=== PATIENT | male | born 1955 | race Caucasian/White ===

== ENCOUNTER 2018-02-11 07:44 | Inpatient (IN) | payer BC ==
[2018-02-11 08:28] LABS: Anisocytosis Slight; Basophils % (A) 1 %; Eosinophils # (A) 0.1 k/uL (0-0.7); Eosinophils % (A) 1 %; HCT 43.9 % (39.0-53.0); HGB 14.6 gm/dL (13.0-17.5); Lymphocytes # (A) 1.1 k/uL (1.0-4.8); Lymphocytes % (A) 21 %; MCH 31.5 pg (25.0-35.0); MCHC 33.3 g/dL (31.0-37.0); MCV 94.7 fL (80.0-100.0); Mean Platelet Volume 7.6; Monocytes # (A) 0.2 k/uL (0-1.0); Monocytes % (A) 3 %; Neutrophils # (A) 3.8 k/uL (1.3-7.7); Neutrophils % (A) 72 %; Platelet Count 143 k/uL (150-450); RBC 4.64 m/uL (4.30-5.90); RDW 16.8 % (11.5-15.5); WBC 5.4 k/uL (3.8-10.6)
[2018-02-11 08:39] LABS: Partial Thromboplastin Time 24.1 sec (22.0-30.0)
[2018-02-11] MEDS ORDERED: SODIUM CHLORIDE 0.9% 1,000 ML IV ONE ×2 (08:46→09:12)
--- NOTE | 2018-02-11 08:48 | XR ---
EXAMINATION: XR chest 2V DATE AND TIME: 02/11/2018 8:35 AM ORDERING PROVIDER: Last Lopez MD CLINICAL INDICATION: Weakness, dizziness. TECHNIQUE: PA and lateral COMPARISON: 12/23/2015 DESCRIPTION: The lungs are clear. The pleural spaces are negative. The cardiomediastinal silhouette is not enlarged on the PA view. There is, however, prominence of the soft tissues in the retrosternal space, corresponding to the anterior mediastinum. Making visualizat ion difficult is the overlap of the upper extremities over the anterior chest on this radiograph. The re are no prior CTs for comparison; the anterior mediastinal finding can be best characterized with c ontrast CT if clinically indicated in this acute setting. Otherwise, the finding can be further judith cterized by contrast CT nonurgently. Bones and soft tissues are negative for acute findings. IMPRESSION: 1. NO ACUTE PULMONARY OR PLEURAL PROCESS. 2. LATERAL RADIOGRAPH ANTERIOR MEDIASTINAL FINDING.
--- NOTE | 2018-02-11 09:18 | ED ---
General Adult HPI - General Chief complaint: Weakness Stated complaint: Weakness Time Seen by Provider: 02/11/18 07:57 Source: patient, RN notes reviewed, old records reviewed Mode of arrival: ambulatory Limitations: no limitations - History of Present Illness Initial comments: 62-year-old male presenting for evaluation of lightheadedness. Patient states he felt unsteady, felt like he may pass out. No chest pain or palpitations. No fever or chills. No abdominal pain or nausea vomiting. No diarrhea. Patient does have remote history of EtOH abuse and gastrointestinal hemorrhage. He denies any rectal bleeding or melena at this time. He states he did drink half a pint of liquor yesterday. He states he woke up felt somewhat dehydrated. He also has history of diabetes but has not been taking his medication as prescribed. - Related Data Home Medications Medication Instructions Recorded Confirmed Ezetimibe/Simvastatin [Vytorin 1 tab PO DAILY 12/20/15 09/23/17 10-40 mg Tablet] Pioglitazone HCl/Metformin HCl 1 tab PO DAILY 12/20/15 09/23/17 [Pioglitazone-Metformin 15-850] Dapagliflozin/Metformin HCl 1 tab PO DAILY 09/23/17 09/23/17 [Xigduo Xr 10 mg-1,000 mg Tab] glipiZIDE XL [Glucotrol XL] 5 mg PO DAILY 09/23/17 09/23/17 Previous Rx's Medication Instructions Recorded Albuterol Inhaler [Ventolin Hfa 1 - 2 puff INHALATION Q6HR PRN #1 09/24/17 Inhaler] inhaler Ipratropium [place] [Atrovent Hfa] 2 puff INHALATION QID #1 inhaler 09/24/17 Nicotine 21Mg/24Hr Patch [Habitrol] 1 each TRANSDERM DAILY #28 patch 09/24/17 Pantoprazole Sodium [Protonix] 40 mg PO DAILY #30 tablet. 09/24/17 Allergies Allergy/AdvReac Type Severity Reaction Status Date / Time No Known Allergies Allergy Verified 02/11/18 07:52 Review of Systems ROS Statement: Those systems with pertinent positive or pertinent negative responses have been documented in the HPI. ROS Other: All systems not noted in ROS Statement are negative. Past Medical History Past Medical History: Diabetes Mellitus, GI Bleed, Hypertension History of Any Multi-Drug Resistant Organisms: None Reported Past Surgical History: Hernia Repair, Orthopedic Surgery Past Anesthesia/Blood Transfusion Reactions: No Reported Reaction Past Psychological History: No Psychological Hx Reported Smoking Status: Current every day smoker Past Alcohol Use History: Rare Past Drug Use History: Marijuana - Past Family History Father Family Medical History: Diabetes Mellitus, Hyperlipidemia, Hypertension, Vascular Disorder General Exam Limitations: no limitations General appearance: alert, in no apparent distress Head exam: Present: atraumatic, normocephalic Eye exam: Present: normal appearance, PERRL, EOMI ENT exam: Present: mucous membranes dry Neck exam: Present: normal inspection. Absent: tenderness, meningismus Respiratory exam: Present: normal lung sounds bilaterally. Absent: respiratory distress, wheezes Cardiovascular Exam: Present: regular rate, normal rhythm Extremities exam: Present: normal inspection, full ROM. Absent: normal capillary refill, pedal edema Neurological exam: Present: alert, oriented X3, CN II-XII intact. Absent: motor sensory deficit Psychiatric exam: Present: normal affect, normal mood Skin exam: Present: warm, dry, intact. Absent: cyanosis, diaphoretic Course Vital Signs 02/11/18 02/11/18 02/11/18 07:49 08:52 09:56 Temperature 97.6 F Pulse Rate 88 91 88 Respiratory 18 18 18 Rate Blood Pressure 137/74 124/64 126/66 O2 Sat by Pulse 100 98 98 Oximetry EKG Findings - EKG Comments: EKG Findings:: EKG: Normal sinus rhythm, ventricular rate of 87, MN interval 158 , QRS duration 82, QTC 464 no signs of acute ischemia Medical Decision Making - Medical Decision Making 62-year-old male presenting with lightheadedness. Initially patient does appear quite dehydrated and admits to drinking alcohol yesterday evening. IV is established, he is given IV hydration laboratory studies are obtained. Laboratory studies are significant for white blood cell count 5.4, hemoglobin is stable at 14.6. Glucose is low 59, patient has been intermittently taking his oral hypoglycemics which includes metformin, he states he takes medication yesterday. He did not over take this medication. Urinalysis shows 4+ glucose and 1+ ketone. Patient does have an associated anion gap metabolic acidosis at 22 with a CO2 of 12 secondary to his lactic acidosis. He has a creatinine of 1.5. He received 2 L of IV hydration and his BNP and lactic are repeated. Lactic is up trending to 6.3 which does not fit with dehydration. His vitals do not promote concern for sepsis. They're stable. Patient has no abdominal pain to suggest ischemic bowel, distal pulses are intact. There is concern that this lactic acid may be secondary to dehydration versus type the lactic acidosis. As patient is on metformin and does have history of alcohol abuse. Given the not clearing of his lactic, he will be admitted for continued IV hydration and reevaluation. Case discussed with Dr. Adam who will accept admission - Lab Data Result diagrams: 02/11/18 08:17 02/11/18 11:20 Lab Results 02/11/18 02/11/18 02/11/18 Range/Units 08:17 08:17 08:17 WBC 5.4 (3.8-10.6) k/uL RBC 4.64 (4.30-5.90) m/uL Hgb 14.6 (13.0-17.5) gm/dL Hct 43.9 (39.0-53.0) % MCV 94.7 (80.0-100.0) fL MCH 31.5 (25.0-35.0) pg MCHC 33.3 (31.0-37.0) g/dL RDW 16.8 H (11.5-15.5) % Plt Count 143 L (150-450) k/uL Neutrophils % 72 % Lymphocytes % 21 % Monocytes % 3 % Eosinophils % 1 % Basophils % 1 % Neutrophils # 3.8 (1.3-7.7) k/uL Lymphocytes # 1.1 (1.0-4.8) k/uL Monocytes # 0.2 (0-1.0) k/uL Eosinophils # 0.1 (0-0.7) k/uL Basophils # 0.0 (0-0.2) k/uL Anisocytosis Slight PT (9.0-12.0) sec INR (<1.2) APTT (22.0-30.0) sec Sodium 142 (137-145) mmol/L Potassium 4.2 (3.5-5.1) mmol/L Chloride 107 (98-107) mmol/L Carbon Dioxide 14 L (22-30) mmol/L Anion Gap 21 mmol/L BUN 26 H (9-20) mg/dL Creatinine 1.50 H (0.66-1.25) mg/dL Est GFR (CKD-EPI)AfAm 57 (>60 ml/min/1.73 sqM) Est GFR (CKD-EPI)NonAf 49 (>60 ml/min/1.73 sqM) Glucose 59 L (74-99) mg/dL POC Glucose (mg/dL) (75-99) mg/dL POC Glu Sugar Trucker ID Lactic Ac Sepsis Rflx Plasma Lactic Acid Romaine (0.7-2.0) mmol/L Calcium 9.3 (8.4-10.2) mg/dL Total Bilirubin 0.7 (0.2-1.3) mg/dL AST 171 H (17-59) U/L ALT 133 H (21-72) U/L Alkaline Phosphatase 119 (38-126) U/L Total Creatine Kinase 138 (55-170) U/L CK-MB (CK-2) 1.6 (0.0-2.4) ng/mL CK-MB (CK-2) Rel Index 1.2 Troponin I <0.012 (0.000-0.034) ng/mL Total Protein 7.4 (6.3-8.2) g/dL Albumin 4.8 (3.5-5.0) g/dL Urine Color Urine Appearance (Clear) Urine pH (5.0-8.0) Ur Specific [place]cox (1.001-1.035) Urine Protein (Negative) Urine Glucose (UA) (Negative) Urine Ketones (Negative) Urine Blood (Negative) Urine Nitrite (Negative) Urine Bilirubin (Negative) Urine Urobilinogen (<2.0) mg/dL Ur Leukocyte Esterase (Negative) Blood Type Blood Type Recheck Antibody Screen Spec Expiration Date 02/11/18 02/11/18 02/11/18 Range/Units 08:17 08:17 08:17 WBC (3.8-10.6) k/uL RBC (4.30-5.90) m/uL Hgb (13.0-17.5) gm/dL Hct (39.0-53.0) % MCV (80.0-100.0) fL MCH (25.0-35.0) pg MCHC (31.0-37.0) g/dL RDW (11.5-15.5) % Plt Count (150-450) k/uL Neutrophils % % Lymphocytes % % Monocytes % % Eosinophils % % Basophils % % Neutrophils # (1.3-7.7) k/uL Lymphocytes # (1.0-4.8) k/uL Monocytes # (0-1.0) k/uL Eosinophils # (0-0.7) k/uL Basophils # (0-0.2) k/uL Anisocytosis PT 10.0 (9.0-12.0) sec INR 1.0 (<1.2) APTT 24.1 (22.0-30.0) sec Sodium (137-145) mmol/L Potassium (3.5-5.1) mmol/L Chloride (98-107) mmol/L Carbon Dioxide (22-30) mmol/L Anion Gap mmol/L BUN (9-20) mg/dL Creatinine (0.66-1.25) mg/dL Est GFR (CKD-EPI)AfAm (>60 ml/min/1.73 sqM) Est GFR (CKD-EPI)NonAf (>60 ml/min/1.73 sqM) Glucose (74-99) mg/dL POC Glucose (mg/dL) (75-99) mg/dL POC Glu Sugar Trucker ID Lactic Ac Sepsis Rflx Plasma Lactic Acid Romaine 5.5 H* (0.7-2.0) mmol/L Calcium (8.4-10.2) mg/dL Total Bilirubin (0.2-1.3) mg/dL AST (17-59) U/L ALT (21-72) U/L Alkaline Phosphatase (38-126) U/L Total Creatine Kinase (55-170) U/L CK-MB (CK-2) (0.0-2.4) ng/mL CK-MB (CK-2) Rel Index Troponin I (0.000-0.034) ng/mL Total Protein (6.3-8.2) g/dL Albumin (3.5-5.0) g/dL Urine Color Urine Appearance (Clear) Urine pH (5.0-8.0) Ur Specific [place] (1.001-1.035) Urine Protein (Negative) Urine Glucose (UA) (Negative) Urine Ketones (Negative) Urine Blood (Negative) Urine Nitrite (Negative) Urine Bilirubin (Negative) Urine Urobilinogen (<2.0) mg/dL Ur Leukocyte Esterase (Negative) Blood Type A Positive Blood Type Recheck No Antibody Screen NEGATIVE Spec Expiration Date 02/14/2018 - 231602/11/18 02/11/18 02/11/18 Range/Units 08:17 09:11 09:54 WBC (3.8-10.6) k/uL RBC (4.30-5.90) m/uL Hgb (13.0-17.5) gm/dL Hct (39.0-53.0) % MCV (80.0-100.0) fL MCH (25.0-35.0) pg MCHC (31.0-37.0) g/dL RDW (11.5-15.5) % Plt Count (150-450) k/uL Neutrophils % % Lymphocytes % % Monocytes % % Eosinophils % % Basophils % % Neutrophils # (1.3-7.7) k/uL Lymphocytes # (1.0-4.8) k/uL Monocytes # (0-1.0) k/uL Eosinophils # (0-0.7) k/uL Basophils # (0-0.2) k/uL Anisocytosis PT (9.0-12.0) sec INR (<1.2) APTT (22.0-30.0) sec Sodium (137-145) mmol/L Potassium (3.5-5.1) mmol/L Chloride (98-107) mmol/L Carbon Dioxide (22-30) mmol/L Anion Gap mmol/L BUN (9-20) mg/dL Creatinine (0.66-1.25) mg/dL Est GFR (CKD-EPI)AfAm (>60 ml/min/1.73 sqM) Est GFR (CKD-EPI)NonAf (>60 ml/min/1.73 sqM) Glucose (74-99) mg/dL POC Glucose (mg/dL) 66 L (75-99) mg/dL POC Glu Sugar Trucker ID Mariel Youssef Lactic Ac Sepsis Rflx Y Plasma Lactic Acid Romaine (0.7-2.0) mmol/L Calcium (8.4-10.2) mg/dL Total Bilirubin (0.2-1.3) mg/dL AST (17-59) U/L ALT (21-72) U/L Alkaline Phosphatase (38-126) U/L Total Creatine Kinase (55-170) U/L CK-MB (CK-2) (0.0-2.4) ng/mL CK-MB (CK-2) Rel Index Troponin I (0.000-0.034) ng/mL Total Protein (6.3-8.2) g/dL Albumin (3.5-5.0) g/dL Urine Color Yellow Urine Appearance Clear (Clear) Urine pH 5.0 (5.0-8.0) Ur Specific [place] 1.018 (1.001-1.035) Urine Protein Trace H (Negative) Urine Glucose (UA) 4+ H (Negative) Urine Ketones 1+ H (Negative) Urine Blood Negative (Negative) Urine Nitrite Negative (Negative) Urine Bilirubin Negative (Negative) Urine Urobilinogen <2.0 (<2.0) mg/dL Ur Leukocyte Esterase Negative (Negative) Blood Type Blood Type Recheck Antibody Screen Spec Expiration Date 02/11/18 02/11/18 Range/Units 11:20 11:20 WBC (3.8-10.6) k/uL RBC (4.30-5.90) m/uL Hgb (13.0-17.5) gm/dL Hct (39.0-53.0) % MCV (80.0-100.0) fL MCH (25.0-35.0) pg MCHC (31.0-37.0) g/dL RDW (11.5-15.5) % Plt Count (150-450) k/uL Neutrophils % % Lymphocytes % % Monocytes % % Eosinophils % % Basophils % % Neutrophils # (1.3-7.7) k/uL Lymphocytes # (1.0-4.8) k/uL Monocytes # (0-1.0) k/uL Eosinophils # (0-0.7) k/uL Basophils # (0-0.2) k/uL Anisocytosis PT (9.0-12.0) sec INR (<1.2) APTT (22.0-30.0) sec Sodium 141 (137-145) mmol/L Potassium 5.0 (3.5-5.1) mmol/L Chloride 107 (98-107) mmol/L Carbon Dioxide 12 L (22-30) mmol/L Anion Gap 22 mmol/L BUN 26 H (9-20) mg/dL Creatinine 1.38 H (0.66-1.25) mg/dL Est GFR (CKD-EPI)AfAm 63 (>60 ml/min/1.73 sqM) Est GFR (CKD-EPI)NonAf 54 (>60 ml/min/1.73 sqM) Glucose 110 H (74-99) mg/dL POC Glucose (mg/dL) (75-99) mg/dL POC Glu Sugar Trucker ID Lactic Ac Sepsis Rflx Plasma Lactic Acid Romaine 6.3 H* (0.7-2.0) mmol/L Calcium 8.5 (8.4-10.2) mg/dL Total Bilirubin (0.2-1.3) mg/dL AST (17-59) U/L ALT (21-72) U/L Alkaline Phosphatase (38-126) U/L Total Creatine Kinase (55-170) U/L CK-MB (CK-2) (0.0-2.4) ng/mL CK-MB (CK-2) Rel Index Troponin I (0.000-0.034) ng/mL Total Protein (6.3-8.2) g/dL Albumin (3.5-5.0) g/dL Urine Color Urine Appearance (Clear) Urine pH (5.0-8.0) Ur Specific [place] (1.001-1.035) Urine Protein (Negative) Urine Glucose (UA) (Negative) Urine Ketones (Negative) Urine Blood (Negative) Urine Nitrite (Negative) Urine Bilirubin (Negative) Urine Urobilinogen (<2.0) mg/dL Ur Leukocyte Esterase (Negative) Blood Type Blood Type Recheck Antibody Screen Spec Expiration Date Disposition Clinical Impression: Dehydration, Lactic acid acidosis Disposition: ADMITTED IP TO THIS HOSP Condition: Stable Is patient prescribed a controlled substance at d/c from ED?: No Referrals: John Vaughn MD [Primary Care Provider] - 1-2 days Decision to Admit Reason: Admit from EC Decision Date: 02/11/18 Decision Time: 12:18
[2018-02-11 09:22] LABS: Albumin 4.8 g/dL (3.5-5.0); Calcium 9.3 mg/dL (8.4-10.2); Potassium 4.2 mmol/L (3.5-5.1); Total Bilirubin 0.7 mg/dL (0.2-1.3); Total Protein 7.4 g/dL (6.3-8.2)
[2018-02-11 09:29] LABS: Creatine Kinase 138 U/L (55-170)
[2018-02-11 09:43] LABS: Creatine Kinase MB 1.6 ng/mL (0.0-2.4); Troponin I <0.012 ng/mL (0.000-0.034)
[2018-02-11 09:55] LABS: Glucose,Whole Blood 66 mg/dL (75-99)
[2018-02-11 10:50] LABS: Appearance,Urine Clear (Clear); Bilirubin,Urine Negative (Negative); Blood,Urine Negative (Negative); Color,Urine Yellow; Glucose,Urine (UA) 4+ (Negative); Ketones,Urine 1+ (Negative); Leukocyte Esterase,Urine Negative (Negative); Nitrite,Urine Negative (Negative); Protein,Urine Trace (Negative); Specific Gravity,Urine 1.018 (1.001-1.035); Urobilinogen,Urine <2.0 mg/dL (<2.0)
[2018-02-11 11:53] LABS: Calcium 8.5 mg/dL (8.4-10.2)
[2018-02-11] MEDS ORDERED: NALOXONE 0.4 MG/ML 1 ML VIAL IV PRN (12:10)
[2018-02-11] MEDS ORDERED: SODIUM CHLORIDE 0.9% 500 ML IV ONE (12:10)
[2018-02-11] MEDS: SODIUM CHLORIDE 0.9% 1,000 ML IV SCH ×2 (12:37→23:12)
[2018-02-11] MEDS: NICOTINE 21MG/24HR PATCH TRANSDERM SCH (14:13)
[2018-02-11 15:25] VITALS: RESP 18
[2018-02-11] MEDS ORDERED: guaiFENesin 600 MG TABLET.ER PO ONE (16:00)
[2018-02-11] MEDS: EZETIMIBE 10 MG TAB PO SCH (16:20)
[2018-02-11] MEDS: PANTOPRAZOLE 40 MG TABLET PO SCH (16:20)
[2018-02-11] MEDS: ATORVASTATIN 20 MG TAB PO SCH (16:20)
[2018-02-11 16:31] LABS: Glucose,Whole Blood 73 mg/dL (75-99)
[2018-02-11] MEDS: INSULIN ASPART 100 UNIT/ML 1 ML 10 ML VIAL SQ SCH (16:37)
--- NOTE | 2018-02-11 20:11 | HP ---
HISTORY AND PHYSICAL DATE OF ADMISSION: 02/11/2018. DATE OF SERVICE: 02/11/2018 PRESENTING COMPLAINT: Dizzy, lightheaded. HISTORY OF PRESENTING COMPLAINT: This is a 62-year-old patient of Dr. Vaughn whose chronic stable medical conditions include diabetes, hypertension, smoking cigarettes. The patient was here in August of this year with severe anemia and required 4 units of blood, also was found to be pancytopenic, also has Bravo's esophagus, sigmoid diverticulosis and COPD. The patient got up this morning, felt extremely dizzy and lightheaded, disoriented, having trouble walking. There is no change in speech. No headache. No double vision. No focal weakness. The patient felt his heart racing and palpitations and slight nausea, decided to come in. The patient is still smoking a few cigars a day and drinking alcohol on and off. REVIEW OF SYSTEMS: CONSTITUTIONAL: Tired. HEENT: None. RESPIRATORY: None. CARDIOVASCULAR: As above. GASTROINTESTINAL: Some heartburn. GENITOURINARY: None. MUSCULOSKELETAL: None. DERMATOLOGIC: None. HEMATOLOGIC: None. LYMPHATIC: None. PSYCHIATRY: None. NEUROLOGICAL: None. PAST HISTORY: COPD, gastric polyps, sigmoid diverticulosis, Bravo esophagus, hypertension, diabetes type 2, pancytopenia. PAST SURGICAL HISTORY: Hernia repair, orthopedic surgery. SOCIAL HISTORY: Smoking a few cigars a day. Smoked for a long time. Alcohol on and off. Occasional marijuana use. FAMILY HISTORY: Diabetes, hyperlipidemia, hypertension, vascular disorder. HOME MEDICATIONS: 1. Glucotrol XL 5 mg a day. 2. Actos. 3. Metformin 15/850 one tablet daily. 4. Prilosec 20 mg a day. 5. Vytorin 10/40 one tablet p.o. daily. 6. Xigduo 05/1000 1 tablet p.o. daily. ALLERGIES: None. EXAMINATION: VITAL SIGNS: On presentation, temperature 97.6, pulse 88, respirations 18, blood pressure 137/74, pulse ox 100% on room air. GENERAL APPEARANCE: Average built, sitting up, awake. EYES: Pupils equal. Conjunctivae normal. HEENT: External appearance of nose and ears normal. Oral cavity normal. NECK: JVD not raised. Mass not palpable. RESPIRATORY: Effort normal. LUNGS: Slightly decreased breath sounds. CARDIOVASCULAR: First and second heart sounds normal. No edema. ABDOMEN: Soft, nontender. Liver and spleen not palpable. LYMPHATIC: No lymph node palpable in neck or axillae. PSYCHIATRY: Alert and oriented x3. Mood and affect normal. NEUROLOGICAL: Pupils equal. Cranial nerves grossly intact. Power and sensation grossly intact. INVESTIGATIONS: White count 5.4, hemoglobin 14.6, platelets 143. BUN 26, creatinine 1.50. AST 131, ALT 133. BUN 26, creatinine 1.38. Patient's blood glucose was 66 and 73. ASSESSMENT: 1. This patient presented with episode of dizziness, lightheaded and disoriented. It may be noted that sugar is running on the lower side. At the same time, patient is having severe palpitation that well may be underlying arrhythmia. We need to follow Accu-Cheks rather closely. 2. Diabetes mellitus type 2, uncontrolled with hypoglycemia. 3. Essential hypertension. 4. Bravo esophagus. 5. Sigmoid diverticulosis. 6. Chronic obstructive pulmonary disease in a current smoker. 7. Chronic nicotine dependence. Patient is a cigarette smoker. PLAN: Accu-Cheks will be followed closely. Will discontinue patient's Glucotrol XL. Will get opinion from Cardiology. Patient will be kept on telemetry. Encourage him to ambulate. MMODL / IJN: [id number] /
[2018-02-11] MEDS: guaiFENesin 600 MG TABLET.ER PO SCH (20:26)
[2018-02-11 21:03] LABS: Glucose,Whole Blood 79 mg/dL (75-99)
[2018-02-12 02:10] LABS: Glucose,Whole Blood 94 mg/dL (75-99)
[2018-02-12] MEDS: INSULIN ASPART 100 UNIT/ML 1 ML 10 ML VIAL SQ SCH ×2 (06:18→12:27)
[2018-02-12 06:19] LABS: Basophils % (A) 0 %; Eosinophils # (A) 0.1 k/uL (0-0.7); Eosinophils % (A) 3 %; HCT 34.8 % (39.0-53.0); HGB 11.7 gm/dL (13.0-17.5); Lymphocytes # (A) 0.7 k/uL (1.0-4.8); Lymphocytes % (A) 21 %; MCH 30.6 pg (25.0-35.0); MCHC 33.5 g/dL (31.0-37.0); MCV 91.2 fL (80.0-100.0); Mean Platelet Volume 7.2; Monocytes # (A) 0.3 k/uL (0-1.0); Monocytes % (A) 8 %; Neutrophils % (A) 63 %; RBC 3.82 m/uL (4.30-5.90); WBC 3.2 k/uL (3.8-10.6)
[2018-02-12 06:27] LABS: Glucose,Whole Blood 117 mg/dL (75-99)
[2018-02-12 06:31] LABS: Albumin 3.3 g/dL (3.5-5.0); Calcium 8.6 mg/dL (8.4-10.2); Potassium 4.7 mmol/L (3.5-5.1); Total Protein 5.5 g/dL (6.3-8.2)
[2018-02-12] MEDS: PANTOPRAZOLE 40 MG TABLET PO SCH (06:33)
[2018-02-12 07:10] LABS: Platelet Count 77 k/uL (150-450)
[2018-02-12] MEDS: SODIUM CHLORIDE 0.9% 1,000 ML IV SCH (07:57)
[2018-02-12] MEDS: EZETIMIBE 10 MG TAB PO SCH (07:58)
[2018-02-12] MEDS: guaiFENesin 600 MG TABLET.ER PO SCH (07:58)
[2018-02-12] MEDS: ATORVASTATIN 20 MG TAB PO SCH (07:58)
[2018-02-12] MEDS: NICOTINE 21MG/24HR PATCH TRANSDERM SCH (08:00)
[2018-02-12 08:45] VITALS: PULSE 67
[2018-02-12] MEDS ORDERED: METFORMIN HCL PO SCH (09:00)
[2018-02-12] MEDS ORDERED: metFORMIN 850 MG TAB PO SCH (09:00)
[2018-02-12] MEDS ORDERED: DAPAGLIFLOZIN PO SCH (09:00)
[2018-02-12] MEDS ORDERED: PIOGLITAZONE 15 MG TAB PO SCH (09:00)
[2018-02-12 11:43] LABS: Glucose,Whole Blood 158 mg/dL (75-99)
[2018-02-12 12:41] VITALS: BP 132/72; TEMP 97
--- NOTE | 2018-02-13 13:52 | DS ---
DISCHARGE SUMMARY DATE OF ADMISSION: February 11, 2018. DATE OF DISCHARGE: February 12, 2018. FINAL DIAGNOSES: 1. Acute renal failure from decreased oral intake and patient working out in the yard. 2. Hypoglycemia, symptomatic. 3. Diabetes mellitus type 2, uncontrolled with hypoglycemia. 4. Essential hypertension. 5. Bravo's esophagus. 6. Sigmoid diverticulosis. 7. Chronic obstructive pulmonary disease in a current smoker. 8. Chronic nicotine dependence in a patient who is a cigarette smoker. HOSPITAL COURSE: This patient presented dizzy, lightheaded. Initially was thought this could be arrhythmia, but actually the patient was found to be in acute renal failure. The patient was hydrated and patient's symptoms all resolved. The patient also was hypoglycemic. The patient's glyburide was discontinued. The patient is educated about the same and also the patient's timing of two combination and diabetic pills changed to be taken 1 in the morning, 1 in the night and both of them had metformin in there. The patient educated about the same. Feeling much better. PHYSICAL EXAMINATION: On exam, lungs decreased breath sounds. Cardiovascular: 1st and 2nd sounds normal. The patient's creatinine did drop from 1.5 to 1.1 by the time of discharge. It was felt no further need for any cardiac workup. Telemetry remained unremarkable. DISCHARGE MEDICATIONS: 1. Vytorin 10/40 one tablet p.o. daily. 2. Pioglitazone/metformin 15/850 1 tab p.o. daily. 3. Prilosec 20 mg with breakfast. 4. Zinc 2-0 05/1000 1 tablet p.o. before supper. 5. Nicotine 21 mg patch. 6. Glucotrol XL was discontinued. The patient to check his Accu-Cheks in the morning. Follow up with Dr. John Vaughn in [address] Vaughn. MMSWETHAL / IJN: [id number] /
== END 2018-02-12 14:51 | disposition home or self-care (01) | DRG 683 ==
LOC: EC 07:44 → 6SEL 12:10
PROVIDERS: ADMIT Hospitalist; ATTEND Hospitalist
DX: N17.9 Acute kidney failure, unspecified (principal); E87.2 Acidosis; E11.649 Type 2 diabetes mellitus with hypoglycemia without coma; F17.210 Nicotine dependence, cigarettes, uncomplicated; I10 Essential (primary) hypertension; J44.9 Chronic obstructive pulmonary disease, unspecified; K22.70 Barrett's esophagus without dysplasia; K57.30 Diverticulosis of large intestine without perforation or abscess without bleeding; E86.0 Dehydration; Z79.84 Long term (current) use of oral hypoglycemic drugs; Z79.899 Other long term (current) drug therapy; Z86.010 Personal history of colon polyps; Z82.49 Family history of ischemic heart disease and other diseases of the circulatory system; Z83.3 Family history of diabetes mellitus; Z84.89 Family history of other specified conditions
CPT/HCPCS: 36415; 71046; 80048; 80053; 81003; 82550; 82553; 83605; 83735; 84484; 85025; 85610; 85730; 86850; 86900; 86901; 93005; 96360; 96361; 99285

== ENCOUNTER 2019-03-04 07:00 | Inpatient (IN) | payer BC, OTHER ==
[2019-03-04] MEDS ORDERED: ONDANSETRON 4 MG/2 ML VIAL IVP STA (07:09)
[2019-03-04] MEDS ORDERED: PANTOPRAZOLE 40 MG/10 ML VIAL IVP STA (07:09)
[2019-03-04] MEDS ORDERED: SODIUM CHLORIDE 0.9% 500 ML 500 ML IV STA (07:09)
[2019-03-04] MEDS ORDERED: SODIUM CHLORIDE 0.9% 1,000 ML IV STA (07:09)
--- NOTE | 2019-03-04 07:34 | ED ---
General Adult HPI - General Chief complaint: Fall Stated complaint: Fall,coughing up blood Time Seen by Provider: 03/04/19 07:00 Source: patient, EMS, RN notes reviewed Mode of arrival: EMS - History of Present Illness Initial comments: This is a 63-year-old male who presents to the emergency department with past medical history significant for diabetes and alcoholism. Patient states he drinks at least a pint today. Patient states he woke up this morning felt weak on his feet fell slowly to the ground to his knees first and then laid down. Patient states he then got up and set a chair and vomited up quite a bit of blood. Patient denies cough patient denies difficulty breathing shortness of breath patient denies any chest pain. Patient denies any black or bloody sto ols. Patient denies abdominal pain. Patient denies any recent fever or chills. Patient denies any headache patient denies numbness weakness. Patient states he does feel lightheaded however. - Related Data Home Medications Medication Instructions Recorded Confirmed Ezetimibe/Simvastatin [Vytorin 1 tab PO DAILY 12/20/15 02/11/18 10-40 mg Tablet] Pioglitazone HCl/Metformin HCl 1 tab PO DAILY 12/20/15 02/11/18 [Pioglitazone-Metformin 15-850] Omeprazole [PriLOSEC] 20 mg PO AC-BRKFST 02/11/18 02/11/18 Previous Rx's Medication Instructions Recorded Dapagliflozin/Metformin HCl 1 tab PO PC-SUPPER #0 02/12/18 [Xigduo Xr 10 mg-1,000 mg Tab] Nicotine 21Mg/24Hr Patch [Habitrol] 1 patch TRANSDERM DAILY #30 patch 02/12/18 Allergies Allergy/AdvReac Type Severity Reaction Status Date / Time No Known Allergies Allergy Verified 02/11/18 12:40 Review of Systems ROS Statement: Those systems with pertinent positive or pertinent negative responses have been documented in the HPI. ROS Other: All systems not noted in ROS Statement are negative. Past Medical History Past Medical History: Diabetes Mellitus, GI Bleed, Hypertension History of Any Multi-Drug Resistant Organisms: None Reported Past Surgical History: Hernia Repair, Orthopedic Surgery Past Anesthesia/Blood Transfusion Reactions: No Reported Reaction Past Psychological History: No Psychological Hx Reported Smoking Status: Current every day smoker Past Alcohol Use History: Rare Past Drug Use History: Marijuana Additional Drug Use History / Comment(s): PT SMOKES 2 CIGARS A DAY AND OCCASIONALLY SMOKES MARIJUANA. - Past Family History Father Family Medical History: Diabetes Mellitus, Hyperlipidemia, Hypertension, Vascular Disorder General Exam - General Exam Comments Initial Comments: GENERAL: Patient is well-developed and well-nourished. Patient is nontoxic and well-hydrated and is in mild distress. ENT: Neck is soft and supple. No significant lymphadenopathy is noted. Oropharynx is clear. Moist mucous membranes. Neck has full range of motion without eliciting any pain. EYES: The sclera were anicteric and conjunctiva were pink and moist. Extraocular movements were intact and pupils were equal round and reactive to light. Eyelids were unremarkable. PULMONARY: Unlabored respirations. Good breath sounds bilaterally. No audible rales rhonchi or wheezing was noted. CARDIOVASCULAR: There is a regular rate and rhythm without any murmurs gallops or rubs. ABDOMEN: Soft and nontender with normal bowel sounds. SKIN: Patient's skin is pale NEUROLOGIC: Patient is alert and oriented x3. Cranial nerves II through XII are grossly intact. Motor and sensory are also intact. Normal speech, volume and content. Symmetrical smile. MUSCULOSKELETAL: Normal extremities with adequate strength and full range of motion. LYMPHATICS: No significant lymphadenopathy is noted PSYCHIATRIC: Normal psychiatric evaluation. Course Vital Signs 03/04/19 03/04/19 03/04/19 07:01 07:48 08:10 Temperature 99 F Pulse Rate 128 H 126 H 129 H Respiratory 16 18 18 Rate Blood Pressure 97/57 87/58 104/63 O2 Sat by Pulse 99 100 Oximetry 03/04/19 08:41 Temperature Pulse Rate 124 H Respiratory 18 Rate Blood Pressure 101/65 O2 Sat by Pulse 99 Oximetry Medical Decision Making - Medical Decision Making EKG shows sinus tachycardia at 126 bpm WV interval 140 QRS is 60 QT interval 312 QTC is 451. Patient's EKG shows no ST segment elevation or depression. Patient's lactic acid was elevated I believe is from dehydration and alcoholic ketoacidosis and possibly the fact that the patient takes metformin. Patient received 1.5 L of fluid in the emergency department. I spoke with Dr. Vee she agreed to admit the patient admitted the patient to the ICU I wrote Ativan withdrawal protocol. I also continued fluid and repeated CBCs. I consulted Samuel and spoke with him and he agreed with the admission and I also consult the GI - Lab Data Result diagrams: 03/04/19 07:10 03/04/19 07:10 Lab Results 03/04/19 03/04/19 03/04/19 Range/Units 07:10 07:10 07:10 WBC 4.2 (3.8-10.6) k/uL RBC 2.67 L (4.30-5.90) m/uL Hgb 9.4 L (13.0-17.5) gm/dL Hct 28.0 L (39.0-53.0) % MCV 105.0 H (80.0-100.0) fL MCH 35.3 H (25.0-35.0) pg MCHC 33.6 (31.0-37.0) g/dL RDW 15.2 (11.5-15.5) % Plt Count 99 L (150-450) k/uL Neutrophils % (Manual) 71 % Lymphocytes % (Manual) 21 % Monocytes % (Manual) 8 % Neutrophils # (Manual) 2.98 (1.3-7.7) k/uL Lymphocytes # (Manual) 0.88 L (1.0-4.8) k/uL Monocytes # (Manual) 0.34 (0-1.0) k/uL Nucleated RBCs 0 (0-0) /100 WBC Manual Slide Review Performed Macrocytosis Moderate PT (9.0-12.0) sec INR (<1.2) APTT (22.0-30.0) sec Sodium 136 L (137-145) mmol/L Potassium 5.2 H (3.5-5.1) mmol/L Chloride 99 (98-107) mmol/L Carbon Dioxide 18 L (22-30) mmol/L Anion Gap 19 mmol/L BUN 23 H (9-20) mg/dL Creatinine 1.28 H (0.66-1.25) mg/dL Est GFR (CKD-EPI)AfAm 68 (>60 ml/min/1.73 sqM) Est GFR (CKD-EPI)NonAf 59 (>60 ml/min/1.73 sqM) Glucose 258 H (74-99) mg/dL Plasma Lactic Acid Romaine (0.7-2.0) mmol/L Calcium 8.6 (8.4-10.2) mg/dL Total Bilirubin 2.3 H (0.2-1.3) mg/dL AST 443 H (17-59) U/L ALT 108 H (21-72) U/L Alkaline Phosphatase 202 H (38-126) U/L Total Protein 5.8 L (6.3-8.2) g/dL Albumin 3.4 L (3.5-5.0) g/dL Amylase 40 (30-110) U/L Lipase 152 (23-300) U/L Serum Alcohol 52 mg/dL Blood Type A Positive Blood Type Recheck No Antibody Screen NEGATIVE Spec Expiration Date 03/07/2019230903/04/19 03/04/19 Range/Units 07:10 07:10 WBC (3.8-10.6) k/uL RBC (4.30-5.90) m/uL Hgb (13.0-17.5) gm/dL Hct (39.0-53.0) % MCV (80.0-100.0) fL MCH (25.0-35.0) pg MCHC (31.0-37.0) g/dL RDW (11.5-15.5) % Plt Count (150-450) k/uL Neutrophils % (Manual) % Lymphocytes % (Manual) % Monocytes % (Manual) % Neutrophils # (Manual) (1.3-7.7) k/uL Lymphocytes # (Manual) (1.0-4.8) k/uL Monocytes # (Manual) (0-1.0) k/uL Nucleated RBCs (0-0) /100 WBC Manual Slide Review Macrocytosis PT 12.6 H (9.0-12.0) sec INR 1.2 H (<1.2) APTT 19.7 L (22.0-30.0) sec Sodium (137-145) mmol/L Potassium (3.5-5.1) mmol/L Chloride (98-107) mmol/L Carbon Dioxide (22-30) mmol/L Anion Gap mmol/L BUN (9-20) mg/dL Creatinine (0.66-1.25) mg/dL Est GFR (CKD-EPI)AfAm (>60 ml/min/1.73 sqM) Est GFR (CKD-EPI)NonAf (>60 ml/min/1.73 sqM) Glucose (74-99) mg/dL Plasma Lactic Acid Romaine 10.4 H* (0.7-2.0) mmol/L Calcium (8.4-10.2) mg/dL Total Bilirubin (0.2-1.3) mg/dL AST (17-59) U/L ALT (21-72) U/L Alkaline Phosphatase (38-126) U/L Total Protein (6.3-8.2) g/dL Albumin (3.5-5.0) g/dL Amylase (30-110) U/L Lipase (23-300) U/L Serum Alcohol mg/dL Blood Type Blood Type Recheck Antibody Screen Spec Expiration Date Critical Care Time Critical Care Time: Yes Total Critical Care Time: 35 Disposition Clinical Impression: Gastrointestinal hemorrhage, Anemia, Lactic acid acidosis, Hepatitis, alcoholic Disposition: ADMITTED IP TO THIS HOSP Referrals: John Vaughn MD [Primary Care Provider] - 1-2 days Time of Disposition: 09:07
[2019-03-04 07:39] LABS: Albumin 3.4 g/dL (3.5-5.0); Calcium 8.6 mg/dL (8.4-10.2); Potassium 5.2 mmol/L (3.5-5.1); Total Bilirubin 2.3 mg/dL (0.2-1.3); Total Protein 5.8 g/dL (6.3-8.2)
[2019-03-04 07:48] LABS: INR 1.2 (<1.2); Prothrombin Time 12.6 sec (9.0-12.0)
[2019-03-04 07:51] LABS: HGB 9.4 gm/dL (13.0-17.5); MCH 35.3 pg (25.0-35.0); MCHC 33.6 g/dL (31.0-37.0); Macrocytosis Moderate; Mean Platelet Volume 9.2; RBC 2.67 m/uL (4.30-5.90); RDW 15.2 % (11.5-15.5); WBC 4.2 k/uL (3.8-10.6)
[2019-03-04 07:53] LABS: Partial Thromboplastin Time 19.7 sec (22.0-30.0)
--- NOTE | 2019-03-04 07:56 | XR ---
EXAMINATION TYPE: XR chest 2V DATE OF EXAM: 03/04/2019 COMPARISON: 02/02/2016 TECHNIQUE: PA and lateral views submitted. HISTORY: Chest. Pain FINDINGS: The lungs are clear and there is no pneumothorax, pleural effusion, or focal pneumonia. Hypertrophi c and degenerative change spine. IMPRESSION: 1. No acute process.
[2019-03-04 08:04] LABS: Platelet Count 99 k/uL (150-450)
[2019-03-04 08:35] LABS: Lymphocytes # (M) 0.88 k/uL (1.0-4.8); Monocytes # (M) 0.34 k/uL (0-1.0); Neutrophils # (M) 2.98 k/uL (1.3-7.7); Neutrophils % (M) 71 %; Nucleated Red Blood Cells 0 /100 WBC (0-0); Total Cells Counted 100
[2019-03-04] MEDS ORDERED: NALOXONE 0.4 MG/ML 1 ML VIAL IV PRN (09:11)
[2019-03-04] MEDS ORDERED: THIAMINE 100 MG/ML 2 ML VIAL IM STA (09:13)
[2019-03-04] MEDS ORDERED: LORazepam 2 MG/ML INJ IV PRN ×2 (09:13)
[2019-03-04 10:16] LABS: Glucose,Whole Blood 248 mg/dL (75-99)
[2019-03-04] MEDS ORDERED: SODIUM CHLORIDE 0.9% 2,000 ML IV ONE (10:22)
[2019-03-04] MEDS ORDERED: OCTREOTIDE 100 MCG/ML INJ IVP ONE (11:00)
[2019-03-04 11:10] LABS: Glucose,Whole Blood 247 mg/dL (75-99)
[2019-03-04] MEDS: INSULIN ASPART (NovoLOG) 100 UNIT/ML VIAL SQ SCH ×5 (11:15→23:26)
[2019-03-04] MEDS ORDERED: MELATONIN 3 MG TABLET PO PRN (11:33)
[2019-03-04] MEDS ORDERED: MORPHINE SULFATE 4 MG/ML SYRINGE IV PRN (11:33)
[2019-03-04] MEDS ORDERED: ONDANSETRON 4 MG/2 ML VIAL IVP PRN (11:33)
[2019-03-04] MEDS ORDERED: ACETAMINOPHEN TAB 325 MG TAB PO PRN (11:33)
[2019-03-04 11:39] LABS: HCT 25.3 % (39.0-53.0); HGB 8.4 gm/dL (13.0-17.5); MCH 35.1 pg (25.0-35.0); MCHC 33.3 g/dL (31.0-37.0); MCV 105.6 fL (80.0-100.0); Macrocytosis Moderate; Mean Platelet Volume 8.7; Platelet Count 102 k/uL (150-450); RDW 14.9 % (11.5-15.5); WBC 5.5 k/uL (3.8-10.6)
--- NOTE | 2019-03-04 11:40 | P.HPIM ---
History of Present Illness H&P Date: 03/04/19 Chief Complaint: vomiting up blood Patient is a 63-year-old male with a past medical history of esophageal varices diagnosed on EGD August 2017, alcohol abuse, hypertension, diabetes mellitus type 2 well controlled on oral medications, prior GI bleed, and history of diverticulitis who presented to the ER with complaints of vomiting up blood. On arrival his found to be tachycardic with a pulse of 128 slightly hypotensive with a blood pressure of 97/57.Initial laboratory analysis showed hemoglobin of 9.4 down from his prior of 11, thrombocytopenia with platelets of 99, hyperkalemia with potassium of 5.2, carbon dioxide 18, anion gap 19, lactic acid 10.4, BUN 23, creatinine 1.28, glucose 258, AST 444, ALT 108, and a serum alcohol level of 52. Chest x-ray in the ER which showed no acute process. EKG showed sinus tachycardia. He was started on IV fluids and given a dose of IV PPI. He was admitted to the ICU for further monitoring. Patient seen and examined at bedside in the ICU. He states that this morning he tried to get up around 5 AM. He walked his kitchen and felt very weak dropped to his knees, fell, and hit his head. He initially was unable to stand but eventually brought himself to standing. He sat on the couch about 20 minutes and felt better. He then tried to ambulate again and felt lightheaded and dizzy after about 3 steps. This again resolved with sitting. He then had an episode of vomiting up bright red blood. He has felt short of breath the last 2 days and it has been gradually getting worse. For the last 3 weeks he's had abdominal pain that is epigastric in nature. It gets better with taking Pepto- Bismol. He does not notice any worsening with eating. He also reports that he has had a poor appetite and has lost 15-20 pounds over the last year. He consumes approximately 1. of alcohol daily. He is doing this for the last year and he has been drinking 40-50 years in total. He reports that he has also been struggling with ALLERGIES recently and has had a runny nose, stuffy nose, sore throat, and postnasal drip. He denies any chest pain or palpitations. He did report that he felt presyncopal today but denies any syncope. He denies any history of liver disease however he follows with Dr. Guillen on a re gular basis and follow her last approximately 3 months ago. He also sees Dr. Kruse. He states his blood sugars have been running about 140. He denies any recent changes in medications. Review of Systems Pertinent positives and negatives as discussed in HPI, a complete review of systems was performed and all other systems are negative. Past Medical History Past Medical History: Diabetes Mellitus, GI Bleed, Hypertension Additional Past Medical History / Comment(s): probable COPD, anemia, Bravo's esophagus, sigmoid diverticulitis, dyslipidemia History of Any Multi-Drug Resistant Organisms: None Reported Past Surgical History: Hernia Repair, Orthopedic Surgery Additional Past Surgical History / Comment(s): bilateral carpal tunnel repair, left inguinal hernia repair Past Anesthesia/Blood Transfusion Reactions: No Reported Reaction Past Psychological History: No Psychological Hx Reported Smoking Status: Former smoker Past Alcohol Use History: Abuse Past Drug Use History: Marijuana Additional Drug Use History / Comment(s): PT SMOKES 2 CIGARS A DAY AND OCCASIONALLY SMOKES MARIJUANA. Additional History: patient was alone, does not use any assistive devices, drinks approximately 1 pint of alcohol daily, history of tobacco abuse but quit approximately one year ago - Past Family History Father Family Medical History: Diabetes Mellitus, Hyperlipidemia, Hypertension, V ascular Disorder Medications and Allergies Home Medications Medication Instructions Recorded Confirmed Type RX: Ezetimibe/Simvastatin [Vytorin 1 tab PO DAILY 12/20/15 03/04/19 History 10-40 mg Tablet] RX: Omeprazole [PriLOSEC] 20 mg PO AC-BRKFST 02/11/18 03/04/19 History RX: Dapagliflozin/Metformin HCl 1 tab PO PC-SUPPER #0 02/12/18 03/04/19 Rx [Xigduo Xr 10 mg-1,000 mg Tab] Pioglitazone HCl/Metformin HCl 1 tab PO DAILY 03/04/19 03/04/19 History [Actoplus Met Xr 30-1,000 mg Tb] Allergies Allergy/AdvReac Type Severity Reaction Status Date / Time No Known Allergies Allergy Verified 03/04/19 09:57 Physical Exam Osteopathic Statement: *. No significant issues noted on an osteopathic structural exam other than those noted in the History and Physical/Consult. Vitals: Vital Signs Temp Pulse Resp BP Pulse Ox 03/04/19 09:43 124 H 18 97/59 100 03/04/19 08:41 124 H 18 101/65 99 03/04/19 08:10 129 H 18 104/63 100 03/04/19 07:48 126 H 18 87/58 99 03/04/19 07:01 99 F 128 H 16 97/57 Intake and Output 03/03/19 03/04/19 03/04/19 22:59 06:59 14:59 Other: Weight 72.575 kg General: non toxic, mild distress, appears at stated age, normal weight Derm: no unusual rashes/lesions no unusual ecchymoses, warm, dry Head: atraumatic, normocephalic, symmetric Eyes: EOMI, no lid lag, anicteric sclera, pupils equal round reactive to light ENT: Nose and ears atraumatic, no thrush, + pharyngeal erythema Neck: No thyromegaly, no cervical lymphadenopathy, trachea midline, supple Mouth: no lip lesion, mucus membranes dry Cardiovascular: Slow and S2 tachycardic, no murmur, positive posterior tibial pulse bilateral, no edema, capillary refill less than 2 seconds Lungs: Decreased breath sounds bilateral, no rhonchi, no rales , no accessory muscle use Abdominal: soft, nontender to palpation, no guarding, no appreciable organomegaly, normal bowel sounds Ext: no gross muscle atrophy, muscle strength 5 out of 5 in all 4 extremities grossly, no contractures, Neuro: CN II-XI grossly intact, light touch intact all 4 extremities, finger to nose within normal limits, Psych: Alert, oriented, appropriate affect Results CBC & Chem 7: 03/04/19 07:10 03/04/19 07:10 Labs: Abnormal Lab Results - Last 24 Hours (Table) 03/04/19 03/04/19 03/04/19 Range/Units 07:10 07:10 07:10 RBC 2.67 L (4.30-5.90) m/uL Hgb 9.4 L (13.0-17.5) gm/dL Hct 28.0 L (39.0-53.0) % MCV 105.0 H (80.0-100.0) fL MCH 35.3 H (25.0-35.0) pg Plt Count 99 L (150-450) k/uL Lymphocytes # (Manual) 0.88 L (1.0-4.8) k/uL PT (9.0-12.0) sec INR (<1.2) APTT (22.0-30.0) sec Sodium 136 L (137-145) mmol/L Potassium 5.2 H (3.5-5.1) mmol/L Carbon Dioxide 18 L (22-30) mmol/L BUN 23 H (9-20) mg/dL Creatinine 1.28 H (0.66-1.25) mg/dL Glucose 258 H (74-99) mg/dL POC Glucose (mg/dL) (75-99) mg/dL Plasma Lactic Acid Romaine 10.4 H* (0.7-2.0) mmol/L Total Bilirubin 2.3 H (0.2-1.3) mg/dL AST 443 H (17-59) U/L ALT 108 H (21-72) U/L Alkaline Phosphatase 202 H (38-126) U/L Total Protein 5.8 L (6.3-8.2) g/dL Albumin 3.4 L (3.5-5.0) g/dL 03/04/19 03/04/19 03/04/19 Range/Units 07:10 09:56 11:08 RBC (4.30-5.90) m/uL Hgb (13.0-17.5) gm/dL Hct (39.0-53.0) % MCV (80.0-100.0) fL MCH (25.0-35.0) pg Plt Count (150-450) k/uL Lymphocytes # (Manual) (1.0-4.8) k/uL PT 12.6 H (9.0-12.0) sec INR 1.2 H (<1.2) APTT 19.7 L (22.0-30.0) sec Sodium (137-145) mmol/L Potassium (3.5-5.1) mmol/L Carbon Dioxide (22-30) mmol/L BUN (9-20) mg/dL Creatinine (0.66-1.25) mg/dL Glucose (74-99) mg/dL POC Glucose (mg/dL) 248 H 247 H (75-99) mg/dL Plasma Lactic Acid Romaine (0.7-2.0) mmol/L Total Bilirubin (0.2-1.3) mg/dL AST (17-59) U/L ALT (21-72) U/L Alkaline Phosphatase (38-126) U/L Total Protein (6.3-8.2) g/dL Albumin (3.5-5.0) g/dL Comments: EKG is reviewed by myself reveals sinus tachycardia rate 126, left axis deviation, no significant ST-T wave changes, and normal intervals. Chest x-ray: report reviewed Thrombosis Risk Factor Assmnt - DVT/VTE Prophylaxis DVT/VTE Prophylaxis: Mechanical Prophylaxis ordered Assessment and Plan Assessment: upper GI bleed, likely secondary to esophageal varices -Ice chips and meds -IV PPI twice a day, octreotide, Rocephin 1 g daily -GI recommendations appreciated and case discussed with Dr. Bailey -Serial CBCs -Transfuse if hemoglobin less than 7 acute blood loss anemia, secondary to above, Associated with thrombocytopenia - Follow CBC -Patient is okay with blood transfusion as needed -Check iron studies, B12, and folic acid -possibly secondary to alcohol abuse Transaminitis -Suspect alcoholic hepatitis -GI recommendations -Liver ultrasound if has not been done in the outpatient clinic Alcohol abuse with impending DTs -[facility] protocol -Thiamine and folic acid supplementation -Seizure precautions Lactic acidosis -Likely secondary to GI bleed in conjunction with chronic liver disease -IV fluids -Repeat lactic acid Diabetes mellitus type 2 with hyperglycemia -Hold oral medications -Sliding-scale insulin -Check hemoglobin A1c Anion gap metabolic acidosis secondary to lactic acid -Treatment as listed above Hypertension by history -Not chronically on the antihypertensive medications -Follow blood pressures as they are low normal Dyslipidemia -Hold statin medications at this point in time, plan on resuming on discharge History of Bravo's esophagus -IV PPI -Plan on resuming omeprazole on discharge The patient is admitted with an anticipated greater than 2 midnight stay for evaluation of [GI bleed]. Surrogate decision-maker: BrotherReid Liu CODE STATUS:No CPR, okay with elective intubation and IV vasopresors DVT prophylaxis: SCDS Discussed with: Patient, nursing, Dr. Bailey Anticipated discharge date: 3-[address]: home A total of 65 minutes was spent on the care of this complex patient more than 50% of the time was spent in counseling and care coordination.
[2019-03-04] MEDS: OCTREOTIDE 500 MCG in SODIUM CHLORIDE 0.9% 250 ML IV SCH (11:41)
[2019-03-04] MEDS ORDERED: ATROPINE SULFATE 0.1 MG/ML 10ML SYRINGE ONE (11:45)
[2019-03-04 12:25] LABS: Band Neutrophils % 1 %; Lymphocytes # (M) 0.55 k/uL (1.0-4.8); Monocytes # (M) 0.55 k/uL (0-1.0); Neutrophils % (M) 79 %; Nucleated Red Blood Cells 0 /100 WBC (0-0); Total Cells Counted 100
[2019-03-04 12:27] LABS: Stomatocytes Present
--- NOTE | 2019-03-04 12:46 | P.CNPUL ---
History of Present Illness Consult date: 03/04/19 History of present illness: 63-year-old male patient, alcoholic drinks a pint of liquor on a daily basis whereas undergone previous EGD approximately 2 years ago and the patient will was found to have a component of mild esophageal varices, and Bravo's esophagus. The patient is also known to have hypertension and diabetes mellitus. He is also known to have diverticulosis. He came into the hospital because of hematemesis. He was throwing up blood and the amount is estimated to be around 300 mL. He is on-call level was elevated at 52. He was consuming alcohol in excess. He was slightly tachycardic and his heart rate was in the 120 to 1:30 range and was sinus. Blood pressure was slightly lower. He was given IV fluids a total of 2 L in the emergency department and he was started on IV proton pump inhibitors and the patient was admitted to the hospital. He is feeling weak. He has no chest pain. No aspiration. He has a chronic congested cough as the patient has COPD and the patient has quit smoking approximately year ago. He is a bit shaky yet these alert and awake in no agitation and there is no mental status change. He is on the CIWA protocol for now. LFTs are abnormal related to chronic alcohol consumption. Abdomen is nondistended this point in time. Chest x-ray is not showing any acute abnormalities. Review of Systems Constitutional: Reports fatigue, Reports weakness Eyes: denies as per HPI, denies blurred vision, denies bulging eye, denies decreased vision, denies diplopia, denies discharge, denies dry eye, denies irritation, denies itching, denies pain, denies photophobia, denies loss of peripheral vision, denies loss of vision, denies tunnel vision/blind spots Ears: deny: decreased hearing, ear discharge, earache, tinnitus Ears, nose, mouth and throat: Denies headache, Denies sore throat Cardiovascular: Reports as per HPI Respiratory: Reports as per HPI Gastrointestinal: Reports hematemesis, Reports nausea Genitourinary: Reports as per HPI Musculoskeletal: Reports as per HPI Musculoskeletal: absent: ankle pain, ankle stiffness, ankle swelling Integumentary: Reports as per HPI Neurological: Reports as per HPI Psychiatric: Reports as per HPI Endocrine: Reports as per HPI Hematologic/Lymphatic: Reports as per HPI Allergic/Immunologic: Reports as per HPI Past Medical History Past Medical History: Diabetes Mellitus, GI Bleed, Hypertension Additional Past Medical History / Comment(s): COPD, anemia, Bravo's esophagus, sigmoid diverticulitis/diverticulosis, dyslipidemia, Bravo's esophagus, portal hypertension 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 - Past Family History Father Family Medical History: Diabetes Mellitus, Hyperlipidemia, Hypertension, Vascular Disorder Medications and Allergies Home Medications Medication Instructions Recorded Confirmed Type Ezetimibe/Simvastatin [Vytorin 1 tab PO DAILY 12/20/15 03/04/19 History 10-40 mg Tablet] Omeprazole [PriLOSEC] 20 mg PO AC-BRKFST 02/11/18 03/04/19 History Dapagliflozin/Metformin HCl 1 tab PO PC-SUPPER #0 02/12/18 03/04/19 Rx [Xigduo Xr 10 mg-1,000 mg Tab] Pioglitazone HCl/Metformin HCl 1 tab PO DAILY 03/04/19 03/04/19 History [Actoplus Met Xr 30-1,000 mg Tb] Allergies Allergy/AdvReac Type Severity Reaction Status Date / Time No Known Allergies Allergy Verified 03/04/19 09:57 Physical Exam Vitals: Vital Signs Temp Pulse Resp BP Pulse Ox 03/04/19 12:00 99.2 F 111 H 13 104/67 97 03/04/19 11:30 117 H 25 H 104/67 97 03/04/19 11:00 126 H 16 93/63 100 03/04/19 10:00 98.9 F 120 H 15 102/68 99 03/04/19 09:43 124 H 18 97/59 100 03/04/19 08:41 124 H 18 101/65 99 03/04/19 08:10 129 H 18 104/63 100 03/04/19 07:48 126 H 18 87/58 99 03/04/19 07:01 99 F 128 H 16 97/57 Intake and Output 03/03/19 03/04/19 03/04/19 22:59 06:59 14:59 Intake Total 2074 Balance 2074 Intake: IV 2074 Sodium Chloride 0.9% 1, 75 000 ml @ 75 mls/hr IV . [id number] [facility] Rx#:[id number] Sodium Chloride 0.9% 2, 2000 000 ml @ 999 mls/hr IV . Q2H1M [facility] Rx#:[id number] Other: # Voids 1 # Bowel Movements 1 Weight 72.575 kg The patient appeared well nourished and normally developed. Vital signs as documented. Head exam is unremarkable. No scleral icterus or corneal arcus noted. Neck is without jugular venous distension, thyromegaly, or carotid bruits. Carotid upstrokes are brisk bilaterally. Lungs are clear to auscultation and percussion. Cardiac exam reveals the PMI to be normally sized and situated. Rhythm is regular. First and second heart sounds normal. No murmurs, rubs or gallops. Abdominal exam reveals normal bowel sounds, no masses, no organomegaly and no aortic enlargement. Extremities are nonedematous and both femoral and pedal pulses are normal.Examination of the skin revealed no evidence of significant rashes, suspicious appearing nevi or other concerning lesions. Neurologically is awake and alert and there is no focal neurological deficit. Results - Laboratory Findings CBC and BMP: 03/04/19 11:05 03/04/19 07:10 PT/INR, D-dimer PT 12.6 sec (9.0-12.0) H 03/04/19 07:10 INR 1.2 (<1.2) H 03/04/19 07:10 Abnormal lab findings: Abnormal Labs 03/04/19 03/04/19 03/04/19 07:10 07:10 07:10 RBC 2.67 L Hgb 9.4 L Hct 28.0 L MCV 105.0 H MCH 35.3 H Plt Count 99 L Lymphocytes # (Manual) 0.88 L PT INR APTT Sodium 136 L Potassium 5.2 H Carbon Dioxide 18 L BUN 23 H Creatinine 1.28 H Glucose 258 H POC Glucose (mg/dL) Plasma Lactic Acid Romaine 10.4 H* Total Bilirubin 2.3 H AST 443 H ALT 108 H Alkaline Phosphatase 202 H Total Protein 5.8 L Albumin 3.4 L 03/04/19 03/04/19 03/04/19 07:10 09:56 11:05 RBC Hgb Hct MCV MCH Plt Count Lymphocytes # (Manual) PT 12.6 H INR 1.2 H APTT 19.7 L Sodium Potassium Carbon Dioxide BUN Creatinine Glucose POC Glucose (mg/dL) 248 H Plasma Lactic Acid Romaine 6.4 H* Total Bilirubin AST ALT Alkaline Phosphatase Total Protein Albumin 03/04/19 03/04/19 11:05 11:08 RBC 2.40 L Hgb 8.4 L Hct 25.3 L MCV 105.6 H MCH 35.1 H Plt Count 102 L Lymphocytes # (Manual) 0.55 L PT INR APTT Sodium Potassium Carbon Dioxide BUN Creatinine Glucose POC Glucose (mg/dL) 247 H Plasma Lactic Acid Romaine Total Bilirubin AST ALT Alkaline Phosphatase Total Protein Albumin - Diagnostic Findings Chest x-ray: image reviewed Assessment and Plan Plan: Assessment 1 upper GI bleeding in a patient known to alcoholism and alcoholic liver disease/cirrhosis. EGD from 2 years ago at shown evidence of Bravo's esophagus/gastric polyp and addition to small distal esophageal varices. Based on all this, it's likely that this is an alcohol related GI bleed. Could be gastritis. Could be esophagitis. Could be related to portal hypertension and esophageal variceal bleeding. EGD will be needed 2 liver cirrhosis 3 alcoholism 4 acute alcohol intoxication with an alcohol level of 52 5 history of diverticulosis and previous history of sigmoid polyp that has been resected 6 abnormal LFTs related to alcoholic hepatitis 7 chronic anemia and thrombocytopenia related to alcoholism 8 acute kidney injury secondary to above 9 lactic acidosis secondary to above 10 sinus tachycardia secondary to intravascular volume depletion secondary to above Plan Continue fluid resuscitation. The patient will be given 2 L bolus immediately and the patient will be given IV fluids along with thiamine and folate. IV Protonix. Monitor hemoglobin. GI is on the case. Addition of octreotide is reasonable. We'll follow. We'll watch for any signs of delirium tremens.
[2019-03-04] MEDS: 1: MVI, ADULT NO.4 WITH VIT K 10 ML, THIAMINE 100 MG, FOLIC ACID 1 MG in SODIUM CHLORIDE IV SCH ×8 (13:28→20:13)
[2019-03-04] MEDS: SODIUM CHLORIDE 0.9% 1,000 ML IV SCH (17:23)
[2019-03-04 17:28] LABS: Glucose,Whole Blood 162 mg/dL (75-99)
[2019-03-04] MEDS: THIAMINE 100 MG TAB PO SCH ×2 (18:09→18:25)
[2019-03-04 18:10] LABS: HCT 22.7 % (39.0-53.0); HGB 7.6 gm/dL (13.0-17.5); MCH 34.7 pg (25.0-35.0); MCHC 33.5 g/dL (31.0-37.0); MCV 103.6 fL (80.0-100.0); Macrocytosis Slight; Mean Platelet Volume 8.1; RBC 2.19 m/uL (4.30-5.90); RDW 14.6 % (11.5-15.5); WBC 2.2 k/uL (3.8-10.6)
[2019-03-04 18:12] LABS: Platelet Count 61 k/uL (150-450)
[2019-03-04 19:09] LABS: Lymphocytes # (M) 0.35 k/uL (1.0-4.8); Monocytes # (M) 0.13 k/uL (0-1.0); Neutrophils # (M) 1.72 k/uL (1.3-7.7); Neutrophils % (M) 78 %; Nucleated Red Blood Cells 0 /100 WBC (0-0); Total Cells Counted 100
[2019-03-04] MEDS: PANTOPRAZOLE 40 MG/10 ML VIAL IV SCH (20:12)
--- NOTE | 2019-03-04 22:28 | P.CONS ---
History of Present Illness - Reason for Consult Consult date: 03/04/19 GI bleed Requesting physician: Marylou Vee - Chief Complaint Vomiting blood - History of Present Illness 63-year-old male with a medical history significant for esophageal varices diagnosed on EGD in 08/2017, alcohol abuse, hypertension, diabetes mellitus type 2, previous GI bleed and diverticulitis who presented with complaints of vomiting blood. The patient reports a near syncopal episode with associated dizziness and lightheadedness prior to presentation. Subsequent to this the patient reports an episode of vomiting bright red blood. The patient subsequently presented to the emergency department for further evaluation. He reports epigastric abdominal pain over the past few weeks which is improved with Pepto-Bismol and worsened with eating. He also reports noticing dark bowel movements recently. He has a 40-50 year history of alcohol abuse currently drinking approximately 1 pint of alcohol daily. He denies any episodes of confusion or history of encephalopathy. He denies any history of ascites or upper requiring a paracentesis. He does follow-up in the gastroenterology clinic with Dr. Guillen. On presentation to the hospital he was found to be tachycardiac and hypotensive and taken to the ICU for further care. Hemoglobin on presentation was 9.4 down from 11 on his previous admission with platelet count 99,000, creatinine 1.28, AST 444, ALT 108, and serum alcohol level 52. Review of Systems REVIEW OF SYSTEMS: CONSTITUTIONAL: Denies any fevers, chills, but he does report weight loss and fatigue. CARDIOVASCULAR: Denies any chest pain, palpitations high or low blood pressures RESPIRATORY: Denies any hemoptysis or cough, but does report shortness of breath. GENITOURINARY: No dysuria or hematuria. MUSCULOSKELETAL: No weakness reported. SKIN: Denies any new rashes or lesions, jaundice or pallor. PSYCHIATRIC: Denies any depression or anxiety. NEUROLOGY: Denies headache, denies any new focal deficits. EARS/NOSE/THROAT: No recent hearing change, but has had congestion and nasal discharge due to ALLERGIES.. EYES: No pain in eyes, discharge or change in vision. GASTROINTESTINAL: As per HPI. Past Medical History Past Medical History: Diabetes Mellitus, GI Bleed, Hypertension Additional Past Medical History / Comment(s): COPD, anemia, Colon's esophagus, sigmoid diverticulitis/diverticulosis, dyslipidemia, Colon's esophagus, portal hypertension 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 - Past Family History Father Family Medical History: Diabetes Mellitus, Hyperlipidemia, Hypertension, Vascular Disorder Medications and Allergies Home Medications Medication Instructions Recorded Confirmed Type Ezetimibe/Simvastatin [Vytorin 1 tab PO DAILY 12/20/15 03/04/19 History 10-40 mg Tablet] Omeprazole [PriLOSEC] 20 mg PO AC-BRKFST 02/11/18 03/04/19 History Dapagliflozin/Metformin HCl 1 tab PO PC-SUPPER #0 02/12/18 03/04/19 Rx [Xigduo Xr 10 mg-1,000 mg Tab] Pioglitazone HCl/Metformin HCl 1 tab PO DAILY 03/04/19 03/04/19 History [Actoplus Met Xr 30-1,000 mg Tb] Allergies Allergy/AdvReac Type Severity Reaction Status Date / Time No Known Allergies Allergy Verified 03/04/19 09:57 Physical Exam Vitals: Vital Signs Temp Pulse Resp BP Pulse Ox 03/04/19 19:00 113 H 14 115/75 98 03/04/19 18:30 112 H 27 H 101/68 100 03/04/19 18:00 107 H 10 L 108/73 99 03/04/19 17:30 117 H 14 90/69 100 03/04/19 17:00 114 H 17 99/68 96 03/04/19 16:00 98.8 F 104 H 14 98/64 100 03/04/19 15:00 125 H 13 87/59 98 03/04/19 14:00 110 H 14 92/60 96 03/04/19 13:00 115 H 11 L 99/64 94 L 03/04/19 12:00 99.2 F 111 H 13 104/67 97 03/04/19 11:30 117 H 25 H 104/67 97 03/04/19 11:00 126 H 16 93/63 100 03/04/19 10:00 98.9 F 120 H 15 102/68 99 03/04/19 09:43 124 H 18 97/59 100 03/04/19 08:41 124 H 18 101/65 99 03/04/19 08:10 129 H 18 104/63 100 03/04/19 07:48 126 H 18 87/58 99 03/04/19 07:01 99 F 128 H 16 97/57 Intake and Output 03/04/19 03/04/19 03/04/19 06:59 14:59 22:59 Intake Total 2425 500 Balance 2425 500 Intake: IV 2425 500 Mvi, Adult No.4 with Vit 300 500 K 10 ml Thiamine 100 mg Folic Acid 1 mg In Sodium Chloride 0.9% 1,000 ml @ 100 mls/hr IV .BY DURATION [facility] Rx#: [id number] Sodium Chloride 0.9% 1, 75 000 ml @ 75 mls/hr IV . [id number] [facility] Rx#:[id number] Sodium Chloride 0.9% 2, 2000 000 ml @ 999 mls/hr IV . Q2H1M [facility] Rx#:[id number] cefTRIAXone 1 gm In 50 Sodium Chloride 0.9% 50 ml @ 100 mls/hr IVPB Q24HR [facility] Rx#:[id number] Other: Voiding Method Bedside Commode Bedside Commode # Voids 1 1 # Bowel Movements 1 1 Weight 72.575 kg On physical examination, patient appears comfortable in no apparent distress. HEAD: Normocephalic, atraumatic. EYES: No scleral icterus. No conjunctival injection. MOUTH: No lesions, tongue midline. NECK: Trachea midline, no gross abnormalities. CHEST: decreased air entry bilaterally. HEART: S1-S2 appreciated, no murmurs, tachycardic. ABDOMEN: Soft, obese. Bowel sounds are positive. No organomegaly. No guarding or rigidity. EXTREMITIES: No pedal edema. SKIN: No rashes, no jaundice. NEUROLOGIC: Alert and oriented x3. No focal deficits. Results CBC & Chem 7: 03/04/19 17:54 03/04/19 07:10 Labs: Abnormal Lab Results - Last 24 Hours (Table) 03/04/19 03/04/19 03/04/19 Range/Units 07:10 07:10 07:10 WBC (3.8-10.6) k/uL RBC 2.67 L (4.30-5.90) m/uL Hgb 9.4 L (13.0-17.5) gm/dL Hct 28.0 L (39.0-53.0) % MCV 105.0 H (80.0-100.0) fL MCH 35.3 H (25.0-35.0) pg Plt Count 99 L (150-450) k/uL Lymphocytes # (Manual) 0.88 L (1.0-4.8) k/uL PT (9.0-12.0) sec INR (<1.2) APTT (22.0-30.0) sec Sodium 136 L (137-145) mmol/L Potassium 5.2 H (3.5-5.1) mmol/L Carbon Dioxide 18 L (22-30) mmol/L BUN 23 H (9-20) mg/dL Creatinine 1.28 H (0.66-1.25) mg/dL Glucose 258 H (74-99) mg/dL POC Glucose (mg/dL) (75-99) mg/dL Plasma Lactic Acid Romaine 10.4 H* (0.7-2.0) mmol/L Total Bilirubin 2.3 H (0.2-1.3) mg/dL AST 443 H (17-59) U/L ALT 108 H (21-72) U/L Alkaline Phosphatase 202 H (38-126) U/L Total Protein 5.8 L (6.3-8.2) g/dL Albumin 3.4 L (3.5-5.0) g/dL 03/04/19 03/04/19 03/04/19 Range/Units 07:10 09:56 11:05 WBC (3.8-10.6) k/uL RBC (4.30-5.90) m/uL Hgb (13.0-17.5) gm/dL Hct (39.0-53.0) % MCV (80.0-100.0) fL MCH (25.0-35.0) pg Plt Count (150-450) k/uL Lymphocytes # (Manual) (1.0-4.8) k/uL PT 12.6 H (9.0-12.0) sec INR 1.2 H (<1.2) APTT 19.7 L (22.0-30.0) sec Sodium (137-145) mmol/L Potassium (3.5-5.1) mmol/L Carbon Dioxide (22-30) mmol/L BUN (9-20) mg/dL Creatinine (0.66-1.25) mg/dL Glucose (74-99) mg/dL POC Glucose (mg/dL) 248 H (75-99) mg/dL Plasma Lactic Acid Romaine 6.4 H* (0.7-2.0) mmol/L Total Bilirubin (0.2-1.3) mg/dL AST (17-59) U/L ALT (21-72) U/L Alkaline Phosphatase (38-126) U/L Total Protein (6.3-8.2) g/dL Albumin (3.5-5.0) g/dL 03/04/19 03/04/19 03/04/19 Range/Units 11:05 11:08 17:26 WBC (3.8-10.6) k/uL RBC 2.40 L (4.30-5.90) m/uL Hgb 8.4 L (13.0-17.5) gm/dL Hct 25.3 L (39.0-53.0) % MCV 105.6 H (80.0-100.0) fL MCH 35.1 H (25.0-35.0) pg Plt Count 102 L (150-450) k/uL Lymphocytes # (Manual) 0.55 L (1.0-4.8) k/uL PT (9.0-12.0) sec INR (<1.2) APTT (22.0-30.0) sec Sodium (137-145) mmol/L Potassium (3.5-5.1) mmol/L Carbon Dioxide (22-30) mmol/L BUN (9-20) mg/dL Creatinine (0.66-1.25) mg/dL Glucose (74-99) mg/dL POC Glucose (mg/dL) 247 H 162 H (75-99) mg/dL Plasma Lactic Acid Romaine (0.7-2.0) mmol/L Total Bilirubin (0.2-1.3) mg/dL AST (17-59) U/L ALT (21-72) U/L Alkaline Phosphatase (38-126) U/L Total Protein (6.3-8.2) g/dL Albumin (3.5-5.0) g/dL 03/04/19 Range/Units 17:54 WBC 2.2 L (3.8-10.6) k/uL RBC 2.19 L (4.30-5.90) m/uL Hgb 7.6 L (13.0-17.5) gm/dL Hct 22.7 L (39.0-53.0) % MCV 103.6 H (80.0-100.0) fL MCH (25.0-35.0) pg Plt Count 61 L (150-450) k/uL Lymphocytes # (Manual) 0.35 L (1.0-4.8) k/uL PT (9.0-12.0) sec INR (<1.2) APTT (22.0-30.0) sec Sodium (137-145) mmol/L Potassium (3.5-5.1) mmol/L Carbon Dioxide (22-30) mmol/L BUN (9-20) mg/dL Creatinine (0.66-1.25) mg/dL Glucose (74-99) mg/dL POC Glucose (mg/dL) (75-99) mg/dL Plasma Lactic Acid Romaine (0.7-2.0) mmol/L Total Bilirubin (0.2-1.3) mg/dL AST (17-59) U/L ALT (21-72) U/L Alkaline Phosphatase (38-126) U/L Total Protein (6.3-8.2) g/dL Albumin (3.5-5.0) g/dL Chest x-ray: report reviewed (chest x-ray on admission negative for any acute process) Assessment and Plan (1) Gastrointestinal hemorrhage Narrative/Plan: 63-year-old male with multiple medical comorbidities including Colon's esophagus, small esophageal varices, alcohol abuse, alcoholic liver disease and pancytopenia who presents to the hospital with complaints of hematemesis. Patient reports vomiting blood with associated dizziness, weakness and near syncopal episode. Differential includes peptic ulcer disease, Kell-Viera tear, variceal bleed, or other etiology. Current Visit: Yes Status: Acute Code(s): K92.2 - GASTROINTESTINAL HEMORRHAGE, UNSPECIFIED SNOMED Code(s): 86730953 (2) Anemia associated with acute blood loss Current Visit: Yes Status: Acute Code(s): D62 - ACUTE POSTHEMORRHAGIC ANEMIA SNOMED Code(s): 722468331 (3) Hepatitis, alcoholic Current Visit: Yes Status: Acute Code(s): K70.10 - ALCOHOLIC HEPATITIS WITHOUT ASCITES SNOMED Code(s): 642566068 (4) Barretts esophagus Current Visit: No Status: Acute Code(s): K22.70 - COLON'S ESOPHAGUS WITHOUT DYSPLASIA SNOMED Code(s): 480247918 Plan: Supportive care Nothing by mouth Continue Protonix IV 40 mg twice a day Continue Sandostatin Continue to monitor hemoglobin and hematocrit and transfuse as needed Continue to monitor for further signs or symptoms of GI bleeding Plan for EGD in the morning for further evaluation Alcohol abstinence Continue to monitor CMP, liver enzymes and INR Ceftriaxone for SBP prophylaxis Thank you for allowing us to participate in the care of the patient we will continue to follow
[2019-03-04 23:21] LABS: Glucose,Whole Blood 158 mg/dL (75-99)
[2019-03-04 23:42] LABS: Appearance,Urine Clear (Clear); Bilirubin,Urine 1+ (Negative); Blood,Urine Negative (Negative); Color,Urine Orange; Glucose,Urine (UA) Negative (Negative); Ketones,Urine 1+ (Negative); Leukocyte Esterase,Urine Negative (Negative); Nitrite,Urine Negative (Negative); PH, Urine 5.5 (5.0-8.0); Protein,Urine Trace (Negative); Specific Gravity,Urine 1.023 (1.001-1.035)
[2019-03-05] MEDS: LORazepam 2 MG/ML INJ IV PRN ×2 (00:24→11:01)
[2019-03-05 00:38] LABS: Basophils % (A) 0 %; Eosinophils # (A) 0.1 k/uL (0-0.7); Eosinophils % (A) 2 %; HCT 21.8 % (39.0-53.0); Lymphocytes # (A) 0.3 k/uL (1.0-4.8); Lymphocytes % (A) 12 %; MCH 33.8 pg (25.0-35.0); MCHC 31.6 g/dL (31.0-37.0); Macrocytosis Moderate; Mean Platelet Volume 8.7; Monocytes # (A) 0.1 k/uL (0-1.0); Monocytes % (A) 5 %; Neutrophils # (A) 1.9 k/uL (1.3-7.7); Neutrophils % (A) 77 %; RBC 2.04 m/uL (4.30-5.90); RDW 14.6 % (11.5-15.5); WBC 2.4 k/uL (3.8-10.6)
[2019-03-05 00:44] LABS: HGB 6.9 gm/dL (13.0-17.5); Platelet Count 57 k/uL (150-450)
[2019-03-05] MEDS: 1: MVI, ADULT NO.4 WITH VIT K 10 ML, THIAMINE 100 MG, FOLIC ACID 1 MG in SODIUM CHLORIDE IV SCH ×12 (00:45→20:43)
[2019-03-05] MEDS: SODIUM CHLORIDE 0.9% 1,000 ML IV SCH ×2 (01:53→19:51)
[2019-03-05] MEDS: INSULIN ASPART (NovoLOG) 100 UNIT/ML VIAL SQ SCH ×4 (05:02→22:07)
[2019-03-05 05:03] LABS: Glucose,Whole Blood 142 mg/dL (75-99)
[2019-03-05 06:13] LABS: INR 1.3 (<1.2); Prothrombin Time 13.1 sec (9.0-12.0)
[2019-03-05 06:15] LABS: Albumin 2.8 g/dL (3.5-5.0); Calcium 7.3 mg/dL (8.4-10.2); Magnesium 1.5 mg/dL (1.6-2.3); Potassium 3.8 mmol/L (3.5-5.1); Total Bilirubin 1.9 mg/dL (0.2-1.3)
[2019-03-05 06:19] LABS: Basophils % (A) 1 %; Eosinophils # (A) 0.1 k/uL (0-0.7); Eosinophils % (A) 4 %; HCT 21.6 % (39.0-53.0); Lymphocytes # (A) 0.3 k/uL (1.0-4.8); Lymphocytes % (A) 15 %; MCH 34.2 pg (25.0-35.0); MCHC 31.3 g/dL (31.0-37.0); MCV 109.4 fL (80.0-100.0); Macrocytosis Marked; Mean Platelet Volume 8.5; Monocytes # (A) 0.1 k/uL (0-1.0); Monocytes % (A) 6 %; Neutrophils # (A) 1.3 k/uL (1.3-7.7); Neutrophils % (A) 70 %; RBC 1.97 m/uL (4.30-5.90); RDW 14.4 % (11.5-15.5); WBC 1.8 k/uL (3.8-10.6)
[2019-03-05 06:20] LABS: HGB 6.7 gm/dL (13.0-17.5); Platelet Count 54 k/uL (150-450)
[2019-03-05] MEDS: OCTREOTIDE 500 MCG in SODIUM CHLORIDE 0.9% 250 ML IV SCH ×2 (06:33→23:56)
[2019-03-05] MEDS: MAGNESIUM SULFATE-D5W PMX 1 GM in DEXTROSE/WATER 1 100ML.BAG IVPB SCH ×4 (06:33→23:54)
[2019-03-05] MEDS: THIAMINE 100 MG TAB PO SCH ×2 (07:23→19:15)
[2019-03-05] MEDS ORDERED: PROPOFOL 10 MG/ML 20 ML VIAL IV ONE (07:53)
[2019-03-05] MEDS ORDERED: IV FLUID CONTINUATION 1,000 ML IV ONE (07:56)
[2019-03-05] MEDS ORDERED: SODIUM CHLORIDE 0.9% 500 ML 500 ML IV ONE (08:22)
--- NOTE | 2019-03-05 08:34 | P.PCN ---
Date of Procedure: 03/05/19 Description of Procedure: BRIEF HISTORY: 63-year-old male with a medical history significant for esophageal varices diagnosed on EGD in 08/2017, alcohol abuse, hypertension, diabetes mellitus type 2, previous GI bleed and diverticulitis who presented with complaints of vomiti ng blood. The patient reports a near syncopal episode with associated dizziness and lightheadedness prior to presentation. Subsequent to this the patient reports an episode of vomiting bright red blood. The patient subsequently presented to the emergency department for further evaluation. He reports epigastric abdominal pain over the past few weeks which is improved with Pepto- Bismol and worsened with eating. He also reports noticing dark bowel movements recently. He has a 40-50 year history of alcohol abuse currently drinking approximately 1 pint of alcohol daily. He denies any episodes of confusion or history of encephalopathy. He denies any history of ascites or upper requiring a paracentesis. He does follow-up in the gastroenterology clinic with Dr. Guillen. On presentation to the hospital he was found to be tachycardiac and hypotensive and taken to the ICU for further care. Hemoglobin on presentation was 9.4 down from 11 on his previous admission with platelet count 99,000, creatinine 1.28, AST 444, ALT 108, and serum alcohol level 52. PROCEDURE PERFORMED: Esophagogastroduodenoscopy with biopsy and esophageal variceal banding. PREOPERATIVE DIAGNOSIS: Anemia of acute blood loss, hematemesis. ESTIMATED BLOOD LOSS: Minimal. IV sedation per anesthesia. PROCEDURE: After informed consent was obtained, the patient was brought into the endoscopy unit. IV sedation was administered by Anesthesia under continuous monitoring. Initially the Olympus GIF-190 video endoscope was inserted into the mouth. Esophagus intubated without any difficulty. It was gradually advanced into the stomach and duodenum and carefully examined. The bulb and the second part of the duodenum appeared normal, with biopsies taken. The scope at this time was withdrawn to the stomach, adequately insufflated with air, and upon careful examination, mucosa of the antrum, body, cardia and the fundus were significant for evidence of erythema in the cardia fundus and body suggestive of portal hypertensive gastropathy. Some thickened folds with 2 superficial ulcerations in the antrum were noted without any active bleeding or high risk stigmata for bleeding, biopsied. The scope was then withdrawn into the esophagus. Hiatal hernia was noted. The GE junction was located at 37 cm from the incisors. A moderate sized distal esophageal varices were noted with endoscopic variceal banding performed in a spiral fashion from the distal esophagus approximately with 6 bands placed. IMPRESSION: 1. Superficial antral ulcerations on thickened folds, biopsied. 2. Esophageal varices banding, 6 bands placed. 3. Portal hypertensive gastropathy. 4. Duodenal biopsies. 5. Hiatal hernia. RECOMMENDATIONS: The findings of this examination were discussed with the patient. Okay for clear liquid diet. Continue to monitor hemoglobin and hematocrit and transfuse as needed. Continue Protonix 40 mg IV twice a day. Continue Sandostatin for 72 hours. Continue ceftriaxone daily for SBP prophylaxis. Patient will need follow-up in the gastroenterology clinic after discharge. Plan on repeat EGD in 2-4 weeks to assess varices with possible banding.
[2019-03-05] MEDS: PANTOPRAZOLE 40 MG/10 ML VIAL IV SCH ×2 (08:47→20:23)
[2019-03-05] MEDS: FOLIC ACID 1 MG TAB PO SCH (08:47)
[2019-03-05] MEDS ORDERED: PANTOPRAZOLE 40 MG/10 ML VIAL IV SCH (09:00)
[2019-03-05 10:59] VITALS: BMI 24.7
--- NOTE | 2019-03-05 11:39 | P.PN ---
Subjective Progress Note Date: 03/05/19 Principal diagnosis: Acute upper GI bleeding 63-year-old male patient, alcoholic drinks a pint of liquor on a daily basis whereas undergone previous EGD approximately 2 years ago and the patient will was found to have a component of mild esophageal varices, and Bravo's esophag us. The patient is also known to have hypertension and diabetes mellitus. He is also known to have diverticulosis. He came into the hospital because of hematemesis. He was throwing up blood and the amount is estimated to be around 300 mL. He is on-call level was elevated at 52. He was consuming alcohol in excess. He was slightly tachycardic and his heart rate was in the 120 to 1:30 range and was sinus. Blood pressure was slightly lower. He was given IV fluids a total of 2 L in the emergency department and he was started on IV proton pump inhibitors and the patient was admitted to the hospital. He is feeling weak. He has no chest pain. No aspiration. He has a chronic congested cough as the patient has COPD and the patient has quit smoking approximately year ago. He is a bit shaky yet these alert and awake in no agitation and there is no mental status change. He is on the CIWA protocol for now. LFTs are abnormal related to chronic alcohol consumption. Abdomen is nondistended this point in time. Chest x-ray is not showing any acute abnormalities. Patient was reevaluated today on 03/05/2019, patient underwent EGD today, and he was found to have superficial antral ulcerations esophageal varices requiring banding 6, and he was also found to have portal hypertensive gastropathy and hiatal hernia. No active bleeding was noted during his EGD, patient is presently back in the ICU, complaining of some abdominal bloating, denies any nausea vomiting, and no further evidence of active GI bleeding. Hemoglobin this morning is 6.7, WBC count is 1.8 INR is 1.3 left lites are normal renal profile is normal. Remains on the ciwa protocol for now. Objective - Vital Signs Vital signs: Vital Signs Temp 98.6 F 03/05/19 09:50 Pulse 99 03/05/19 11:00 Resp 17 03/05/19 11:00 BP 129/89 03/05/19 11:00 Pulse Ox 99 03/05/19 11:00 Intake & Output 0703/05/19 03/05/19 18:59 06:59 18:59 Intake Total 2825 2962.033 1010 Output Total 125 Balance 2825 2837.033 1010 Weight 72.575 kg 78.2 kg 78.2 kg Intake: IV 2825 600 550 Mvi, Adult No.4 with Vit 700 600 200 K 10 ml Thiamine 100 mg Folic Acid 1 mg In Sodium Chloride 0.9% 1,000 ml @ 100 mls/hr IV .BY DURATION [facility] Rx#: [id number] Sodium Chloride 0.9% 1, 75 000 ml @ 75 mls/hr IV . [id number] [facility] Rx#:[id number] Sodium Chloride 0.9% 2, 2000 000 ml @ 999 mls/hr IV . Q2H1M [facility] Rx#:[id number] cefTRIAXone 1 gm In 50 50 Sodium Chloride 0.9% 50 ml @ 100 mls/hr IVPB Q24HR [facility] Rx#:[id number] Intake, IV Titration 2362.033 100 Amount Magnesium Sulfate-D5w Pmx 100 1 gm In Dextrose/Water 1 100ml.bag @ 100 mls/hr IVPB Q1H [facility] Rx#: [id number] Mvi, Adult No.4 with Vit 1011.2 K 10 ml Thiamine 100 mg Folic Acid 1 mg In Sodium Chloride 0.9% 1,000 ml @ 100 mls/hr IV .BY DURATION [facility] Rx#: [id number] Octreotide 500 mcg In 510.833 Sodium Chloride 0.9% 250 ml @ 25 MCG/HR 12.5 mls/ hr IV .Q20H [facility] Rx#: [id number] Sodium Chloride 0.9% 1, 700 100 000 ml @ 100 mls/hr IV . BY DURATION [facility] Rx#: [id number] Sodium Chloride 0.9% 1, 40 000 ml @ 75 mls/hr IV . [id number] [facility] Rx#:[id number] Oral 50 Blood Product 310 Rc As-1 Unit 310 [id number] Output: Urine 125 Other: Voiding Method Bedside Commode Bedside Commode # Voids 1 # Bowel Movements 1 1 1 - Exam On physical examination, patient appears comfortable in no apparent distress. HEAD: Normocephalic, atraumatic. EYES: No scleral icterus. No conjunctival injection. MOUTH: No lesions, tongue midline. NECK: Trachea midline, no gross abnormalities. CHEST: Clear bilaterally no crackles or rhonchi or wheezes.. HEART: Regular rate and rhythm, normal S1 and S2, no S3 gallop, no murmur. ABDOMEN: Soft, obese. Bowel sounds are positive. No organomegaly. No guarding or rigidity. EXTREMITIES: No pedal edema. SKIN: No rashes, no jaundice. NEUROLOGIC: No gross focal neurologic deficit, alert oriented 3. Psychiatric: Normal mood, affect, normal mental status examination, however according to the nurse patient expressed some suicidal thoughts, and psychiatry consultation is pending. - Labs CBC & Chem 7: 03/05/19 05:26 03/05/19 05:26 Labs: Abnormal Lab Results - Last 24 Hours (Table) 03/04/19 03/04/19 03/04/19 Range/Units 07:10 11:05 17:26 WBC (3.8-10.6) k/uL RBC 2.40 L (4.30-5.90) m/uL Hgb 8.4 L (13.0-17.5) gm/dL Hct 25.3 L (39.0-53.0) % MCV 105.6 H (80.0-100.0) fL MCH 35.1 H (25.0-35.0) pg Plt Count 102 L (150-450) k/uL Lymphocytes # (1.0-4.8) k/uL Lymphocytes # (Manual) 0.55 L (1.0-4.8) k/uL Macrocytosis PT (9.0-12.0) sec INR (<1.2) Chloride (98-107) mmol/L Carbon Dioxide (22-30) mmol/L BUN (9-20) mg/dL Glucose (74-99) mg/dL POC Glucose (mg/dL) 162 H (75-99) mg/dL Calcium (8.4-10.2) mg/dL Phosphorus (2.5-4.5) mg/dL Magnesium (1.6-2.3) mg/dL Total Bilirubin (0.2-1.3) mg/dL AST (17-59) U/L ALT (21-72) U/L Alkaline Phosphatase (38-126) U/L Total Protein (6.3-8.2) g/dL Albumin (3.5-5.0) g/dL Urine Protein (Negative) Urine Ketones (Negative) Urine Bilirubin (Negative) Crossmatch See Detail 03/04/19 03/04/19 03/04/19 Range/Units 17:54 23:19 23:35 WBC 2.2 L (3.8-10.6) k/uL RBC 2.19 L (4.30-5.90) m/uL Hgb 7.6 L (13.0-17.5) gm/dL Hct 22.7 L (39.0-53.0) % MCV 103.6 H (80.0-100.0) fL MCH (25.0-35.0) pg Plt Count 61 L (150-450) k/uL Lymphocytes # (1.0-4.8) k/uL Lymphocytes # (Manual) 0.35 L (1.0-4.8) k/uL Macrocytosis PT (9.0-12.0) sec INR (<1.2) Chloride (98-107) mmol/L Carbon Dioxide (22-30) mmol/L BUN (9-20) mg/dL Glucose (74-99) mg/dL POC Glucose (mg/dL) 158 H (75-99) mg/dL Calcium (8.4-10.2) mg/dL Phosphorus (2.5-4.5) mg/dL Magnesium (1.6-2.3) mg/dL Total Bilirubin (0.2-1.3) mg/dL AST (17-59) U/L ALT (21-72) U/L Alkaline Phosphatase (38-126) U/L Total Protein (6.3-8.2) g/dL Albumin (3.5-5.0) g/dL Urine Protein Trace H (Negative) Urine Ketones 1+ H (Negative) Urine Bilirubin 1+ H (Negative) Crossmatch 03/05/19 03/05/19 03/05/19 Range/Units 00:13 05:02 05:26 WBC 2.4 L 1.8 L (3.8-10.6) k/uL RBC 2.04 L 1.97 L (4.30-5.90) m/uL Hgb 6.9 L* 6.7 L* (13.0-17.5) gm/dL Hct 21.8 L 21.6 L (39.0-53.0) % MCV 107.0 H 109.4 H (80.0-100.0) fL MCH (25.0-35.0) pg Plt Count 57 L 54 L (150-450) k/uL Lymphocytes # 0.3 L 0.3 L (1.0-4.8) k/uL Lymphocytes # (Manual) (1.0-4.8) k/uL Macrocytosis Marked A PT (9.0-12.0) sec INR (<1.2) Chloride (98-107) mmol/L Carbon Dioxide (22-30) mmol/L BUN (9-20) mg/dL Glucose (74-99) mg/dL POC Glucose (mg/dL) 142 H (75-99) mg/dL Calcium (8.4-10.2) mg/dL Phosphorus (2.5-4.5) mg/dL Magnesium (1.6-2.3) mg/dL Total Bilirubin (0.2-1.3) mg/dL AST (17-59) U/L ALT (21-72) U/L Alkaline Phosphatase (38-126) U/L Total Protein (6.3-8.2) g/dL Albumin (3.5-5.0) g/dL Urine Protein (Negative) Urine Ketones (Negative) Urine Bilirubin (Negative) Crossmatch 03/05/19 03/05/19 Range/Units 05:26 05:26 WBC (3.8-10.6) k/uL RBC (4.30-5.90) m/uL Hgb (13.0-17.5) gm/dL Hct (39.0-53.0) % MCV (80.0-100.0) fL MCH (25.0-35.0) pg Plt Count (150-450) k/uL Lymphocytes # (1.0-4.8) k/uL Lymphocytes # (Manual) (1.0-4.8) k/uL Macrocytosis PT 13.1 H (9.0-12.0) sec INR 1.3 H (<1.2) Chloride 109 H (98-107) mmol/L Carbon Dioxide 19 L (22-30) mmol/L BUN 26 H (9-20) mg/dL Glucose 128 H (74-99) mg/dL POC Glucose (mg/dL) (75-99) mg/dL Calcium 7.3 L (8.4-10.2) mg/dL Phosphorus 2.0 L (2.5-4.5) mg/dL Magnesium 1.5 L (1.6-2.3) mg/dL Total Bilirubin 1.9 H (0.2-1.3) mg/dL AST 256 H (17-59) U/L ALT 106 H (21-72) U/L Alkaline Phosphatase 161 H (38-126) U/L Total Protein 5.0 L (6.3-8.2) g/dL Albumin 2.8 L (3.5-5.0) g/dL Urine Protein (Negative) Urine Ketones (Negative) Urine Bilirubin (Negative) Crossmatch Assessment and Plan Assessment: Impression: 1 acute upper GI bleeding most likely secondary to esophageal varices in a patient with known history of alcohol liver disease, liver cirrhosis, and portal hypertension. 2 history of alcoholism 3 liver cirrhosis secondary to alcohol liver disease 4 acute alcohol intoxication on presentation 5 chronic anemia and thrombocytopenia secondary to alcohol use. 6 status post EGD and banding of esophageal varices. 6. Recommendation: Continue present supportive care measures, continue Protonix, patient is status post EGD and banding of esophageal varices 6. Patient could be transferred out of the ICU today, continue to monitor serial CBC every 6 hours, transfuse accordingly for hemoglobin below 7. Continue Protonix. And will follow closely. Time with Patient: Less than 30
[2019-03-05 12:15] LABS: Folate, Serum 20.7 ng/mL; Iron Saturation 66.25 (15.00-50.00)
[2019-03-05 12:29] LABS: Anisocytosis Slight; HCT 26.4 % (39.0-53.0); MCH 32.4 pg (25.0-35.0); MCHC 31.6 g/dL (31.0-37.0); MCV 102.5 fL (80.0-100.0); Macrocytosis Moderate; RBC 2.57 m/uL (4.30-5.90); RDW 19.1 % (11.5-15.5); WBC 2.1 k/uL (3.8-10.6)
[2019-03-05 12:30] LABS: Glucose,Whole Blood 183 mg/dL (75-99)
[2019-03-05 12:30] LABS: HGB 8.3 gm/dL (13.0-17.5); Platelet Count 56 k/uL (150-450)
[2019-03-05 12:55] LABS: Hemoglobin A1C 5.5 % (4.0-6.0)
[2019-03-05 13:08] LABS: Band Neutrophils % 2 %; Basophils # (M) 0.02 k/uL (0-0.2); Eosinophils # (M) 0.06 k/uL (0-0.7); Lymphocytes # (M) 0.38 k/uL (1.0-4.8); Monocytes # (M) 0.11 k/uL (0-1.0); Neutrophils % (M) 71 %; Nucleated Red Blood Cells 0 /100 WBC (0-0); Total Cells Counted 100
[2019-03-05 13:10] LABS: Poikilocytosis (M) Present
[2019-03-05 17:19] LABS: Glucose,Whole Blood 198 mg/dL (75-99)
--- NOTE | 2019-03-05 17:27 | P.CN ---
Psychiatric Consult - . Consult date: 03/05/19 Consult:: 03/05/19 17:18 Identification: Patient states he was at home and wasn't feeling well week his legs gave out he fell hitting his head, called for EMS while waiting for them to come states that he vomited up right red blood. Reason for Consult: Suicidal ideation History of Present Illness: Patient's chart was reviewed the patient was seen and interviewed in his room no family members were present. Patient states that he was at home and wasn't feeling well, he describes feeling weak stating that his legs were giving out any fell and hit his head. He states that he went and lay down for a while thought he was doing better got up and still felt weak so he called for EMS and then thought he had to cough up sputum and ended up throwing up bright red blood. Patient states that he drinks a pint a day and has for at least the last 15-20 years. He states that he is never had an episode of GI bleeding before. Patient states that he lives alone. Patient denies any prior psychiatric history, denies any symptoms of depression, evelyn, anxiety, psychosis in the past or currently. Patient has no history of suicidal ideation in the past or suicide attempts area Patient has never received any psychiatric treatment. Patient has also never received any alcohol rehab treatment. Patient states that his drinking has not changed over the last 15-20 years and has been relatively consistent. Patient states he is quite frightened by what occurred and is interested in stopping his use of alcohol at this time. Past Psychiatric History: Patient has no prior history of inpatient or outpatient psychiatric treatment, has never been placed on psychotropic medication and has never received any alcohol or drug treatment Past Medical/Surgical History: Patient has a history of diabetes, hyperlipidemia, is status post hernia repair and status post carpal tunnel surgery. Family History: Patient states that on his maternal and paternal side alcohol use disorder occurs there is no history of psychiatric disorders in the family and no completed suicides Social History: Patient was born and raised here in [place], his mother a year and a half ago, father quite a number of years ago. Patient has a twin sister and brother who are both alive. 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 He's been 3 times and . He has 2 children. He currently is living alone in his own home. He denies any abuse history. Substance Use History: Patient states he's been using a pint a day of alcohol for the last 15-20 years. He states that he has used marijuana infrequently in the past and no other drug use history currently or in the past. Legal History: Patient has no legal history Mental status: Appearance/Attitude: Patient is lying in a hospital bed in no acute distress, makes good eye contact and was cooperative. Behavior: Patient does not exhibit any psychomotor agitation or retardation. Speech/Language: Patient's speech is spontaneous of normal volume and rhythm and he is coherent Thought Process: Patient is goal-directed there is no evidence of loose association or flight of ideas Thought Content: Patient denies any auditory or visual hallucinations and no delusions or paranoid ideation or elicited. Patient states he's been feeling depressed, anxious and states that he was in his usual state of health until the day of admission when he woke up in his legs felt weak and he fell and his head. Patient states he rested for a while that his legs are still weak he called for EMS. After that the patient vomited up bright red blood. Patient states he's been eating and sleeping at home. Suicidal/Homicidal Ideation: Patient denies any current suicidal or homicidal ideation Sensorium/Cognition: Patient is alert and oriented to person, place, and time and his recent and remote memory are grossly intact Mood/Affect: Patient's mood is pleasant and his affect is appropriate to his mood Insight/Judgment: Patient's insight and judgment are fair Assessment: Patient has no prior psychiatric history of depression, evelyn, psychosis or anxiety and has no history of suicide attempts or suicidal ideation in the past. Patient denies any current suicidal ideation and is not endorsing any symptoms currently of depression, evelyn, psychosis or anxiety. Patient has a 15-20 year history of using a pint a day of alcohol, he reports an infrequent use of marijuana. Patient states that the recent episode of bright red bleeding has frightened him and he is interested in alcohol rehab programs. Patient lives alone and states that he's been doing well has no financial concerns and no other stresses. Patient has never been treated for any psychiatric disorders and is never been on any psychotropic medication. Patient is also never received any alcohol rehab. Diagnosis: Alcohol use disorder, moderate severity Plan: Patient is not endorsing any suicidal ideation at this time and denies that he is ever felt suicidal and is currently not suicidal or homicidal. I will discontinue the one-to-one sitter patient does not need inpatient psychiatric treatment. Patient and I discussed his alcohol use and the need for him to stop using alcohol and he was interested in outpatient alcohol rehab programs to stop using alcohol as he states that he is up for GI bleed has frightened him. I will put in an order for social work to refer the patient for outpatient alcohol rehab programs after he is discharged from the hospital. I will sign off the case if there are any further questions or concerns please and hesitate to contact
[2019-03-05 19:03] LABS: Anisocytosis Slight; HCT 25.6 % (39.0-53.0); HGB 8.7 gm/dL (13.0-17.5); MCHC 33.8 g/dL (31.0-37.0); MCV 97.6 fL (80.0-100.0); Macrocytosis Slight; Mean Platelet Volume 8.9; Platelet Count 44 k/uL (150-450); RBC 2.63 m/uL (4.30-5.90); RDW 19.5 % (11.5-15.5); WBC 2.4 k/uL (3.8-10.6)
[2019-03-05 19:29] LABS: Magnesium 1.8 mg/dL (1.6-2.3); Potassium 3.8 mmol/L (3.5-5.1)
[2019-03-05 20:44] LABS: Glucose,Whole Blood 217 mg/dL (75-99)
[2019-03-05] MEDS ORDERED: Magnesium Replacement Protocol 1 EACH MISC MISCELLANE PRN (20:59)
[2019-03-05] MEDS ORDERED: INSULIN DETEMIR (LEVEMIR) 100 UNIT/ML SYR SQ SCH (21:00)
[2019-03-05 22:05] LABS: Glucose,Whole Blood 207 mg/dL (75-99)
--- NOTE | 2019-03-05 22:45 | P.PN ---
Progress Note - Text Progress Note Date: 03/05/19 Presenting complaint: Vomiting blood Interval history: This patient long-standing history of alcohol intake presented with hematemesis. Patient was tachycardic. Patient stopped smoking a year ago. Today-in the ICU. On IV Sandostatin. Telemetry shows sinus rhythm. Had EGD today. We recent banding was carried out. Also found her antral ulcers. Patient is set up at the bedside commode Review of systems: Was done for constitutional, cardiovascular, GI, pulmonary. r elevant finding as above Current medications are reviewed that include: IV ceftriaxone, Ativan protocol, IV Sandostatin, IV thiamine On examination: VITAL SIGNS: 98.4, 104, 25, 133/85, 97% room air GENERAL APPEARANCE: . Lying in bed, tired appearing HEENT: Normal external appearance of nose and ear. Oral cavity normal EYES: Pupils equal. Conjunctiva pale NECK: JVD not raised. Mass not palpable. RESPIRATORY: Respiratory effort increased, lungs-decreased breath sounds some wheezing. CARDIOVASCULAR: First and second sounds normal. No edema. ABDOMEN: Soft. Liver and spleen not palpable. No tenderness. No mass palpable. PSYCHIATRY: Alert and oriented x3. Mood and affect anxious Investigations reviewed in the clinical context: , White count 2.4, hemoglobin 8.7, platelets 44 EGD-superficial antral ulcerations, esophageal varices requiring banding, portal hypertensive gastropathy, hiatal hernia Assessment: -Acute upper GI bleed from esophageal varices -Alcoholic cirrhosis causing Secondary portal hypertension with portal hypertensive gastropathy -Hiatal hernia -Superficial gastric antral ulcerations -COPD in an ex-smoker -Chronic thrombocytopenia from alcoholic liver disease -Acute blood loss anemia requiring blood transfusion -Diabetes mellitus type 2 -Essential hypertension -Sigmoid diverticulosis -Chronic alcoholism Plan: Patient remains in the ICU. Keep a close and hemoglobin. Patient remains on IV Sandostatin. Follow Accu-Cheks closely. Also on IV PPI. Care was discussed with the patient. Watch for alcohol withdrawal.
[2019-03-06] MEDS: SODIUM CHLORIDE 0.9% 1,000 ML IV SCH ×2 (02:13→17:40)
[2019-03-06] MEDS: 1: MVI, ADULT NO.4 WITH VIT K 10 ML, THIAMINE 100 MG, FOLIC ACID 1 MG in SODIUM CHLORIDE IV SCH ×8 (04:26→17:32)
[2019-03-06 05:38] LABS: Anisocytosis Slight; HGB 8.1 gm/dL (13.0-17.5); MCH 33.4 pg (25.0-35.0); MCV 98.4 fL (80.0-100.0); Macrocytosis Slight; Mean Platelet Volume 8.6; RBC 2.44 m/uL (4.30-5.90); RDW 19.5 % (11.5-15.5); WBC 1.9 k/uL (3.8-10.6)
[2019-03-06 05:50] LABS: African American GFR (CKD) >90 (>60 ml/min/1.73 sqM); Anion Gap 6 mmol/L; Blood Urea Nitrogen 14 mg/dL (9-20); Calcium 7.2 mg/dL (8.4-10.2); Carbon Dioxide 24 mmol/L (22-30); Chloride 107 mmol/L (98-107); Glucose 73 mg/dL (74-99); Sodium 137 mmol/L (137-145)
[2019-03-06 05:53] LABS: Platelet Count 54 k/uL (150-450)
[2019-03-06] MEDS ORDERED: Potassium Replacement Protocol 1 EACH MISC MISCELLANE PRN (06:10)
[2019-03-06 06:33] LABS: Glucose,Whole Blood 69 mg/dL (75-99)
[2019-03-06] MEDS: THIAMINE 100 MG TAB PO SCH ×2 (06:40→17:39)
[2019-03-06] MEDS: POTASSIUM CHLORIDE ER 20 MEQ TAB.ER PO SCH ×4 (06:40→15:54)
[2019-03-06] MEDS: INSULIN ASPART (NovoLOG) 100 UNIT/ML VIAL SQ SCH ×4 (06:45→21:49)
[2019-03-06 06:59] LABS: Glucose,Whole Blood 82 mg/dL (75-99)
[2019-03-06] MEDS: PANTOPRAZOLE 40 MG/10 ML VIAL IV SCH ×2 (09:16→21:49)
[2019-03-06] MEDS: FOLIC ACID 1 MG TAB PO SCH (09:16)
[2019-03-06 09:40] LABS: Glucose,Whole Blood 101 mg/dL (75-99)
[2019-03-06 11:30] LABS: Glucose,Whole Blood 93 mg/dL (75-99)
--- NOTE | 2019-03-06 11:50 | P.PN ---
Subjective Progress Note Date: 03/06/19 Principal diagnosis: Acute upper GI bleeding 63-year-old male patient, alcoholic drinks a pint of liquor on a daily basis whereas undergone previous EGD approximately 2 years ago and the patient will was found to have a component of mild esophageal varices, and Bravo's esophag us. The patient is also known to have hypertension and diabetes mellitus. He is also known to have diverticulosis. He came into the hospital because of hematemesis. He was throwing up blood and the amount is estimated to be around 300 mL. He is on-call level was elevated at 52. He was consuming alcohol in excess. He was slightly tachycardic and his heart rate was in the 120 to 1:30 range and was sinus. Blood pressure was slightly lower. He was given IV fluids a total of 2 L in the emergency department and he was started on IV proton pump inhibitors and the patient was admitted to the hospital. He is feeling weak. He has no chest pain. No aspiration. He has a chronic congested cough as the patient has COPD and the patient has quit smoking approximately year ago. He is a bit shaky yet these alert and awake in no agitation and there is no mental status change. He is on the CIWA protocol for now. LFTs are abnormal related to chronic alcohol consumption. Abdomen is nondistended this point in time. Chest x-ray is not showing any acute abnormalities. Patient was reevaluated today on 03/05/2019, patient underwent EGD today, and he was found to have superficial antral ulcerations esophageal varices requiring banding 6, and he was also found to have portal hypertensive gastropathy and hiatal hernia. No active bleeding was noted during his EGD, patient is presently back in the ICU, complaining of some abdominal bloating, denies any nausea vomiting, and no further evidence of active GI bleeding. Hemoglobin this morning is 6.7, WBC count is 1.8 INR is 1.3 left lites are normal renal profile is normal. Remains on the ciwa protocol for now. Reevaluated today on 03/06/2019, patient is doing fairly well, asymptomatic, no active bleeding, hemodynamically stable, seen by psychiatry and felt strongly that the patient was not suicidal. Hemoglobin today is 8.1, rest of the labs were all reviewed and basically unremarkable. WBC count is 1.9. Basic metabolic profile is normal, renal profile is normal. Patient again is sitting at a bedside chair, and has no specific complaints. Objective - Vital Signs Vital signs: Vital Signs Temp 98.1 F 03/06/19 09:00 Pulse 97 03/06/19 10:00 Resp 23 03/06/19 11:00 BP 100/66 03/06/19 11:00 Pulse Ox 97 03/06/19 09:00 Intake & Output 03/05/19 03/06/19 03/06/19 18:59 06:59 18:59 Intake Total 2910 3568.492 573.958 Output Total 1400 1000 Balance 1510 2568.492 573.958 Weight 78.2 kg 80 kg Intake: IV 1250 1500 450 Magnesium Sulfate-D5w Pmx 200 1 gm In Dextrose/Water 1 100ml.bag @ 100 mls/hr IVPB Q1H [facility] Rx#: [id number] Mvi, Adult No.4 with Vit 900 1300 400 K 10 ml Thiamine 100 mg Folic Acid 1 mg In Sodium Chloride 0.9% 1,000 ml @ 100 mls/hr IV .BY DURATION MARIELA Rx#: [id number] Octreotide 500 mcg In 0 Sodium Chloride 0.9% 250 ml @ 25 MCG/HR 12.5 mls/ hr IV .Q20H [facility] Rx#: [id number] cefTRIAXone 1 gm In 50 50 Sodium Chloride 0.9% 50 ml @ 100 mls/hr IVPB Q24HR [facility] Rx#:[id number] Intake, IV Titration 1100 1228.492 123.958 Amount Mvi, Adult No.4 with Vit 1011.2 K 10 ml Thiamine 100 mg Folic Acid 1 mg In Sodium Chloride 0.9% 1,000 ml @ 100 mls/hr IV .BY DURATION [facility]IELA Rx#: [id number] Octreotide 500 mcg In 217.292 123.958 Sodium Chloride 0.9% 250 ml @ 25 MCG/HR 12.5 mls/ hr IV .Q20H [facility] Rx#: [id number] Sodium Chloride 0.9% 1, 1100 000 ml @ 100 mls/hr IV . BY DURATION [facility]ELA Rx#: [id number] Oral 250 840 Blood Product 310 Rc As-1 Unit 310 [id number] Output: Urine 1400 1000 Other: Voiding Method Bedside Commode Bedside Commode # Voids 1 1 # Bowel Movements 1 - Exam On physical examination, patient appears comfortable in no apparent distress. On room air. HEAD: Normocephalic, atraumatic. EYES: No scleral icterus. No conjunctival injection. MOUTH: No lesions, tongue midline. NECK: Trachea midline, no gross abnormalities. CHEST: Clear bilaterally no crackles or rhonchi or wheezes.. HEART: Regular rate and rhythm, normal S1 and S2, no S3 gallop, no murmur. ABDOMEN: Soft, obese. Bowel sounds are positive. No organomegaly. No guarding or rigidity. EXTREMITIES: No pedal edema. SKIN: No rashes, no jaundice. NEUROLOGIC: No gross focal neurologic deficit, alert oriented 3. Psychiatric: Normal mood, affect, normal mental status examination, however according to the nurse patient expressed some suicidal thoughts, and psychiatry consultation is pending. - Labs CBC & Chem 7: 03/06/19 05:07 03/06/19 11:05 Labs: Abnormal Lab Results - Last 24 Hours (Table) 03/05/19 03/05/19 03/05/19 Range/Units 05:26 11:32 12:29 WBC 2.1 L (3.8-10.6) k/uL RBC 2.57 L (4.30-5.90) m/uL Hgb 8.3 L D (13.0-17.5) gm/dL Hct 26.4 L (39.0-53.0) % MCV 102.5 H D (80.0-100.0) fL RDW 19.1 H (11.5-15.5) % Plt Count 56 L (150-450) k/uL Lymphocytes # (Manual) 0.38 L (1.0-4.8) k/uL Potassium (3.5-5.1) mmol/L Glucose (74-99) mg/dL POC Glucose (mg/dL) 183 H (75-99) mg/dL Calcium (8.4-10.2) mg/dL TIBC 160 L (228-460) ug/dL Iron Saturation 66.25 H (15.00-50.00) Ferritin 3248.4 H (22.0-322.0) ng/mL 03/05/19 03/05/19 03/05/19 Range/Units 17:17 18:43 20:42 WBC 2.4 L (3.8-10.6) k/uL RBC 2.63 L (4.30-5.90) m/uL Hgb 8.7 L (13.0-17.5) gm/dL Hct 25.6 L (39.0-53.0) % MCV (80.0-100.0) fL RDW 19.5 H (11.5-15.5) % Plt Count 44 L (150-450) k/uL Lymphocytes # (Manual) (1.0-4.8) k/uL Potassium (3.5-5.1) mmol/L Glucose (74-99) mg/dL POC Glucose (mg/dL) 198 H 217 H (75-99) mg/dL Calcium (8.4-10.2) mg/dL TIBC (228-460) ug/dL Iron Saturation (15.00-50.00) Ferritin (22.0-322.0) ng/mL 03/05/19 03/06/19 03/06/19 Range/Units 22:04 05:07 05:07 WBC 1.9 L (3.8-10.6) k/uL RBC 2.44 L (4.30-5.90) m/uL Hgb 8.1 L (13.0-17.5) gm/dL Hct 24.0 L (39.0-53.0) % MCV (80.0-100.0) fL RDW 19.5 H (11.5-15.5) % Plt Count 54 L (150-450) k/uL Lymphocytes # (Manual) (1.0-4.8) k/uL Potassium 3.0 L (3.5-5.1) mmol/L Glucose 73 L (74-99) mg/dL POC Glucose (mg/dL) 207 H (75-99) mg/dL Calcium 7.2 L (8.4-10.2) mg/dL TIBC (228-460) ug/dL Iron Saturation (15.00-50.00) Ferritin (22.0-322.0) ng/mL 03/06/19 03/06/19 Range/Units 06:32 09:39 WBC (3.8-10.6) k/uL RBC (4.30-5.90) m/uL Hgb (13.0-17.5) gm/dL Hct (39.0-53.0) % MCV (80.0-100.0) fL RDW (11.5-15.5) % Plt Count (150-450) k/uL Lymphocytes # (Manual) (1.0-4.8) k/uL Potassium (3.5-5.1) mmol/L Glucose (74-99) mg/dL POC Glucose (mg/dL) 69 L 101 H (75-99) mg/dL Calcium (8.4-10.2) mg/dL TIBC (228-460) ug/dL Iron Saturation (15.00-50.00) Ferritin (22.0-322.0) ng/mL Assessment and Plan Assessment: Impression: 1 acute upper GI bleeding most likely secondary to esophageal varices in a patient with known history of alcohol liver disease, liver cirrhosis, and portal hypertension. 2 history of alcoholism 3 liver cirrhosis secondary to alcohol liver disease 4 acute alcohol intoxication on presentation 5 chronic anemia and thrombocytopenia secondary to alcohol use. 6 status post EGD and banding of esophageal varices. 6. Recommendation: Continue present supportive care measures, continue Protonix, patient is status post EGD and banding of esophageal varices 6. We will arrange for the patient to be transferred out of the ICU to a regular medical floor, and possibly discharge planning in the next 24-48 hours. Again he was seen by psychiatry, and he was not felt to be suicidal. Time with Patient: Less than 30
--- NOTE | 2019-03-06 13:52 | P.PN ---
Subjective Progress Note Date: 03/06/19 Principal diagnosis: GI bleed anemia hematemesis Status post EGD with variceal banding 6 yesterday. No active bleeding. Feels well. Tolerating clears. Hemoglobin 8.1. Platelets 54,000. Objective - Vital Signs Vital signs: Vital Signs Temp 98.2 F 03/06/19 12:00 Pulse 87 03/06/19 12:00 Resp 21 03/06/19 12:00 BP 103/76 03/06/19 12:00 Pulse Ox 99 03/06/19 12:00 Intake & Output 03/05/19 03/06/19 03/06/19 18:59 06:59 18:59 Intake Total 2910 3568.492 673.958 Output Total 1400 1000 Balance 1510 2568.492 673.958 Weight 78.2 kg 80 kg Intake: IV 1250 1500 550 Magnesium Sulfate-D5w Pmx 200 1 gm In Dextrose/Water 1 100ml.bag @ 100 mls/hr IVPB Q1H [facility] Rx#: [id number] Mvi, Adult No.4 with Vit 900 1300 500 K 10 ml Thiamine 100 mg Folic Acid 1 mg In Sodium Chloride 0.9% 1,000 ml @ 100 mls/hr IV .BY DURATION [facility] Rx#: [id number] Octreotide 500 mcg In 0 Sodium Chloride 0.9% 250 ml @ 25 MCG/HR 12.5 mls/ hr IV .Q20H [facility] Rx#: [id number] cefTRIAXone 1 gm In 50 50 Sodium Chloride 0.9% 50 ml @ 100 mls/hr IVPB Q24HR [facility] Rx#:[id number] Intake, IV Titration 1100 1228.492 123.958 Amount Mvi, Adult No.4 with Vit 1011.2 K 10 ml Thiamine 100 mg Folic Acid 1 mg In Sodium Chloride 0.9% 1,000 ml @ 100 mls/hr IV .BY DURATION [facility] Rx#: [id number] Octreotide 500 mcg In 217.292 123.958 Sodium Chloride 0.9% 250 ml @ 25 MCG/HR 12.5 mls/ hr IV .Q20H [facility] Rx#: [id number] Sodium Chloride 0.9% 1, 1100 000 ml @ 100 mls/hr IV . BY DURATION [facility] Rx#: [id number] Oral 250 840 Blood Product 310 Rc As-1 Unit 310 [id number] Output: Urine 1400 1000 Other: Voiding Method Bedside Commode Bedside Commode Bedside Commode Urinal # Voids 1 1 # Bowel Movements 1 - Exam General appearance: The patient is alert, oriented, in no acute distress. HET: Head is normocephalic and atraumatic. Pupils are equal and reactive. Oropharynx is clear without lesions. Neck: Supple without lymphadenopathy. Trachea midline. Heart: S1 S2. Regular rate and rhythm. Lungs: No crackles or wheezes are heard. Abdomen: Soft, nontender, nondistended with bowel sounds. No peritoneal signs. No palpable organomegaly or masses. Extremities: Normal skin color and turgor. No cyanosis, rash, ulceration, club jeffy, or edema. Radial and pedal pulses are 2/4 bilaterally. Neurological: No focal deficits. Strength and sensation are grossly intact. - Labs CBC & Chem 7: 03/06/19 05:07 03/06/19 11:05 Labs: Abnormal Lab Results - Last 24 Hours (Table) 03/05/19 03/05/19 03/05/19 Range/Units 17:17 18:43 20:42 WBC 2.4 L (3.8-10.6) k/uL RBC 2.63 L (4.30-5.90) m/uL Hgb 8.7 L (13.0-17.5) gm/dL Hct 25.6 L (39.0-53.0) % RDW 19.5 H (11.5-15.5) % Plt Count 44 L (150-450) k/uL Potassium (3.5-5.1) mmol/L Glucose (74-99) mg/dL POC Glucose (mg/dL) 198 H 217 H (75-99) mg/dL Calcium (8.4-10.2) mg/dL 03/05/19 03/06/19 03/06/19 Range/Units 22:04 05:07 05:07 WBC 1.9 L (3.8-10.6) k/uL RBC 2.44 L (4.30-5.90) m/uL Hgb 8.1 L (13.0-17.5) gm/dL Hct 24.0 L (39.0-53.0) % RDW 19.5 H (11.5-15.5) % Plt Count 54 L (150-450) k/uL Potassium 3.0 L (3.5-5.1) mmol/L Glucose 73 L (74-99) mg/dL POC Glucose (mg/dL) 207 H (75-99) mg/dL Calcium 7.2 L (8.4-10.2) mg/dL 03/06/19 03/06/19 Range/Units 06:32 09:39 WBC (3.8-10.6) k/uL RBC (4.30-5.90) m/uL Hgb (13.0-17.5) gm/dL Hct (39.0-53.0) % RDW (11.5-15.5) % Plt Count (150-450) k/uL Potassium (3.5-5.1) mmol/L Glucose (74-99) mg/dL POC Glucose (mg/dL) 69 L 101 H (75-99) mg/dL Calcium (8.4-10.2) mg/dL Assessment and Plan (1) Gastrointestinal hemorrhage Current Visit: Yes Status: Acute Code(s): K92.2 - GASTROINTESTINAL HEMORRHAGE, UNSPECIFIED SNOMED Code(s): 69476728 (2) Esophageal varices Current Visit: Yes Status: Acute Code(s): I85.00 - ESOPHAGEAL VARICES WITHOUT BLEEDING SNOMED Code(s): 17908521 (3) Portal hypertensive gastropathy Current Visit: Yes Status: Acute Code(s): K76.6 - PORTAL HYPERTENSION; K31.8 9 - OTHER DISEASES OF STOMACH AND DUODENUM SNOMED Code(s): 856244290 (4) Alcoholic hepatitis Current Visit: Yes Status: Acute Code(s): K70.10 - ALCOHOLIC HEPATITIS WITHOUT ASCITES SNOMED Code(s): 216656243 (5) Anemia associated with acute blood loss Current Visit: Yes Status: Acute Code(s): D62 - ACUTE POSTHEMORRHAGIC ANEMIA SNOMED Code(s): 037312741 (6) Barretts esophagus Current Visit: No Status: Acute Code(s): K22.70 - COLON'S ESOPHAGUS WITHOUT DYSPLASIA SNOMED Code(s): 921525748 Plan: 1. Sandostatin discontinued. Will advance to low residue diet. Protonix 40 mg twice daily. Continue with Rocephin. CBC monitoring. Assessment and plan a care discussed with Dr. Guillen
[2019-03-06 16:44] LABS: Glucose,Whole Blood 145 mg/dL (75-99)
[2019-03-06 20:32] LABS: Glucose,Whole Blood 144 mg/dL (75-99)
--- NOTE | 2019-03-06 23:51 | P.PN ---
Progress Note - Text Progress Note Date: 03/06/19 Presenting complaint: Vomiting blood Interval history: This patient long-standing history of alcohol intake presented with hematemesis. Patient was tachycardic. Patient stopped smoking a year ago. Today-patient was moved out of the ICU. Sandostatin drip was taken off. Diet was advanced. In fact had a regular diet this evening. Had a bowel movement. Up in the hallway. No abdominal pain. Had a brown stool. Review of systems: Was done for constitutional, cardiovascular, GI, pulmonary. relevant finding as above Current medications are reviewed that include: IV ceftriaxone, IV fluids On examination: VITAL SIGNS: 97.7, 118, 20, 99 this 67, 99% room air GENERAL APPEARANCE: . Lying in bed, tired appearing HEENT: Normal external appearance of nose and ear. Oral cavity normal EYES: Pupils equal. Conjunctiva pale NECK: JVD not raised. Mass not palpable. RESPIRATORY: Respiratory effort increased, lungs-decreased breath sounds some wheezing. CARDIOVASCULAR: First and second sounds normal. No edema. ABDOMEN: Soft. Liver and spleen not palpable. No tenderness. No mass palpable. PSYCHIATRY: Alert and oriented x3. Mood and affect anxious Investigations reviewed in the clinical context: White count 1.9, hemoglobin 8.1 platelets 54 potassium 3 glucose 73 EGD-superficial antral ulcerations, esophageal varices requiring banding, portal hypertensive gastropathy, hiatal hernia Assessment: -Acute upper GI bleed from esophageal varices, now stopped -Alcoholic cirrhosis causing Secondary portal hypertension with portal hypertensive gastropathy -Hiatal hernia -Superficial gastric antral ulcerations -COPD in an ex-smoker -Chronic thrombocytopenia from alcoholic liver disease -Acute blood loss anemia requiring blood transfusion -Diabetes mellitus type 2, uncontrolled with hypoglycemia from decreased oral intake -Essential hypertension -Sigmoid diverticulosis -Chronic alcoholism Plan: Patient overall doing better. No further clinical evidence of bleeding. Hemoglobin is stable. Expect sugars to come up as oral intake is improved. We'll DC the antibiotic. If hemoglobin remains stable possible discharge tomorrow.
[2019-03-07 00:33] VITALS: RESP 18
[2019-03-07] MEDS: 1: MVI, ADULT NO.4 WITH VIT K 10 ML, THIAMINE 100 MG, FOLIC ACID 1 MG in SODIUM CHLORIDE IV SCH ×8 (04:42→10:01)
[2019-03-07 06:29] VITALS: BP 109/72; PULSE 90; TEMP 99.5
[2019-03-07] MEDS: FOLIC ACID 1 MG TAB PO SCH (07:08)
[2019-03-07] MEDS: PANTOPRAZOLE 40 MG/10 ML VIAL IV SCH (07:08)
[2019-03-07] MEDS: THIAMINE 100 MG TAB PO SCH (07:08)
[2019-03-07] MEDS: INSULIN ASPART (NovoLOG) 100 UNIT/ML VIAL SQ SCH ×2 (07:09→12:32)
[2019-03-07 07:12] LABS: Glucose,Whole Blood 122 mg/dL (75-99)
[2019-03-07 10:22] LABS: African American GFR (CKD) >90 (>60 ml/min/1.73 sqM); Anion Gap 11 mmol/L; Blood Urea Nitrogen 10 mg/dL (9-20); Calcium 7.7 mg/dL (8.4-10.2); Carbon Dioxide 19 mmol/L (22-30); Chloride 107 mmol/L (98-107); Glucose 191 mg/dL (74-99); Potassium 4.3 mmol/L (3.5-5.1); Sodium 137 mmol/L (137-145)
[2019-03-07 10:27] LABS: Anisocytosis Moderate; HCT 28.1 % (39.0-53.0); HGB 9.4 gm/dL (13.0-17.5); Hypochromasia Slight; MCH 34.1 pg (25.0-35.0); MCHC 33.4 g/dL (31.0-37.0); Macrocytosis Moderate; Mean Platelet Volume 8.5; RBC 2.75 m/uL (4.30-5.90); RDW 20.2 % (11.5-15.5); WBC 3.2 k/uL (3.8-10.6)
[2019-03-07 10:31] LABS: Platelet Count 101 k/uL (150-450)
[2019-03-07 10:56] LABS: Eosinophils # (M) 0.22 k/uL (0-0.7); Lymphocytes # (M) 0.58 k/uL (1.0-4.8); Monocytes # (M) 0.29 k/uL (0-1.0); Neutrophils # (M) 2.11 k/uL (1.3-7.7); Neutrophils % (M) 66 %; Nucleated Red Blood Cells 0 /100 WBC (0-0); Total Cells Counted 100
[2019-03-07 10:59] LABS: Poikilocytosis (M) Present
[2019-03-07 11:58] LABS: Glucose,Whole Blood 179 mg/dL (75-99)
--- NOTE | 2019-03-07 23:41 | P.DS ---
Providers Date of admission: 03/04/19 09:11 Expected date of discharge: 03/07/19 Attending physician: Maikol Adam Consults: 03/04/19 09:11 Consult Physician Urgent Consulting Provider: Amado Baker Consult Reason/Comments: Critical care management Do you want consulting provider notified?: Yes 03/05/19 07:07 Consult Physician Routine Consulting Provider: France Lea Consult Reason/Comments: suicidal ideation Do you want consulting provider notified?: Yes Primary care physician: John A [facility] Hospital Course: Hospital course: This patient long-standing history of alcohol intake presented with hematemesis. Patient was tachycardic. Patient stopped smoking a year ago. . EGD- esophageal variceal banding. No further episodes. Hemoglobin stable. Up and about. Keen to go home t. Consultations: Dr. Campbell from pulmonary Dr. Lea from psychiatry Dr. Tonia Guillen/Dr. Nuno from GI On examination: VITAL SIGNS: 97.7, 118, 20, 99 this 67, 99% room air GENERAL APPEARANCE: . Lying in bed, tired appearing HEENT: Normal external appearance of nose and ear. Oral cavity normal EYES: Pupils equal. Conjunctiva pale NECK: JVD not raised. Mass not palpable. RESPIRATORY: Respiratory effort increased, lungs-decreased breath sounds some wheezing. CARDIOVASCULAR: First and second sounds normal. No edema. ABDOMEN: Soft. Liver and spleen not palpable. No tenderness. No mass palpable. PSYCHIATRY: Alert and oriented x3. Mood and affect anxious Investigations reviewed in the clinical context: White count 3.2 hemoglobin 9.4 platelets 101 potassium 4.3 EGD-superficial antral ulcerations, esophageal varices requiring banding, portal hypertensive gastropathy, hiatal hernia Assessment: -Acute upper GI bleed from esophageal varices, now stopped -Alcoholic cirrhosis causing Secondary portal hypertension with portal hypertensive gastropathy -Hiatal hernia -Superficial gastric antral ulcerations -COPD in an ex-smoker -Chronic thrombocytopenia from alcoholic liver disease -Acute blood loss anemia requiring blood transfusion -Diabetes mellitus type 2, uncontrolled with hypoglycemia from decreased oral intake -Essential hypertension -Sigmoid diverticulosis -Chronic alcoholism Disposition: Home Patient Condition at Discharge: Stable Plan - Discharge Summary Discharge Rx Participant: Yes New Discharge Prescriptions: New Pantoprazole [Protonix] 40 mg PO DAILY #30 tablet. Metoprolol Tartrate [Lopressor] 12.5 mg PO BID #60 dose Melatonin 3 mg PO HS PRN tablet PRN Reason: Insomnia Thiamine [Vitamin B-1] 100 mg PO BID-W/MEALS #60 tab Ipratropium [place] [Atrovent Hfa] 2 puff INHALATION QID #1 inhaler Albuterol Inhaler [Ventolin Hfa Inhaler] 1 - 2 puff INHALATION Q6HR PRN #1 inhaler PRN Reason: Wheezing Continue Ezetimibe/Simvastatin [Vytorin 10-40 mg Tablet] 1 tab PO DAILY Dapagliflozin/Metformin HCl [Xigduo Xr 10 mg-1,000 mg Tab] 1 tab PO PC-SUPPER #0 Pioglitazone HCl/Metformin HCl [Actoplus Met Xr 30-1,000 mg Tb] 1 tab PO DAILY Discontinued Omeprazole [PriLOSEC] 20 mg PO -KT Discharge Medication List Ezetimibe/Simvastatin [Vytorin 10-40 mg Tablet] 1 tab PO DAILY 12/20/15 [History] Dapagliflozin/Metformin HCl [Xigduo Xr 10 mg-1,000 mg Tab] 1 tab PO PC-SUPPER #0 02/12/18 [Rx] Pioglitazone HCl/Metformin HCl [Actoplus Met Xr 30-1,000 mg Tb] 1 tab PO DAILY 03/04/19 [History] Albuterol Inhaler [Ventolin Hfa Inhaler] 1 - 2 puff INHALATION Q6HR PRN #1 inhaler 03/07/19 [Rx] Ipratropium [place] [Atrovent Hfa] 2 puff INHALATION QID #1 inhaler 03/07/19 [Rx] Melatonin 3 mg PO HS PRN tablet 03/07/19 [Rx] Metoprolol Tartrate [Lopressor] 12.5 mg PO BID #60 dose 03/07/19 [Rx] Pantoprazole [Protonix] 40 mg PO DAILY #30 tablet. 03/07/19 [Rx] Thiamine [Vitamin B-1] 100 mg PO BID-W/MEALS #60 tab 03/07/19 [Rx] Follow up Appointment(s)/Referral(s): [facility], [NON-STAFF] - 1-2 Days John Vaughn MD [Primary Care Provider] - 03/08/19 11:00 am Ramy Bailey MD [STAFF PHYSICIAN] - 04/23/19 3:00 pm Patient Instructions/Handouts: Gastrointestinal Bleeding (DC), Anemia (DC) Discharge Disposition: HOME WITH HOME HEALTH SERVICES
== END 2019-03-07 14:27 | disposition home or self-care (01) | DRG 432 ==
LOC: EC 07:00 → 2SICU 09:11 → 4MS4W 03-06 18:00
PROVIDERS: ADMIT Internal Medicine; ATTEND Hospitalist
PROC: 06L38CZ Occlusion of Esophageal Vein with Extraluminal Device, Via Natural or Artificial Opening Endoscopic (ICD-10-PCS; principal; 2019-03-05 09:15)
PROC: 0DB78ZX Excision of Stomach, Pylorus, Via Natural or Artificial Opening Endoscopic, Diagnostic (ICD-10-PCS; principal; 2019-03-05 09:15)
PROC: 0DB98ZX Excision of Duodenum, Via Natural or Artificial Opening Endoscopic, Diagnostic (ICD-10-PCS; principal; 2019-03-05 09:15)
PROC: 30233N1 Transfusion of Nonautologous Red Blood Cells into Peripheral Vein, Percutaneous Approach (ICD-10-PCS; 2019-03-05 09:15)
DX: K70.30 Alcoholic cirrhosis of liver without ascites (principal); I85.11 Secondary esophageal varices with bleeding; K76.6 Portal hypertension; E87.2 Acidosis; D62 Acute posthemorrhagic anemia; N17.9 Acute kidney failure, unspecified; I10 Essential (primary) hypertension; J44.9 Chronic obstructive pulmonary disease, unspecified; F17.200 Nicotine dependence, unspecified, uncomplicated; D69.59 Other secondary thrombocytopenia; E78.5 Hyperlipidemia, unspecified; E86.0 Dehydration; R00.0 Tachycardia, unspecified; E11.65 Type 2 diabetes mellitus with hyperglycemia; K22.70 Barrett's esophagus without dysplasia; F10.229 Alcohol dependence with intoxication, unspecified; K25.9 Gastric ulcer, unspecified as acute or chronic, without hemorrhage or perforation; K44.9 Diaphragmatic hernia without obstruction or gangrene; K70.10 Alcoholic hepatitis without ascites; Y90.2 Blood alcohol level of 40-59 mg/100 ml; E11.649 Type 2 diabetes mellitus with hypoglycemia without coma; K57.30 Diverticulosis of large intestine without perforation or abscess without bleeding; Z82.49 Family history of ischemic heart disease and other diseases of the circulatory system; Z83.3 Family history of diabetes mellitus; Z83.49 Family history of other endocrine, nutritional and metabolic diseases; Z98.890 Other specified postprocedural states
CPT/HCPCS: 36415; 43239; 43244; 71046; 80048; 80053; 80320; 81003; 82150; 82607; 82728; 82746; 83036; 83540; 83550; 83605; 83690; 83735; 84100; 84132; 85025; 85027; 85610; 85730; 86850; 86900; 86901; 86920; 88305; 93005; 96361; 96374; 96375; 99291

== ENCOUNTER 2019-03-18 16:07 | Inpatient (IN) | payer OTHER ==
[2019-03-18 18:26] LABS: Anisocytosis Slight; Basophils % (A) 1 %; Eosinophils # (A) 0.1 k/uL (0-0.7); Eosinophils % (A) 1 %; HCT 34.7 % (39.0-53.0); HGB 10.7 gm/dL (13.0-17.5); Lymphocytes # (A) 0.7 k/uL (1.0-4.8); Lymphocytes % (A) 12 %; MCH 32.7 pg (25.0-35.0); MCHC 30.9 g/dL (31.0-37.0); MCV 105.8 fL (80.0-100.0); Macrocytosis Marked; Mean Platelet Volume 8.4; Monocytes # (A) 0.3 k/uL (0-1.0); Monocytes % (A) 5 %; Neutrophils # (A) 4.9 k/uL (1.3-7.7); Neutrophils % (A) 79 %; Platelet Count 202 k/uL (150-450); RBC 3.28 m/uL (4.30-5.90); RDW 17.2 % (11.5-15.5); WBC 6.2 k/uL (3.8-10.6)
[2019-03-18 18:42] LABS: INR 1.3 (<1.2); Partial Thromboplastin Time 23.5 sec (22.0-30.0); Prothrombin Time 13.1 sec (9.0-12.0)
[2019-03-18 18:44] LABS: Albumin 3.3 g/dL (3.5-5.0); Calcium 8.5 mg/dL (8.4-10.2); Potassium 4.1 mmol/L (3.5-5.1); Total Bilirubin 7.8 mg/dL (0.2-1.3); Total Protein 6.3 g/dL (6.3-8.2)
[2019-03-18] MEDS ORDERED: fentaNYL (PF) 50 MCG/ML 2 ML AMP IVP STA (19:19)
[2019-03-18 19:29] LABS: Bilirubin, Conjugated 2.4 mg/dL (0.0-0.3); Bilirubin,Unconjugated 2.4 mg/dL (0.0-1.1)
--- NOTE | 2019-03-18 19:33 | CT ---
EXAMINATION TYPE: CT abdomen pelvis wo con DATE OF EXAM: 03/18/2019 COMPARISON: None HISTORY: Abdominal distention. CT DLP: 723.8 mGycm Automated exposure control for dose reduction was used. TECHNIQUE: Helical acquisition of images was performed from the lung bases through the pelvis. FINDINGS: There is some infiltrate and atelectasis at the right posterior lung base. There is no pericardial ef fusion. There is moderate abdominal ascites. Liver shows no focal defect. There is no evidence of a splenic m ass. There is no pancreatic mass. Gallbladder shows a small calcified gallstone. Bile ducts are not d ilated. There is small hiatal hernia. There is no adrenal mass. Kidneys show normal size and contour. There is no hydronephrosis. There is no retroperitoneal adenopathy. Ureters are not dilated. Abdominal aorta has normal size. The bladder distends smoothly. There is no sign of a pelvic mass. There is no inguinal hernia. There is no evidence of free air. There is no evidence of a bowel obstruction. There is 1 cm anterior subluxation of L4 in relation L5. There is no spondylolysis. There is no lumba r compression fracture. Bony pelvis is intact. IMPRESSION: MASSIVE ASCITES. MILD INFILTRATE AND ATELECTASIS RIGHT LUNG BASE. Degenerative first-degree L4-5 spondylolisthesis.
--- NOTE | 2019-03-18 19:50 | ED ---
SOB HPI - General Chief Complaint: Shortness of Breath Stated Complaint: SOB, Abd Swelling Time Seen by Provider: 03/18/19 17:24 Source: patient Mode of arrival: ambulatory Limitations: no limitations - History of Present Illness Initial Comments: The patient is a 63-year-old male with past medical history of alcoholic cirrhosis who presents to the emergency room with complaint of abdominal swelling. The patient was recently admitted to the hospital for hematemesis. States that since he has been discharged she has developed progressive swelling in his abdomen. No history of similar in the past. He denies a history of ascites. He admits to shortness of breath secondary to his abdominal distention. He is also had exertional shortness of breath and decreased stamina. He admits to mild abdominal discomfort. He denies any further hematemesis. No report of any tea colored urine or galindo stools. He denies any chest pain. No history of paracenteses in the past. He does admit to bilateral lower extremity swelling. He is not on any diuretics. Patient does have notable scleral icterus and jaundice. He denies ripping or tearing sensation to his back. He denies any nausea or vomiting. No diarrhea, constipation, melanotic stools or hematochezia. He denies any changes in his urination to include dysuria, hematuria difficulty breathing. There are no alleviating, precipitating or modifying factors - Related Data Home Medications Medication Instructions Recorded Confirmed Ezetimibe/Simvastatin [Vytorin 1 tab PO DAILY 12/20/15 03/18/19 10-40 mg Tablet] Pioglitazone HCl/Metformin HCl 1 tab PO DAILY 03/04/19 03/18/19 [Actoplus Met Xr 30-1,000 mg Tb] Acetaminophen Tab [Tylenol] 325 mg PO DAILY PRN 03/18/19 03/18/19 Albuterol Inhaler [Ventolin Hfa 1 - 2 puff INHALATION RT-Q6H PRN 03/18/19 03/18/19 Inhaler] Cyanocobalamin (Vitamin B-12) 1,000 mcg PO DAILY 03/18/19 03/18/19 [Vitamin B-12] Ipratropium [place] [Atrovent Hfa] 2 puff INHALATION RT-QID 03/18/19 03/18/19 Magnesium Gluconate [Magonate] 500 mg PO DAILY 03/18/19 03/18/19 Omeprazole 20 mg PO DAILY 03/18/19 03/18/19 Previous Rx's Medication Instructions Recorded Metoprolol Tartrate [Lopressor] 12.5 mg PO BID #60 dose 03/07/19 Pantoprazole [Protonix] 40 mg PO DAILY #30 tablet. 03/07/19 Thiamine [Vitamin B-1] 100 mg PO BID-W/MEALS #60 tab 03/07/19 Allergies Allergy/AdvReac Type Severity Reaction Status Date / Time No Known Allergies Allergy Verified 03/18/19 17:18 Review of Systems ROS Statement: Those systems with pertinent positive or pertinent negative responses have been documented in the HPI. ROS Other: All systems not noted in ROS Statement are negative. Past Medical History Past Medical History: Diabetes Mellitus, GI Bleed, Hypertension Additional Past Medical History / Comment(s): COPD, anemia, Bravo's esophagus, sigmoid diverticulitis/diverticulosis, dyslipidemia, Bravo's esophagus, portal hypertension related to liver cirrhosis History of Any Multi-Drug Resistant Organisms: None Reported Past Surgical History: Hernia Repair, Orthopedic Surgery Additional Past Surgical History / Comment(s): bilateral carpal tunnel repair, left inguinal hernia repair Past Anesthesia/Blood Transfusion Reactions: No Reported Reaction Past Psychological History: No Psychological Hx Reported Smoking Status: Former smoker Past Alcohol Use History: Abuse Past Drug Use History: Marijuana - Past Family History Father Family Medical History: Diabetes Mellitus, Hyperlipidemia, Hypertension, Vascular Disorder General Exam Limitations: no limitations General appearance: alert, in no apparent distress Head exam: Present: atraumatic, normocephalic, normal inspection Eye exam: Present: normal appearance, PERRL, EOMI. Absent: scleral icterus, conjunctival injection, periorbital swelling ENT exam: Present: normal exam, mucous membranes moist Neck exam: Present: normal inspection. Absent: tenderness, meningismus, lymphadenopathy Respiratory exam: Present: normal lung sounds bilaterally. Absent: respiratory distress, wheezes, rales, rhonchi, stridor Cardiovascular Exam: Present: regular rate, normal rhythm, normal heart sounds. Absent: systolic murmur, diastolic murmur, rubs, gallop, clicks GI/Abdominal exam: Present: soft, normal bowel sounds. Absent: distended, tenderness, guarding, rebound, rigid Extremities exam: Present: normal inspection, full ROM, normal capillary refill. Absent: tenderness, pedal edema, joint swelling, calf tenderness Back exam: Present: normal inspection Neurological exam: Present: alert, oriented X3, CN II-XII intact Psychiatric exam: Present: normal affect, normal mood Skin exam: Present: warm, dry, intact, normal color. Absent: rash Course Vital Signs 03/18/19 03/18/19 03/18/19 16:26 17:56 18:47 Temperature 98 F Pulse Rate 90 91 93 Respiratory 16 18 18 Rate Blood Pressure 95/63 98/75 100/70 O2 Sat by Pulse 99 98 98 Oximetry 03/18/19 03/18/19 03/18/19 19:30 21:00 23:53 Temperature Pulse Rate 93 96 96 Respiratory 18 18 18 Rate Blood Pressure 106/70 108/74 109/72 O2 Sat by Pulse 100 99 100 Oximetry 03/19/19 00:31 Temperature Pulse Rate 95 Respiratory 18 Rate Blood Pressure 117/73 O2 Sat by Pulse 97 Oximetry Medical Decision Making - Medical Decision Making Upon arrival the patient is placed in room 9. He is hooked up to continuous pulse ox and cardiac monitoring. A 12-lead EKG is performed which demonstrates no acute signs of ischemia. The patient's vitals obtained and he is hemodynamically stable. I did recommend laboratory studies. The patient has not had a CT of his abdomen performed and therefore I ordered 1. The results return and is not the patient has a component of acute kidney injury at this time. Because of this I did perform a noncontrasted CT of his abdomen. CT does demonstrate a massive amount ascites. Patient also has an elevated bilirubin. I did discuss results with the patient. I recommended hospital admission for evaluation by interventional radiology for possible paracentesis. The patient did agree to this. I did call discuss case with Dr. Robbins. He did accept admission of the patient. I did place GI and interventional radiology consult. Admit the patient nothing by mouth at midnight. He did remain in stable condition and is awaiting transport to the floor - Lab Data Result diagrams: 03/18/19 16:56 03/18/19 16:56 Lab Results 03/18/19 03/18/19 03/18/19 Range/Units 16:56 16:56 16:56 WBC 6.2 (3.8-10.6) k/uL RBC 3.28 L (4.30-5.90) m/uL Hgb 10.7 L (13.0-17.5) gm/dL Hct 34.7 L (39.0-53.0) % MCV 105.8 H (80.0-100.0) fL MCH 32.7 (25.0-35.0) pg MCHC 30.9 L (31.0-37.0) g/dL RDW 17.2 H (11.5-15.5) % Plt Count 202 (150-450) k/uL Neutrophils % 79 % Lymphocytes % 12 % Monocytes % 5 % Eosinophils % 1 % Basophils % 1 % Neutrophils # 4.9 (1.3-7.7) k/uL Lymphocytes # 0.7 L (1.0-4.8) k/uL Monocytes # 0.3 (0-1.0) k/uL Eosinophils # 0.1 (0-0.7) k/uL Basophils # 0.0 (0-0.2) k/uL Anisocytosis Slight Macrocytosis Marked A PT (9.0-12.0) sec INR (<1.2) APTT (22.0-30.0) sec Sodium 135 L (137-145) mmol/L Potassium 4.1 (3.5-5.1) mmol/L Chloride 101 (98-107) mmol/L Carbon Dioxide 23 (22-30) mmol/L Anion Gap 11 mmol/L BUN 17 (9-20) mg/dL Creatinine 1.58 H (0.66-1.25) mg/dL Est GFR (CKD-EPI)AfAm 53 (>60 ml/min/1.73 sqM) Est GFR (CKD-EPI)NonAf 46 (>60 ml/min/1.73 sqM) Glucose 190 H (74-99) mg/dL Plasma Lactic Acid [place] 2.0 (0.7-2.0) mmol/L Calcium 8.5 (8.4-10.2) mg/dL Total Bilirubin 7.8 H (0.2-1.3) mg/dL Conjugated Bilirubin 2.4 H (0.0-0.3) mg/dL Unconjugated Bilirubin 2.4 H (0.0-1.1) mg/dL Delta Bilirubin 3.0 H (0.0-0.2) mg/dL AST 135 H (17-59) U/L ALT 74 H (21-72) U/L Alkaline Phosphatase 211 H (38-126) U/L Total Protein 6.3 (6.3-8.2) g/dL Albumin 3.3 L (3.5-5.0) g/dL Lipase 50 (23-300) U/L Blood Type Blood Type Recheck Antibody Screen Spec Expiration Date 03/18/19 03/18/19 Range/Units 16:56 19:29 WBC (3.8-10.6) k/uL RBC (4.30-5.90) m/uL Hgb (13.0-17.5) gm/dL Hct (39.0-53.0) % MCV (80.0-100.0) fL MCH (25.0-35.0) pg MCHC (31.0-37.0) g/dL RDW (11.5-15.5) % Plt Count (150-450) k/uL Neutrophils % % Lymphocytes % % Monocytes % % Eosinophils % % Basophils % % Neutrophils # (1.3-7.7) k/uL Lymphocytes # (1.0-4.8) k/uL Monocytes # (0-1.0) k/uL Eosinophils # (0-0.7) k/uL Basophils # (0-0.2) k/uL Anisocytosis Macrocytosis PT 13.1 H (9.0-12.0) sec INR 1.3 H (<1.2) APTT 23.5 (22.0-30.0) sec Sodium (137-145) mmol/L Potassium (3.5-5.1) mmol/L Chloride (98-107) mmol/L Carbon Dioxide (22-30) mmol/L Anion Gap mmol/L BUN (9-20) mg/dL Creatinine (0.66-1.25) mg/dL Est GFR (CKD-EPI)AfAm (>60 ml/min/1.73 sqM) Est GFR (CKD-EPI)NonAf (>60 ml/min/1.73 sqM) Glucose (74-99) mg/dL Plasma Lactic Acid [place] (0.7-2.0) mmol/L Calcium (8.4-10.2) mg/dL Total Bilirubin (0.2-1.3) mg/dL Conjugated Bilirubin (0.0-0.3) mg/dL Unconjugated Bilirubin (0.0-1.1) mg/dL Delta Bilirubin (0.0-0.2) mg/dL AST (17-59) U/L ALT (21-72) U/L Alkaline Phosphatase (38-126) U/L Total Protein (6.3-8.2) g/dL Albumin (3.5-5.0) g/dL Lipase (23-300) U/L Blood Type A Positive Blood Type Recheck No Antibody Screen NEGATIVE Spec Expiration Date 03/21/2019 - 0299 - EKG Data EKG Comments: EKG demonstrates a normal sinus rhythm with a ventricular rate of 87. WI interval 144. QRS V2. QTC of 459. There is overall low voltage. There are no acute ST segment patient depressions concerning for ischemic changes Disposition Clinical Impression: Hepatitis, alcoholic, Acute kidney injury, Ascites due to alcoholic cirrhosis, Hyperbilirubinemia, Acute respiratory insufficiency Disposition: ADMITTED IP TO THIS [facility] Condition: Serious Is patient prescribed a controlled substance at d/c from ED?: No Decision to Admit Reason: Admit from EC Decision Date: 03/18/19 Decision Time: 19:53
[2019-03-18] MEDS ORDERED: NALOXONE 0.4 MG/ML 1 ML VIAL IV PRN (19:54)
[2019-03-18] MEDS: METOPROLOL TARTRATE 12.5 MG TAB PO SCH (21:54)
[2019-03-18] MEDS ORDERED: ALBUTEROL NEBULIZED 2.5 MG/3 ML INHALATION PRN (23:36)
--- NOTE | 2019-03-18 23:36 | P.HPIM ---
History of Present Illness H&P Date: 03/18/19 Chief Complaint: Abdominal distention and difficulty breathing 63-year-old male with advanced liver cirrhosis secondary to alcohol abuse Patient was recently discharged from the hospital 2 weeks ago after having an episode of GI bleeding this was his second episode first episode was one year ago. GI bleeding is secondary to esophageal varices This time patient presented with difficulty breathing and progressively worsening distention of the abdomen. Reports that since his last discharge she noticed over the past few days that his abdomen is getting bigger and bigger and started to interfere with his breathing and activity he feels that it's getting heavier and more distended however denies any fevers or chills eyes any nausea vomiting or constipation denies any GI bleeding melena or fresh per rectum he only reports blood upon heavy straining which she thinks related to his hemorrhoids. He denies any hematemesis or coffee-ground vomiting denies any nausea or vomiting denies any chest pain denies any fevers or chills. Patient denies any history of ascites in the past. Patient reports quitting alcohol about 3 weeks ago, he is currently reporting that he is feeling progressively weak and tired denies any abdominal pain again but reports some stretching and distention in his belly that's bothering him and affecting his breathing Review of Systems Pertinent positives as noted in HPI. All other systems were reviewed and are negative Past Medical History Past Medical History: Diabetes Mellitus, GI Bleed, Hypertension Additional Past Medical History / Comment(s): COPD, anemia, Bravo's esophagus, sigmoid diverticulitis/diverticulosis, dyslipidemia, Bravo's esophagus, portal hypertension related to liver cirrhosis History of Any Multi-Drug Resistant Organisms: None Reported Past Surgical History: Hernia Repair, Orthopedic Surgery Additional Past Surgical History / Comment(s): bilateral carpal tunnel repair, left inguinal hernia repair Past Anesthesia/Blood Transfusion Reactions: No Reported Reaction Past Psychological History: No Psychological Hx Reported Smoking Status: Former smoker Past Alcohol Use History: Abuse Past Drug Use History: Marijuana - Past Family History Father Family Medical History: Diabetes Mellitus, Hyperlipidemia, Hypertension, Vascular Disorder Medications and Allergies Home Medications Medication Instructions Recorded Confirmed Type Ezetimibe/Simvastatin [Vytorin 1 tab PO DAILY 12/20/15 03/18/19 History 10-40 mg Tablet] Pioglitazone HCl/Metformin HCl 1 tab PO DAILY 03/04/19 03/18/19 History [Actoplus Met Xr 30-1,000 mg Tb] Metoprolol Tartrate [Lopressor] 12.5 mg PO BID #60 dose 03/07/19 03/18/19 Rx Pantoprazole [Protonix] 40 mg PO DAILY #30 tablet.dr 03/07/19 03/18/19 Rx Thiamine [Vitamin B-1] 100 mg PO BID-W/MEALS #60 tab 03/07/19 03/18/19 Rx Acetaminophen Tab [Tylenol] 325 mg PO DAILY PRN 03/18/19 03/18/19 History Albuterol Inhaler [Ventolin Hfa 1 - 2 puff INHALATION RT-Q6H PRN 03/18/19 03/18/19 History Inhaler] Cyanocobalamin (Vitamin B-12) 1,000 mcg PO DAILY 03/18/19 03/18/19 History [Vitamin B-12] Ipratropium [place] [Atrovent Hfa] 2 puff INHALATION RT-QID 03/18/19 03/18/19 History Magnesium Gluconate [Magonate] 500 mg PO DAILY 03/18/19 03/18/19 History Omeprazole 20 mg PO DAILY 03/18/19 03/18/19 History Allergies Allergy/AdvReac Type Severity Reaction Status Date / Time No Known Allergies Allergy Verified 03/18/19 17:18 Physical Exam Vitals: Vital Signs Temp Pulse Resp BP Pulse Ox 03/18/19 21:00 96 18 108/74 99 03/18/19 19:30 93 18 106/70 100 03/18/19 18:47 93 18 100/70 98 03/18/19 17:56 91 18 98/75 98 03/18/19 16:26 98 F 90 16 95/63 99 Intake and Output 03/18/19 03/18/19 03/18/19 06:59 14:59 22:59 Other: Weight 72.575 kg Constitutional: No acute distress, conversant, pleasant, no asterixis Eyes: No scleral jaundice, moist conjunctiva, no lid-lag Pupils equal round reactive to light ENMT: NC/AT Oropharynx clear, no erythema, or exudates Neck: Supple, FROM, no masses, or JVD No carotid bruits No thyromegaly Lungs: Clear to auscultation Clear to percussion Normal respiratory effort, no accessory muscle use Cardiovascular: Heart regular in rate and rhythm, No murmurs, gallops, or rubs +2 bilateral peripheral edema Abdominal: Moderately to severe distention hard to touch at the flanks, transmitted controlled positive shifting dullness positive no tenderness to palpation, flat umbilicus Nontender, no guarding, rebound or rigidity Abdomen moving with respiration Normoactive bowel sounds No palpable mass No abdominal wall hernia noted Skin: Normal temperature, tone, texture, turgor No induration No subcutaneous nodules No rash, lesions No ulcers Extremities: No digital cyanosis No clubbing Pedal pulses intact and symmetrical Radial pulses intact and symmetrical No calf tenderness Psychiatric: Alert and oriented to person, place and time Appropriate affect fair judgment Neuro Muscles Strength 4/5 in all 4 extremities Sensation to light touch grossly present throughout Cranial nerves II-XII grossly intact No focal sensory deficits Lymphatics: no palpable cervical or supraclavicular , or inguinal lymph nodes Results CBC & Chem 7: 03/18/19 16:56 03/18/19 16:56 Labs: Abnormal Lab Results - Last 24 Hours (Table) 03/18/19 03/18/19 03/18/19 Range/Units 16:56 16:56 16:56 RBC 3.28 L (4.30-5.90) m/uL Hgb 10.7 L (13.0-17.5) gm/dL Hct 34.7 L (39.0-53.0) % MCV 105.8 H (80.0-100.0) fL MCHC 30.9 L (31.0-37.0) g/dL RDW 17.2 H (11.5-15.5) % Lymphocytes # 0.7 L (1.0-4.8) k/uL Macrocytosis Marked A PT 13.1 H (9.0-12.0) sec INR 1.3 H (<1.2) Sodium 135 L (137-145) mmol/L Creatinine 1.58 H (0.66-1.25) mg/dL Glucose 190 H (74-99) mg/dL Total Bilirubin 7.8 H (0.2-1.3) mg/dL Conjugated Bilirubin 2.4 H (0.0-0.3) mg/dL Unconjugated Bilirubin 2.4 H (0.0-1.1) mg/dL Delta Bilirubin 3.0 H (0.0-0.2) mg/dL AST 135 H (17-59) U/L ALT 74 H (21-72) U/L Alkaline Phosphatase 211 H (38-126) U/L Albumin 3.3 L (3.5-5.0) g/dL Assessment and Plan Assessment: 62-year-old male with history of liver cirrhosis secondary to alcohol abuse. Admitted as an inpatient with anticipated length of stay more than 48 hours due to symptomatic severe ascites with difficulty breathing patient recently admitted to the hospital for variceal esophageal bleeding. Plan: Symptomatic severe ascites with difficulty breathing moderate alcoholic hepatitis Advanced liver cirrhosis secondary to alcohol abuse Recent history of GI bleeding secondary to esophageal varices Portal hypertension COPD not on home oxygen Diabetes mellitus Hypertension Anemia with recent GI bleeding, currently stable denies any evidence of active bleeding Symptomatic control Supplemental oxygen as needed keep oxygen sats above 92% Interventional radiology for paracentesis Continue home meds Consider referral for [facility] of graduate studies Patient been sober for over 3 weeks now Insulin sliding scale Avoid hepatotoxic meds DF score less than 32 DVT prophylaxis heparin subcu 3 times a day Check alpha-fetoprotein Follow-up morning labs Preformed a thorough record review from recent hospitalization for GI bleeding secondary to esophageal variceal bleeding status post EGD Surrogate decision-maker: Brother CODE STATUS: Full code Discussed with: Patient, ER, RN Anticipated discharge: 48-[address]: Home A total of 60 minutes was spent on the care of this complex patient more than 50% of the time was spent in counseling and care coordination.
[2019-03-18] MEDS: HEPARIN SODIUM,PORCINE 5,000 UNIT/ML 1 ML VIAL SQ SCH (23:51)
[2019-03-19] MEDS: fentaNYL (PF) 50 MCG/ML 2 ML AMP IVP PRN ×2 (00:28→06:13)
[2019-03-19] MEDS: IPRATROPIUM 0.5 MG/2.5 ML NEBU INHALATION SCH ×4 (07:52→18:49)
--- NOTE | 2019-03-19 08:29 | P.CONS ---
History of Present Illness - Reason for Consult Consult date: 03/19/19 Ascites hyperbilirubinemia Requesting physician: Elizabeth Hunt - Chief Complaint Hyperbilirubinemia ascites - History of Present Illness 63-year-old male history of alcohol liver cirrhosis recently hospitalized earlier this month with acute hematemesis and underwent EGD 03/05/2019 with findings superficial antral ulcerations, esophageal varicesx 6 bands with underlying portal hypertensive gastropathy and hiatal hernia. Discharge hemoglobin 9.4. LFTs total bilirubin 1.9. AST 256. ALT 106. AP 161. Last alcohol drink 2 weeks ago. No history of paracentesis. Denies fever chills hematemesis hematochezia melena. Admitted with abdominal distention discomfort over the last few weeks as well as evidence of worsening elevated liver enzymes on admission. Denies epigastric pain. No changes in the color of his bowel movements however urine appears to be more dark in color. CT reported massive ascites. Gallbladder small calcified gallstone without biliary ductal dilatation. Hemoglobin 10.7. White count 6.2. Platelet 202. INR 1.3. Sodium 135. Potassium 4.1. BUN 17. Creatinine 1.5. Total bilirubin 7.8. AST 135. ALT 74. AP 211. Lipase 50. Albumin 3.3. Conjugated bilirubin 2.4. Unconjugated bilirubin 2.4. Review of Systems Constitutional: Denies fever, chills, sweats, weight gain, or loss. HEENT: Negative for migraines, blurred vision or loss, earaches, drainage, tinnitus, oral mucosal lesions, dysphagia, or odynophagia. Cardiac: Negative for chest pain, arrhythmias, or palpitation. Respiratory: Negative for shortness of breath, hemoptysis, cough, or sputum production. Gastrointestinal: See HPI for pertinent findings. Genitourinary: Negative for hematuria, urgency, frequency, polyuria, dysuria, or penile discharge. Musculoskeletal: Negative for muscle aches, swelling, arthritis, and arthralgi as. Neurologic: Negative for stroke or TIA. Endocrine: Negative for thyroid problems. Skin: Negative for rash or itching. Psychiatric: Negative history for depression and anxiety Past Medical History Past Medical History: Diabetes Mellitus, GI Bleed, Hypertension Additional Past Medical History / Comment(s): COPD, anemia, Bravo's esophagus, sigmoid diverticulitis/diverticulosis, dyslipidemia, Bravo's esophagus, portal hypertension related to liver cirrhosis History of Any Multi-Drug Resistant Organisms: None Reported Past Surgical History: Hernia Repair, Orthopedic Surgery Additional Past Surgical History / Comment(s): bilateral carpal tunnel repair, left inguinal hernia repair Past Anesthesia/Blood Transfusion Reactions: No Reported Reaction Past Psychological History: No Psychological Hx Reported Smoking Status: Former smoker Past Alcohol Use History: Abuse Past Drug Use History: Marijuana - Past Family History Father Family Medical History: Diabetes Mellitus, Hyperlipidemia, Hypertension, Vascular Disorder Medications and Allergies Home Medications Medication Instructions Recorded Confirmed Type Ezetimibe/Simvastatin [Vytorin 1 tab PO DAILY 12/20/15 03/18/19 History 10-40 mg Tablet] Pioglitazone HCl/Metformin HCl 1 tab PO DAILY 03/04/19 03/18/19 History [Actoplus Met Xr 30-1,000 mg Tb] Metoprolol Tartrate [Lopressor] 12.5 mg PO BID #60 dose 03/07/19 03/18/19 Rx Pantoprazole [Protonix] 40 mg PO DAILY #30 tablet. 03/07/19 03/18/19 Rx Thiamine [Vitamin B-1] 100 mg PO BID-W/MEALS #60 tab 03/07/19 03/18/19 Rx Acetaminophen Tab [Tylenol] 325 mg PO DAILY PRN 03/18/19 03/18/19 History Albuterol Inhaler [Ventolin Hfa 1 - 2 puff INHALATION RT-Q6H PRN 03/18/1902/27 History Inhaler] Cyanocobalamin (Vitamin B-12) 1,000 mcg PO DAILY 03/18/19 03/18/19 History [Vitamin B-12] Ipratropium [place] [Atrovent Hfa] 2 puff INHALATION RT-QID 03/18/19 03/18/19 History Magnesium Gluconate [Magonate] 500 mg PO DAILY 03/18/19 03/18/19 History Omeprazole 20 mg PO DAILY 03/18/19 03/18/19 History Allergies Allergy/AdvReac Type Severity Reaction Status Date / Time No Known Allergies Allergy Verified 03/18/19 17:18 Physical Exam Vitals: Vital Signs Temp Pulse Resp BP Pulse Ox 03/19/19 06:14 90 16 110/67 98 03/19/19 00:31 95 18 117/73 97 03/18/19 23:53 96 18 109/72 100 03/18/19 21:00 96 18 108/74 99 03/18/19 19:30 93 18 106/70 100 03/18/19 18:47 93 18 100/70 98 03/18/19 17:56 91 18 98/75 98 03/18/19 16:26 98 F 90 16 95/63 99 Intake and Output 03/18/19 03/19/19 03/19/19 22:59 06:59 14:59 Other: Weight 72.575 kg General appearance: The patient is alert, oriented, in no acute distress. Jaundice. HET: Head is normocephalic and atraumatic. Pupils are equal and reactive. Oropharynx is clear without lesions. Sclerae icterus. Neck: Supple without lymphadenopathy. Trachea midline. Heart: S1 S2. Regular rate and rhythm. Lungs: No crackles or wheezes are heard. Abdomen: Soft, distended with massive ascites with bowel sounds. No peritoneal signs. No palpable organomegaly or masses. Extremities: Normal skin color and turgor. No cyanosis, rash, ulceration, clubbing, or edema. Radial and pedal pulses are 2/4 bilaterally. Neurological: No focal deficits. Strength and sensation are grossly intact. Results CBC & Chem 7: 03/18/19 16:56 03/18/19 16:56 Labs: Abnormal Lab Results - Last 24 Hours (Table) 03/18/19 03/18/19 03/18/19 Range/Units 16:56 16:56 16:56 RBC 3.28 L (4.30-5.90) m/uL Hgb 10.7 L (13.0-17.5) gm/dL Hct 34.7 L (39.0-53.0) % MCV 105.8 H (80.0-100.0) fL MCHC 30.9 L (31.0-37.0) g/dL RDW 17.2 H (11.5-15.5) % Lymphocytes # 0.7 L (1.0-4.8) k/uL Macrocytosis Marked A PT 13.1 H (9.0-12.0) sec INR 1.3 H (<1.2) Sodium 135 L (137-145) mmol/L Creatinine 1.58 H (0.66-1.25) mg/dL Glucose 190 H (74-99) mg/dL Total Bilirubin 7.8 H (0.2-1.3) mg/dL Conjugated Bilirubin 2.4 H (0.0-0.3) mg/dL Unconjugated Bilirubin 2.4 H (0.0-1.1) mg/dL Delta Bilirubin 3.0 H (0.0-0.2) mg/dL AST 135 H (17-59) U/L ALT 74 H (21-72) U/L Alkaline Phosphatase 211 H (38-126) U/L Albumin 3.3 L (3.5-5.0) g/dL CT scan - abdomen: report reviewed (Dr. Bailey) Assessment and Plan (1) Decompensated hepatic cirrhosis Current Visit: Yes Status: Acute Code(s): K72.90 - HEPATIC FAILURE, UNSPECIFIED WITHOUT COMA SNOMED Code(s): 096789928 (2) Portal hypertension Current Visit: Yes Status: Acute Code(s): K76.6 - PORTAL HYPERTENSION SNOMED Code(s): 23874997 (3) Ascites due to alcoholic cirrhosis Current Visit: Yes Status: Acute Code(s): K70.31 - ALCOHOLIC CIRRHOSIS OF LIVER WITH ASCITES SNOMED Code(s): 3586502051376742 (4) Elevated liver enzymes Current Visit: Yes Status: Acute Code(s): R74.8 - ABNORMAL LEVELS OF OTHER SERUM ENZYMES SNOMED Code(s): 253376651 (5) Elevated serum creatinine Current Visit: Yes Status: Acute Code(s): R79.89 - OTHER SPECIFIED ABNORMAL FINDINGS OF BLOOD CHEMISTRY SNOMED Code(s): 382727046 (6) Cholelithiasis Current Visit: Yes Status: Acute Code(s): K80.20 - CALCULUS OF GALLBLADDER W/O CHOLECYSTITIS W/O OBSTRUCTION SNOMED Code(s): 428496967 Plan: 1. Paracentesis with cytology. Will give albumin 25 g prior to procedure secondary to elevated creatinine. 2. Protonix 40 mg daily. Low-salt cardiac diet. 3. Daily CBC CMP PT/INR. Diuretic therapy per electrolyte BUN/creatinine monitoring. We'll reassess after paracentesis. 4. AFP/hepatitis screen. Thank you for this kind referral and the opportunity to participate in the care of your patient. This consultation was discussed with Dr. Bailey. The impression and plan of care have been directed as dictated.
[2019-03-19 08:49] LABS: Albumin 2.9 g/dL (3.5-5.0); Calcium 8.3 mg/dL (8.4-10.2); Potassium 4.2 mmol/L (3.5-5.1); Total Protein 5.8 g/dL (6.3-8.2)
[2019-03-19] MEDS ORDERED: NON-FORMULARY DRUG (Omeprazole [Omeprazole] 20 MG) PO SCH (09:00)
[2019-03-19] MEDS: INSULIN ASPART (NovoLOG) 100 UNIT/ML VIAL SQ SCH ×4 (09:02→20:48)
[2019-03-19] MEDS: HEPARIN SODIUM,PORCINE 5,000 UNIT/ML 1 ML VIAL SQ SCH ×2 (09:02→16:29)
[2019-03-19 09:03] LABS: Glucose,Whole Blood 103 mg/dL (75-99)
[2019-03-19] MEDS: MORPHINE SULFATE 2 MG/ML SYRINGE IVP PRN ×4 (09:03→22:04)
[2019-03-19] MEDS: METOPROLOL TARTRATE 12.5 MG TAB PO SCH ×2 (09:03→20:48)
[2019-03-19] MEDS: PANTOPRAZOLE 40 MG TABLET PO SCH (09:04)
[2019-03-19] MEDS: THIAMINE 100 MG TAB PO SCH ×2 (09:04→16:34)
[2019-03-19 09:34] LABS: Anisocytosis Slight; Basophils % (A) 1 %; Eosinophils # (A) 0.1 k/uL (0-0.7); Eosinophils % (A) 3 %; HCT 30.7 % (39.0-53.0); HGB 9.5 gm/dL (13.0-17.5); Hypochromasia Moderate; Lymphocytes # (A) 0.7 k/uL (1.0-4.8); Lymphocytes % (A) 17 %; MCH 33.5 pg (25.0-35.0); MCV 107.9 fL (80.0-100.0); Macrocytosis Marked; Monocytes # (A) 0.2 k/uL (0-1.0); Monocytes % (A) 5 %; Neutrophils # (A) 2.7 k/uL (1.3-7.7); Neutrophils % (A) 71 %; Platelet Count 128 k/uL (150-450); RBC 2.84 m/uL (4.30-5.90); RDW 17.1 % (11.5-15.5); WBC 3.8 k/uL (3.8-10.6)
[2019-03-19 11:47] LABS: Glucose,Whole Blood 103 mg/dL (75-99)
[2019-03-19] MEDS: FUROSEMIDE 10 MG/ML 4 ML VIAL IV SCH (16:34)
[2019-03-19 17:00] LABS: Glucose,Whole Blood 94 mg/dL (75-99)
[2019-03-19 19:42] LABS: Hepatitis A Antibody IgM Non-Reactive (Non-Reactive); Hepatitis B Core IgM Non-Reactive (Non-Reactive)
[2019-03-19 20:33] LABS: Glucose,Whole Blood 148 mg/dL (75-99)
--- NOTE | 2019-03-19 22:25 | P.PN ---
Subjective Progress Note Date: 03/19/19 (delayed charting) Principal diagnosis: Patient is a 63-year-old male with a history of advanced liver cirrhosis secondary to alcohol abuse, recent GI bleed secondary to esophageal varices (this is approximately 2 weeks ago), hypertension, and diabetes mellitus who presented to the emergency department with complaints of abdominal pain and swelling. The ER he underwent an extensive evaluation. He was slightly hypotensive on arrival with a blood pressure 95/63. Initial laboratory analysis showed a hemoglobin of above baseline at 10.7. Liver enzymes were slightly elevated, but downtrending from hospitalization earlier this month. Creatinine was slightly elevated at 1.58. CT of the abdomen and pelvis demonstrated massive ascites with a mild infiltrate and atelectasis right lung base. Initially diuresis was not started secondary to elevated creatinine. He was admitted for further management. GI was consulted who recommended paracentesis. Patient reports no history of any paracentesis in the past. He was on diuretic therapy. Patient seen and examined at bedside. He denies any chest pain, having slight abdominal pain, mild shortness of breath, no chest pain. He is very concerned about being discharged tomorrow as he has a for his cousin on Tuesday. Patient sugars that he will follow-up with his PCP Dr. Kruse as well as GI on discharge for results of paracentesis. I discussed with patient if he tolerates paracentesis while he could likely be discharged tomorrow with follow-up on fluid results. We also discussed with her that he will need to be started on Lasix and Aldactone and these medications will need to be titrated and have close laboratory monitoring. Objective - Vital Signs Vital signs: Vital Signs Temp 98.7 F 03/19/19 19:10 Pulse 102 H 03/19/19 19:10 Resp 18 03/19/19 19:10 BP 100/67 03/19/19 19:10 Pulse Ox 96 03/19/19 19:10 Intake & Output 03/19/19 03/19/19 03/20/19 06:59 18:59 06:59 Intake Total 296 Balance 296 Intake: Oral 296 Other: # Voids 1 - Exam General: non toxic, no distress, appears at stated age Derm: warm, dry Head: atraumatic, normocephalic, symmetric Eyes: EOMI, no lid lag, anicteric sclera Mouth: no lip lesion, mucus membranes moist Cardiovascular: S1S2 reg, no murmur, positive posterior tibial pulse bilateral, Lungs: Rhonchi left base, no accessory muscle use Abdominal: soft, nontender to palpation, no guarding, no appreciable organomegaly, nondistended Ext: no gross muscle atrophy, 2+ edema, no contractures Neuro: CN II-XI grossly intact, no focal neuro deficits Psych: Alert, oriented, appropriate affect - Labs CBC & Chem 7: 03/19/19 08:04 03/19/19 08:04 Labs: Abnormal Lab Results - Last 24 Hours (Table) 03/19/19 03/19/19 03/19/19 Range/Units 08:04 08:04 09:02 RBC 2.84 L (4.30-5.90) m/uL Hgb 9.5 L (13.0-17.5) gm/dL Hct 30.7 L (39.0-53.0) % MCV 107.9 H (80.0-100.0) fL RDW 17.1 H (11.5-15.5) % Plt Count 128 L (150-450) k/uL Lymphocytes # 0.7 L (1.0-4.8) k/uL Macrocytosis Marked A Glucose 104 H (74-99) mg/dL POC Glucose (mg/dL) 103 H (75-99) mg/dL Calcium 8.3 L (8.4-10.2) mg/dL Total Bilirubin 8.0 H (0.2-1.3) mg/dL AST 123 H (17-59) U/L Alkaline Phosphatase 199 H (38-126) U/L Total Protein 5.8 L (6.3-8.2) g/dL Albumin 2.9 L (3.5-5.0) g/dL 03/19/19 03/19/19 Range/Units 11:46 20:32 RBC (4.30-5.90) m/uL Hgb (13.0-17.5) gm/dL Hct (39.0-53.0) % MCV (80.0-100.0) fL RDW (11.5-15.5) % Plt Count (150-450) k/uL Lymphocytes # (1.0-4.8) k/uL Macrocytosis Glucose (74-99) mg/dL POC Glucose (mg/dL) 103 H 148 H (75-99) mg/dL Calcium (8.4-10.2) mg/dL Total Bilirubin (0.2-1.3) mg/dL AST (17-59) U/L Alkaline Phosphatase (38-126) U/L Total Protein (6.3-8.2) g/dL Albumin (3.5-5.0) g/dL Assessment and Plan Assessment: Decompensated cirrhosis secondary to alcohol liver disease, Portal hypertension, -Plan is for paracentesis -GI recommendations appreciated -Patient had improvement in his renal function -Add IV Lasix as well as Aldactone -Frequent outpatient follow-up with GI -Likely home tomorrow after paracentesis Transaminitis, downtrending -Likely elevated secondary to esophageal varices and acute blood loss last hospital stay -Outpatient follow-up to ensure these resolved to normal Normocytic anemia, secondary to acute blood loss from recent GI bleed secondary to varices -Continue with PPI -Again encouraged alcohol cessation -Follow CBC Diabetes mellitus type 2 -Hold Actos and metformin, ideally off these medications at discharge with hepatic impriament an -Sliding-scale insulin -Hemoglobin A1c 5.5 last admission Hypertension with borderline hypotension-currently controlled -Continue with Lopressor Chronic: COPD, dyslipidemia DVT prophylaxis: SCDs Discussed with: Patient, nursing Anticipated discharge: in AM Anticipated discharge place: home A total of 35 minutes was spent on the care of this complex patient more than 50% of the time was spent in counseling and care coordination.
[2019-03-20] MEDS: HEPARIN SODIUM,PORCINE 5,000 UNIT/ML 1 ML VIAL SQ SCH ×2 (04:16→08:00)
[2019-03-20] MEDS: MORPHINE SULFATE 2 MG/ML SYRINGE IVP PRN (04:46)
[2019-03-20 06:46] LABS: Glucose,Whole Blood 129 mg/dL (75-99)
[2019-03-20] MEDS: INSULIN ASPART (NovoLOG) 100 UNIT/ML VIAL SQ SCH (07:30)
[2019-03-20] MEDS: ALBUMIN HUMAN 25% 50 ML in EMPTY BAG 1 BAG IVPB SCH ×2 (08:24→08:55)
[2019-03-20] MEDS: METOPROLOL TARTRATE 12.5 MG TAB PO SCH (08:24)
[2019-03-20 08:30] LABS: Albumin 2.6 g/dL (3.5-5.0); Calcium 8.1 mg/dL (8.4-10.2); Total Bilirubin 6.5 mg/dL (0.2-1.3); Total Protein 5.3 g/dL (6.3-8.2)
[2019-03-20 08:31] LABS: INR 1.3 (<1.2); Prothrombin Time 12.9 sec (9.0-12.0)
[2019-03-20] MEDS: IPRATROPIUM 0.5 MG/2.5 ML NEBU INHALATION SCH ×3 (09:03→15:59)
[2019-03-20] MEDS: FUROSEMIDE 10 MG/ML 4 ML VIAL IV SCH (10:50)
[2019-03-20] MEDS: THIAMINE 100 MG TAB PO SCH (10:50)
[2019-03-20] MEDS: PANTOPRAZOLE 40 MG TABLET PO SCH (10:50)
--- NOTE | 2019-03-20 11:25 | P.DS ---
Providers Date of admission: 03/18/19 19:54 Expected date of discharge: 03/20/19 Attending physician: Elizabeth Hunt MD Consults: 03/18/19 19:55 Consult Physician Urgent Consulting Provider: Justyn Christina Consult Reason/Comments: abdominal ascites Do you want consulting provider notified?: Yes 03/18/19 20:00 Consult Physician Urgent Consulting Provider: Ramy Bailey Consult Reason/Comments: abdominal ascites, hyperbilirubinemia, alcoholic cirrhosis Do you want consulting provider notified?: Yes Primary care physician: John Vaughn Hospital Course: Discharge Diagnosis: Decompensated cirrhosis secondary to alcoholic liver disease with portal hypertension Transaminitis likely secondary to alcoholic hepatitis, and downtrending from last admission Normocytic Anemia due to blood loss from recent esophageal varicocele bleed diabetes mellitus type 2 Hypertension Hospital Course: Patient is a 63-year-old male with a history of advanced liver cirrhosis secondary to alcohol abuse, recent GI bleed secondary to esophageal varices (this is approximately 2 weeks ago), hypertension, and diabetes mellitus who presented to the emergency department with complaints of abdominal pain and swelling. The ER he underwent an extensive evaluation. He was slightly hypotensive on arrival with a blood pressure 95/63. Initial laboratory analysis showed a hemoglobin of above baseline at 10.7. Liver enzymes were slightly elevated, but downtrending from hospitalization earlier this month. Creatinine was slightly elevated at 1.58. CT of the abdomen and pelvis demonstrated massive ascites with a mild infiltrate and atelectasis right lung base. Initially diuresis was not started secondary to elevated creatinine. He was admitted for further management. GI was consulted who recommended paracentesis. Patient reports no history of any paracentesis in the past. Given one dose of IV lasix. He underwent Paracentesis on 03/10. He tolerate the procedure well and was determined stable for discharge home. He will start on lasix and aldactone with repeat CBC and CMP in 5 days. Paracen tesis fluid pending at time of discharge, discussed with GI. Stop metform and actos with significant hepatic dysfunction and A1C 5.5. Patient seen and examined at bedside. Felling much beter after paracentesis, SOB improving, belly pain improving, having slight bloating Vital signs reviewed and stable. General: non toxic, no distress, appears at stated age Derm: warm, dry Head: atraumatic, normocephalic, symmetric Eyes: EOMI, no lid lag, anicteric sclera Mouth: no lip lesion, mucus membranes moist Cardiovascular: S1S2 reg, no murmur, positive posterior tibial pulse bilateral, Lungs: CTA bilateral, no rhonchi, no rales , no accessory muscle use Abdominal: soft, +tender to palpation over area of drainage cath, no guarding, no appreciable organomegaly Ext: no gross muscle atrophy, no edema, no contractures Neuro: CN II-XI grossly intact, no focal neuro deficits Psych: Alert, oriented, appropriate affect A total of 35 minutes of time were spent preparing this complex discharge summary . Pertinent Studies: CT abdomen and pelvis- Massive ascities aelectasis right lung base Patient Condition at Discharge: Stable Plan - Discharge Summary New Discharge Prescriptions: New Spironolactone [Aldactone] 12.5 mg PO DAILY #30 tablet Furosemide [Lasix] 40 mg PO DAILY #30 tablet Continue Ezetimibe/Simvastatin [Vytorin 10-40 mg Tablet] 1 tab PO DAILY Pantoprazole [Protonix] 40 mg PO DAILY #30 tablet. Metoprolol Tartrate [Lopressor] 12.5 mg PO BID #60 dose Thiamine [Vitamin B-1] 100 mg PO BID-W/MEALS #60 tab Acetaminophen Tab [Tylenol] 325 mg PO DAILY PRN PRN Reason: Pain Magnesium Gluconate [Magonate] 500 mg PO DAILY Cyanocobalamin (Vitamin B-12) [Vitamin B-12] 1,000 mcg PO DAILY Ipratropium [place] [Atrovent Hfa] 2 puff INHALATION RT-QID Albuterol Inhaler [Ventolin Hfa Inhaler] 1 - 2 puff INHALATION RT-Q6H PRN PRN Reason: Wheezing Discontinued Pioglitazone HCl/Metformin HCl [Actoplus Met Xr 30-1,000 mg Tb] 1 tab PO DAILY Omeprazole 20 mg PO DAILY Discharge Medication List Ezetimibe/Simvastatin [Vytorin 10-40 mg Tablet] 1 tab PO DAILY 12/20/15 [History] Metoprolol Tartrate [Lopressor] 12.5 mg PO BID #60 dose 03/07/19 [Rx] Pantoprazole [Protonix] 40 mg PO DAILY #30 tablet. 03/07/19 [Rx] Thiamine [Vitamin B-1] 100 mg PO BID-W/MEALS #60 tab 03/07/19 [Rx] Acetaminophen Tab [Tylenol] 325 mg PO DAILY PRN 03/18/19 [History] Albuterol Inhaler [Ventolin Hfa Inhaler] 1 - 2 puff INHALATION RT-Q6H PRN 03/18/19 [History] Cyanocobalamin (Vitamin B-12) [Vitamin B-12] 1,000 mcg PO DAILY 03/18/19 [History] Ipratropium [place] [Atrovent Hfa] 2 puff INHALATION RT-QID 03/18/19 [History] Magnesium Gluconate [Magonate] 500 mg PO DAILY 03/18/19 [History] Furosemide [Lasix] 40 mg PO DAILY #30 tablet 03/20/19 [Rx] Spironolactone [Aldactone] 12.5 mg PO DAILY #30 tablet 03/20/19 [Rx] Follow up Appointment(s)/Referral(s): John Vaughn MD [Primary Care Provider] - 1-2 days Ramy Bailey MD [STAFF PHYSICIAN] - 1 Week Ambulatory/Diagnostic Orders: Complete Blood Count w/diff [LAB.AMB] Time Frame: 5 Days, Location: None Selected Comprehensive Metabolic Panel [LAB.AMB] Time Frame: 5 Days, Location: None Selected Patient Instructions/Handouts: Cirrhosis (GEN), Ascites (GEN) Activity/Diet/Wound Care/Special Instructions: pt has home meds in inpatient pharmacy Diet: Low sodium, 2L fluid restriction Activity: as tolerated Pending Studies Pending Results: peritoneal fluid results
[2019-03-20 11:49] LABS: Glucose,Whole Blood 124 mg/dL (75-99)
--- NOTE | 2019-03-20 12:50 | US ---
EXAMINATION TYPE: US paracentesis abd w/image DATE OF EXAM: 03/20/2019 COMPARISON: NONE HISTORY: Ascites. PROCEDURE: Maximal barrier technique was utilized. The skin overlying a suitable pocket of fluid was localized with ultrasound and the overlying skin was prepped and draped. Ultrasound was utilized with sterile technique. Lidocaine was used for local anesthesia and a skin tri made with a scalpel. Catheter was advanced under direct ultrasound guidance into a suitable pocket of fluid and approximately 3.9 liter s of serous fluid were removed. Catheter was withdrawn and hemostasis achieved. There is no immedia te complication; the patient is discharged in stable condition. IMPRESSION: STATUS POST ULTRASOUND GUIDED PARACENTESIS FOR PALLIATION OF ASCITES. THIS PROCEDURE WA S PERFORMED BY THE UNDERSIGNED. Specimen is obtained for laboratory analysis.
[2019-03-20 15:53] VITALS: BP 95/58; PULSE 78; RESP 16; TEMP 98.3
[2019-03-20 16:19] LABS: Appearance,BF Hazy; Color,BF Yellow
[2019-03-20 17:11] LABS: RBC, Body Fluid 212 /uL
[2019-03-20 17:12] LABS: Nucleated Cells, Body Fluid 8 /uL
[2019-03-21 00:36] LABS: Total Protein, Body Fluid 930 mg/dL
[2019-03-21 08:04] LABS: Albumin, Fluid Source Ascites
== END 2019-03-20 16:05 | disposition home or self-care (01) | DRG 433 ==
LOC: EC 16:07 → 4SSUR 19:54
PROVIDERS: ADMIT Internal Medicine; ATTEND Internal Medicine
PROC: 0W9G3ZX Drainage of Peritoneal Cavity, Percutaneous Approach, Diagnostic (ICD-10-PCS; principal; 2019-03-20)
DX: K70.11 Alcoholic hepatitis with ascites (principal); K76.6 Portal hypertension; D50.0 Iron deficiency anemia secondary to blood loss (chronic); E78.5 Hyperlipidemia, unspecified; E11.9 Type 2 diabetes mellitus without complications; I10 Essential (primary) hypertension; I95.9 Hypotension, unspecified; J44.9 Chronic obstructive pulmonary disease, unspecified; K70.31 Alcoholic cirrhosis of liver with ascites; Z79.899 Other long term (current) drug therapy; Z82.49 Family history of ischemic heart disease and other diseases of the circulatory system; Z83.3 Family history of diabetes mellitus; Z87.11 Personal history of peptic ulcer disease; Z87.891 Personal history of nicotine dependence; Z86.19 Personal history of other infectious and parasitic diseases; Z98.890 Other specified postprocedural states
CPT/HCPCS: 36415; 49083; 74176; 80053; 80074; 82042; 82105; 82248; 82945; 83605; 83615; 83690; 84157; 85025; 85610; 85730; 86850; 86900; 86901; 87070; 87075; 87205; 88108; 88305; 89050; 93005; 94640; 96372; 96374; 96376; 99285

== ENCOUNTER 2019-03-29 15:40 | Observation (INO) | payer OTHER ==
[2019-03-29 13:34] LABS: Platelet Count 227 k/uL (150-450)
[2019-03-29 13:41] LABS: INR 1.3 (<1.2); Prothrombin Time 13.2 sec (9.0-12.0)
[2019-03-29] MEDS: ALBUMIN HUMAN 25% 50 ML in EMPTY BAG 1 BAG IVPB SCH ×2 (14:23→14:53)
--- NOTE | 2019-03-29 16:22 | US ---
EXAMINATION TYPE: US paracentesis abd w/image DATE OF EXAM: 03/29/2019 COMPARISON: NONE HISTORY: Ascites. PROCEDURE: Maximal barrier technique was utilized. The skin overlying a suitable pocket of fluid was localized with ultrasound and the overlying skin was prepped and draped. Ultrasound was utilized with sterile technique. Lidocaine was used for local anesthesia and a skin tri made with a scalpel. Catheter was advanced under direct ultrasound guidance into a suitable pocket of fluid and approximately 5.4 liter s of serous fluid were removed. Catheter was withdrawn and hemostasis achieved. There is no immedia te complication; the patient is discharged in stable condition. IMPRESSION: STATUS POST ULTRASOUND GUIDED PARACENTESIS FOR PALLIATION OF ASCITES. THIS PROCEDURE WA S PERFORMED BY THE UNDERSIGNED.
[2019-03-29] MEDS ORDERED: SODIUM CHLORIDE 0.9% 1,000 ML IV STA ×2 (16:47)
[2019-03-29] MEDS ORDERED: SODIUM CHLORIDE 0.9% 500 ML 500 ML IV STA (16:47)
[2019-03-29 17:18] LABS: Anisocytosis Slight; Basophils % (A) 1 %; Eosinophils # (A) 0.2 k/uL (0-0.7); Eosinophils % (A) 3 %; HCT 28.1 % (39.0-53.0); HGB 9.3 gm/dL (13.0-17.5); Lymphocytes # (A) 0.6 k/uL (1.0-4.8); Lymphocytes % (A) 11 %; MCH 34.5 pg (25.0-35.0); MCHC 32.9 g/dL (31.0-37.0); MCV 104.8 fL (80.0-100.0); Macrocytosis Moderate; Mean Platelet Volume 8.5; Monocytes # (A) 0.2 k/uL (0-1.0); Monocytes % (A) 4 %; Neutrophils # (A) 4.1 k/uL (1.3-7.7); Neutrophils % (A) 78 %; Platelet Count 168 k/uL (150-450); RBC 2.68 m/uL (4.30-5.90); RDW 16.2 % (11.5-15.5); WBC 5.3 k/uL (3.8-10.6)
[2019-03-29 17:31] LABS: Albumin 3.2 g/dL (3.5-5.0); Calcium 8.4 mg/dL (8.4-10.2); Magnesium 1.8 mg/dL (1.6-2.3); Phosphorus 3.5 mg/dL (2.5-4.5); Potassium 3.9 mmol/L (3.5-5.1); Total Bilirubin 8.7 mg/dL (0.2-1.3); Total Protein 6.2 g/dL (6.3-8.2)
--- NOTE | 2019-03-29 17:44 | ED ---
Recheck HPI - General Chief Complaint: Recheck/Abnormal Lab/Rx Stated Complaint: abnormal labs Time Seen by Provider: 03/29/19 16:40 Source: patient, RN notes reviewed, old records reviewed Mode of arrival: ambulatory Limitations: no limitations - History of Present Illness Initial Comments: This is a 63-year-old male the ER for evaluation. Patient resents today for evaluation regarding evaluation of abnormal outpatient lab test. Patient had a paracentesis today, therapeutic paracentesis known history of alcoholic cirrhosis and was found of acute renal failure. Patient states he does feel little bit weak but denies any altered mental status or any other complaints. No significant abdominal pain currently no recent nausea vomiting or diarrhea no recent change in medications. Patient states he is on a lot of Medications now MD Complaint: abnormal lab (Elevated renal function) -: unknown Returns Today for: Called Because of Abnormal Lab/Test Symptoms Since Prior Visit: no new symptoms Context: called for abnormal lab result Associated Symptoms: none - Related Data Home Medications Medication Instructions Recorded Confirmed Ezetimibe/Simvastatin [Vytorin 1 tab PO DAILY 12/20/15 03/29/19 10-40 mg Tablet] Acetaminophen Tab [Tylenol] 325 mg PO DAILY PRN 03/18/19 03/29/19 Albuterol Inhaler [Ventolin Hfa 1 - 2 puff INHALATION RT-Q6H PRN 03/18/19 03/29/19 Inhaler] Cyanocobalamin (Vitamin B-12) 1,000 mcg PO DAILY 03/18/19 03/29/19 [Vitamin B-12] Ipratropium [place] [Atrovent Hfa] 2 puff INHALATION RT-QID 03/18/19 03/29/19 Magnesium Gluconate [Magonate] 500 mg PO DAILY 03/18/19 03/29/19 Omeprazole 20 mg PO DAILY 03/26/19 03/29/19 Pioglitazone HCl/Metformin HCl 1 tab PO DAILY 03/26/19 03/29/19 [Actoplus Met Xr 30-1,000 mg Tb] Thiamine [Vitamin B-1] 100 mg PO DAILY 03/26/19 03/29/19 Buprenorphine [Butrans 20 MCG/HOUR] 1 patch TRANSDERM Q7D 03/29/19 03/29/19 Metoprolol Tartrate [Lopressor] 12.5 mg PO BID 03/29/19 03/29/19 metFORMIN HCL [metFORMIN HCL ER 1,000 mg PO DAILY 03/29/19 03/29/19 Osmotic] Previous Rx's Medication Instructions Recorded Pantoprazole [Protonix] 40 mg PO DAILY #30 tablet. 03/07/19 Allergies Allergy/AdvReac Type Severity Reaction Status Date / Time No Known Allergies Allergy Verified 03/29/19 16:08 Review of Systems ROS Statement: Those systems with pertinent positive or pertinent negative responses have been documented in the HPI. ROS Other: All systems not noted in ROS Statement are negative. Past Medical History Past Medical History: Diabetes Mellitus, GI Bleed, Hypertension Additional Past Medical History / Comment(s): COPD, anemia, Bravo's esophagus, sigmoid diverticulitis/diverticulosis, dyslipidemia, Bravo's esophagus, portal hypertension related to liver cirrhosis History of Any Multi-Drug Resistant Organisms: None Reported Past Surgical History: Hernia Repair, Orthopedic Surgery Additional Past Surgical History / Comment(s): bilateral carpal tunnel repair, left inguinal hernia repair, parecentesis Past Anesthesia/Blood Transfusion Reactions: No Reported Reaction Past Psychological History: No Psychological Hx Reported Smoking Status: Former smoker Past Alcohol Use History: Abuse Past Drug Use History: Marijuana - Past Family History Father Family Medical History: Diabetes Mellitus, Hyperlipidemia, Hypertension, Vascular Disorder General Exam Limitations: no limitations General appearance: alert, in no apparent distress Head exam: Present: atraumatic, normocephalic, normal inspection Eye exam: Present: normal appearance, PERRL, EOMI. Absent: scleral icterus, conjunctival injection, periorbital swelling ENT exam: Present: normal exam, mucous membranes moist Neck exam: Present: normal inspection. Absent: tenderness, meningismus, lymphadenopathy Respiratory exam: Present: normal lung sounds bilaterally. Absent: respiratory distress, wheezes, rales, rhonchi, stridor Cardiovascular Exam: Present: regular rate, normal rhythm, normal heart sounds. Absent: systolic murmur, diastolic murmur, rubs, gallop, clicks GI/Abdominal exam: Present: soft, normal bowel sounds. Absent: distended, tenderness, guarding, rebound, rigid Extremities exam: Present: normal inspection, full ROM, normal capillary refill. Absent: tenderness, pedal edema, joint swelling, calf tenderness Back exam: Present: normal inspection Neurological exam: Present: alert, oriented X3, CN II-XII intact Psychiatric exam: Present: normal affect, normal mood Skin exam: Present: warm, dry, intact, normal color. Absent: rash Course Vital Signs 03/29/19 03/29/19 03/29/19 13:30 14:12 14:26 Temperature 97.8 F Pulse Rate Pulse Rate [ 78 72 75 Pulse Oximetery ] Respiratory 18 18 18 Rate Blood Pressure Blood Pressure 96/64 91/55 98/69 [Right Arm] O2 Sat by Pulse 100 100 100 Oximetry 03/29/19 03/29/19 03/29/19 14:45 15:11 15:44 Temperature 97.9 F Pulse Rate 75 Pulse Rate [ 72 74 Pulse Oximetery ] Respiratory 16 16 16 Rate Blood Pressure 100/63 Blood Pressure 101/68 112/72 [Right Arm] O2 Sat by Pulse 100 100 100 Oximetry 03/29/19 03/29/19 16:45 17:08 Temperature Pulse Rate 72 Pulse Rate [ Pulse Oximetery ] Respiratory 18 18 Rate Blood Pressure 109/74 Blood Pressure [Right Arm] O2 Sat by Pulse 100 Oximetry - Reevaluation(s) Reevaluation #1: 03/29/19 18:31 Medical record and outpatient lab values are reviewed Procedures - [place] Protocol (Time Out) Procedure Performed:: paracentesis Nurse: Hina Perez Patient Identification (2 identifiers required): Chart, Verbal, Arm Band, Name Patient/Legal Chancery Clerk has Confirmed: Site, Procedure, Consent Site: right abdomen Final Confirmation: Procedure, Site, Laterality, Patient Position, Radiographs Medical Decision Making - Medical Decision Making 63 male the ER for evaluation of abnormal lab tests after outpatient paracentesis. Patient will be admitted for renal failure male, nephrology and continued GI evaluation - Lab Data Result diagrams: 03/29/19 17:03 03/29/19 17:03 Lab Results 03/29/19 03/29/19 03/29/19 Range/Units 13:10 13:20 13:20 WBC (3.8-10.6) k/uL RBC (4.30-5.90) m/uL Hgb (13.0-17.5) gm/dL Hct (39.0-53.0) % MCV (80.0-100.0) fL MCH (25.0-35.0) pg MCHC (31.0-37.0) g/dL RDW (11.5-15.5) % Plt Count 227 (150-450) k/uL Neutrophils % % Lymphocytes % % Monocytes % % Eosinophils % % Basophils % % Neutrophils # (1.3-7.7) k/uL Lymphocytes # (1.0-4.8) k/uL Monocytes # (0-1.0) k/uL Eosinophils # (0-0.7) k/uL Basophils # (0-0.2) k/uL Anisocytosis Macrocytosis PT 13.2 H (9.0-12.0) sec INR 1.3 H (<1.2) Sodium (137-145) mmol/L Potassium (3.5-5.1) mmol/L Chloride (98-107) mmol/L Carbon Dioxide (22-30) mmol/L Anion Gap mmol/L BUN (9-20) mg/dL Creatinine 2.81 H (0.66-1.25) mg/dL Est GFR (CKD-EPI)AfAm 26 (>60 ml/min/1.73 sqM) Est GFR (CKD-EPI)NonAf 23 (>60 ml/min/1.73 sqM) Glucose (74-99) mg/dL Calcium (8.4-10.2) mg/dL Phosphorus (2.5-4.5) mg/dL Magnesium (1.6-2.3) mg/dL Total Bilirubin (0.2-1.3) mg/dL AST (17-59) U/L ALT (21-72) U/L Alkaline Phosphatase (38-126) U/L Creatine Kinase (55-170) U/L Total Protein (6.3-8.2) g/dL Albumin (3.5-5.0) g/dL 03/29/19 03/29/19 Range/Units 17:03 17:03 WBC 5.3 (3.8-10.6) k/uL RBC 2.68 L (4.30-5.90) m/uL Hgb 9.3 L (13.0-17.5) gm/dL Hct 28.1 L (39.0-53.0) % MCV 104.8 H (80.0-100.0) fL MCH 34.5 (25.0-35.0) pg MCHC 32.9 (31.0-37.0) g/dL RDW 16.2 H (11.5-15.5) % Plt Count 168 (150-450) k/uL Neutrophils % 78 % Lymphocytes % 11 % Monocytes % 4 % Eosinophils % 3 % Basophils % 1 % Neutrophils # 4.1 (1.3-7.7) k/uL Lymphocytes # 0.6 L (1.0-4.8) k/uL Monocytes # 0.2 (0-1.0) k/uL Eosinophils # 0.2 (0-0.7) k/uL Basophils # 0.0 (0-0.2) k/uL Anisocytosis Slight Macrocytosis Moderate PT (9.0-12.0) sec INR (<1.2) Sodium 138 (137-145) mmol/L Potassium 3.9 (3.5-5.1) mmol/L Chloride 103 (98-107) mmol/L Carbon Dioxide 23 (22-30) mmol/L Anion Gap 12 mmol/L BUN 41 H (9-20) mg/dL Creatinine 2.37 H (0.66-1.25) mg/dL Est GFR (CKD-EPI)AfAm 32 (>60 ml/min/1.73 sqM) Est GFR (CKD-EPI)NonAf 28 (>60 ml/min/1.73 sqM) Glucose 147 H (74-99) mg/dL Calcium 8.4 (8.4-10.2) mg/dL Phosphorus 3.5 (2.5-4.5) mg/dL Magnesium 1.8 (1.6-2.3) mg/dL Total Bilirubin 8.7 H (0.2-1.3) mg/dL AST 129 H (17-59) U/L ALT 39 (21-72) U/L Alkaline Phosphatase 182 H (38-126) U/L Creatine Kinase 43 L (55-170) U/L Total Protein 6.2 L (6.3-8.2) g/dL Albumin 3.2 L (3.5-5.0) g/dL - EKG Data -: EKG Interpreted by Me (EKG shows sinus rhythm rate of 69, [place] 138, QRS 80, QTC 452) Disposition Clinical Impression: Dehydration, Ascites due to alcoholic cirrhosis, ARF (acute renal failure) Disposition: ADMITTED IP TO THIS [facility] Condition: Good Is patient prescribed a controlled substance at d/c from ED?: No Referrals: John Vaughn MD [Primary Care Provider] - 1-2 days
[2019-03-29] MEDS ORDERED: ACETAMINOPHEN TAB 325 MG TAB PO PRN (21:48)
[2019-03-29] MEDS: METOPROLOL TARTRATE 25 MG TAB PO SCH (22:13)
[2019-03-30 07:23] LABS: Glucose,Whole Blood 139 mg/dL (75-99)
[2019-03-30] MEDS: METOPROLOL TARTRATE 25 MG TAB PO SCH (07:30)
[2019-03-30] MEDS: INSULIN ASPART (NovoLOG) 100 UNIT/ML VIAL SQ SCH ×2 (07:31→11:51)
[2019-03-30] MEDS: IPRATROPIUM 0.5 MG/2.5 ML NEBU INHALATION SCH ×2 (07:42→11:52)
[2019-03-30] MEDS ORDERED: SODIUM CHLORIDE 0.9% 1,000 ML IV SCH (07:45)
--- NOTE | 2019-03-30 08:48 | US ---
EXAMINATION TYPE: US kidneys/renal and bladder DATE OF EXAM: 03/30/2019 COMPARISON: NONE CLINICAL HISTORY: elevated bun and creat. Elevated labs. EXAM MEASUREMENTS: Right Kidney: 9.6 x 3.9 x 4.6 cm Left Kidney: 9.5 x 4.9 x 4.1 cm Right Kidney: No hydronephrosis or masses seen Left Kidney: No hydronephrosis or masses seen Bladder: Anechoic Bilateral Jets seen: No There is no evidence for hydronephrosis at this point in time. No nephrolithiasis is seen. No vincent s are identified. The urinary bladder is anechoic. IMPRESSION: No acute process
[2019-03-30 08:52] LABS: Calcium 8.3 mg/dL (8.4-10.2); Potassium 4.2 mmol/L (3.5-5.1)
[2019-03-30] MEDS ORDERED: MAGNESIUM OXIDE 400 MG TAB PO SCH (09:00)
[2019-03-30] MEDS ORDERED: EZETIMIBE 10 MG TAB PO SCH (09:00)
[2019-03-30] MEDS ORDERED: NON FORMULARY DRUG (Omeprazole [Omeprazole] 20 MG) PO SCH (09:00)
[2019-03-30] MEDS ORDERED: CYANOCOBALAMIN 500 MCG TAB PO SCH (09:00)
[2019-03-30] MEDS ORDERED: THIAMINE 100 MG TAB PO SCH (09:00)
[2019-03-30] MEDS ORDERED: ATORVASTATIN 20 MG TAB PO SCH (09:00)
[2019-03-30] MEDS ORDERED: PANTOPRAZOLE 40 MG TABLET PO SCH (09:00)
[2019-03-30 11:49] LABS: Glucose,Whole Blood 159 mg/dL (75-99)
--- NOTE | 2019-03-30 12:01 | P.CONS ---
History of Present Illness - Reason for Consult Consult date: 03/30/19 Cirrhosis Requesting physician: Maikol Adam - Chief Complaint Elevated creatinine - History of Present Illness 63-year-old gentleman with a history of alcohol liver cirrhosis recently hospitalized for acute hematemesis and underwent EGD in 2018 with findings of superficial antral ulcerations esophageal varices 6 bands placed with underlying portal hypertensive gastropathy and hiatal hernia. He presented to the hospital yesterday for outpatient paracentesis and underwent 5.4 L removed. Pre- paracentesis creatinine 2.8 increased over the last week from 1.3. He received 25 g of albumin prior to paracentesis yesterday. Previous paracentesis on 03/20/2019 3.9 L removed cytology negative. Presently his creatinine is improving 1.8. Liver function tests yesterday total bilirubin 8.7. AST 129. ALT 39. AP 182. INR 1.3. Hepatitis screen nonreactive. Denies abdominal pain. Afebrile. Hemoglobin 9.3. Platelet 168. White count 5.3. Previous LFTs a week ago total bilirubin 6.5-8.0. AST 110-135. ALT 62-74. AP 183-211. Review of Systems Constitutional: Denies fever, chills, sweats, weight gain, or loss. HEENT: Negative for migraines, blurred vision or loss, earaches, drainage, tinnitus, oral mucosal lesions, dysphagia, or odynophagia. Cardiac: Negative for chest pain, arrhythmias, or palpitation. Respiratory: Negative for shortness of breath, hemoptysis, cough, or sputum production. Gastrointestinal: See HPI for pertinent findings. Genitourinary: Negative for hematuria, urgency, frequency, polyuria, dysuria, or penile discharge. Musculoskeletal: Negative for muscle aches, swelling, arthritis, and arthr algias. Neurologic: Negative for stroke or TIA. Endocrine: Negative for thyroid problems. Skin: Negative for rash or itching. Psychiatric: Negative history for depression and anxietye Past Medical History Past Medical History: Diabetes Mellitus, GI Bleed, Hypertension Additional Past Medical History / Comment(s): COPD, anemia, Bravo's esophagus, sigmoid diverticulitis/diverticulosis, dyslipidemia, Bravo's esophagus, portal hypertension related to liver cirrhosis History of Any Multi-Drug Resistant Organisms: None Reported Past Surgical History: Hernia Repair, Orthopedic Surgery Additional Past Surgical History / Comment(s): bilateral carpal tunnel repair, left inguinal hernia repair, parecentesis Past Anesthesia/Blood Transfusion Reactions: No Reported Reaction Past Psychological History: No Psychological Hx Reported Smoking Status: Former smoker Past Alcohol Use History: Abuse Additional Past Alcohol Use History / Comment(s): Patient states he drinks 1 pint a day, states he quit drinking 1 month ago (January 2019) Past Drug Use History: Marijuana Additional Drug Use History / Comment(s): PT SMOKES 2 CIGARS A DAY AND OCCASIONALLY SMOKES MARIJUANA. - Past Family History Father Family Medical History: Diabetes Mellitus, Hyperlipidemia, Hypertension, Vascular Disorder Medications and Allergies Home Medications Medication Instructions Recorded Confirmed Type Ezetimibe/Simvastatin [Vytorin 1 tab PO DAILY 12/20/15 03/29/19 History 10-40 mg Tablet] Pantoprazole [Protonix] 40 mg PO DAILY #30 tablet. 03/07/19 03/29/19 Rx Acetaminophen Tab [Tylenol] 325 mg PO DAILY PRN 03/18/19 03/29/19 History Albuterol Inhaler [Ventolin Hfa 1 - 2 puff INHALATION RT-Q6H PRN 03/18/19 03/29/19 History Inhaler] Cyanocobalamin (Vitamin B-12) 1,000 mcg PO DAILY 03/18/19 03/29/19 History [Vitamin B-12] Ipratropium [place] [Atrovent Hfa] 2 puff INHALATION RT-QID 03/18/19 03/29/19 History Magnesium Gluconate [Magonate] 500 mg PO DAILY 03/18/19 03/29/19 History Omeprazole 20 mg PO DAILY 03/26/19 03/29/19 History Pioglitazone HCl/Metformin HCl 1 tab PO DAILY 03/26/19 03/29/19 History [Actoplus Met Xr 30-1,000 mg Tb] Thiamine [Vitamin B-1] 100 mg PO DAILY 03/26/19 03/29/19 History Buprenorphine [Butrans 20 MCG/HOUR] 1 patch TRANSDERM Q7D 03/29/19 03/29/19 History Metoprolol Tartrate [Lopressor] 12.5 mg PO BID 03/29/19 03/29/19 History metFORMIN HCL [metFORMIN HCL ER 1,000 mg PO DAILY 08/01/19 08/01/19 History Osmotic] Furosemide [Lasix] 20 mg PO DAILY #30 tab 03/30/19 Rx Allergies Allergy/AdvReac Type Severity Reaction Status Date / Time No Known Allergies Allergy Verified 03/29/19 16:08 Physical Exam Vitals: Vital Signs Temp Pulse Pulse Resp BP BP Pulse Ox 03/30/19 07:55 80 03/30/19 07:43 80 03/30/19 04:40 98.2 F 82 18 96/59 100 03/29/19 20:45 98.0 F 96 18 118/75 100 03/29/19 19:59 99.1 F 87 18 108/76 99 03/29/19 18:31 70 16 111/64 03/29/19 17:08 72 18 109/74 100 03/29/19 16:45 18 03/29/19 15:44 97.9 F 75 16 100/63 100 03/29/19 15:11 74 16 112/72 100 03/29/19 14:45 72 16 101/68 100 03/29/19 14:26 75 18 98/69 100 03/29/19 14:12 72 18 91/55 100 03/29/19 13:30 97.8 F 78 18 96/64 100 Intake and Output 03/29/19 03/30/19 03/30/19 22:59 06:59 14:59 Other: Voiding Method Toilet # Voids 2 1 Weight 74.843 kg General appearance: The patient is alert, oriented, in no acute distress. Jaundice. HET: Head is normocephalic and atraumatic. Pupils are equal and reactive. Oropharynx is clear without lesions. Sclerae icterus. Neck: Supple without lymphadenopathy. Trachea midline. Heart: S1 S2. Regular rate and rhythm. Lungs: No crackles or wheezes are heard. Abdomen: Soft, nontender, nondistended with bowel sounds. No peritoneal signs. No palpable organomegaly or masses. Extremities: Normal skin color and turgor. No cyanosis, rash, ulceration, clubbing, or edema. Radial and pedal pulses are 2/4 bilaterally. Neurological: No focal deficits. Strength and sensation are grossly intact. Results CBC & Chem 7: 03/29/19 17:03 03/30/19 08:19 Labs: Abnormal Lab Results - Last 24 Hours (Table) 03/29/19 03/29/19 03/29/19 Range/Units 13:10 13:20 17:03 RBC 2.68 L (4.30-5.90) m/uL Hgb 9.3 L (13.0-17.5) gm/dL Hct 28.1 L (39.0-53.0) % MCV 104.8 H (80.0-100.0) fL RDW 16.2 H (11.5-15.5) % Lymphocytes # 0.6 L (1.0-4.8) k/uL PT 13.2 H (9.0-12.0) sec INR 1.3 H (<1.2) BUN (9-20) mg/dL Creatinine 2.81 H (0.66-1.25) mg/dL Glucose (74-99) mg/dL POC Glucose (mg/dL) (75-99) mg/dL Calcium (8.4-10.2) mg/dL Total Bilirubin (0.2-1.3) mg/dL AST (17-59) U/L Alkaline Phosphatase (38-126) U/L Creatine Kinase (55-170) U/L Total Protein (6.3-8.2) g/dL Albumin (3.5-5.0) g/dL 03/29/19 03/30/19 03/30/19 Range/Units 17:03 07:20 08:19 RBC (4.30-5.90) m/uL Hgb (13.0-17.5) gm/dL Hct (39.0-53.0) % MCV (80.0-100.0) fL RDW (11.5-15.5) % Lymphocytes # (1.0-4.8) k/uL PT (9.0-12.0) sec INR (<1.2) BUN 41 H 33 H (9-20) mg/dL Creatinine 2.37 H 1.84 H (0.66-1.25) mg/dL Glucose 147 H 138 H (74-99) mg/dL POC Glucose (mg/dL) 139 H (75-99) mg/dL Calcium 8.3 L (8.4-10.2) mg/dL Total Bilirubin 8.7 H (0.2-1.3) mg/dL AST 129 H (17-59) U/L Alkaline Phosphatase 182 H (38-126) U/L Creatine Kinase 43 L (55-170) U/L Total Protein 6.2 L (6.3-8.2) g/dL Albumin 3.2 L (3.5-5.0) g/dL 03/30/19 Range/Units 11:46 RBC (4.30-5.90) m/uL Hgb (13.0-17.5) gm/dL Hct (39.0-53.0) % MCV (80.0-100.0) fL RDW (11.5-15.5) % Lymphocytes # (1.0-4.8) k/uL PT (9.0-12.0) sec INR (<1.2) BUN (9-20) mg/dL Creatinine (0.66-1.25) mg/dL Glucose (74-99) mg/dL POC Glucose (mg/dL) 159 H (75-99) mg/dL Calcium (8.4-10.2) mg/dL Total Bilirubin (0.2-1.3) mg/dL AST (17-59) U/L Alkaline Phosphatase (38-126) U/L Creatine Kinase (55-170) U/L Total Protein (6.3-8.2) g/dL Albumin (3.5-5.0) g/dL US - abdomen: report reviewed (Dr. Guillen) Assessment and Plan (1) Acute kidney injury Current Visit: No Status: Acute Code(s): N17.9 - ACUTE KIDNEY FAILURE, UNSPECIFIED SNOMED Code(s): 22766977 (2) Ascites due to alcoholic cirrhosis Current Visit: No Status: Acute Code(s): K70.31 - ALCOHOLIC CIRRHOSIS OF LIVER WITH ASCITES SNOMED Code(s): 1582215143031996 (3) Decompensated hepatic cirrhosis Current Visit: No Status: Acute Code(s): K72.90 - HEPATIC FAILURE, UNSPECIFIED WITHOUT COMA SNOMED Code(s): 243678109 (4) Esophageal varices Current Visit: Yes Status: Acute Code(s): I85.00 - ESOPHAGEAL VARICES WITHOUT BLEEDING SNOMED Code(s): 61863108 (5) Anemia Current Visit: No Status: Chronic Code(s): D64.9 - ANEMIA, UNSPECIFIED SNOMED Code(s): 440359989 Plan: 1. Continue Protonix 40 mg daily. Low-salt diet. Repeat CMP/PT/INR 1 week. Nephrology consulted outpatient diuretics were discussed Dr. Garcia recommends Lasix 20 mg daily prescription was provided. Return to nephrology office in 1 week and GI office on 04/12/2019. Outpatient paracentesis was scheduled for April 11. Thank you for this kind referral and the opportunity to participate in the care of your patient. This consultation was discussed with Dr. Guillen. The impression and plan of care have been directed as dictated.
[2019-03-30 12:37] VITALS: BP 94/57; PULSE 91; RESP 16; TEMP 97.6
--- NOTE | 2019-03-30 17:43 | CONS ---
CONSULTATION REASON FOR CONSULT: Renal failure. HISTORY OF PRESENT ILLNESS: Patient is a 63-year-old male who has a history of chronic liver disease, portal hypertension and recurrent paracentesis. Etiology of liver disease is alcoholic liver disease. He was admitted to the hospital with elevated creatinine after paracentesis. Currently patient is maintained on IV fluids. His renal function is improving. He has had good urine output. Patient denies use of any nonsteroidal anti-inflammatory agents prior to admission. Blood pressure has been on the lower side. PAST MEDICAL HISTORY: 1. Type 2 diabetes. 2. GI bleed. 3. Hypertension. 4. COPD. 5. Bravo's esophagus. 6. Anemia. 7. Sigmoid diverticulitis. 8. Dyslipidemia. 9. Portal hypertension. 10.Alcoholic liver disease. PAST SURGICAL HISTORY: 1. Hernia repair. 2. Bilateral carpal tunnel repair. 3. Multiple paracenteses. 4. Orthopedic surgery. SOCIAL HISTORY: Patient is a former smoker. No history of drug abuse. He does have a history of ETOH abuse. He does give a history of smoking marijuana. MEDICATIONS: Medications prior to admission included: 1. Vytorin. 2. Protonix. 3. Tylenol. 4. Vitamin B12. 5. Actoplus Met. 6. Lopressor. 7. Lasix. 8. Metformin. ALLERGIES: NONE. PHYSICAL EXAMINATION: Patient is comfortable, awake, alert, oriented x3, not in any acute distress. Blood pressure is 94/57, heart rate 76 per minute. Patient is afebrile. EXAMINATION OF THE HEART: S1 and S2. EXAMINATION OF LUNGS: Bilateral breath sounds are heard. ABDOMEN: Soft, non-tender. Examination of lower extremities shows no significant edema. SPOOL CLEANER exam is grossly intact. LABS: Sodium 140, potassium 4.2, BUN 33, serum creatinine 1.84. ASSESSMENT: 1. Acute kidney injury secondary to hypotension and recent fluid shift, currently improved. Patient is advised to maintain oral hydration. He is also advised to avoid nephrotoxic agents, including nonsteroidal anti-inflammatory agents. Continue with IV fluids. 2. Chronic liver disease with portal hypertension and recurrent ascites. 3. Chronic kidney disease. Previous creatinine about 1.3 mg/dL. UA earlier part of February showed trace protein. This may need to be repeated again as outpatient. PLAN: Continue IV fluids. Okay to discharge patient if renal function continues to improve. Follow up as outpatient in about one week's time. MMODL / IJN: [id number] /
--- NOTE | 2019-03-31 16:40 | P.HPIM ---
History of Present Illness H&P Date: 03/29/19 Chief Complaint: Abnormal renal function History of presenting complaint: This is a 63-year-old patient who has a history of alcohol-related multiple disorders. Including upper GI bleed with esophageal varices, alcoholic cirrhosis causing secondary portal hypertension and portal hypertensive gastropathy, hiatal hernia, gastric antral ulcerations, thrombocytopenia, diabetes mellitus type 2, hypertension, sigmoid diverticulosis, thrombocytopenia from liver disease. Patient had come to the outpatient setting to get a large- volume paracentesis done. Subsequent to that had had labs done. Was found to have acute renal failure with a bundle 40 minute creatinine of 2.37. Oral week ago patient's labs were bun of 15 and creatinine of 1.17. Patient admitted for the same. Nephrology was consulted. Patient does feel a bit weak and tired. Not much edema. Appetite is okay. Review of systems: GEN.: Tired EYES: None HEENT: None NECK: None RESPIRATORY: Some shortness of breath CARDIOVASCULAR: None GASTROINTESTINAL: Down distention GENITOURINARY: None MUSCULOSKELETAL: None LYMPHATICS: None HEMATOLOGICAL: None PSYCHIATRY: [Some anxiety NEUROLOGICAL: None Past medical history: To include Esophageal varices, alcoholic cirrhosis, secondary portal hypertension, portal hypertensive gastropathy, hiatal hernia, gastric antral ulcerations, COPD, thrombocytopenia from alcoholic liver disease, blood loss anemia, diabetes mellitus type 2, hypertension, sigmoid diverticulosis. Social history: Patient was drinking at least a pint day up until January 2019. Marijuana o ccasionally. 2 cigars a day. Family history: Diabetes mellitus, hyperlipidemia, hypertension Physical examination: VITAL SIGNS: 97.8, 78, 18, 96 x 64 GENERAL: BMI 23.7, laying in bed a bit tired. EYES: Pupils equal. Conjunctiva palel. HEENT: External appearance of nose and ears normal, oral cavity grossly normal. NECK: JVD not raised; masses not palpable. HEART: First and second heart sounds are normal; no edema. LUNGS: Respiratory rate normal; decreased breath sounds. ABDOMEN: Soft, nontender, mildly dilated, liver spleen not palpable, no masses palpable. PSYCH: Alert and oriented x3; mood and affect normal. NEUROLOGICAL: Cranial nerves grossly intact; no facial asymmetry, power and sensation grossly intact. LYMPHATICS: No lymph nodes palpable in the axilla and neck INVESTIGATIONS, reviewed in the clinical context: White count 5.3 hemoglobin 9.3 pro time 13.2 potassium 3.9 bun 41 creatinine 2.37 patient's labs on March 19 showed bun of 15 creatinine 1.17 Total bilirubin 8.7 AST 129 albumin 3.2 Assessment: -Acute renal failure from hepatorenal syndrome, likely prerenal -Esophageal varices -Alcoholic cirrhosis -Secondary portal hypertension with portal hypertensive gastropathy -Hiatal hernia -Gastric antral ulcerations -COPD in a smoker -Thrombocytopenia from alcoholic liver disease -Diabetes mellitus type 2 -Essential hypertension -Sigmoid diverticulosis -Ascites status post large volume paracentesis as an outpatient earlier Plan: Home medications resumed. She was started on gentle hydration. Nephrology and GI was consulted. Care was discussed with the patient. Questions were answered. Past Medical History Past Medical History: Diabetes Mellitus, GI Bleed, Hypertension Additional Past Medical History / Comment(s): COPD, anemia, Bravo's esophagus, sigmoid diverticulitis/diverticulosis, dyslipidemia, Bravo's esophagus, portal hypertension related to liver cirrhosis History of Any Multi-Drug Resistant Organisms: None Reported Past Surgical History: Hernia Repair, Orthopedic Surgery Additional Past Surgical History / Comment(s): bilateral carpal tunnel repair, left inguinal hernia repair, parecentesis Past Anesthesia/Blood Transfusion Reactions: No Reported Reaction Past Psychological History: No Psychological Hx Reported Smoking Status: Former smoker Past Alcohol Use History: Abuse Additional Past Alcohol Use History / Comment(s): Patient states he drinks 1 pint a day, states he quit drinking 1 month ago (January 2019) Past Drug Use History: Marijuana Additional Drug Use History / Comment(s): PT SMOKES 2 CIGARS A DAY AND OCCASIONALLY SMOKES MARIJUANA. - Past Family History Father Family Medical History: Diabetes Mellitus, Hyperlipidemia, Hypertension, Vascul ar Disorder Medications and Allergies Home Medications Medication Instructions Recorded Confirmed Type Ezetimibe/Simvastatin [Vytorin 1 tab PO DAILY 12/20/15 03/29/19 History 10-40 mg Tablet] Pantoprazole [Protonix] 40 mg PO DAILY #30 tablet. 03/07/19 03/29/19 Rx Acetaminophen Tab [Tylenol] 325 mg PO DAILY PRN 03/18/19 03/29/19 History Albuterol Inhaler [Ventolin Hfa 1 - 2 puff INHALATION RT-Q6H PRN 03/18/19 03/29/19 History Inhaler] Cyanocobalamin (Vitamin B-12) 1,000 mcg PO DAILY 03/18/19 03/29/19 History [Vitamin B-12] Ipratropium [place] [Atrovent Hfa] 2 puff INHALATION RT-QID 03/18/19 03/29/19 History Magnesium Gluconate [Magonate] 500 mg PO DAILY 03/18/19 03/29/19 History Omeprazole 20 mg PO DAILY 03/26/19 03/29/19 History Pioglitazone HCl/Metformin HCl 1 tab PO DAILY 03/26/19 03/29/19 History [Actoplus Met Xr 30-1,000 mg Tb] Thiamine [Vitamin B-1] 100 mg PO DAILY 03/26/19 03/29/19 History Buprenorphine [Butrans 20 MCG/HOUR] 1 patch TRANSDERM Q7D 03/29/19 03/29/19 History Metoprolol Tartrate [Lopressor] 12.5 mg PO BID 03/29/19 03/29/19 History metFORMIN HCL [metFORMIN HCL ER 1,000 mg PO DAILY 03/29/19 03/29/19 History Osmotic] Furosemide [Lasix] 20 mg PO DAILY #30 tab 03/30/19 Rx Allergies Allergy/AdvReac Type Severity Reaction Status Date / Time No Known Allergies Allergy Verified 03/29/19 16:08 Physical Exam Vitals: Vital Signs Temp Pulse Pulse Resp BP BP Pulse Ox 03/30/19 07:55 80 03/30/19 07:43 80 03/30/19 04:40 98.2 F 82 18 96/59 100 03/29/19 20:45 98.0 F 96 18 118/75 100 03/29/19 19:59 99.1 F 87 18 108/76 99 03/29/19 18:31 70 16 111/64 03/29/19 17:08 72 18 109/74 100 03/29/19 16:45 18 03/29/19 15:44 97.9 F 75 16 100/63 100 03/29/19 15:11 74 16 112/72 100 03/29/19 14:45 72 16 101/68 100 03/29/19 14:26 75 18 98/69 100 03/29/19 14:12 72 18 91/55 100 03/29/19 13:30 97.8 F 78 18 96/64 100 Intake and Output 03/29/19 03/30/19 03/30/19 22:59 06:59 14:59 Other: Voiding Method Toilet # Voids 2 Weight 74.843 kg Results CBC & Chem 7: 03/29/19 17:03 03/30/19 08: Labs: Abnormal Lab Results - Last 24 Hours (Table) 03/29/19 03/29/19 03/29/19 Range/Units 13:10 13:20 17:03 RBC 2.68 L (4.30-5.90) m/uL Hgb 9.3 L (13.0-17.5) gm/dL Hct 28.1 L (39.0-53.0) % MCV 104.8 H (80.0-100.0) fL RDW 16.2 H (11.5-15.5) % Lymphocytes # 0.6 L (1.0-4.8) k/uL PT 13.2 H (9.0-12.0) sec INR 1.3 H (<1.2) BUN (9-20) mg/dL Creatinine 2.81 H (0.66-1.25) mg/dL Glucose (74-99) mg/dL POC Glucose (mg/dL) (75-99) mg/dL Calcium (8.4-10.2) mg/dL Total Bilirubin (0.2-1.3) mg/dL AST (17-59) U/L Alkaline Phosphatase (38-126) U/L Creatine Kinase (55-170) U/L Total Protein (6.3-8.2) g/dL Albumin (3.5-5.0) g/dL 03/29/19 03/30/19 03/30/19 Range/Units 17:03 07:20 08: RBC (4.30-5.90) m/uL Hgb (13.0-17.5) gm/dL Hct (39.0-53.0) % MCV (80.0-100.0) fL RDW (11.5-15.5) % Lymphocytes # (1.0-4.8) k/uL PT (9.0-12.0) sec INR (<1.2) BUN 41 H 33 H (9-20) mg/dL Creatinine 2.37 H 1.84 H (0.66-1.25) mg/dL Glucose 147 H 138 H (74-99) mg/dL POC Glucose (mg/dL) 139 H (75-99) mg/dL Calcium 8.3 L (8.4-10.2) mg/dL Total Bilirubin 8.7 H (0.2-1.3) mg/dL AST 129 H (17-59) U/L Alkaline Phosphatase 182 H (38-126) U/L Creatine Kinase 43 L (55-170) U/L Total Protein 6.2 L (6.3-8.2) g/dL Albumin 3.2 L (3.5-5.0) g/dL Thrombosis Risk Factor Assmnt - Choose All That Apply Any of the Below Risk Factors Present?: Yes Each Factor Represents 1 point: Abnormal pulmonary function (COPD), Swollen legs (current) Other Risk Factors: No Other congenital or acquired thrombophilia - If yes, enter type in comment: No Thrombosis Risk Factor Assessment Total Risk Factor Score: 2 Thrombosis Risk Factor Assessment Level: Low Risk
--- NOTE | 2019-03-31 16:46 | P.DS ---
Providers Date of admission: 03/29/19 18:29 Expected date of discharge: 03/31/19 Attending physician: Maikol Adam Consults: 03/29/19 18:29 Consult Physician Routine Consulting Provider: Natanael Rojas Consult Reason/Comments: arf Do you want consulting provider notified?: Yes [facility]: Hospital course: This is a 63-year-old patient who has a history of alcohol-related multiple disorders. Including upper GI bleed with esophageal varices, alcoholic cirrhosis causing secondary portal hypertension and portal hypertensive ga stropathy, hiatal hernia, gastric antral ulcerations, thrombocytopenia, diabetes mellitus type 2, hypertension, sigmoid diverticulosis, thrombocytopenia from liver disease. Patient had come to the outpatient setting to get a large-volume paracentesis done. Subsequent to that had had labs done. Was found to have acute renal failure with a bundle 40 minute creatinine of 2.37. 1 week ago patient's labs were bun of 15 and creatinine of 1.17. Patient admitted for the same. Nephrology was consulted. Patient does feel a bit weak and tired. Not much edema. Appetite is okay. patient is given IV fluids. Creatinine did come down to 1.84. feeling much better. Patient's okayed by nephrology and GI to be discharged. Discussed with Madina from GI. Also earlier discussed with the patient detail. Discussion and discharge planning more than 35 minutes Physical examination: VITAL SIGNS: 97.6, 91, 16, 94 x 57, 96% room air GENERAL: Laying in bed, more comfortable. EYES: Pupils equal. Conjunctiva palel. HEENT: External appearance of nose and ears normal, oral cavity grossly normal. NECK: JVD not raised; masses not palpable. HEART: First and second heart sounds are normal; no edema. LUNGS: Respiratory rate normal; decreased breath sounds. ABDOMEN: Soft, nontender, mildly dilated, liver spleen not palpable, no masses palpable. PSYCH: Alert and oriented x3; mood and affect normal. NEUROLOGICAL: Cranial nerves grossly intact; no facial asymmetry, power and sensation grossly intact. INVESTIGATIONS, reviewed in the clinical context: White count 5.3 hemoglobin 9.3 pro time 13.2 potassium 3.9 bun 41 creatinine 2.37 patient's labs on March 19 showed bun of 15 creatinine 1.17 Total bilirubin 8.7 AST 129 albumin 3.2 Discharge diagnosis: -Acute renal failure from hepatorenal syndrome, likely prerenal -Esophageal varices -Alcoholic cirrhosis -Secondary portal hypertension with portal hypertensive gastropathy -Hiatal hernia -Gastric antral ulcerations -COPD in a smoker -Thrombocytopenia from alcoholic liver disease -Diabetes mellitus type 2 -Essential hypertension -Sigmoid diverticulosis -Ascites status post large volume paracentesis as an outpatient earlier Disposition: Home Patient Condition at Discharge: Stable Plan - Discharge Summary Discharge Rx Participant: Yes New Discharge Prescriptions: New Furosemide [Lasix] 20 mg PO DAILY #30 tab Continue Ezetimibe/Simvastatin [Vytorin 10-40 mg Tablet] 1 tab PO DAILY Pantoprazole [Protonix] 40 mg PO DAILY #30 tablet. Acetaminophen Tab [Tylenol] 325 mg PO DAILY PRN PRN Reason: Pain Magnesium Gluconate [Magonate] 500 mg PO DAILY Cyanocobalamin (Vitamin B-12) [Vitamin B-12] 1,000 mcg PO DAILY Ipratropium [place] [Atrovent Hfa] 2 puff INHALATION RT-QID Albuterol Inhaler [Ventolin Hfa Inhaler] 1 - 2 puff INHALATION RT-Q6H PRN PRN Reason: Wheezing Thiamine [Vitamin B-1] 100 mg PO DAILY Pioglitazone HCl/Metformin HCl [Actoplus Met Xr 30-1,000 mg Tb] 1 tab PO DAILY Omeprazole 20 mg PO DAILY Buprenorphine [Butrans 20 MCG/HOUR] 1 patch TRANSDERM Q7D metFORMIN HCL [metFORMIN HCL ER Osmotic] 1,000 mg PO DAILY Metoprolol Tartrate [Lopressor] 12.5 mg PO BID Discharge Medication List Ezetimibe/Simvastatin [Vytorin 10-40 mg Tablet] 1 tab PO DAILY 12/20/15 [History] Pantoprazole [Protonix] 40 mg PO DAILY #30 tablet. 03/07/19 [Rx] Acetaminophen Tab [Tylenol] 325 mg PO DAILY PRN 03/18/19 [History] Albuterol Inhaler [Ventolin Hfa Inhaler] 1 - 2 puff INHALATION RT-Q6H PRN 03/18/19 [History] Cyanocobalamin (Vitamin B-12) [Vitamin B-12] 1,000 mcg PO DAILY 03/18/19 [History] Ipratropium [place] [Atrovent Hfa] 2 puff INHALATION RT-QID 03/18/19 [History] Magnesium Gluconate [Magonate] 500 mg PO DAILY 03/18/19 [History] Omeprazole 20 mg PO DAILY 03/26/19 [History] Pioglitazone HCl/Metformin HCl [Actoplus Met Xr 30-1,000 mg Tb] 1 tab PO DAILY 03/26/19 [History] Thiamine [Vitamin B-1] 100 mg PO DAILY 03/26/19 [History] Buprenorphine [Butrans 20 MCG/HOUR] 1 patch TRANSDERM Q7D 03/29/19 [History] Metoprolol Tartrate [Lopressor] 12.5 mg PO BID 03/29/19 [History] metFORMIN HCL [metFORMIN HCL ER Osmotic] 1,000 mg PO DAILY 03/29/19 [History] Furosemide [Lasix] 20 mg PO DAILY #30 tab 03/30/19 [Rx] Follow up Appointment(s)/Referral(s): Kinga Garcia MD [STAFF PHYSICIAN] - 04/26/19 10:20 am John Vaughn MD [Primary Care Provider] - 04/03/19 1:15 pm Megha Clark PAC [REFERRING] - 04/12/19 9:00 am Ambulatory/Diagnostic Orders: Complete Blood Count w/diff [LAB.AMB] Time Frame: 1 Week, Location: None Selected Comprehensive Metabolic Panel [LAB.AMB] Time Frame: 1 Week, Location: None Selected Prothrombin Time INR [LAB.AMB] Time Frame: 1 Week, Location: None Selected Patient Instructions/Handouts: Furosemide (By mouth), Dehydration (DC), Acute Kidney Injury (DC), Ascites (DC) Activity/Diet/Wound Care/Special Instructions: Outpatient paracentesis April 11 arrive at 1230. Discharge Disposition: HOME SELF-CARE
[2019-04-05] MEDS ORDERED: BUPRENORPHINE TRANSDERM SCH (09:00)
== END 2019-03-30 13:57 | disposition home or self-care (01) ==
LOC: EC 15:40 → INTOOBSV 18:29 → UNDOADMIN 18:29 → 3NMEDONC 18:29 → UNDODISIN 03-30 13:57
PROVIDERS: ADMIT Hospitalist; ATTEND Hospitalist
PROC: 0W9G3ZZ Drainage of Peritoneal Cavity, Percutaneous Approach (ICD-10-PCS; principal; 2019-03-29)
DX: N17.9 Acute kidney failure, unspecified (principal); K76.7 Hepatorenal syndrome; E86.0 Dehydration; I85.11 Secondary esophageal varices with bleeding; K76.6 Portal hypertension; K70.31 Alcoholic cirrhosis of liver with ascites; D69.59 Other secondary thrombocytopenia; E11.22 Type 2 diabetes mellitus with diabetic chronic kidney disease; E78.5 Hyperlipidemia, unspecified; I12.9 Hypertensive chronic kidney disease with stage 1 through stage 4 chronic kidney disease, or unspecified chronic kidney disease; N18.9 Chronic kidney disease, unspecified; J44.9 Chronic obstructive pulmonary disease, unspecified; K22.70 Barrett's esophagus without dysplasia; K25.9 Gastric ulcer, unspecified as acute or chronic, without hemorrhage or perforation; K31.89 Other diseases of stomach and duodenum; K44.9 Diaphragmatic hernia without obstruction or gangrene; F17.290 Nicotine dependence, other tobacco product, uncomplicated; K57.30 Diverticulosis of large intestine without perforation or abscess without bleeding; K72.90 Hepatic failure, unspecified without coma; D50.0 Iron deficiency anemia secondary to blood loss (chronic); Z79.84 Long term (current) use of oral hypoglycemic drugs; Z79.899 Other long term (current) drug therapy; Z87.11 Personal history of peptic ulcer disease; Z82.49 Family history of ischemic heart disease and other diseases of the circulatory system; Z83.3 Family history of diabetes mellitus; Z83.49 Family history of other endocrine, nutritional and metabolic diseases
CPT/HCPCS: 96361 ×3; 96360; 99285; 36415; 94640 ×2; 93005; 80053; 80048; 82565; 82550; 83735; 84100; 85025; 85049; 85610; 76770; 49083; G0378 ×2; P9047; 96365; 96366

== ENCOUNTER 2019-04-11 12:02 | Day surgery (SDC) | payer OTHER ==
[2019-04-11 12:49] VITALS: RESP 16; TEMP 98.6
[2019-04-11 13:03] LABS: INR 1.3 (<1.2); Prothrombin Time 13.6 sec (9.0-12.0)
[2019-04-11 13:05] LABS: Mean Platelet Volume 8.4; Platelet Count 295 k/uL (150-450)
[2019-04-11] MEDS: ALBUMIN HUMAN 25% 50 ML in EMPTY BAG 1 BAG IVPB SCH ×3 (14:02→14:28)
[2019-04-11 14:30] VITALS: PULSE 61
--- NOTE | 2019-04-11 14:47 | US ---
Therapeutic paracentesis. DATE OF EXAM: 04/11/2019 CLINICAL HISTORY: Ascites The procedure was discussed with the patient. The risks, complications, benefits, and alternatives we re discussed and any questions were answered. Informed consent was obtained. The patient was placed s upine on the ultrasound table and prepped and draped in the usual sterile fashion. All elements of maximal barrier technique were utilized. Under ultrasound guidance, access into the right lower quadrant was obtained, via the paracentesis catheter system and direct ultrasound guidanc e. Approximately 6.75 liters of straw-colored fluid was removed. The patient was stable throughout the p rocedure and remained stable upon discharge from Department of Radiology. IMPRESSION: Successful therapeutic paracentesis under ultrasound guidance.
[2019-04-11 15:08] VITALS: BP 93/59
== END 2019-04-11 15:10 | disposition home or self-care (01) ==
LOC: RADPROMAIN 12:02
PROVIDERS: ATTEND Internal Medicine
DX: K70.31 Alcoholic cirrhosis of liver with ascites (principal)
CPT/HCPCS: 82565; 85049; 85610; 49083; P9047

== ENCOUNTER 2019-04-27 12:59 | Day surgery (SDC) | payer OTHER ==
[2019-04-27 13:26] VITALS: TEMP 97.5
[2019-04-27 13:28] LABS: Mean Platelet Volume 7.7; Platelet Count 243 k/uL (150-450)
[2019-04-27 13:33] LABS: INR 1.2 (<1.2); Prothrombin Time 12.8 sec (9.0-12.0)
[2019-04-27 13:39] LABS: Glucose,Whole Blood 141 mg/dL (75-99)
[2019-04-27] MEDS: ALBUMIN HUMAN 25% 50 ML in EMPTY BAG 1 BAG IVPB SCH ×4 (13:59→15:59)
[2019-04-27 15:25] VITALS: RESP 18
[2019-04-27 15:31] VITALS: BP 95/64; PULSE 90
--- NOTE | 2019-05-01 09:16 | US ---
Therapeutic paracentesis. DATE OF EXAM: 04/27/2019 CLINICAL HISTORY: Ascites The procedure was discussed with the patient. The risks, complications, benefits, and alternatives we re discussed and any questions were answered. Informed consent was obtained. The patient was placed s upine on the ultrasound table and prepped and draped in the usual sterile fashion. All elements of maximal barrier technique were utilized. Under ultrasound guidance, access into the right lower quadrant was obtained, via the paracentesis catheter system and direct ultrasound guidanc e. Approximately 7.55 liters of straw-colored fluid was removed. The patient was stable throughout the p rocedure and remained stable upon discharge from Department of Radiology. IMPRESSION: Successful therapeutic paracentesis under ultrasound guidance.
== END 2019-04-27 15:45 | disposition home or self-care (01) ==
LOC: RADPROMAIN 12:59
PROVIDERS: ATTEND Internal Medicine
DX: R18.8 Other ascites (principal)
CPT/HCPCS: 82565; 85049; 85610; 49083; P9047

== ENCOUNTER 2019-04-27 15:46 | Observation (INO) | payer OTHER ==
[2019-04-27] MEDS ORDERED: SODIUM CHLORIDE 0.9% 1,000 ML IV STA ×2 (16:03→17:11)
--- NOTE | 2019-04-27 16:20 | ED ---
Recheck HPI - General Chief Complaint: Recheck/Abnormal Lab/Rx Stated Complaint: Abn Lab Time Seen by Provider: 04/27/19 16:03 Source: patient, RN/MD, RN notes reviewed, old records reviewed Mode of arrival: wheelchair Limitations: no limitations - History of Present Illness Initial Comments: This is a 63-year-old male the ER for evaluation presented for evaluation of abnormal outpatient lab test. Patient recently has paracentesis secondary to alcohol-induced cirrhosis. Patient's found to have increasing renal failure, paracentesis was earlier today, that ER for evaluation regarding increasing kidney function. Patient does not have significant complaint he feels mildly weak. Does not appear altered. No recent change in medications. Denies current alcohol abuse MD Complaint: abnormal lab -: days(s) Returns Today for: Called Because of Abnormal Lab/Test Symptoms Since Prior Visit: no new symptoms Context: called for abnormal lab result Associated Symptoms: none - Related Data Home Medications Medication Instructions Recorded Confirmed Ezetimibe/Simvastatin [Vytorin 1 tab PO DAILY 12/20/15 04/27/19 10-40 mg Tablet] Albuterol Inhaler [Ventolin Hfa 1 - 2 puff INHALATION RT-Q6H PRN 03/18/19 04/27/19 Inhaler] Cyanocobalamin (Vitamin B-12) 1,000 mcg PO DAILY 03/18/19 04/27/19 [Vitamin B-12] Ipratropium [place] [Atrovent Hfa] 2 puff INHALATION RT-QID 03/18/19 04/27/19 Magnesium Gluconate [Magonate] 500 mg PO DAILY 03/18/19 04/27/19 Omeprazole 20 mg PO DAILY 03/26/19 04/27/19 Thiamine [Vitamin B-1] 100 mg PO DAILY 03/26/19 04/27/19 Buprenorphine [Butrans 20 MCG/HOUR] 1 patch TRANSDERM WE 03/29/19 04/27/19 Metoprolol Tartrate [Lopressor] 12.5 mg PO BID 03/29/19 04/27/19 Midodrine HCl [ProAmatine] 10 mg PO TID 04/27/19 04/27/19 Spironolactone [Aldactone] 12.5 mg PO DAILY 04/27/19 04/27/19 Previous Rx's Medication Instructions Recorded Pantoprazole [Protonix] 40 mg PO DAILY #30 tablet. 03/07/19 Furosemide [Lasix] 20 mg PO DAILY #30 tab 03/30/19 Allergies Allergy/AdvReac Type Severity Reaction Status Date / Time No Known Allergies Allergy Verified 04/27/19 16:21 Review of Systems ROS Statement: Those systems with pertinent positive or pertinent negative responses have been documented in the HPI. ROS Other: All systems not noted in ROS Statement are negative. Past Medical History Past Medical History: Diabetes Mellitus, GI Bleed, Hypertension Additional Past Medical History / Comment(s): COPD, anemia, Bravo's esophagus, sigmoid diverticulitis/diverticulosis, dyslipidemia, Bravo's esophagus, portal hypertension related to liver cirrhosis History of Any Multi-Drug Resistant Organisms: None Reported Past Surgical History: Hernia Repair, Orthopedic Surgery Additional Past Surgical History / Comment(s): bilateral carpal tunnel repair, left inguinal hernia repair, parecentesis Past Anesthesia/Blood Transfusion Reactions: No Reported Reaction Past Psychological History: No Psychological Hx Reported Smoking Status: Former smoker Past Alcohol Use History: Abuse Past Drug Use History: Marijuana - Past Family History Father Family Medical History: Diabetes Mellitus, Hyperlipidemia, Hypertension, Vascular Disorder General Exam Limitations: no limitations General appearance: alert, in no apparent distress Head exam: Present: atraumatic, normocephalic, normal inspection Eye exam: Present: normal appearance, PERRL, EOMI. Absent: scleral icterus, conjunctival injection, periorbital swelling ENT exam: Present: normal exam, mucous membranes moist Neck exam: Present: normal inspection. Absent: tenderness, meningismus, lymphadenopathy Respiratory exam: Present: normal lung sounds bilaterally. Absent: respiratory distress, wheezes, rales, rhonchi, stridor Cardiovascular Exam: Present: regular rate, normal rhythm, normal heart sounds. Absent: systolic murmur, diastolic murmur, rubs, gallop, clicks GI/Abdominal exam: Present: soft, normal bowel sounds. Absent: distended, tenderness, guarding, rebound, rigid Extremities exam: Present: normal inspection, full ROM, normal capillary refill. Absent: tenderness, pedal edema, joint swelling, calf tenderness Back exam: Present: normal inspection Neurological exam: Present: alert, oriented X3, CN II-XII intact Psychiatric exam: Present: normal affect, normal mood Skin exam: Present: warm, dry, intact, normal color. Absent: rash Course Vital Signs 04/27/19 04/27/19 15:47 17:15 Temperature 98.3 F Pulse Rate 98 90 Respiratory 18 16 Rate Blood Pressure 101/66 106/62 O2 Sat by Pulse 100 99 Oximetry - Reevaluation(s) Reevaluation #1: 04/27/19 16:19 Medical records reviewed 04/27/19 16:19 Prior lab values are reviewed, increasing renal failure Medical Decision Making - Medical Decision Making 63 male the ER for evaluation. Patient presents today for evaluation of abnormal lab values, worsening kidney function. Patient is had increasing creatinine and outpatient basis, will admit for nephrology evaluation - Lab Data Result diagrams: 04/27/19 16:17 04/27/19 16:17 Lab Results 04/27/19 04/27/19 04/27/19 Range/Units 16:17 16:17 16:17 WBC 6.6 (3.8-10.6) k/uL RBC 3.30 L (4.30-5.90) m/uL Hgb 10.8 L (13.0-17.5) gm/dL Hct 33.0 L (39.0-53.0) % MCV 100.2 H (80.0-100.0) fL MCH 32.6 (25.0-35.0) pg MCHC 32.6 (31.0-37.0) g/dL RDW 13.8 (11.5-15.5) % Plt Count 131 L (150-450) k/uL Neutrophils % 76 % Lymphocytes % 15 % Monocytes % 6 % Eosinophils % 1 % Basophils % 0 % Neutrophils # 5.0 (1.3-7.7) k/uL Lymphocytes # 1.0 (1.0-4.8) k/uL Monocytes # 0.4 (0-1.0) k/uL Eosinophils # 0.1 (0-0.7) k/uL Basophils # 0.0 (0-0.2) k/uL PT (9.0-12.0) sec INR (<1.2) APTT (22.0-30.0) sec Sodium 131 L (137-145) mmol/L Potassium 5.1 (3.5-5.1) mmol/L Chloride 95 L (98-107) mmol/L Carbon Dioxide 25 (22-30) mmol/L Anion Gap 11 mmol/L BUN 52 H (9-20) mg/dL Creatinine 3.81 H (0.66-1.25) mg/dL Est GFR (CKD-EPI)AfAm 18 (>60 ml/min/1.73 sqM) Est GFR (CKD-EPI)NonAf 16 (>60 ml/min/1.73 sqM) Glucose 141 H (74-99) mg/dL Plasma Lactic Acid Romaine 2.0 (0.7-2.0) mmol/L Calcium 8.5 (8.4-10.2) mg/dL Phosphorus 3.6 (2.5-4.5) mg/dL Magnesium 2.8 H (1.6-2.3) mg/dL Total Bilirubin 3.3 H (0.2-1.3) mg/dL AST 61 H (17-59) U/L ALT 22 (21-72) U/L Alkaline Phosphatase 139 H (38-126) U/L Ammonia <9 (<30) umol/L Creatine Kinase 78 (55-170) U/L Troponin I (0.000-0.034) ng/mL NT-Pro-B Natriuret Pep pg/mL Total Protein 6.5 (6.3-8.2) g/dL Albumin 3.5 (3.5-5.0) g/dL Urine Color Urine Appearance (Clear) Urine pH (5.0-8.0) Ur Specific [place] (1.001-1.035) Urine Protein (Negative) Urine Glucose (UA) (Negative) Urine Ketones (Negative) Urine Blood (Negative) Urine Nitrite (Negative) Urine Bilirubin (Negative) Urine Urobilinogen (<2.0) mg/dL Ur Leukocyte Esterase (Negative) 04/27/19 04/27/19 04/27/19 Range/Units 16:17 16:17 16:17 WBC (3.8-10.6) k/uL RBC (4.30-5.90) m/uL Hgb (13.0-17.5) gm/dL Hct (39.0-53.0) % MCV (80.0-100.0) fL MCH (25.0-35.0) pg MCHC (31.0-37.0) g/dL RDW (11.5-15.5) % Plt Count (150-450) k/uL Neutrophils % % Lymphocytes % % Monocytes % % Eosinophils % % Basophils % % Neutrophils # (1.3-7.7) k/uL Lymphocytes # (1.0-4.8) k/uL Monocytes # (0-1.0) k/uL Eosinophils # (0-0.7) k/uL Basophils # (0-0.2) k/uL PT 14.0 H (9.0-12.0) sec INR 1.4 H (<1.2) APTT 27.0 (22.0-30.0) sec Sodium (137-145) mmol/L Potassium (3.5-5.1) mmol/L Chloride (98-107) mmol/L Carbon Dioxide (22-30) mmol/L Anion Gap mmol/L BUN (9-20) mg/dL Creatinine (0.66-1.25) mg/dL Est GFR (CKD-EPI)AfAm (>60 ml/min/1.73 sqM) Est GFR (CKD-EPI)NonAf (>60 ml/min/1.73 sqM) Glucose (74-99) mg/dL Plasma Lactic Acid Romaine (0.7-2.0) mmol/L Calcium (8.4-10.2) mg/dL Phosphorus (2.5-4.5) mg/dL Magnesium (1.6-2.3) mg/dL Total Bilirubin (0.2-1.3) mg/dL AST (17-59) U/L ALT (21-72) U/L Alkaline Phosphatase (38-126) U/L Ammonia (<30) umol/L Creatine Kinase (55-170) U/L Troponin I <0.012 (0.000-0.034) ng/mL NT-Pro-B Natriuret Pep 905 pg/mL Total Protein (6.3-8.2) g/dL Albumin (3.5-5.0) g/dL Urine Color Urine Appearance (Clear) Urine pH (5.0-8.0) Ur Specific [place] (1.001-1.035) Urine Protein (Negative) Urine Glucose (UA) (Negative) Urine Ketones (Negative) Urine Blood (Negative) Urine Nitrite (Negative) Urine Bilirubin (Negative) Urine Urobilinogen (<2.0) mg/dL Ur Leukocyte Esterase (Negative) 04/27/19 Range/Units 17:10 WBC (3.8-10.6) k/uL RBC (4.30-5.90) m/uL Hgb (13.0-17.5) gm/dL Hct (39.0-53.0) % MCV (80.0-100.0) fL MCH (25.0-35.0) pg MCHC (31.0-37.0) g/dL RDW (11.5-15.5) % Plt Count (150-450) k/uL Neutrophils % % Lymphocytes % % Monocytes % % Eosinophils % % Basophils % % Neutrophils # (1.3-7.7) k/uL Lymphocytes # (1.0-4.8) k/uL Monocytes # (0-1.0) k/uL Eosinophils # (0-0.7) k/uL Basophils # (0-0.2) k/uL PT (9.0-12.0) sec INR (<1.2) APTT (22.0-30.0) sec Sodium (137-145) mmol/L Potassium (3.5-5.1) mmol/L Chloride (98-107) mmol/L Carbon Dioxide (22-30) mmol/L Anion Gap mmol/L BUN (9-20) mg/dL Creatinine (0.66-1.25) mg/dL Est GFR (CKD-EPI)AfAm (>60 ml/min/1.73 sqM) Est GFR (CKD-EPI)NonAf (>60 ml/min/1.73 sqM) Glucose (74-99) mg/dL Plasma Lactic Acid [place] (0.7-2.0) mmol/L Calcium (8.4-10.2) mg/dL Phosphorus (2.5-4.5) mg/dL Magnesium (1.6-2.3) mg/dL Total Bilirubin (0.2-1.3) mg/dL AST (17-59) U/L ALT (21-72) U/L Alkaline Phosphatase (38-126) U/L Ammonia (<30) umol/L Creatine Kinase (55-170) U/L Troponin I (0.000-0.034) ng/mL NT-Pro-B Natriuret Pep pg/mL Total Protein (6.3-8.2) g/dL Albumin (3.5-5.0) g/dL Urine Color Yellow Urine Appearance Clear (Clear) Urine pH 5.5 (5.0-8.0) Ur Specific [place] 1.015 (1.001-1.035) Urine Protein Negative (Negative) Urine Glucose (UA) Negative (Negative) Urine Ketones Negative (Negative) Urine Blood Negative (Negative) Urine Nitrite Negative (Negative) Urine Bilirubin Negative (Negative) Urine Urobilinogen <2.0 (<2.0) mg/dL Ur Leukocyte Esterase Negative (Negative) - EKG Data -: EKG Interpreted by Me (EKG shows sinus rhythm rate of 86, SC 140, QRS 72, QTc 435) Disposition Clinical Impression: Dehydration, History of ETOH abuse, Acute renal failure Disposition: ADMITTED IP TO THIS HOSP Condition: Good Is patient prescribed a controlled substance at d/c from ED?: No Referrals: oJhn Vaughn MD [Primary Care Provider] - 1-2 days
[2019-04-27 16:29] LABS: Basophils % (A) 0 %; Eosinophils # (A) 0.1 k/uL (0-0.7); Eosinophils % (A) 1 %; HGB 10.8 gm/dL (13.0-17.5); Lymphocytes % (A) 15 %; MCH 32.6 pg (25.0-35.0); MCHC 32.6 g/dL (31.0-37.0); MCV 100.2 fL (80.0-100.0); Mean Platelet Volume 7.8; Monocytes # (A) 0.4 k/uL (0-1.0); Monocytes % (A) 6 %; Neutrophils % (A) 76 %; Platelet Count 131 k/uL (150-450); RDW 13.8 % (11.5-15.5); WBC 6.6 k/uL (3.8-10.6)
[2019-04-27 16:38] LABS: Albumin 3.5 g/dL (3.5-5.0); Calcium 8.5 mg/dL (8.4-10.2); Phosphorus 3.6 mg/dL (2.5-4.5); Total Bilirubin 3.3 mg/dL (0.2-1.3); Total Protein 6.5 g/dL (6.3-8.2)
[2019-04-27 16:39] LABS: INR 1.4 (<1.2)
[2019-04-27 16:57] LABS: Ammonia <9 umol/L (<30); Potassium 5.1 mmol/L (3.5-5.1)
[2019-04-27 16:58] LABS: Magnesium 2.8 mg/dL (1.6-2.3)
[2019-04-27] MEDS ORDERED: SODIUM CHLORIDE 0.9% 500 ML 500 ML IV STA (17:11)
[2019-04-27 17:22] LABS: Appearance,Urine Clear (Clear); Bilirubin,Urine Negative (Negative); Blood,Urine Negative (Negative); Color,Urine Yellow; Glucose,Urine (UA) Negative (Negative); Ketones,Urine Negative (Negative); Leukocyte Esterase,Urine Negative (Negative); Nitrite,Urine Negative (Negative); PH, Urine 5.5 (5.0-8.0); Protein,Urine Negative (Negative); Specific Gravity,Urine 1.015 (1.001-1.035); Urobilinogen,Urine <2.0 mg/dL (<2.0)
[2019-04-27] MEDS ORDERED: SODIUM CHLORIDE 0.9% 1,000 ML IV ONE (17:37)
[2019-04-27] MEDS ORDERED: IPRATROPIUM-ALBUTEROL 3 ML NEB INHALATION PRN (20:51)
[2019-04-27] MEDS: CALCIUM CARBONATE 500 MG CHEWABLE PO PRN (21:06)
[2019-04-27] MEDS: METOPROLOL TARTRATE 12.5 MG TAB PO SCH (21:09)
[2019-04-28 04:25] VITALS: BMI 23.6
[2019-04-28] MEDS: MIDODRINE 5 MG TAB PO SCH ×3 (07:48→20:14)
[2019-04-28] MEDS: ATORVASTATIN 20 MG TAB PO SCH (07:49)
[2019-04-28] MEDS: THIAMINE 100 MG TAB PO SCH (07:49)
[2019-04-28] MEDS: PANTOPRAZOLE 40 MG TABLET PO SCH (07:49)
[2019-04-28] MEDS: CALCIUM CARBONATE 500 MG CHEWABLE PO PRN ×2 (07:49→13:51)
[2019-04-28] MEDS: EZETIMIBE 10 MG TAB PO SCH (07:49)
[2019-04-28] MEDS: METOPROLOL TARTRATE 12.5 MG TAB PO SCH ×2 (07:50→20:14)
[2019-04-28] MEDS: MAGNESIUM OXIDE 400 MG TAB PO SCH (07:50)
[2019-04-28] MEDS: CYANOCOBALAMIN 500 MCG TAB PO SCH (07:50)
[2019-04-28] MEDS: IPRATROPIUM 0.5 MG/2.5 ML NEBU INHALATION SCH ×4 (08:27→20:00)
[2019-04-28] MEDS ORDERED: SPIRONOLACTONE 25 MG TAB PO SCH (09:00)
[2019-04-28] MEDS ORDERED: PANTOPRAZOLE 40 MG TABLET PO SCH (09:00)
[2019-04-28] MEDS ORDERED: FUROSEMIDE 20 MG TAB PO SCH (09:00)
[2019-04-28 12:01] LABS: Calcium 7.8 mg/dL (8.4-10.2); Potassium 4.7 mmol/L (3.5-5.1)
[2019-04-28] MEDS: SODIUM CHLORIDE 0.9% 1,000 ML IV SCH ×3 (13:51→20:15)
--- NOTE | 2019-04-28 14:03 | CONS ---
CONSULTATION DATE OF DICTATION: 04/28/2019 REASON FOR CONSULTATION: Cirrhosis/ascitics. HISTORY OF PRESENT ILLNESS: The patient is a 63-year-old pleasant white male with history of alcoholic cirrhosis of the liver with portal hypertension, prior history of esophageal variceal bleeding, refractory ascites requiring paracentesis once every 2 weeks, was admitted to the hospital because of worsening kidney functions. The patient underwent large volume paracentesis 2 days ago and because of worsening BUN and creatinine, he was advised to go to the emergency room and subsequently admitted to the hospital for further evaluation. His BUN was 55 and creatinine was 3.8. Patient complains of some weakness. He denies any abdominal pain. No nausea, vomiting. No rectal bleeding or melena. He has been maintained on Lasix 20 mg daily and spironolactone 12.5 mg daily on an outpatient basis. 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 This morning he denies any new complaints. PAST MEDICAL HISTORY: Alcoholic cirrhosis of the liver with portal hypertension, history of esophageal variceal bleeding, gastroesophageal reflux disease and liver cirrhosis, history of diabetes mellitus and hypertension. PAST SURGICAL HISTORY: Bilateral carpal tunnel repair, left inguinal hernia repair, paracentesis. MEDICATIONS AT HOME INCLUDE: Vytorin, albuterol, vitamin B12, Atrovent, magnesium gluconate, omeprazole, metoprolol, Midodrine, spironolactone. ALLERGIES: None. SOCIAL HISTORY: History of alcohol use in the past. Quit drinking a few months ago. FAMILY HISTORY: Father has had diabetes mellitus, hypertension, hyperlipidemia. REVIEW OF SYSTEMS: CARDIOPULMONARY: He denies any chest pain or shortness of breath and no dysuria or hematuria. MUSCULOSKELETAL: Unremarkable. SKIN: Unremarkable. ENDOCRINE: Unremarkable. PSYCHIATRIC: Unremarkable. NEUROLOGY: Unremarkable. ENT/VISION: Unremarkable. CONSTITUTIONAL: No recent weight loss. No fever, chills. PHYSICAL EXAMINATION: Appears comfortable, in no apparent distress. Vital signs are stable, blood pressure 88/56, pulse rate 94, temperature 98.2. HEENT: Examination unremarkable, conjunctivae are pink, sclerae nonicteric, oral cavity no lesions. NECK: No JVD or lymph node enlargement. CHEST: Clear to auscultation. HEART: Regular rate and rhythm. ABDOMEN: Soft, it was distended. There was some amount of free fluid noted. EXTREMITIES: No pedal edema. SKIN: No rashes. NEUROLOGIC: Alert and oriented x3. No focal deficits. LABS: From yesterday WBC 6.6, hemoglobin 10.8, platelets 131, INR is 1.4. BUN is 52, creatinine 3.81. is 3.3, AST is 61, ALT is 22, alkaline phosphatase is 139. Urinalysis is negative. IMPRESSION: 1. Alcoholic cirrhosis of the liver with portal hypertension and recurrent ascites. 2. History of esophageal variceal bleeding in the past. Last EGD with esophageal variceal ligation was in February of this year. 3. Refractory ascites, status post paracentesis every 2 weeks. Last one was done 2 days ago. 4. Acute kidney injury with worsening BUN and creatinine. Nephrology has been consulted and diuretics have been on hold. RECOMMENDATIONS: 1. Continue to hold the diuretics. 2. Gentle hydration. 3. Await. recommendations from Nephrology. 4. Continue with large volume paracentesis every 2 weeks as needed with IV albumin infusions. 5. Low-salt diet and will follow the patient closely during his hospital stay. Thank you for this consultation. MMODL / IJN: [id number] /
--- NOTE | 2019-04-28 16:47 | P.HPIM ---
History of Present Illness H&P Date: 04/28/19 Chief Complaint: Abnormal renal function History of presenting complaint: This is a 63-year-old patient who has a history of alcohol-related multiple disorders. Including upper GI bleed with esophageal varices, alcoholic cirrhosis causing secondary portal hypertension and portal hypertensive gastropathy, hiatal hernia, gastric antral ulcerations, thrombocytopenia, diabetes mellitus type 2, hypertension, sigmoid diverticulosis, thrombocytopenia from liver disease. outpatient setting to get a large-volume paracentesis done. About 7 L were removed. Patient is found to have abnormal renal function. Bun and creatinine was 52/3.81. Back in March 30 8 was 33/1.84. P atient admitted for the same. Early this morning diuretics were held. Nephrology was consulted. Breathing is stable. Abdomen was distended. Bit less than before. Review of systems: GEN.: Tired EYES: None HEENT: None NECK: None RESPIRATORY: Minimal shortness of breath CARDIOVASCULAR: None GASTROINTESTINAL: Less distention after paracentesis GENITOURINARY: None MUSCULOSKELETAL: None LYMPHATICS: None HEMATOLOGICAL: None PSYCHIATRY: Some anxiety NEUROLOGICAL: None Past medical history: To include Esophageal varices, alcoholic cirrhosis, secondary portal hypertension, portal hypertensive gastropathy, hiatal hernia, gastric antral ulcerations, COPD, thrombocytopenia from alcoholic liver disease, blood loss anemia, diabetes mellitus type 2, hypertension, sigmoid diverticulosis. Ascites with recurrent paracentesis Social history: Patient was drinking at least a pint day up until January 2019. Marijuana occasionally. 2 cigars a day. Family history: Diabetes mellitus, hyperlipidemia, hypertension Physical examination: VITAL SIGNS: 97.9, 79, 16, 8441, 96% room air GENERAL: BMI 23.7, propped up in bed, awake EYES: Pupils equal. Conjunctiva pale. HEENT: External appearance of nose and ears normal, oral cavity grossly normal. NECK: JVD not raised; masses not palpable. HEART: First and second heart sounds are normal; no edema. LUNGS: Respiratory rate normal; decreased breath sounds. ABDOMEN: Soft, nontender, distended, liver spleen not palpable, no masses palpable. PSYCH: Alert and oriented x3; mood and affect normal. NEUROLOGICAL: Cranial nerves grossly intact; no facial asymmetry, power and sensation grossly intact. LYMPHATICS: No lymph nodes palpable in the axilla and neck INVESTIGATIONS, reviewed in the clinical context: White count 6.6 hemoglobin 10.8 platelets 131 pro time 14 potassium 5.1 BUN 52 creatinine 3.81 Assessment: -Acute renal failure from hepatorenal syndrome, and patient being on diuretics, could be ATN -Esophageal varices -Alcoholic cirrhosis -Secondary portal hypertension with portal hypertensive gastropathy -Hiatal hernia -Gastric antral ulcers -COPD in a smoker -Thrombocytopenia from alcoholic liver disease -Diabetes mellitus type 2 -Essential hypertension -Sigmoid diverticulosis -Ascites status post large volume paracentesis of about 7 L as an outpatient before patient admitted Plan: Diuretics have been held for now. Gentle hydration will be done. Nephrology was consulted. Care was discussed with the patient. Questions were answered. Saline ordered at 75 mL's an hour. Prognosis guarded. Discussed with the екатерина zimmer. Past Medical History Past Medical History: Diabetes Mellitus, GI Bleed, Hypertension Additional Past Medical History / Comment(s): COPD, anemia, Bravo's esophagus, sigmoid diverticulitis/diverticulosis, dyslipidemia, Bravo's esophagus, portal hypertension related to liver cirrhosis History of Any Multi-Drug Resistant Organisms: None Reported Past Surgical History: Hernia Repair, Orthopedic Surgery Additional Past Surgical History / Comment(s): bilateral carpal tunnel repair, left inguinal hernia repair, parecentesis Past Anesthesia/Blood Transfusion Reactions: No Reported Reaction Past Psychological History: No Psychological Hx Reported Smoking Status: Former smoker Past Alcohol Use History: Abuse Additional Past Alcohol Use History / Comment(s): Patient states he drinks 1 pint a day, states he quit drinking January 2019 Past Drug Use History: Marijuana Additional Drug Use History / Comment(s): PT SMOKES 2 CIGARS A DAY AND OCCASIONALLY SMOKES MARIJUANA. - Past Family History Father Family Medical History: Diabetes Mellitus, Hyperlipidemia, Hypertension, Vascular Disorder Medications and Allergies Home Medications Medication Instructions Recorded Confirmed Type Ezetimibe/Simvastatin [Vytorin 1 tab PO DAILY 12/20/15 04/27/19 History 10-40 mg Tablet] Pantoprazole [Protonix] 40 mg PO DAILY #30 tablet. 03/07/19 04/27/19 Rx Albuterol Inhaler [Ventolin Hfa 1 - 2 puff INHALATION RT-Q6H PRN 03/18/19 04/27/19 History Inhaler] Cyanocobalamin (Vitamin B-12) 1,000 mcg PO DAILY 03/18/19 04/27/19 History [Vitamin B-12] Ipratropium [place] [Atrovent Hfa] 2 puff INHALATION RT-QID 03/18/19 04/27/19 History Magnesium Gluconate [Magonate] 500 mg PO DAILY 03/18/19 04/27/19 History Omeprazole 20 mg PO DAILY 03/26/19 04/27/19 History Thiamine [Vitamin B-1] 100 mg PO DAILY 03/26/19 04/27/19 History Buprenorphine [Butrans 20 MCG/HOUR] 1 patch TRANSDERM WE 03/29/19 04/27/19 History Metoprolol Tartrate [Lopressor] 12.5 mg PO BID 03/29/19 04/27/19 History Furosemide [Lasix] 20 mg PO DAILY #30 tab 03/30/19 04/27/19 Rx Midodrine HCl [ProAmatine] 10 mg PO TID 04/27/19 04/27/19 History Spironolactone [Aldactone] 12.5 mg PO DAILY 04/27/19 04/27/19 History Allergies Allergy/AdvReac Type Severity Reaction Status Date / Time No Known Allergies Allergy Verified 04/27/19 16:21 Physical Exam Vitals: Vital Signs Temp Pulse Pulse Resp BP BP Pulse Ox 04/28/19 16:31 86 97 04/28/19 14:15 97.9 F 79 16 84/41 96 04/28/19 12:12 93 04/28/19 12:04 91 04/28/19 12:01 98 F 77 15 81/52 97 04/28/19 10:18 83/53 04/28/19 08:41 92 04/28/19 08:27 97 04/28/19 08:15 77 15 04/28/19 04:44 98.2 F 94 18 88/56 97 04/28/19 00:00 18 04/27/19 20:20 98.1 F 95 18 83/53 96 04/27/19 17:15 90 16 106/62 99 Intake and Output 04/28/19 04/28/19 04/28/19 06:59 14:59 22:59 Intake Total 920 1650 Balance 920 1650 Intake: Intake, IV Titration 800 800 Amount Sodium Chloride 0.9% 1, 800 000 ml @ 100 mls/hr IV . Q10H ONE Rx#:[id number] Sodium Chloride 0.9% 1, 800 000 ml @ 100 mls/hr IV . Q10H MARIELA Rx#:[id number] Oral 120 850 Other: # Voids 2 1 Results CBC & Chem 7: 04/27/19 16:17 04/28/19 11:30 Labs: Abnormal Lab Results - Last 24 Hours (Table) 04/27/19 04/28/19 Range/Units 16:17 11:30 Sodium 131 L 134 L (137-145) mmol/L Chloride 95 L (98-107) mmol/L BUN 52 H 42 H (9-20) mg/dL Creatinine 3.81 H 2.88 H (0.66-1.25) mg/dL Glucose 141 H 174 H (74-99) mg/dL Calcium 7.8 L (8.4-10.2) mg/dL Magnesium 2.8 H (1.6-2.3) mg/dL Total Bilirubin 3.3 H (0.2-1.3) mg/dL AST 61 H (17-59) U/L Alkaline Phosphatase 139 H (38-126) U/L Microbiology - Last 24 Hours (Table) 04/27/19 17:10 Urine Culture - Preliminary Urine,Voided Thrombosis Risk Factor Assmnt - Choose All That Apply Any of the Below Risk Factors Present?: Yes Each Factor Represents 1 point: Swollen legs (current) Other Risk Factors: Yes Each Risk Factor Represents 2 Points: Age 61-74 years Thrombosis Risk Factor Assessment Total Risk Factor Score: 3 Thrombosis Risk Factor Assessment Level: Moderate Risk
--- NOTE | 2019-04-28 22:27 | CONS ---
CONSULTATION REASON FOR CONSULT: Renal failure. HISTORY OF PRESENT ILLNESS: The patient is a 63-year-old male with history of alcoholic liver disease, liver cirrhosis, recurring ascites with frequent paracentesis. The patient was admitted to the hospital secondary to worsening renal function as outpatient. His creatinine had gone up to 4.1 yesterday. The patient also had a paracentesis with 7 L of fluid removed yesterday. He did receive a dose of albumin prior to the paracentesis. Blood pressure is currently low with systolic in the 80s. The patient denies any chest pain, shortness of breath. No dizziness, lightheadedness, nausea, vomiting. No ongoing diarrhea. His creatinine from today is down to 2.8 mg/dL. Patient is maintained on IV fluids at 80 mL an hour. PAST MEDICAL HISTORY: Significant for type 2 diabetes, GI bleed, hypertension, COPD, history of Bravo's esophagus, anemia, history of sigmoid diverticulitis, portal hypertension, alcoholic liver disease, dyslipidemia. PAST SURGICAL HISTORY: Carpal tunnel repair, bilateral hernia repair, and multiple paracenteses. SOCIAL HISTORY: Patient is a former smoker. No history of drug abuse. He does have a history of EtOH abuse, currently not using. There is history of smoking marijuana. MEDICATIONS: Medications prior to admission included Vytorin, Protonix, B12 Lopressor, Lasix, metformin, Aldactone. ALLERGIES: None. REVIEW OF SYSTEMS: As per HPI. Other systems negative. EXAMINATION: Patient is comfortable, awake, alert, and oriented x3, not in any acute distress. Blood pressure 83/53, heart rate 92 per minute. He is afebrile. Examination of the heart S1, S2. Examination of the lungs, bilateral breath sounds are heard. Abdomen is soft, nontender, distended. Examination lower extremities shows no evidence of edema. HOME DEPOT REP exam grossly intact. LABS: Show sodium 134, potassium 4.7, chloride 102, BUN 42, serum creatinine 2.8, hemoglobin 10.8 g/dL. UA is completely benign. ASSESSMENT: 1. Acute kidney injury, mainly prerenal, currently improved with IV hydration. I will hold off on the Lasix and Aldactone for now. 2. Portal hypertension and ascites status post paracentesis with history of recurring ascites and frequent paracentesis. We will give a dose of albumin if the blood pressure remains low. 3. Hyponatremia secondary to liver disease, currently hypovolemic and improved with normal saline. PLAN: Continue IV fluids. Hold Lasix and Aldactone for now. The patient can likely be discharged tomorrow. Increase midodrine. Thank you for this consultation. We will continue to follow the patient with you during his hospitalization. ANALIA / ANDRE: [id number] /
[2019-04-29] MEDS: SODIUM CHLORIDE 0.9% 1,000 ML IV SCH ×2 (04:42→04:43)
[2019-04-29] MEDS: CALCIUM CARBONATE 500 MG CHEWABLE PO PRN (06:36)
[2019-04-29] MEDS: MAGNESIUM OXIDE 400 MG TAB PO SCH (07:37)
[2019-04-29] MEDS: ATORVASTATIN 20 MG TAB PO SCH (07:37)
[2019-04-29] MEDS: EZETIMIBE 10 MG TAB PO SCH (07:38)
[2019-04-29] MEDS: CYANOCOBALAMIN 500 MCG TAB PO SCH (07:38)
[2019-04-29] MEDS: PANTOPRAZOLE 40 MG TABLET PO SCH (07:38)
[2019-04-29] MEDS: THIAMINE 100 MG TAB PO SCH (07:38)
[2019-04-29] MEDS: METOPROLOL TARTRATE 12.5 MG TAB PO SCH ×2 (07:38→12:19)
[2019-04-29] MEDS: MIDODRINE 5 MG TAB PO SCH ×2 (07:38→13:13)
[2019-04-29 08:02] LABS: Calcium 7.7 mg/dL (8.4-10.2); Potassium 4.8 mmol/L (3.5-5.1)
[2019-04-29] MEDS: IPRATROPIUM 0.5 MG/2.5 ML NEBU INHALATION SCH ×2 (08:12→11:37)
--- NOTE | 2019-04-29 11:32 | PN ---
PROGRESS NOTE Patient is a 63-year-old white male with a history of alcoholic cirrhosis of the liver with refractory ascites requiring frequent paracentesis almost every 2 weeks for the last 6 months. Last paracentesis was 3 days ago. He was sent last night to the emergency room because of worsening renal functions. At the time of admission to the hospital BUN and creatinine were elevated and he was seen by Dr. Garcia yesterday. Diuretics have been on hold. His creatinine has slightly improved today. Denies any new symptoms. No abdominal pain. No nausea, vomiting. No rectal bleeding or melena. PHYSICAL EXAMINATION: He appears comfortable. No apparent distress. Vital signs stable. Blood pressure is 90/56, pulse rate 75, temperature 97.8. HEENT: Examination unremarkable. Conjunctivae pink. Sclerae anicteric. Oral cavity no lesions. NECK: No JVD or lymph node enlargement. CHEST: Clear to auscultation. HEART: Regular rate and rhythm. ABDOMEN: Soft. Bowel sounds are positive. Slightly distended. EXTREMITIES: No pedal edema. SKIN: No rashes. NEUROLOGIC: Alert and oriented x3. No focal deficits. LABS: From today: BUN is 40, creatinine is 2.68, sodium 135. IMPRESSION: 1. Alcoholic cirrhosis of the liver with portal hypertension. 2. Refractory ascites requiring large volume paracentesis every 2 weeks. Last one was 3 days ago. 3. Acute kidney injury, possibly prerenal azotemia. Presently diuretics on hold and Dr. Garcia is following the patient closely. Repeat creatinine this morning has slightly improved to 2.6. RECOMMENDATION: 1. I agree to hold diuretics for now. 2. Repeat BUN and creatinine tomorrow. 3. Continue with gentle IV hydration. 4. Paracentesis in 2 weeks. We will follow the patient closely during this hospital stay. Thank you for this consultation. MMODL / IJN: [id number] /
[2019-04-29] MEDS ORDERED: SIMETHICONE 80 MG CHEWABLE PO PRN (13:09)
[2019-04-29] MEDS ORDERED: ONDANSETRON 4 MG/2 ML VIAL IVP PRN (13:10)
[2019-04-29 13:37] VITALS: PULSE 72; RESP 16; TEMP 97.7
--- NOTE | 2019-04-29 13:53 | PN ---
PROGRESS NOTE The patient is seen for followup for acute kidney injury secondary to hypotension, hypokalemia. Renal function has improved. Patient has had good urine output. He was maintained on IV fluids. Serum creatinine is down to 2.68 from my around 4 prior to admission. Diuretics were held for one day. PHYSICAL EXAMINATION: This morning blood pressure was 90/56, heart rate 88 per minute. He is afebrile. Examination of the heart S1, S2. Abdomen is soft, distended with ascites. Examination lower extremities shows no evidence of edema. [employer] exam is grossly intact. LABS: Sodium 135, potassium 4.8, BUN of 40, serum creatinine 2.68. ASSESSMENT: 1. Acute kidney injury secondary to hypotension, hypoperfusion, hypovolemia, currently improved. We can resume low-dose diuretics. Discontinue IV fluids. Patient can be discharged from nephrology standpoint. 2. Chronic liver disease with liver cirrhosis, recurrent ascites and paracentesis. 3. Hypomagnesemia status post replacement. 4. Hypotension, maintained on midodrine which we will continue. PLAN: DC IV fluids, can resume low-dose diuretics post discharge. We can resume the Aldactone and the Lasix at 20 mg daily. Follow up as outpatient. Patient should have labs done as outpatient in about 4-5 days. MMODL / IJN: [id number] /
[2019-04-29 15:14] VITALS: BP 91/68
--- NOTE | 2019-04-30 00:43 | P.DS ---
Providers Date of admission: 04/27/19 17:50 Expected date of discharge: 04/29/19 Attending physician: Maikol Adam Consults: 04/27/19 17:37 Consult Physician Routine Consulting Provider: Natanael Rojas Consult Reason/Comments: known Do you want consulting provider notified?: Yes Consult Physician Routine Consulting Provider: Ramy Bailey Consult Reason/Comments: known Do you want consulting provider notified?: Yes Primary care physician: John Vaughn Hospital Course: Chief Complaint: Abnormal renal function Hospital course: This is a 63-year-old patient who has a history of alcohol-related multiple disorders. Including upper GI bleed with esophageal varices, alcoholic cirrhosis causing secondary portal hypertension and portal hypertensive gastropathy, hiatal hernia, gastric antral ulcerations, thrombocytopenia, diabetes mellitus type 2, hypertension, sigmoid diverticulosis, thrombocytopenia from liver disease. outpatient setting to get a large-volume paracentesis done. About 7 L were removed. Patient is found to have abnormal renal function. Bun and creatinine was 52/3.81. Back in March 30 8 was 33/1.84. Patient admitted for the same. Diuretics were held. Gently hydrated. Creatinine did drop from 3.81 down to 2.68 and bun dropped from 52-40. Patient is feeling better. BY nephrology for discharge. Care was discussed with the patient Consultation: Dr. Garcia from nephrology Dr. Tonia Guillen from GI Physical examination: VITAL SIGNS: 97.7, 72, 16, 91 x 68, 100% room air GENERAL: BMI 23.7, propped up in bed, awake EYES: Pupils equal. Conjunctiva pale. HEENT: External appearance of nose and ears normal, oral cavity grossly normal. NECK: JVD not raised; masses not palpable. HEART: First and second heart sounds are normal; no edema. LUNGS: Respiratory rate normal; decreased breath sounds. ABDOMEN: Soft, nontender, distended, liver spleen not palpable, no masses palpable. PSYCH: Alert and oriented x3; mood and affect normal. INVESTIGATIONS, reviewed in the clinical context: Bun 40 creatinine 2.68 Admission testing White count 6.6 hemoglobin 10.8 platelets 131 pro time 14 potassium 5.1 BUN 52 creatinine 3.81 Discharge diagnosis: -Acute renal failure from hepatorenal syndrome, and patient being on diuretics, could be ATN -Esophageal varices -Alcoholic cirrhosis -Secondary portal hypertension with portal hypertensive gastropathy -Hiatal hernia -Gastric antral ulcers -COPD in a smoker -Thrombocytopenia from alcoholic liver disease -Diabetes mellitus type 2 -Essential hypertension -Sigmoid diverticulosis -Ascites status post large volume paracentesis of about 7 L as an outpatient before patient admitted Disposition: Home Patient Condition at Discharge: Undetermined Plan - Discharge Summary New Discharge Prescriptions: Continue Ezetimibe/Simvastatin [Vytorin 10-40 mg Tablet] 1 tab PO DAILY Pantoprazole [Protonix] 40 mg PO DAILY #30 tablet. Magnesium Gluconate [Magonate] 500 mg PO DAILY Cyanocobalamin (Vitamin B-12) [Vitamin B-12] 1,000 mcg PO DAILY Ipratropium [place] [Atrovent Hfa] 2 puff INHALATION RT-QID Albuterol Inhaler [Ventolin Hfa Inhaler] 1 - 2 puff INHALATION RT-Q6H PRN PRN Reason: Wheezing Thiamine [Vitamin B-1] 100 mg PO DAILY Omeprazole 20 mg PO DAILY Buprenorphine [Butrans 20 MCG/HOUR] 1 patch TRANSDERM WE Metoprolol Tartrate [Lopressor] 12.5 mg PO BID Furosemide [Lasix] 20 mg PO DAILY #30 tab Midodrine HCl [ProAmatine] 10 mg PO TID Spironolactone [Aldactone] 12.5 mg PO DAILY Discharge Medication List Ezetimibe/Simvastatin [Vytorin 10-40 mg Tablet] 1 tab PO DAILY 12/20/15 [History] Pantoprazole [Protonix] 40 mg PO DAILY #30 tablet. 03/07/19 [Rx] Albuterol Inhaler [Ventolin Hfa Inhaler] 1 - 2 puff INHALATION RT-Q6H PRN 03/18/19 [History] Cyanocobalamin (Vitamin B-12) [Vitamin B-12] 1,000 mcg PO DAILY 03/18/19 [History] Ipratropium [place] [Atrovent Hfa] 2 puff INHALATION RT-QID 03/18/19 [History] Magnesium Gluconate [Magonate] 500 mg PO DAILY 03/18/19 [History] Omeprazole 20 mg PO DAILY 03/26/19 [History] Thiamine [Vitamin B-1] 100 mg PO DAILY 03/26/19 [History] Buprenorphine [Butrans 20 MCG/HOUR] 1 patch TRANSDERM WE 03/29/19 [History] Metoprolol Tartrate [Lopressor] 12.5 mg PO BID 03/29/19 [History] Furosemide [Lasix] 20 mg PO DAILY #30 tab 03/30/19 [Rx] Midodrine HCl [ProAmatine] 10 mg PO TID 04/27/19 [History] Spironolactone [Aldactone] 12.5 mg PO DAILY 04/27/19 [History] Follow up Appointment(s)/Referral(s): Kinga Garcia MD [STAFF PHYSICIAN] - 1 Week Lisa Guillen MD [STAFF PHYSICIAN] - 2 Weeks John Vaughn MD [Primary Care Provider] - 1 Week Ambulatory/Diagnostic Orders: Basic Metabolic Panel [LAB.AMB] Time Frame: 05/03/19, Location: None Selected Patient Instructions/Handouts: Acute Kidney Injury (IP), Hypotension (IP) Discharge Disposition: HOME SELF-CARE
[2019-05-01 10:52] LABS: Hemoglobin A1C 5.9 % (4.0-6.0)
[2019-05-02] MEDS ORDERED: BUPRENORPHINE TOPICAL SCH (09:00)
== END 2019-04-29 15:15 | disposition home or self-care (01) ==
LOC: EC 15:46 → 3NMEDONC 17:50
PROVIDERS: ADMIT Hospitalist; ATTEND Hospitalist
DX: N17.9 Acute kidney failure, unspecified (principal); K76.7 Hepatorenal syndrome; K70.31 Alcoholic cirrhosis of liver with ascites; E87.1 Hypo-osmolality and hyponatremia; E86.1 Hypovolemia; T50.2X5A Adverse effect of carbonic-anhydrase inhibitors, benzothiadiazides and other diuretics, initial encounter; K76.6 Portal hypertension; K31.89 Other diseases of stomach and duodenum; I95.9 Hypotension, unspecified; E87.6 Hypokalemia; E83.42 Hypomagnesemia; K57.30 Diverticulosis of large intestine without perforation or abscess without bleeding; K44.9 Diaphragmatic hernia without obstruction or gangrene; J44.9 Chronic obstructive pulmonary disease, unspecified; I10 Essential (primary) hypertension; E11.9 Type 2 diabetes mellitus without complications; D69.59 Other secondary thrombocytopenia; D50.0 Iron deficiency anemia secondary to blood loss (chronic); K22.70 Barrett's esophagus without dysplasia; E78.5 Hyperlipidemia, unspecified; K57.90 Diverticulosis of intestine, part unspecified, without perforation or abscess without bleeding; I85.11 Secondary esophageal varices with bleeding; F17.290 Nicotine dependence, other tobacco product, uncomplicated; F41.9 Anxiety disorder, unspecified; K25.9 Gastric ulcer, unspecified as acute or chronic, without hemorrhage or perforation; Z87.11 Personal history of peptic ulcer disease; Z79.899 Other long term (current) drug therapy; Z87.19 Personal history of other diseases of the digestive system; Z83.3 Family history of diabetes mellitus; Z82.49 Family history of ischemic heart disease and other diseases of the circulatory system; Z83.49 Family history of other endocrine, nutritional and metabolic diseases
CPT/HCPCS: 96361 ×2; 96374; 99285; 36415; 94640 ×4; 93005; 83880; 80053; 80048 ×2; 82140; 82550; 83605; 83735; 84100; 84484; 85025; 85610; 85730; 81003; 87086; 83036; G0378 ×3; J2405

== ENCOUNTER 2019-05-07 15:28 | Inpatient (IN) | payer OTHER ==
[2019-05-07] MEDS ORDERED: SODIUM CHLORIDE 0.9% 1,000 ML IV STA ×2 (15:40)
[2019-05-07] MEDS ORDERED: SODIUM CHLORIDE 0.9% 500 ML 500 ML IV STA (15:40)
--- NOTE | 2019-05-07 15:58 | ED ---
Recheck HPI - General Chief Complaint: Recheck/Abnormal Lab/Rx Stated Complaint: Cyst Time Seen by Provider: 05/07/19 15:39 Source: patient, RN notes reviewed, old records reviewed Mode of arrival: wheelchair Limitations: no limitations - History of Present Illness Initial Comments: This is a 63-year-old male the ER for evaluation presents today for evaluation regarding abnormal lab values checkup. Patient has history of liver failure cirrhosis from alcohol. Patient was sent to ER for evaluation after having paracentesis therapeutic today. Patient denies any new complaints no headache chest pain shortness breath or abdominal pain no feelings of weakness states he does try to adequately manage his fluid intake between having fluid blood in his abdomen and pain versus his urine output. No recent change in medications. Denies recent drinking MD Complaint: abnormal lab (Increasing creatinine) -: unknown Returns Today for: Called Because of Abnormal Lab/Test Symptoms Since Prior Visit: no new symptoms Context: called for abnormal lab result Associated Symptoms: none Treatments Prior to Arrival: other (Recently had therapeutic paracentesis) - Related Data Home Medications Medication Instructions Recorded Confirmed Ezetimibe/Simvastatin [Vytorin 1 tab PO DAILY 12/20/15 05/07/19 10-40 mg Tablet] Albuterol Inhaler [Ventolin Hfa 1 - 2 puff INHALATION RT-Q6H PRN 03/18/19 05/07/19 Inhaler] Cyanocobalamin (Vitamin B-12) 1,000 mcg PO DAILY 03/18/19 05/07/19 [Vitamin B-12] Ipratropium [place] [Atrovent Hfa] 2 puff INHALATION RT-QID 03/18/19 05/07/19 Magnesium Gluconate [Magonate] 500 mg PO DAILY 03/18/19 05/07/19 Omeprazole 20 mg PO DAILY 03/26/19 05/07/19 Thiamine [Vitamin B-1] 100 mg PO DAILY 03/26/19 05/07/19 Buprenorphine [Butrans 20 MCG/HOUR] 1 patch TRANSDERM WE 03/29/19 05/07/19 Metoprolol Tartrate [Lopressor] 12.5 mg PO BID 03/29/19 05/07/19 Midodrine HCl [ProAmatine] 10 mg PO TID 04/27/19 05/07/19 Spironolactone [Aldactone] 12.5 mg PO DAILY 04/27/19 05/07/19 Previous Rx's Medication Instructions Recorded Furosemide [Lasix] 20 mg PO DAILY #30 tab 03/30/19 Allergies Allergy/AdvReac Type Severity Reaction Status Date / Time No Known Allergies Allergy Verified 05/07/19 16:07 Review of Systems ROS Statement: Those systems with pertinent positive or pertinent negative responses have been documented in the HPI. ROS Other: All systems not noted in ROS Statement are negative. Past Medical History Past Medical History: Diabetes Mellitus, GI Bleed, Hypertension Additional Past Medical History / Comment(s): COPD, anemia, Bravo's esophagus, sigmoid diverticulitis/diverticulosis, dyslipidemia, Bravo's esophagus, portal hypertension related to liver cirrhosis, alcoholism and is sober History of Any Multi-Drug Resistant Organisms: None Reported Past Surgical History: Hernia Repair, Orthopedic Surgery Additional Past Surgical History / Comment(s): bilateral carpal tunnel repair, left inguinal hernia repair, parecentesis Past Anesthesia/Blood Transfusion Reactions: No Reported Reaction Past Psychological History: No Psychological Hx Reported Smoking Status: Former smoker Past Alcohol Use History: Abuse Past Drug Use History: Marijuana - Past Family History Father Family Medical History: Diabetes Mellitus, Hyperlipidemia, Hypertension, Vascular Disorder General Exam Limitations: no limitations General appearance: alert, in no apparent distress Head exam: Present: atraumatic, normocephalic, normal inspection Eye exam: Present: normal appearance, PERRL, EOMI. Absent: scleral icterus, co njunctival injection, periorbital swelling ENT exam: Present: normal exam, mucous membranes moist Neck exam: Present: normal inspection. Absent: tenderness, meningismus, lymphadenopathy Respiratory exam: Present: normal lung sounds bilaterally. Absent: respiratory distress, wheezes, rales, rhonchi, stridor Cardiovascular Exam: Present: regular rate, normal rhythm, normal heart sounds. Absent: systolic murmur, diastolic murmur, rubs, gallop, clicks GI/Abdominal exam: Present: soft, normal bowel sounds. Absent: distended, tenderness, guarding, rebound, rigid Extremities exam: Present: normal inspection, full ROM, normal capillary refill. Absent: tenderness, pedal edema, joint swelling, calf tenderness Back exam: Present: normal inspection Neurological exam: Present: alert, oriented X3, CN II-XII intact Psychiatric exam: Present: normal affect, normal mood Skin exam: Present: warm, dry, intact, normal color. Absent: rash Course Vital Signs 05/07/19 15:30 Temperature 98.4 F Pulse Rate 84 Respiratory 18 Rate Blood Pressure 93/62 O2 Sat by Pulse 98 Oximetry - Reevaluation(s) Reevaluation #1: 05/07/19 15:57 Medical record as well as prior ER visit and inpatient hospital station reviewed - Consultations Consultation #1: Spoke with Dr. Adam, acceptable for admission Consultation #2: Spoke with Dr. Garcia of nephrology, aware of patient Medical Decision Making - Medical Decision Making 63 male the ER for evaluation presents today for evaluation regards to abnormal lab tests. Worsening renal failure, will admit for nephrology evaluation Disposition Clinical Impression: Acute kidney injury, Ascites due to alcoholic cirrhosis, ARF (acute renal failure) Disposition: ADMITTED IP TO THIS HOSP Condition: Fair Is patient prescribed a controlled substance at d/c from ED?: No Referrals: John Vaughn MD [Primary Care Provider] - 1-2 days
[2019-05-07] MEDS: CALCIUM CARBONATE 500 MG CHEWABLE PO PRN ×2 (17:58→23:05)
[2019-05-07 22:29] LABS: Glucose,Whole Blood 151 mg/dL (75-99)
[2019-05-07] MEDS ORDERED: ALBUTEROL NEBULIZED 2.5 MG/3 ML INHALATION PRN (22:40)
[2019-05-08 07:26] LABS: Glucose,Whole Blood 108 mg/dL (75-99)
[2019-05-08] MEDS: INSULIN ASPART (NovoLOG) 100 UNIT/ML VIAL SQ SCH ×4 (07:39→22:02)
[2019-05-08] MEDS: METOPROLOL TARTRATE 25 MG TAB PO SCH ×2 (07:39→22:34)
[2019-05-08] MEDS: PANTOPRAZOLE 40 MG TABLET PO SCH (07:40)
[2019-05-08] MEDS: EZETIMIBE 10 MG TAB PO SCH (07:40)
[2019-05-08] MEDS: CYANOCOBALAMIN 500 MCG TAB PO SCH (07:40)
[2019-05-08] MEDS: SPIRONOLACTONE 25 MG TAB PO SCH (07:40)
[2019-05-08] MEDS: MAGNESIUM OXIDE 400 MG TAB PO SCH (07:40)
[2019-05-08] MEDS: THIAMINE 100 MG TAB PO SCH (07:40)
[2019-05-08] MEDS: MIDODRINE 5 MG TAB PO SCH ×3 (07:40→22:31)
[2019-05-08] MEDS: ATORVASTATIN 20 MG TAB PO SCH ×2 (07:41)
[2019-05-08] MEDS: FUROSEMIDE 20 MG TAB PO SCH (07:41)
[2019-05-08] MEDS: IPRATROPIUM 0.5 MG/2.5 ML NEBU INHALATION SCH ×4 (08:21→19:45)
[2019-05-08 08:53] LABS: Basophils # (A) 0.1 k/uL (0-0.2); Basophils % (A) 1 %; Eosinophils # (A) 0.2 k/uL (0-0.7); Eosinophils % (A) 3 %; HCT 35.9 % (39.0-53.0); HGB 11.9 gm/dL (13.0-17.5); Lymphocytes # (A) 1.1 k/uL (1.0-4.8); Lymphocytes % (A) 19 %; MCH 31.7 pg (25.0-35.0); MCHC 33.1 g/dL (31.0-37.0); MCV 95.7 fL (80.0-100.0); Mean Platelet Volume 8.4; Monocytes # (A) 0.4 k/uL (0-1.0); Monocytes % (A) 6 %; Neutrophils # (A) 4.1 k/uL (1.3-7.7); Neutrophils % (A) 68 %; RBC 3.75 m/uL (4.30-5.90)
[2019-05-08 09:29] LABS: Platelet Count 107 k/uL (150-450)
[2019-05-08 10:32] LABS: Calcium 8.4 mg/dL (8.4-10.2); Potassium 4.2 mmol/L (3.5-5.1)
[2019-05-08 12:34] LABS: Glucose,Whole Blood 120 mg/dL (75-99)
--- NOTE | 2019-05-08 15:50 | P.HPIM ---
History of Present Illness H&P Date: 05/08/19 Chief Complaint: Worsening renal function History of presenting complaint: This is a 63-year-old patient who has a history of alcohol-related multiple disorders. Including upper GI bleed with esophageal varices, alcoholic cirrhosis causing secondary portal hypertension and portal hypertensive gastropathy, hiatal hernia, gastric antral ulcerations, thrombocytopenia, diabet es mellitus type 2, hypertension, sigmoid diverticulosis, thrombocytopenia from liver disease. Patient had come to the outpatient yesterday to get a paracentesis done. 6 L were removed. Patient was discovered to have worsening renal function. Patient's BUN/creatinine was 60/5.46. It may be recalled that patient does have have a hepatorenal syndrome. Just over a week ago patient had a similar presentation. Patient was put on gentle hydration. Consultation was made to nephrology. Patient does feel weak and tired. He saw the patient this morning patient just finished his breakfast. Does feel a bit tired. Review of systems: GEN.: Tired EYES: None HEENT: None NECK: None RESPIRATORY: Minimal shortness of breath CARDIOVASCULAR: None GASTROINTESTINAL: Abdominal distention GENITOURINARY: None MUSCULOSKELETAL: None LYMPHATICS: None HEMATOLOGICAL: None PSYCHIATRY: Some anxiety NEUROLOGICAL: None Past medical history: To include Esophageal varices, alcoholic cirrhosis, secondary portal hypertension, portal hypertensive gastropathy, hiatal hernia, gastric antral ulcerations, COPD, thrombocytopenia from alcoholic liver disease, blood loss anemia, diabetes mellitus type 2, hypertension, sigmoid diverticulosis. Ascites with recurrent paracentesis Social history: Patient was drinking at least a pint day up until January 2019. Marijuana occasionally. 2 cigars a day. Family history: Diabetes mellitus, hyperlipidemia, hypertension Physical examination: VITAL SIGNS: 98.8, 99, 20, 95/63, 99% room air GENERAL: BMI 23.7, laying in bed, tired awake EYES: Pupils equal. Conjunctiva pale. HEENT: External appearance of nose and ears normal, oral cavity grossly normal. NECK: JVD not raised; masses not palpable. HEART: First and second heart sounds are normal; no edema. LUNGS: Respiratory rate normal; decreased breath sounds. ABDOMEN: Soft, nontender, distended, liver spleen not palpable, no masses palpable. PSYCH: Alert and oriented x3; mood and affect normal. NEUROLOGICAL: Cranial nerves grossly intact; no facial asymmetry, power and sensation grossly intact. LYMPHATICS: No lymph nodes palpable in the axilla and neck INVESTIGATIONS, reviewed in the clinical context: White count 6 hemoglobin 11.9 platelets 107 it was 131 over a week ago Potassium 4.2 BUN 60 [place]itten 5.46 Renal function on April 29 was 40/2.68 Assessment: -Acute renal failure from hepatorenal syndrome, and patient being on diuretics, possibly ATN -Esophageal varices -Alcoholic cirrhosis -Secondary portal hypertension with portal hypertensive gastropathy -Hiatal hernia -Gastric antral ulcers -COPD in a smoker -Thrombocytopenia from alcoholic liver disease -Diabetes mellitus type 2 -Essential hypertension -Sigmoid diverticulosis -Ascites status post large volume paracentesis of about 6 L as an outpatient yesterday Plan: Care was discussed with the patient. He is very anxious to go to home. It was explained to him at length the importance of staying back and make issues renal function is significantly improved before he can go home. Nephrology consultation has been done. Gentle hydration was started. Renal function will be followed closely. Past Medical History Past Medical History: Blood Disorder, Diabetes Mellitus, GI Bleed, Hypertension, Liver Disease, Renal Disease Additional Past Medical History / Comment(s): COPD, anemia, Bravo's esophagus, sigmoid diverticulitis/diverticulosis, dyslipidemia, Bravo's esophagus, portal hypertension related to liver cirrhosis, alcoholism- pt states he has been sober for 3 months. History of Any Multi-Drug Resistant Organisms: None Reported Past Surgical History: Hernia Repair, Orthopedic Surgery Additional Past Surgical History / Comment(s): bilateral carpal tunnel repair, left inguinal hernia repair, parecentesis Q10D. Past Anesthesia/Blood Transfusion Reactions: No Reported Reaction Past Psychological History: No Psychological Hx Reported Smoking Status: Former smoker Past Alcohol Use History: Abuse Additional Past Alcohol Use History / Comment(s): history of ETOH, states he used to drink a pint per day, states he has been sober for 3 months. Past Drug Use History: Marijuana - Past Family History Father Family Medical History: Diabetes Mellitus, Hyperlipidemia, Hypertension, Vascular Disorder Medications and Allergies Home Medications Medication Instructions Recorded Confirmed Type Ezetimibe/Simvastatin [Vytorin 1 tab PO DAILY 12/20/15 05/07/19 History 10-40 mg Tablet] Albuterol Inhaler [Ventolin Hfa 1 - 2 puff INHALATION RT-Q6H PRN 03/18/19 05/07/19 History Inhaler] Cyanocobalamin (Vitamin B-12) 1,000 mcg PO DAILY 03/18/19 05/07/19 History [Vitamin B-12] Ipratropium [place] [Atrovent Hfa] 2 puff INHALATION RT-QID 03/18/19 05/07/19 History Magnesium Gluconate [Magonate] 500 mg PO DAILY 03/18/19 05/07/19 History Omeprazole 20 mg PO DAILY 03/26/19 05/07/19 History Thiamine [Vitamin B-1] 100 mg PO DAILY 03/26/19 05/07/19 History Buprenorphine [Butrans 20 MCG/HOUR] 1 patch TRANSDERM WE 03/29/19 05/07/19 History Metoprolol Tartrate [Lopressor] 12.5 mg PO BID 03/29/19 05/07/19 History Furosemide [Lasix] 20 mg PO DAILY #30 tab 03/30/19 05/07/19 Rx Midodrine HCl [ProAmatine] 10 mg PO TID 04/27/19 05/07/19 History Spironolactone [Aldactone] 12.5 mg PO DAILY 04/27/19 05/07/19 History Allergies Allergy/AdvReac Type Severity Reaction Status Date / Time No Known Allergies Allergy Verified 05/07/19 16:07 Physical Exam Vitals: Vital Signs Temp Pulse Pulse Resp BP BP BP 05/08/19 11:36 84 05/08/19 11:27 78 05/08/19 08:30 80 05/08/19 08:23 84 05/08/19 05:00 98.8 F 99 20 95/63 05/07/19 22:32 98.1 F 90 20 81/48 91/52 05/07/19 21:34 82 19 110/68 05/07/19 15:30 98.4 F 84 18 93/62 Pulse Ox 05/08/19 11:36 05/08/19 11:27 05/08/19 08:30 05/08/19 08:23 97 05/08/19 05:00 99 05/07/19 22:32 95 05/07/19 21:34 99 05/07/19 15:30 98 Intake and Output 05/07/19 05/08/19 05/08/19 22:59 06:59 14:59 Intake Total 100 Balance 100 Intake: Oral 100 Other: Voiding Method Urinal Urinal # Voids 2 Weight 74.843 kg Results CBC & Chem 7: 05/08/19 07:33 05/08/19 07:33 Labs: Abnormal Lab Results - Last 24 Hours (Table) 05/07/19 05/08/19 05/08/19 Range/Units 22:27 07:23 07:33 RBC 3.75 L (4.30-5.90) m/uL Hgb 11.9 L (13.0-17.5) gm/dL Hct 35.9 L (39.0-53.0) % Plt Count 107 L D (150-450) k/uL Sodium (137-145) mmol/L Carbon Dioxide (22-30) mmol/L BUN (9-20) mg/dL Creatinine (0.66-1.25) mg/dL Glucose (74-99) mg/dL POC Glucose (mg/dL) 151 H 108 H (75-99) mg/dL 05/08/19 05/08/19 Range/Units 07:33 12:32 RBC (4.30-5.90) m/uL Hgb (13.0-17.5) gm/dL Hct (39.0-53.0) % Plt Count (150-450) k/uL Sodium 136 L (137-145) mmol/L Carbon Dioxide 20 L (22-30) mmol/L BUN 53 H (9-20) mg/dL Creatinine 4.43 H (0.66-1.25) mg/dL Glucose 109 H (74-99) mg/dL POC Glucose (mg/dL) 120 H (75-99) mg/dL Thrombosis Risk Factor Assmnt - Choose All That Apply Any of the Below Risk Factors Present?: No Other Risk Factors: Yes Each Risk Factor Represents 2 Points: Age 61-74 years Other congenital or acquired thrombophilia - If yes, enter type in comment: No Thrombosis Risk Factor Assessment Total Risk Factor Score: 2 Thrombosis Risk Factor Assessment Level: Low Risk
[2019-05-08] MEDS: ALBUMIN HUMAN 25% 50 ML in EMPTY BAG 1 BAG IVPB SCH ×2 (15:55→16:22)
[2019-05-08] MEDS: SODIUM CHLORIDE 0.9% 1,000 ML IV SCH (15:56)
[2019-05-08 17:14] LABS: Glucose,Whole Blood 140 mg/dL (75-99)
--- NOTE | 2019-05-08 20:52 | CONS ---
CONSULTATION REASON FOR CONSULT: Renal failure. HISTORY OF PRESENT ILLNESS: The patient is a 63-year-old male with history of chronic liver disease with recurrent ascites and paracentesis who was admitted to the hospital with hypotension and worsening renal function after paracentesis which was done yesterday. The patient had about 6 L of fluid drained yesterday. His creatinine was 5.4 mg/dL yesterday. Currently patient is maintained on IV fluids. His renal function has improved, creatinine down to 4.43. He states he feels fairly well. He has been voiding. He has had bowel movement. No complaints of fever, chills, nausea, vomiting. Patient is maintained on oral Lasix and Aldactone at home. Systolic blood pressure was in the 80s yesterday. PAST MEDICAL HISTORY: 1. Chronic liver disease which is alcoholic liver disease. 2. GI bleed. 3. COPD. 4. History of Bravo's esophagus. 5. Type 2 diabetes. 6. Sigmoid diverticulitis. 7. Portal hypertension. 8. Dyslipidemia. PAST SURGICAL HISTORY: 1. Carpal tunnel repair. 2. Bilateral hernia repair. 3. Multiple paracenteses. SOCIAL HISTORY: Patient is a former smoker. No history of drug abuse. He does have a history of EtOH abuse and smoking marijuana. MEDICATIONS: Medications prior to admission included: 1. Protonix. 2. Vytorin. 3. Lopressor. 4. Lasix. 5. B12. 6. Metformin. 7. Aldactone. ALLERGIES: NONE. REVIEW OF SYSTEMS: As per HPI. Other systems negative. PHYSICAL EXAMINATION: Patient is comfortable, awake, alert, oriented x3. Blood pressure is 86/47, heart rate 68 per minute. Blood pressure this morning was 95/63, heart rate 80 per minute. Patient is afebrile. EXAMINATION OF THE HEART: S1 and S2. EXAMINATION OF LUNGS: Bilateral breath sounds are heard. ABDOMEN: Soft, non-tender. Examination of lower extremities shows no evidence of edema. MANAGER MBA exam is grossly intact. LABS: Sodium 136, potassium 4.2, BUN 53, serum creatinine 4.43, hemoglobin 11.9 g/dL. ASSESSMENT: 1. Acute kidney injury secondary to hypotension and hypoperfusion, currently improving. Patient is maintained on IV fluids, which we will continue. He is maintained on midodrine as well, which will be continued. I will give him a dose of IV albumin as well as today. Hopefully patient can be discharged tomorrow. Patient is not on any nephrotoxic medications. I will repeat labs in a.m. 2. Alcoholic liver disease, liver cirrhosis with portal hypertension and recurrent ascites, maintained on frequent paracentesis. 3. Chronic kidney disease with baseline creatinine around 1.8 to 2 mg/dL most recently as of March. His CKD is also secondary to multiple episodes of acute kidney injury. PLAN: Continue IV fluids. Albumin x1. Repeat labs in a.m. Possible discharge tomorrow. MMODL / IJN: [id number] /
[2019-05-08 20:57] LABS: Glucose,Whole Blood 166 mg/dL (75-99)
[2019-05-09 05:58] VITALS: BP 90/57; PULSE 87; RESP 15; TEMP 98.1
[2019-05-09] MEDS: SODIUM CHLORIDE 0.9% 1,000 ML IV SCH (06:02)
[2019-05-09 07:36] LABS: Glucose,Whole Blood 111 mg/dL (75-99)
[2019-05-09] MEDS: IPRATROPIUM 0.5 MG/2.5 ML NEBU INHALATION SCH ×2 (07:45→11:12)
[2019-05-09] MEDS: INSULIN ASPART (NovoLOG) 100 UNIT/ML VIAL SQ SCH (07:52)
[2019-05-09] MEDS: EZETIMIBE 10 MG TAB PO SCH (07:58)
[2019-05-09] MEDS: THIAMINE 100 MG TAB PO SCH (07:59)
[2019-05-09] MEDS: SPIRONOLACTONE 25 MG TAB PO SCH (07:59)
[2019-05-09] MEDS: CYANOCOBALAMIN 500 MCG TAB PO SCH (07:59)
[2019-05-09] MEDS: ATORVASTATIN 20 MG TAB PO SCH ×2 (07:59→08:09)
[2019-05-09] MEDS: MAGNESIUM OXIDE 400 MG TAB PO SCH (08:00)
[2019-05-09] MEDS: FUROSEMIDE 20 MG TAB PO SCH (08:00)
[2019-05-09] MEDS: PANTOPRAZOLE 40 MG TABLET PO SCH (08:00)
[2019-05-09] MEDS: MIDODRINE 5 MG TAB PO SCH (08:00)
[2019-05-09] MEDS: METOPROLOL TARTRATE 25 MG TAB PO SCH (08:01)
[2019-05-09 08:21] LABS: Calcium 8.1 mg/dL (8.4-10.2); Potassium 5.2 mmol/L (3.5-5.1)
[2019-05-09] MEDS ORDERED: BUPRENORPHINE TOPICAL SCH (09:00)
--- NOTE | 2019-05-09 18:19 | PN ---
PROGRESS NOTE Patient is seen for followup for acute kidney injury which was mainly secondary to hypotension. Patient was maintained on IV fluids. His creatinine improved to about 3.75 from 5.4 on 05/07/2019. He is currently asymptomatic. Patient is maintained on midodrine for hypotension. Blood pressure is stable. Patient has had good urine output. He wants to go home. I have advised him that he can be discharged with plans to follow up as outpatient. We will need to give him an extra dose of midodrine and albumin at the time of his next paracentesis. On examination this morning, blood pressure 90/57, heart rate 87 per minute. He is afebrile. EXAMINATION OF THE HEART: S1 and S2. EXAMINATION OF LUNGS: Bilateral breath sounds are heard. ABDOMEN: Soft, distended, with ascites noted. Examination of lower extremities shows trace edema. Labs show sodium 135, potassium 5.2, BUN 47, serum creatinine 3.75. ASSESSMENT: 1. Acute kidney injury secondary to hypotension, now improving. Patient is status post IV fluids. 2. Mild hyperkalemia. Expect improvement with continued use of Lasix. 3. Liver cirrhosis with portal hypertension and recurring ascites, status post frequent paracentesis. 4. Chronic hypotension, maintained on midodrine. PLAN: Continue with midodrine. Patient can be discharged. He will need albumin and an extra dose of midodrine at the time of his next paracentesis to avoid further hypotension and recurring acute renal failure. MMODL / IJN: [id number] /
--- NOTE | 2019-05-09 22:43 | P.DS ---
Providers Date of admission: 05/07/19 18:25 Expected date of discharge: 05/09/19 Attending physician: Maikol Adam Consults: 05/07/19 18:24 Consult Physician Routine Consulting Provider: Natanael Rojas Consult Reason/Comments: known Do you want consulting provider notified?: Yes Primary care physician: John Fairbanks [facility] Course: Chief Complaint: Worsening renal function History of presenting complaint: This is a 63-year-old patient who has a history of alcohol-related multiple disorders. Including upper GI bleed with esophageal varices, alcoholic cirrhosis causing secondary portal hypertension and portal hypertensive gastropathy, hiatal hernia, gastric antral ulcerations, thrombocytopenia, diabetes mellitus type 2, hypertension, sigmoid diverticulosis, thrombocytopenia from liver disease. Patient had come to the outpatient yesterday to get a paracentesis done. 6 L were removed. Patient was discovered to have worsening renal function. Patient's BUN/creatinine was 60/5.46. It may be recalled that patient does have have a hepatorenal syndrome. Just over a week ago patient had a similar presentation. Patient was put on gentle hydration. Consultation was made to nephrology. Patient does feel weak and tired. He saw the patient this morning patient just finished his breakfast. Does feel a bit tired. Today-doing better. Tolerating his diet. Discussed with Dr. Garcia from nephrology. Okayed to go home. Go back on diuretics. Follow-up in the office. Admission creatinine was 4.43 this morning 3.75 Consultation: Dr. Garcia from nephrology Physical examination: VITAL SIGNS: 98.1, 87, 15, 90/57, 92% room air GENERAL: BMI 23.7, laying in bed, tired awake EYES: Pupils equal. Conjunctiva pale. HEENT: External appearance of nose and ears normal, oral cavity grossly normal. NECK: JVD not raised; masses not palpable. HEART: First and second heart sounds are normal; no edema. LUNGS: Respiratory rate normal; decreased breath sounds. ABDOMEN: Soft, nontender, distended, liver spleen not palpable, no masses palpable. PSYCH: Alert and oriented x3; mood and affect normal. INVESTIGATIONS, reviewed in the clinical context: Creatinine 3.75 Previous labs: White count 6 hemoglobin 11.9 platelets 107 it was 131 over a week ago Potassium 4.2 BUN 60 creatinine 5.46 Renal function on April 29 was 40/2.68 Discharge diagnoses: -Acute renal failure from hepatorenal syndrome, and patient being on diuretics, possibly ATN -Esophageal varices -Alcoholic cirrhosis -Secondary portal hypertension with portal hypertensive gastropathy -Hiatal hernia -Gastric antral ulcers -COPD in a smoker -Thrombocytopenia from alcoholic liver disease -Diabetes mellitus type 2 -Essential hypertension -Sigmoid diverticulosis -Ascites status post large volume paracentesis of about 6 L as an outpatient yesterday Disposition: Home Patient Condition at Discharge: Stable Plan - Discharge Summary Discharge Rx Participant: No New Discharge Prescriptions: Continue Ezetimibe/Simvastatin [Vytorin 10-40 mg Tablet] 1 tab PO DAILY Magnesium Gluconate [Magonate] 500 mg PO DAILY Cyanocobalamin (Vitamin B-12) [Vitamin B-12] 1,000 mcg PO DAILY Ipratropium [place] [Atrovent Hfa] 2 puff INHALATION RT-QID Albuterol Inhaler [Ventolin Hfa Inhaler] 1 - 2 puff INHALATION RT-Q6H PRN PRN Reason: Wheezing Thiamine [Vitamin B-1] 100 mg PO DAILY Omeprazole 20 mg PO DAILY Buprenorphine [Butrans 20 MCG/HOUR] 1 patch TRANSDERM WE Metoprolol Tartrate [Lopressor] 12.5 mg PO BID Furosemide [Lasix] 20 mg PO DAILY #30 tab Midodrine HCl [ProAmatine] 10 mg PO TID Spironolactone [Aldactone] 12.5 mg PO DAILY Discharge Medication List Ezetimibe/Simvastatin [Vytorin 10-40 mg Tablet] 1 tab PO DAILY 12/20/15 [History] Albuterol Inhaler [Ventolin Hfa Inhaler] 1 - 2 puff INHALATION RT-Q6H PRN 03/18/19 [History] Cyanocobalamin (Vitamin B-12) [Vitamin B-12] 1,000 mcg PO DAILY 03/18/19 [History] Ipratropium [place] [Atrovent Hfa] 2 puff INHALATION RT-QID 03/18/19 [History] Magnesium Gluconate [Magonate] 500 mg PO DAILY 03/18/19 [History] Omeprazole 20 mg PO DAILY 03/26/19 [History] Thiamine [Vitamin B-1] 100 mg PO DAILY 03/26/19 [History] Buprenorphine [Butrans 20 MCG/HOUR] 1 patch TRANSDERM WE 03/29/19 [History] Metoprolol Tartrate [Lopressor] 12.5 mg PO BID 03/29/19 [History] Furosemide [Lasix] 20 mg PO DAILY #30 tab 03/30/19 [Rx] Midodrine HCl [ProAmatine] 10 mg PO TID 04/27/19 [History] Spironolactone [Aldactone] 12.5 mg PO DAILY 04/27/19 [History] Follow up Appointment(s)/Referral(s): Kinga Garcia MD [STAFF PHYSICIAN] - 05/10/19 11:40 am John Vaughn MD [Primary Care Provider] - 05/11/19 8:15 am Ramy Bailey MD [STAFF PHYSICIAN] - 05/14/19 11:00 am (Please keep apt with Megha ) Patient Instructions/Handouts: Chronic Kidney Disease (DC) Activity/Diet/Wound Care/Special Instructions: bmp-1 week Discharge Disposition: HOME SELF-CARE
== END 2019-05-09 12:22 | disposition home or self-care (01) | DRG 441 ==
LOC: EC 15:28 → 4MS4W 18:25
PROVIDERS: ADMIT Hospitalist; ATTEND Hospitalist
DX: K76.7 Hepatorenal syndrome (principal); N17.0 Acute kidney failure with tubular necrosis; I85.10 Secondary esophageal varices without bleeding; K76.6 Portal hypertension; K70.30 Alcoholic cirrhosis of liver without ascites; D69.59 Other secondary thrombocytopenia; I95.89 Other hypotension; E11.22 Type 2 diabetes mellitus with diabetic chronic kidney disease; E78.5 Hyperlipidemia, unspecified; E87.5 Hyperkalemia; F17.290 Nicotine dependence, other tobacco product, uncomplicated; I12.9 Hypertensive chronic kidney disease with stage 1 through stage 4 chronic kidney disease, or unspecified chronic kidney disease; J44.9 Chronic obstructive pulmonary disease, unspecified; K22.70 Barrett's esophagus without dysplasia; K25.9 Gastric ulcer, unspecified as acute or chronic, without hemorrhage or perforation; K31.89 Other diseases of stomach and duodenum; K44.9 Diaphragmatic hernia without obstruction or gangrene; K57.30 Diverticulosis of large intestine without perforation or abscess without bleeding; Z79.899 Other long term (current) drug therapy; Z82.49 Family history of ischemic heart disease and other diseases of the circulatory system; Z83.3 Family history of diabetes mellitus; Z87.11 Personal history of peptic ulcer disease; Z98.890 Other specified postprocedural states
CPT/HCPCS: 80048; 83880; 85025; 94640; 94760; 96360; 99284

== ENCOUNTER → 2019-05-07 | Day surgery (SDC) | payer OTHER ==
[2019-05-07 13:26] VITALS: TEMP 97.8
[2019-05-07 13:27] LABS: Mean Platelet Volume 7.9; Platelet Count 241 k/uL (150-450)
[2019-05-07 13:33] LABS: INR 1.3 (<1.2); Prothrombin Time 13.5 sec (9.0-12.0)
[2019-05-07] MEDS: ALBUMIN HUMAN 25% 50 ML in EMPTY BAG 1 BAG IVPB SCH ×4 (13:34→14:45)
[2019-05-07 13:58] VITALS: RESP 16
[2019-05-07 15:36] VITALS: BP 93/61; PULSE 96
--- NOTE | 2019-05-07 15:48 | US ---
Therapeutic paracentesis. DATE OF EXAM: 05/07/2019 CLINICAL HISTORY: Ascites The procedure was discussed with the patient. The risks, complications, benefits, and alternatives we re discussed and any questions were answered. Informed consent was obtained. The patient was placed s upine on the ultrasound table and prepped and draped in the usual sterile fashion. All elements of maximal barrier technique were utilized. Under ultrasound guidance, access into the right lower quadrant was obtained, via the paracentesis catheter system and direct ultrasound guidanc e. Approximately 6 liters of straw-colored fluid was removed. The patient was stable throughout the proc edure and remained stable upon discharge from Department of Radiology. IMPRESSION: Successful therapeutic paracentesis under ultrasound guidance.
== END | disposition home or self-care (01) ==
LOC: RADPROMAIN 12:58
PROVIDERS: ATTEND Internal Medicine
DX: R18.8 Other ascites (principal)
CPT/HCPCS: 82565; 82947; 84520; 85049; 85610; 36415; 49083; P9047

== ENCOUNTER → 2019-05-16 | Outpatient (CLI) | payer OTHER ==
[2019-05-16 10:19] LABS: HGB 12.1 gm/dL (13.0-17.5); MCHC 32.7 g/dL (31.0-37.0); MCV 94.9 fL (80.0-100.0); RDW 14.8 % (11.5-15.5)
[2019-05-16 10:21] LABS: Platelet Count 177 k/uL (150-450)
[2019-05-16 17:30] LABS: Iron Saturation 51.3 (15.00-50.00); Vitamin D 25 Hydroxy 11.9 ng/mL (30.0-100.0)
[2019-05-16 18:52] LABS: African American GFR (CKD) 13.1 (60.0-200.0); Albumin 3.1 g/dL (3.80-4.90); Albumin/Globulin Ratio 1.24 (1.60-3.17); Anion Gap 13.2 mmol/L (4.00-12.00); BUN/Creat Ratio 12.8 Ratio (12.00-20.00); Calcium 8.3 mg/dL (8.7-10.3); Carbon Dioxide 17.8 mmol/L (21.6-31.8); Globulin 2.5 g/dL (1.6-3.3); Magnesium 2.7 mg/dL (1.5-2.4); Phosphorus 3.5 mg/dL (2.4-5.1); Potassium 5.3 mmol/L (3.5-5.5); Total Bilirubin 2.9 mg/dL (0.3-1.2); Total Protein 5.6 g/dL (6.2-8.2)
== END | disposition home or self-care (01) ==
LOC: LABWHC1 08:51
PROVIDERS: ATTEND Nurse Practitioner Family
DX: N17.9 Acute kidney failure, unspecified (principal)
CPT/HCPCS: 36415; 80053; 82306; 82728; 83540; 83550; 83735; 83970; 84100; 84550; 85027

== ENCOUNTER 2019-05-18 14:43 | Inpatient (IN) | payer OTHER ==
[2019-05-18 13:17] LABS: INR 1.6 (<1.2); Prothrombin Time 16.2 sec (9.0-12.0)
[2019-05-18 13:24] LABS: Mean Platelet Volume 8.3; Platelet Count 124 k/uL (150-450)
[2019-05-18] MEDS: ALBUMIN HUMAN 25% 50 ML in EMPTY BAG 1 BAG IVPB SCH ×3 (13:43→17:00)
[~2019-05-18 14:43] MED LIST: MIDODRINE 5 MG TAB PO STA
--- NOTE | 2019-05-18 15:16 | ED ---
Recheck HPI - General Chief Complaint: Recheck/Abnormal Lab/Rx Time Seen by Provider: 05/18/19 15:06 Source: patient, RN notes reviewed, old records reviewed Mode of arrival: wheelchair Limitations: no limitations - History of Present Illness Initial Comments: This is a 63-year-old male the ER for evaluation shortness a for evaluation of low blood pressure significant ascites weakness not feeling well. Patient had a scheduled paracentesis today was found is significantly low blood pressure and increasing kidney function. Patient himself has no complaints denies any compla int of abdominal pain shortness of breath, complains of weakness complains of decreased appetite, not eating or drinking appropriately. MD Complaint: abnormal lab, other (low BP) -: unknown Returns Today for: Called Because of Abnormal Lab/Test Symptoms Since Prior Visit: no new symptoms Context: called for abnormal lab result, other (weakness) Associated Symptoms: malaise, abdominal pain Treatments Prior to Arrival: other medications - Related Data Home Medications Medication Instructions Recorded Confirmed Ezetimibe/Simvastatin [Vytorin 1 tab PO DAILY 12/20/15 05/18/19 10-40 mg Tablet] Albuterol Inhaler [Ventolin Hfa 1 - 2 puff INHALATION RT-Q6H PRN 03/18/19 05/18/19 Inhaler] Cyanocobalamin (Vitamin B-12) 1,000 mcg PO DAILY 03/18/19 05/18/19 [Vitamin B-12] Ipratropium [place] [Atrovent Hfa] 2 puff INHALATION RT-QID 03/18/19 05/18/19 Magnesium Gluconate [Magonate] 500 mg PO DAILY 03/18/19 05/18/19 Omeprazole 20 mg PO DAILY 03/26/19 05/18/19 Thiamine [Vitamin B-1] 100 mg PO DAILY 03/26/19 05/18/19 Buprenorphine [Butrans 20 MCG/HOUR] 1 patch TRANSDERM WE 03/29/19 05/18/19 Metoprolol Tartrate [Lopressor] 12.5 mg PO BID 03/29/19 05/18/19 Midodrine HCl [ProAmatine] 10 mg PO TID 04/27/19 05/18/19 Spironolactone [Aldactone] 12.5 mg PO DAILY 04/27/19 05/18/19 Previous Rx's Medication Instructions Recorded Furosemide [Lasix] 20 mg PO DAILY #30 tab 03/30/19 Allergies Allergy/AdvReac Type Severity Reaction Status Date / Time No Known Allergies Allergy Verified 05/18/19 16:02 Review of Systems ROS Statement: Those systems with pertinent positive or pertinent negative responses have been documented in the HPI. ROS Other: All systems not noted in ROS Statement are negative. Past Medical History Past Medical History: Blood Disorder, Diabetes Mellitus, GI Bleed, Hypertension, Liver Disease, Renal Disease Additional Past Medical History / Comment(s): COPD, anemia, Bravo's esophagus, sigmoid diverticulitis/diverticulosis, dyslipidemia, Bravo's esophagus, portal hypertension related to liver cirrhosis, alcoholism- pt states he has been sober for 3 months. History of Any Multi-Drug Resistant Organisms: None Reported Past Surgical History: Hernia Repair, Orthopedic Surgery Additional Past Surgical History / Comment(s): bilateral carpal tunnel repair, left inguinal hernia repair, parecentesis Q10D. Past Anesthesia/Blood Transfusion Reactions: No Reported Reaction Past Psychological History: No Psychological Hx Reported Smoking Status: Former smoker Past Alcohol Use History: Abuse Past Drug Use History: Marijuana - Past Family History Father Family Medical History: Diabetes Mellitus, Hyperlipidemia, Hypertension, Vascular Disorder General Exam Limitations: no limitations General appearance: alert, in no apparent distress Head exam: Present: atraumatic, normocephalic, normal inspection Eye exam: Present: normal appearance, PERRL, EOMI. Absent: scleral icterus, conjunctival injection, periorbital swelling ENT exam: Present: normal exam, mucous membranes moist Neck exam: Present: normal inspection. Absent: tenderness, meningismus, lymphadenopathy Respiratory exam: Present: normal lung sounds bilaterally. Absent: respiratory distress, wheezes, rales, rhonchi, stridor Cardiovascular Exam: Present: regular rate, normal rhythm, normal heart sounds. Absent: systolic murmur, diastolic murmur, rubs, gallop, clicks GI/Abdominal exam: Present: soft, normal bowel sounds. Absent: distended, tenderness, guarding, rebound, rigid Extremities exam: Present: normal inspection, full ROM, normal capillary refill. Absent: tenderness, pedal edema, joint swelling, calf tenderness Back exam: Present: normal inspection Neurological exam: Present: alert, oriented X3, CN II-XII intact Psychiatric exam: Present: normal affect, normal mood Skin exam: Present: warm, dry, intact, normal color. Absent: rash Course Vital Signs 05/18/19 05/18/19 05/18/19 13:13 13:25 13:50 Temperature 98.1 F Pulse Rate Pulse Rate [ 76 66 Pulse Oximetery ] Respiratory 18 16 Rate Blood Pressure Blood Pressure 78/49 [Left Arm] Blood Pressure 80/49 80/55 [Right Arm] O2 Sat by Pulse 94 L 98 Oximetry 05/18/19 05/18/19 05/18/19 13:55 14:05 14:25 Temperature Pulse Rate Pulse Rate [ 68 Pulse Oximetery ] Respiratory 16 Rate Blood Pressure Blood Pressure 84/56 [Left Arm] Blood Pressure 79/54 84/54 [Right Arm] O2 Sat by Pulse 98 Oximetry 05/18/19 14:44 Temperature 97.8 F Pulse Rate 66 Pulse Rate [ Pulse Oximetery ] Respiratory 18 Rate Blood Pressure 77/55 Blood Pressure [Left Arm] Blood Pressure [Right Arm] O2 Sat by Pulse 99 Oximetry - Reevaluation(s) Reevaluation #1: 05/18/19 15:52 Medical record and ER visits are reviewed Reevaluation #2: 05/18/19 15:52 Patient's lab values from earlier in the day reviewed - Consultations Consultation #1: Spoke with nancy, Dr. Mckoy, agreeable for admission Medical Decision Making - Medical Decision Making 63 male the ER for evaluation dehydration and acute on chronic kidney injury increasing creatinine and hypotension. Patient will be admitted have hydration and resuscitation, and then therapeutic paracentesis when safe - Lab Data Result diagrams: 05/18/19 12:50 05/18/19 12:50 Lab Results 05/18/19 05/18/19 05/18/19 Range/Units 12:50 12:50 12:50 Plt Count 124 L (150-450) k/uL PT 16.2 H (9.0-12.0) sec INR 1.6 H (<1.2) BUN 65 H (9-20) mg/dL Creatinine 5.68 H (0.66-1.25) mg/dL Est GFR (CKD-EPI)AfAm 11 (>60 ml/min/1.73 sqM) Est GFR (CKD-EPI)NonAf 10 (>60 ml/min/1.73 sqM) Glucose 151 H (74-99) mg/dL - EKG Data -: EKG Interpreted by Me (EKG shows sinus rhythm rate of 64, CA 140, QRS 72, QTc 447) Disposition Clinical Impression: Acute kidney injury, History of ETOH abuse, Dehydration Disposition: ADMITTED IP TO THIS HOSP Condition: Fair Is patient prescribed a controlled substance at d/c from ED?: No Referrals: Jonh Vaughn MD [Primary Care Provider] - 1-2 days
--- NOTE | 2019-05-18 15:33 | US ---
Discontinued paracentesis HISTORY: Ascites Large volume of ascites is present. Patient noted to be hypotensive. No paracentesis performed at thi s time. Patient transferred to the emergency Center for further evaluation.
--- NOTE | 2019-05-18 15:33 | US ---
EXAMINATION TYPE: US guide vascular access DATE OF EXAM: 05/18/2019 HISTORY: Needs IV access for resuscitation therapy. PROCEDURE: Maximal barrier technique utilized. The skin overlying the right basilic vein was localized with ult rasound and the vein was noted to be compressible and patent by ultrasound and ultrasound image was o btained and submitted on patient's chart. Under direct ultrasound guidance a 20-gauge Angiocath was advanced into the vein and fixed in place. Catheter was aspirated and flushed with sterile saline. Hemostasis achieved. Catheter fixed in place. No immediate complication. IMPRESSION: Ultrasound-guided venipuncture, this procedure performed by the undersigned.
[2019-05-18] MEDS ORDERED: SODIUM CHLORIDE 0.9% 1,000 ML IV ONE (16:24)
[2019-05-18] MEDS ORDERED: SODIUM CHLORIDE 0.9% 500 ML 500 ML IV STA (16:24)
[2019-05-18 17:19] LABS: Basophils # (A) 0.1 k/uL (0-0.2); Basophils % (A) 1 %; Eosinophils # (A) 0.1 k/uL (0-0.7); Eosinophils % (A) 1 %; HCT 35.2 % (39.0-53.0); HGB 11.4 gm/dL (13.0-17.5); Lymphocytes % (A) 12 %; MCH 30.7 pg (25.0-35.0); MCHC 32.5 g/dL (31.0-37.0); MCV 94.5 fL (80.0-100.0); Mean Platelet Volume 8.1; Monocytes # (A) 0.6 k/uL (0-1.0); Monocytes % (A) 7 %; Neutrophils # (A) 6.5 k/uL (1.3-7.7); Neutrophils % (A) 77 %; Platelet Count 166 k/uL (150-450); RBC 3.72 m/uL (4.30-5.90); RDW 13.6 % (11.5-15.5); WBC 8.5 k/uL (3.8-10.6)
[2019-05-18 17:32] LABS: Albumin 2.9 g/dL (3.5-5.0); Calcium 8.2 mg/dL (8.4-10.2); Magnesium 2.9 mg/dL (1.6-2.3); Phosphorus 4.6 mg/dL (2.5-4.5); Potassium 5.2 mmol/L (3.5-5.1); Total Protein 5.9 g/dL (6.3-8.2)
[2019-05-18] MEDS ORDERED: SODIUM POLYSTYRENE SULFONATE 15 GM/60 ML BOTTLE PO STA (18:09)
[2019-05-18] MEDS ORDERED: NALOXONE 0.4 MG/ML 1 ML VIAL IV PRN (18:12)
[2019-05-18] MEDS ORDERED: ACETAMINOPHEN TAB 325 MG TAB PO PRN (18:12)
--- NOTE | 2019-05-18 18:12 | P.HPIM ---
History of Present Illness H&P Date: 05/18/19 Chief Complaint: Ascites 63-year-old male with PMH of esophageal varices diagnosed in August 2017, alcohol abuse quit 3-4 months ago, cirrhosis getting serial paracentesis every 10 days with IR, hypertension, type 2 diabetes mellitus presents to the ED for hypotension. Patient states that he saw IR today for his routine paracentesis and was told that it could not be done due to hypotension. He was then advised to go to the ED. Patient reports waking up this morning with weakness. He also reports lightheadedness as he stood up from the bed, denies LOC. He was told in the summer that he had kidney disease and he has been following with Dr. Garcia since then. 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 Tenorio. Patient reports chronic lower extremity edema that resolves with walking on his feet. He reports nausea that has been ongoing for the past week without any vomiting. He reports chills, shortness of breath and a decreased appetite over the past week. Patient also reports abdominal discomfort along with rib pain due to the swelling in his abdomen. He denies any headache, fever, cough, chest pain, palpitations, changes in urination or bowel habits. He denies any numbness/weakness/tingling of the extremities. In the ED, vital signs were stable except for BP 79/54. CBC showed anemia with hemoglobin 11.4. Coagulation panel showed INR 1.6. CMP showed sodium 132, potassium 5.2, bicarbonate 15, BUN 66, creatinine 1.56, glucose 157, calcium 8.2, phosphorus 4.6, magnesium 2.9, total bilirubin 3.0, alkaline phosphatase 139 albumin 2.9. Patient is admitted for hypotension and ascites. GI and nephrology will be consulted. Review of Systems Pertinent positives and negatives as discussed in HPI, a complete review of systems was performed and all other systems are negative. Past Medical History Past Medical History: Blood Disorder, Diabetes Mellitus, GI Bleed, Hypertension, Liver Disease, Renal Disease Additional Past Medical History / Comment(s): COPD, anemia, Bravo's esophagus, sigmoid diverticulitis/diverticulosis, dyslipidemia, Bravo's esophagus, portal hypertension related to liver cirrhosis, alcoholism- pt states he has been sober for 3 months. History of Any Multi-Drug Resistant Organisms: None Reported Past Surgical History: Hernia Repair, Orthopedic Surgery Additional Past Surgical History / Comment(s): bilateral carpal tunnel repair, left inguinal hernia repair, parecentesis Q10D. Past Anesthesia/Blood Transfusion Reactions: No Reported Reaction Past Psychological History: No Psychological Hx Reported Smoking Status: Former smoker Past Alcohol Use History: Abuse Past Drug Use History: Marijuana - Past Family History Father Family Medical History: Diabetes Mellitus, Hyperlipidemia, Hypertension, Vascular Disorder Medications and Allergies Home Medications Medication Instructions Recorded Confirmed Type Ezetimibe/Simvastatin [Vytorin 1 tab PO DAILY 12/20/15 05/18/19 History 10-40 mg Tablet] Albuterol Inhaler [Ventolin Hfa 1 - 2 puff INHALATION RT-Q6H PRN 03/18/19 0 05/18/19 History Inhaler] Cyanocobalamin (Vitamin B-12) 1,000 mcg PO DAILY 03/18/19 05/18/19 History [Vitamin B-12] Ipratropium [place] [Atrovent Hfa] 2 puff INHALATION RT-QID 03/18/19 05/18/19 History Magnesium Gluconate [Magonate] 500 mg PO DAILY 03/18/19 05/18/19 History Omeprazole 20 mg PO DAILY 03/26/19 05/18/19 History Thiamine [Vitamin B-1] 100 mg PO DAILY 03/26/19 05/18/19 History Buprenorphine [Butrans 20 MCG/HOUR] 1 patch TRANSDERM WE 03/29/19 05/18/19 History Metoprolol Tartrate [Lopressor] 12.5 mg PO BID 03/29/19 05/18/19 History Furosemide [Lasix] 20 mg PO DAILY #30 tab 03/30/19 05/18/19 Rx Midodrine HCl [ProAmatine] 10 mg PO TID 04/27/19 05/18/19 History Spironolactone [Aldactone] 12.5 mg PO DAILY 04/27/19 05/18/19 History Allergies Allergy/AdvReac Type Severity Reaction Status Date / Time No Known Allergies Allergy Verified 05/18/19 16:02 Physical Exam Vitals: Vital Signs Temp Pulse Pulse Resp BP BP BP 05/18/19 14:44 97.8 F 66 18 77/55 05/18/19 14:25 68 16 84/54 05/18/19 14:05 84/56 05/18/19 13:55 79/54 05/18/19 13:50 98.1 F 66 16 80/55 05/18/19 13:25 78/49 05/18/19 13:13 76 18 80/49 Pulse Ox 05/18/19 14:44 99 05/18/19 14:25 98 05/18/19 14:05 05/18/19 13:55 05/18/19 13:50 98 05/18/19 13:25 05/18/19 13:13 94 L Intake and Output 05/18/19 05/18/19 05/18/19 06:59 14:59 22:59 Other: Weight 72.575 kg General: [non toxic], [no distress], [appears at stated age] Derm: [warm], [dry] Head: [atraumatic], [normocephalic], [symmetric] Eyes: [EOMI], [no lid lag], [anicteric sclera] Mouth: [no lip lesion], [mucus membranes moist] Cardiovascular: [S1S2 reg], [no murmur], [positive DP pulse bilateral], Lungs: [Decreased breath sounds bilateral], [no rhonchi, no rales] , [no accessory muscle use] Abdominal: [soft], [distended, generalized tenderness to palpation without rebound, positive fluid wave], [no guarding], [no appreciable organomegaly] Ext: [no gross muscle atrophy], [no edema], [no contractures] Neuro: [ CN II-XI grossly intact], [no focal neuro deficits] Psych: [Alert], [oriented], [appropriate affect] Results CBC & Chem 7: 05/18/19 15:10 05/18/19 15:10 Labs: Abnormal Lab Results - Last 24 Hours (Table) 05/18/19 05/18/19 05/18/19 Range/Units 12:50 12:50 12:50 Plt Count 124 L (150-450) k/uL PT 16.2 H (9.0-12.0) sec INR 1.6 H (<1.2) BUN 65 H (9-20) mg/dL Creatinine 5.68 H (0.66-1.25) mg/dL Glucose 151 H (74-99) mg/dL Assessment and Plan Assessment: Assessment and Plan Decompensated cirrhosis secondary to alcoholic liver disease Hypotension likely from portal hypertension, splanchnic systemic vasodilation Chronic kidney disease, possible hepatorenal syndrome Hyponatremia Hyperkalemia Metabolic acidosis Hypermagnesemia and hyperphosphatemia Elevated INR Ascites noted on ultrasound. Total bilirubin 3.0, AST 57, ALT 19, alkaline phosphatase 139. Plans: Unable for paracentesis due to hypotension. We'll need to start IV Lasix after BP normalizes as well as Aldactone. Follow GI recommendations. BP 79/54. Likely due to splanchnic and systemic vasodilation from portal hyp ertension. Plans: Gentle hydration with normal saline 100 mL/h. Restart Midodrine 3 times a day. Fall precautions. Telemetry monitoring. Follow GI and nephrology recommendations. Creatinine 5.60. Likely hepatorenal. Plans: Avoid nephrotoxins. IVF as above. Follow nephrology recommendations. Sodium 132. Likely as a result from cirrhosis and volume retention. Plans: Repeat BMP in the morning. Attempt IVF for possible dehydration. If further worsening, would benefit from fluid restriction (concerning due to hypotension) or sodium chloride tablets. Potassium 5.2. Likely due to chronic kidney disease. EKG shows no peaked T waves. Plans: 1 dose of Kayexalate now. Repeat BMP in the morning. HCO3 of 15. Likely due to chronic kidney disease. Plans: Repeat BMP in the morning. Follow nephrology recommendations. Magnesium 2.9, phosphorus 4.6. Plans: Follow nephrology recommendations. INR 1.6. Likely due to cirrhosis. Plans: Repeat coagulation panel in the morning. DVT prophylaxis: [Lovenox] Discussed with: [Patient and brother] Anticipated discharge: [2-3 days] Anticipated discharge place: [Home] A total of [45] minutes was spent on the care of this complex patient more than 50% of the time was spent in counseling and care coordination. Patient names his brother Bill decision-maker in the case that he can't make decisions for himself. Patient reiterates wanting to remain no code at this time.
[2019-05-18 21:29] VITALS: BMI 24.5
[2019-05-18] MEDS: traMADol 50 MG TAB PO PRN (21:41)
[2019-05-18 21:43] LABS: Glucose,Whole Blood 138 mg/dL (75-99)
[2019-05-18] MEDS: INSULIN ASPART (NovoLOG) 100 UNIT/ML VIAL SQ SCH (21:43)
[2019-05-19 06:06] LABS: Basophils % (A) 1 %; Eosinophils # (A) 0.2 k/uL (0-0.7); Eosinophils % (A) 2 %; HCT 35.6 % (39.0-53.0); Lymphocytes # (A) 1.3 k/uL (1.0-4.8); Lymphocytes % (A) 17 %; MCH 31.3 pg (25.0-35.0); MCHC 33.9 g/dL (31.0-37.0); MCV 92.6 fL (80.0-100.0); Mean Platelet Volume 7.6; Monocytes # (A) 0.5 k/uL (0-1.0); Monocytes % (A) 7 %; Neutrophils % (A) 69 %; Platelet Count 132 k/uL (150-450); RBC 3.84 m/uL (4.30-5.90); RDW 14.6 % (11.5-15.5); WBC 7.3 k/uL (3.8-10.6)
[2019-05-19 06:13] LABS: INR 1.5 (<1.2); Prothrombin Time 15.5 sec (9.0-12.0)
[2019-05-19] MEDS: PANTOPRAZOLE 40 MG TABLET PO SCH (06:27)
[2019-05-19] MEDS: MIDODRINE 5 MG TAB PO SCH ×3 (06:27→18:45)
[2019-05-19] MEDS: INSULIN ASPART (NovoLOG) 100 UNIT/ML VIAL SQ SCH ×4 (06:42→20:53)
[2019-05-19 06:43] LABS: Glucose,Whole Blood 98 mg/dL (75-99)
[2019-05-19 06:49] LABS: Albumin 2.8 g/dL (3.5-5.0); Calcium 8.1 mg/dL (8.4-10.2); Magnesium 2.7 mg/dL (1.6-2.3); Phosphorus 4.2 mg/dL (2.5-4.5); Potassium 4.7 mmol/L (3.5-5.1); Total Bilirubin 2.4 mg/dL (0.2-1.3); Total Protein 5.6 g/dL (6.3-8.2)
[2019-05-19] MEDS ORDERED: ENOXAPARIN 40 MG/0.4 ML SYRINGE SQ SCH (09:00)
[2019-05-19] MEDS ORDERED: ENOXAPARIN 30 MG/0.3 ML SYRINGE SQ SCH (09:00)
[2019-05-19] MEDS: ATORVASTATIN 20 MG TAB PO SCH (09:20)
[2019-05-19] MEDS: THIAMINE 100 MG TAB PO SCH (09:20)
[2019-05-19] MEDS: EZETIMIBE 10 MG TAB PO SCH (09:20)
--- NOTE | 2019-05-19 10:33 | P.NPCON ---
History of Present Illness - Reason for Consult Consult date: 05/19/19 acute renal failure - Chief Complaint Acute kidney injury, compartment syndrome - History of Present Illness This is a 63-year-old male with history of cirrhosis requiring frequent taps every 10 days, chronic kidney disease with baseline creatinine fluctuating between 1.5 before and worsening over the last few weeks. He is admitted with hypotension and inability to have a peritoneal tap them because of that. He is also known with diabetes, past history of alcohol his him, last drink was about 3 months ago supposedly. No history of fever chills abdominal pain no nausea vomiting diarrhea. No history of taking any nonsteroidals or any other antibiotics that might be nephrotoxic. Urine output is minimal. Creatinine up to 5. Patient awake and alert and has no asterixis. His liver function tests show AST is 57 ALTs 19 albumin is 2.9 bilirubin 2.4 total and conjugated both INR is 1.5 Past Medical History Past Medical History: Blood Disorder, Diabetes Mellitus, GI Bleed, Hypertension, Liver Disease, Renal Disease Additional Past Medical History / Comment(s): COPD, anemia, Bravo's esophagus, sigmoid diverticulitis/diverticulosis, dyslipidemia, Bravo's esophagus, portal hypertension related to liver cirrhosis, alcoholism- pt states he has been sober for 3 months. History of Any Multi-Drug Resistant Organisms: None Reported Past Surgical History: Hernia Repair, Orthopedic Surgery Additional Past Surgical History / Comment(s): bilateral carpal tunnel repair, left inguinal hernia repair, parecentesis Q10D. Past Anesthesia/Blood Transfusion Reactions: No Reported Reaction Past Psychological History: No Psychological Hx Reported Smoking Status: Former smoker Past Alcohol Use History: Abuse Additional Past Alcohol Use History / Comment(s): history of ETOH, states he used to drink a pint per day, states he has been sober for 3 months. Past Drug Use History: Marijuana - Past Family History Father Family Medical History: Diabetes Mellitus, Hyperlipidemia, Hypertension, Vascular Disorder Medications and Allergies Home Medications Medication Instructions Recorded Confirmed Type Ezetimibe/Simvastatin [Vytorin 1 tab PO DAILY 12/20/15 05/18/19 History 10-40 mg Tablet] Albuterol Inhaler [Ventolin Hfa 1 - 2 puff INHALATION RT-Q6H PRN 03/18/19 05/18/19 History Inhaler] Cyanocobalamin (Vitamin B-12) 1,000 mcg PO DAILY 03/18/19 05/18/19 History [Vitamin B-12] Ipratropium [place] [Atrovent Hfa] 2 puff INHALATION RT-QID 03/18/19 05/18/19 History Magnesium Gluconate [Magonate] 500 mg PO DAILY 03/18/19 05/18/19 History Omeprazole 20 mg PO DAILY 03/26/19 05/18/19 History Thiamine [Vitamin B-1] 100 mg PO DAILY 03/26/19 05/18/19 History Buprenorphine [Butrans 20 MCG/HOUR] 1 patch TRANSDERM WE 03/29/19 05/18/19 History Metoprolol Tartrate [Lopressor] 12.5 mg PO BID 03/29/19 05/18/19 History Furosemide [Lasix] 20 mg PO DAILY #30 tab 03/30/19 05/18/19 Rx Midodrine HCl [ProAmatine] 10 mg PO TID 04/27/19 05/18/19 History Spironolactone [Aldactone] 12.5 mg PO DAILY 04/27/19 05/18/19 History Allergies Allergy/AdvReac Type Severity Reaction Status Date / Time No Known Allergies Allergy Verified 05/18/19 16:02 Physical Exam Vitals: Vital Signs Temp Pulse Pulse Resp BP BP BP 05/19/19 04:00 97.9 F 84 16 83/51 05/19/19 00:00 97.8 F 85 16 92/51 05/18/19 21:30 87 20 05/18/19 20:38 78 20 82/68 05/18/19 20:11 77 20 97/59 05/18/19 18:58 67 05/18/19 18:51 93/65 05/18/19 17:46 64 16 95/64 05/18/19 14:44 97.8 F 66 18 77/55 05/18/19 14:25 68 16 84/54 05/18/19 14:05 84/56 05/18/19 13:55 79/54 05/18/19 13:50 98.1 F 66 16 80/55 05/18/19 13:25 78/49 05/18/19 13:13 76 18 80/49 Pulse Ox 05/19/19 04:00 05/19/19 00:00 05/18/19 21:30 05/18/19 20:38 96 05/18/19 20:11 95 05/18/19 18:58 95 05/18/19 18:51 05/18/19 17:46 96 05/18/19 14:44 99 05/18/19 14:25 98 05/18/19 14:05 05/18/19 13:55 05/18/19 13:50 98 05/18/19 13:25 05/18/19 13:13 94 L Intake and Output 05/18/19 05/19/19 05/19/19 22:59 06:59 14:59 Intake Total 560 240 Output Total 0 Balance 560 240 Intake: Intake, IV Titration 560 Amount Sodium Chloride 0.9% 1, 560 000 ml @ 80 mls/hr IV . [id number] ONE Rx#:[id number] Oral 240 Output: Urine 0 Other: Weight 78.6 kg On examination is awake alert oriented comfortable His jaundice barely evident HEENT exam no JVD, lymphadenopathy neck is supple no facial asymmetry Lungs are clear to auscultation fair air entry bilaterally Heart sounds are unremarkable for any murmur rub gallop Abdomen is tense with ascites nontender Extremity exam was no edema Neurologically awake alert oriented no asterixis Results - Lab Results Most recent lab results Calcium 8.1 mg/dL (8.4-10.2) L 05/19/19 05:37 Phosphorus 4.2 mg/dL (2.5-4.5) 05/19/19 05:37 Magnesium 2.7 mg/dL (1.6-2.3) H 05/19/19 05:37 05/19/19 05:37 05/19/19 05:37 Assessment and Plan Assessment: Impression 1. Acute kidney injury sustained to compartment syndrome cannot rule out hepatorenal syndrome. Creatinine is up to 5.6, urine output is minimal. 2. Chronic kidney disease creatinine was going up slowly. It has been 1.17 on 03/19/2019 since then has been gradually going up in the past his creatinine has been 1.68 03/29/2016 suggestive of a prerenal state from the cirrhosis. 3. Hyponatremia secondary to acute kidney injury. Sodium 133 4. Mild hyper kalemia with potassium being 5.2 improved to 4.7. Etiology is acute kidney injury 5. Gap and non-gap acidosis with bicarb of 15 and gap of 15 secondary to acute kidney injury 6. Diabetes mellitus blood sugars in the 100-150 range Recommendation 1. Check bladder pressure to see if he has compartment syndrome 2. Start IV albumin 50 g now. 3. start IV fluids normal saline 100 and hour 4. Start Sandostatin 100 g subcu 3 times a day 5. Agree with maintaining Midrin. 6. Poor prognosis, need to be considered for liver transplant. Thank you for this consultation and we'll continue to follow closely. Discussed with primary physician
--- NOTE | 2019-05-19 10:49 | P.PN ---
Subjective Progress Note Date: 05/19/19 Principal diagnosis: Ascites Patient was seen and examined. No acute events overnight. Patient reports continuation of his symptoms. He reports generalized abdominal discomfort due to the bloating. Also complains of some rib pain especially with deep inspiration. Continues to feel shortness of breath especially with exertion. He denies any chest pain or palpitations. No nausea or vomiting. No fever or chills. Objective - Vital Signs Vital signs: Vital Signs Temp 97.9 F 05/19/19 04:00 Pulse 84 05/19/19 04:00 Resp 16 05/19/19 04:00 BP 83/51 05/19/19 04:00 Pulse Ox 96 05/18/19 20:38 Intake & Output 05/18/19 05/19/19 05/19/19 18:59 06:59 18:59 Intake Total 560 240 Output Total 0 Balance 560 240 Weight 72.575 kg 78.6 kg Intake: Intake, IV Titration 560 Amount Sodium Chloride 0.9% 1, 560 000 ml @ 80 mls/hr IV . [id number] ONE Rx#:[id number] Oral 240 Output: Urine 0 - Exam General: [non toxic], [no distress], [appears at stated age] Derm: [warm], [dry] Head: [atraumatic], [normocephalic], [symmetric] Eyes: [EOMI], [no lid lag], [anicteric sclera] Mouth: [no lip lesion], [mucus membranes moist] Cardiovascular: [S1S2 reg], [no murmur], [positive DP pulse bilateral], Lungs: [Decreased breath sounds bilateral], [no rhonchi, no rales] , [no a ccessory muscle use] Abdominal: [soft], [distended, generalized tenderness to palpation without rebo und, positive fluid wave], [no guarding], [no appreciable organomegaly] Ext: [no gross muscle atrophy], [no edema], [no contractures] Neuro: [no focal neuro deficits] Psych: [Alert], [oriented], [appropriate affect] - Labs CBC & Chem 7: 05/19/19 05:37 05/19/19 05:37 Labs: Abnormal Lab Results - Last 24 Hours (Table) 05/18/19 05/18/19 05/18/19 Range/Units 12:50 12:50 12:50 RBC (4.30-5.90) m/uL Hgb (13.0-17.5) gm/dL Hct (39.0-53.0) % Plt Count 124 L (150-450) k/uL PT 16.2 H (9.0-12.0) sec INR 1.6 H (<1.2) Sodium (137-145) mmol/L Potassium (3.5-5.1) mmol/L Carbon Dioxide (22-30) mmol/L BUN 65 H (9-20) mg/dL Creatinine 5.68 H (0.66-1.25) mg/dL Glucose 151 H (74-99) mg/dL POC Glucose (mg/dL) (75-99) mg/dL Calcium (8.4-10.2) mg/dL Phosphorus (2.5-4.5) mg/dL Magnesium (1.6-2.3) mg/dL Total Bilirubin (0.2-1.3) mg/dL ALT (21-72) U/L Alkaline Phosphatase (38-126) U/L Total Protein (6.3-8.2) g/dL Albumin (3.5-5.0) g/dL 05/18/19 05/18/19 05/18/19 Range/Units 15:10 15:10 21:32 RBC 3.72 L (4.30-5.90) m/uL Hgb 11.4 L (13.0-17.5) gm/dL Hct 35.2 L (39.0-53.0) % Plt Count (150-450) k/uL PT (9.0-12.0) sec INR (<1.2) Sodium 132 L (137-145) mmol/L Potassium 5.2 H (3.5-5.1) mmol/L Carbon Dioxide 15 L (22-30) mmol/L BUN 66 H (9-20) mg/dL Creatinine 5.60 H (0.66-1.25) mg/dL Glucose 157 H (74-99) mg/dL POC Glucose (mg/dL) 138 H (75-99) mg/dL Calcium 8.2 L (8.4-10.2) mg/dL Phosphorus 4.6 H (2.5-4.5) mg/dL Magnesium 2.9 H (1.6-2.3) mg/dL Total Bilirubin 3.0 H (0.2-1.3) mg/dL ALT 19 L (21-72) U/L Alkaline Phosphatase 139 H (38-126) U/L Total Protein 5.9 L (6.3-8.2) g/dL Albumin 2.9 L (3.5-5.0) g/dL 05/19/19 05/19/19 05/19/19 Range/Units 05:37 05:37 05:37 RBC 3.84 L (4.30-5.90) m/uL Hgb 12.0 L (13.0-17.5) gm/dL Hct 35.6 L (39.0-53.0) % Plt Count 132 L (150-450) k/uL PT 15.5 H (9.0-12.0) sec INR 1.5 H (<1.2) Sodium 133 L (137-145) mmol/L Potassium (3.5-5.1) mmol/L Carbon Dioxide 17 L (22-30) mmol/L BUN 66 H (9-20) mg/dL Creatinine 5.64 H (0.66-1.25) mg/dL Glucose 105 H (74-99) mg/dL POC Glucose (mg/dL) (75-99) mg/dL Calcium 8.1 L (8.4-10.2) mg/dL Phosphorus (2.5-4.5) mg/dL Magnesium 2.7 H (1.6-2.3) mg/dL Total Bilirubin 2.4 H (0.2-1.3) mg/dL ALT (21-72) U/L Alkaline Phosphatase 158 H (38-126) U/L Total Protein 5.6 L (6.3-8.2) g/dL Albumin 2.8 L (3.5-5.0) g/dL Assessment and Plan Assessment: Assessment and Plan Decompensated cirrhosis secondary to alcoholic liver disease Hypotension likely from portal hypertension, splanchnic systemic vasodilation Chronic kidney disease, possible hepatorenal syndrome Hyponatremia Metabolic acidosis Hypermagnesemia Elevated INR Resolved: Hyperkalemia Ascites noted on ultrasound. Total bilirubin 3.0-2.4, AST 57-57, ALT 19-23, alkaline phosphatase 139-158. Plans: Unable for paracentesis due to hypotension. We'll need to start IV Lasix after BP normalizes as well as Aldactone. Discussed with nephrology, plans for 50 g albumin along with octreotide, Dr. Christina to do paracentesis in ICU after bladder pressures for abdominal compartment syndrome. Follow GI recommendations. BP 83/51. Likely due to splanchnic and systemic vasodilation from portal hypertension. Plans: Gentle hydration with normal saline 100 mL/h. Restart Midodrine 3 times a day. Continue albumin and octreotide as per nephrology. Fall precautions. Telemetry monitoring. Follow GI and nephrology recommendations. Creatinine 5.64. Likely hepatorenal. Plans: Avoid nephrotoxins. IVF as above. Follow nephrology recommendations. Sodium 133. Likely as a result from cirrhosis and volume retention. Plans: Repeat BMP in the morning. Attempt IVF for possible dehydration. If further worsening, would benefit from fluid restriction (concerning due to hypotension) or sodium chloride tablets. HCO3 of 17. Likely due to chronic kidney disease. Plans: Repeat BMP in the morning. Start sodium bicarbonate. Follow nephrology recommendations. Magnesium 2.7. Plans: Follow nephrology recommendations. INR 1.5. Likely due to cirrhosis. Plans: Repeat coagulation panel in the morning. Patient names his brother Bill decision-maker in the case that he can't make decisions for himself. Patient reiterates wanting to remain no code at this time.
[2019-05-19] MEDS: ALBUMIN HUMAN 25% 50 ML in EMPTY BAG 1 BAG IVPB SCH ×4 (11:06→18:38)
[2019-05-19] MEDS: OCTREOTIDE 100 MCG/ML INJ SQ SCH ×2 (11:22→16:57)
[2019-05-19] MEDS: SODIUM CHLORIDE 0.9% 1,000 ML IV SCH ×2 (11:30→20:53)
[2019-05-19] MEDS: ONDANSETRON 4 MG/2 ML VIAL IVP PRN (11:59)
[2019-05-19 12:08] LABS: Glucose,Whole Blood 145 mg/dL (75-99)
[2019-05-19] MEDS: SODIUM BICARBONATE TAB 650 MG TAB PO SCH ×3 (12:28→20:53)
--- NOTE | 2019-05-19 14:15 | P.PCN ---
Date of Procedure: 05/19/19 Preoperative Diagnosis: ascites hepatorenal syndrome Postoperative Diagnosis: same Procedure(s) Performed: paracentesis Anesthesia: local Estimated Blood Loss (ml): 10 Pathology: none sent Condition: stable Indications for Procedure: abdomen distention, hepatorenal syndrome, ascites Operative Findings: approx 4 L serous fluid removed per order Description of Procedure: right lower quadrant 5 fr ultrasound guide
[2019-05-19 17:04] LABS: Glucose,Whole Blood 93 mg/dL (75-99)
--- NOTE | 2019-05-19 18:33 | P.CONS ---
History of Present Illness - Reason for Consult Consult date: 05/19/19 Decompansated alcoholic cirrhosis with ascites Requesting physician: Tameka Wood - Chief Complaint Low blood pressure - History of Present Illness 63-year-old male with a medical history significant for decompensated alcoholic cirrhosis of the liver requiring frequent large volume paracentesis, previous variceal bleed, hypertension, diabetes mellitus and alcohol abuse for which she reports abstinence over the past 3-4 months presents to the hospital for evaluation of hypotension. The patient was seen in the outpatient setting for paracentesis was found to be hypotensive. The patient complained of lightheadedness, weakness but denied any loss of consciousness. Patient has had worsening kidney function and hypotension and required multiple hospitalizations with the most recent earlier in the month. Currently he is on treatment with Lasix 20 mg daily, midrodrine and has been following with Dr. Garcia of the nephrology service. He also reports following up with gastroenterology within the past few weeks. He denies any fevers or chills. Patient was found to be hypotensive on presentation with a blood pressure of 79/54. Laboratory evaluation was significant for a WBC 7.3, hemoglobin 12, platelet count 32,000, INR 1.5, total bilirubin 2.4, alkaline phosphatase 158, AST 57 and ALT 23. Seen earlier in the day the patient was being prepared for paracentesis. 63-year-old male with PMH of esophageal varices diagnosed in August 2017, alcohol abuse quit 3-4 months ago, cirrhosis getting serial paracentesis every 10 days with IR, hypertension, type 2 diabetes mellitus presents to the ED for hypotension. Patient states that he saw IR today for his routine paracentesis and was told that it could not be done due to hypotension. He was then advised to go to the ED. Patient reports waking up this morning with weakness. He also reports l ightheadedness as he stood up from the bed, denies LOC. He was told in the summer that he had kidney disease and he has been following with Dr. Garcia since then. His intelligence senior sergeant is Dr. Bailey and Dr. Tenorio. Patient reports chronic lower extremity edema that resolves with walking on his feet. He reports nausea that has been ongoing for the past week without any vomiting. He reports chills, shortness of breath and a decreased appetite over the past week. Patient also reports abdominal discomfort along with rib pain due to the swelling in his abdomen. He denies any headache, fever, cough, chest pain, palpitations, changes in urination or bowel habits. He denies any numbness/weakness/tingling of the extremities. In the ED, vital signs were stable except for BP 79/54. CBC showed anemia with hemoglobin 11.4. Coagulation panel showed INR 1.6. CMP showed sodium 132, potassium 5.2, bicarbonate 15, BUN 66, creatinine 1.56, glucose 157, calcium 8.2, phosphorus 4.6, magnesium 2.9, total bilirubin 3.0, alkaline phosphatase 139 albumin 2.9. Patient is admitted for hypotension and ascites. GI and nephrology will be consulted. Review of Systems REVIEW OF SYSTEMS: CONSTITUTIONAL: Denies any fevers, chills, but does report increased weight secondary to ascites and fatigue. Blood CARDIOVASCULAR: Denies any chest pain, palpitations high blood pressure, but has been noted to have low blood pressures in spite of starting Midrin therapy RESPIRATORY: Denies any shortness of breath, hemoptysis or cough. GENITOURINARY: No dysuria or hematuria, with poor noted. MUSCULOSKELETAL: No weakness reported. SKIN: Denies any new rashes or lesions, or pallor with minimal jaundice noted. PSYCHIATRIC: Denies any depression or anxiety, but has a history of alcohol abuse. NEUROLOGY: Denies headache, denies any new focal deficits. EARS/NOSE/THROAT: No recent hearing change, congestion, nasal discharge or sore throat. EYES: No pain in eyes, discharge or change in vision. GASTROINTESTINAL: As per HPI. Past Medical History Past Medical History: Blood Disorder, Diabetes Mellitus, GI Bleed, Hypertension, Liver Disease, Renal Disease Additional Past Medical History / Comment(s): COPD, anemia, Bravo's esophagus, sigmoid diverticulitis/diverticulosis, dyslipidemia, Bravo's esophagus, portal hypertension related to liver cirrhosis, alcoholism- pt states he has been sober for 3 months. History of Any Multi-Drug Resistant Organisms: None Reported Past Surgical History: Hernia Repair, Orthopedic Surgery Additional Past Surgical History / Comment(s): bilateral carpal tunnel repair, left inguinal hernia repair, parecentesis Q10D. Past Anesthesia/Blood Transfusion Reactions: No Reported Reaction Past Psychological History: No Psychological Hx Reported Smoking Status: Former smoker Past Alcohol Use History: Abuse Additional Past Alcohol Use History / Comment(s): history of ETOH, states he used to drink a pint per day, states he has been sober for 3 months. Past Drug Use History: Marijuana - Past Family History Father Family Medical History: Diabetes Mellitus, Hyperlipidemia, Hypertension, Vascular Disorder Medications and Allergies Home Medications Medication Instructions Recorded Confirmed Type Ezetimibe/Simvastatin [Vytorin 1 tab PO DAILY 12/20/15 05/18/19 History 10-40 mg Tablet] Albuterol Inhaler [Ventolin Hfa 1 - 2 puff INHALATION RT-Q6H PRN 03/18/19 05/18/19 History Inhaler] Cyanocobalamin (Vitamin B-12) 1,000 mcg PO DAILY 03/18/19 05/18/19 History [Vitamin B-12] Ipratropium [place] [Atrovent Hfa] 2 puff INHALATION RT-QID 03/18/19 05/18/19 History Magnesium Gluconate [Magonate] 500 mg PO DAILY 03/18/19 05/18/19 History Omeprazole 20 mg PO DAILY 03/26/19 05/18/19 History Thiamine [Vitamin B-1] 100 mg PO DAILY 03/26/19 05/18/19 History Buprenorphine [Butrans 20 MCG/HOUR] 1 patch TRANSDERM WE 03/29/19 05/18/19 History Metoprolol Tartrate [Lopressor] 12.5 mg PO BID 03/29/19 05/18/19 History Furosemide [Lasix] 20 mg PO DAILY #30 tab 03/30/19 05/18/19 Rx Midodrine HCl [ProAmatine] 10 mg PO TID 04/27/19 05/18/19 History Spironolactone [Aldactone] 12.5 mg PO DAILY 04/27/19 05/18/19 History Allergies Allergy/AdvReac Type Severity Reaction Status Date / Time No Known Allergies Allergy Verified 05/18/19 16:02 Physical Exam Vitals: Vital Signs Temp Pulse Pulse Resp BP BP Pulse Ox 05/19/19 16:00 97.7 F 94 18 95/61 97 05/19/19 12:00 97.6 F 98 22 96/50 100 05/19/19 08:00 97.4 F L 94 18 86/61 98 05/19/19 04:00 97.9 F 84 16 83/51 05/19/19 00:00 97.8 F 85 16 92/51 05/18/19 21:30 87 20 05/18/19 20:38 78 20 82/68 96 05/18/19 20:11 77 20 97/59 95 05/18/19 18:58 67 95 05/18/19 18:51 93/65 Intake and Output 05/19/19 05/19/19 05/19/19 06:59 14:59 22:59 Intake Total 560 240 240 Output Total 0 4000 Balance 560 -3760 240 Intake: Intake, IV Titration 560 Amount Sodium Chloride 0.9% 1, 560 000 ml @ 80 mls/hr IV . [id number] ONE Rx#:[id number] Oral 240 240 Output: Drainage 4000 Abdomen 4000 Urine 0 Other: Voiding Method Indwelling Catheter Indwelling Catheter # Voids 1 # Bowel Movements 1 Weight 78.6 kg On physical examination, patient appears comfortable in no apparent distress. HEAD: Normocephalic, atraumatic. EYES: Scleral icterus. No conjunctival injection. MOUTH: No lesions, tongue midline. NECK: Trachea midline, no gross abnormalities. CHEST: Decreased air entry in both lung courtney. HEART: Regular rate and rhythm. ABDOMEN: Soft, tense and distended with positive fluid wave. Bowel sounds are positive. No organomegaly. No guarding or rigidity. EXTREMITIES:Bilateral pedal edema. SKIN: No rashes, jaundice. NEUROLOGIC: Alert and oriented x3. No focal deficits. Results CBC & Chem 7: 05/19/19 05:37 05/19/19 05:37 Labs: Abnormal Lab Results - Last 24 Hours (Table) 05/18/19 05/19/19 05/19/19 Range/Units 21:32 05:37 05:37 RBC 3.84 L (4.30-5.90) m/uL Hgb 12.0 L (13.0-17.5) gm/dL Hct 35.6 L (39.0-53.0) % Plt Count 132 L (150-450) k/uL PT 15.5 H (9.0-12.0) sec INR 1.5 H (<1.2) Sodium (137-145) mmol/L Carbon Dioxide (22-30) mmol/L BUN (9-20) mg/dL Creatinine (0.66-1.25) mg/dL Glucose (74-99) mg/dL POC Glucose (mg/dL) 138 H (75-99) mg/dL Calcium (8.4-10.2) mg/dL Magnesium (1.6-2.3) mg/dL Total Bilirubin (0.2-1.3) mg/dL Alkaline Phosphatase (38-126) U/L Total Protein (6.3-8.2) g/dL Albumin (3.5-5.0) g/dL 05/19/19 05/19/19 Range/Units 05:37 12:03 RBC (4.30-5.90) m/uL Hgb (13.0-17.5) gm/dL Hct (39.0-53.0) % Plt Count (150-450) k/uL PT (9.0-12.0) sec INR (<1.2) Sodium 133 L (137-145) mmol/L Carbon Dioxide 17 L (22-30) mmol/L BUN 66 H (9-20) mg/dL Creatinine 5.64 H (0.66-1.25) mg/dL Glucose 105 H (74-99) mg/dL POC Glucose (mg/dL) 145 H (75-99) mg/dL Calcium 8.1 L (8.4-10.2) mg/dL Magnesium 2.7 H (1.6-2.3) mg/dL Total Bilirubin 2.4 H (0.2-1.3) mg/dL Alkaline Phosphatase 158 H (38-126) U/L Total Protein 5.6 L (6.3-8.2) g/dL Albumin 2.8 L (3.5-5.0) g/dL US - abdomen: report reviewed Assessment and Plan (1) Decompensated hepatic cirrhosis Narrative/Plan: 63-year-old male with a known medical history significant for decompensated alcoholic cirrhosis with refractory ascites requiring large volume paracentesis. Patient has had multiple recent hospitalizations secondary to hypotension and acute kidney injury. He is currently being followed up at regular intervals for paracentesis where he was found to be hypotensive and told to present to the emergency department for further evaluation. The patient's creatinine on recent hospitalization was at 3.8 and found to be over 5 currently. Liver enzymes are significant for a total bilirubin of 2.4, alkaline phosphatase 158, AST 57 and ALTs 23. INR 1.5. Previously the patient has also had variceal bleeding but currently hemoglobin is normal with no signs or symptoms of GI bleeding. Patient is currently seeing medical for what is receiving albumin, Midrin and octreotide scheduled for paracentesis. Current Visit: No Status: Acute Code(s): K72.90 - HEPATIC FAILURE, UNSPECIFIED WITHOUT COMA SNOMED Code(s): 078668668 (2) Acute kidney injury Current Visit: Yes Status: Acute Code(s): N17.9 - ACUTE KIDNEY FAILURE, UNSPECIFIED SNOMED Code(s): 67268646 (3) History of ETOH abuse Current Visit: Yes Status: Acute Code(s): Z87.898 - PERSONAL HISTORY OF OTHER SPECIFIED CONDITIONS SNOMED Code(s): 123602540 (4) Ascites due to alcoholic cirrhosis Current Visit: No Status: Acute Code(s): K70.31 - ALCOHOLIC CIRRHOSIS OF LIVER WITH ASCITES SNOMED Code(s): 5321183768667889 (5) Esophageal varices Current Visit: No Status: Acute Code(s): I85.00 - ESOPHAGEAL VARICES WITHOUT BLEEDING SNOMED Code(s): 62973006 (6) Portal hypertension Current Visit: No Status: Acute Code(s): K76.6 - PORTAL HYPERTENSION SNOMED Code(s): 60925539 Plan: Supportive care Okay for a low-sodium diet Continue Minitran, albumin and octreotide Appreciate recommendations from nephrology, will defer management of hy dration/diuresis per the recommendations This patient has clinical or laboratory deterioration can consider transfer to tertiary referral center such as [facility] or [facility] or further management, including evaluation for possible transhepatic intraperitoneal shunt given refractory ascites Continue alcohol abstinence Continue to monitor labs and clinically Will order ammonia level thank you for allowing us to participate in the care of the patient we will continue to follow
[2019-05-19] MEDS: traMADol 50 MG TAB PO PRN ×2 (18:50→21:03)
[2019-05-19 20:45] LABS: Glucose,Whole Blood 159 mg/dL (75-99)
[2019-05-20] MEDS: OCTREOTIDE 100 MCG/ML INJ SQ SCH ×4 (00:14→23:27)
[2019-05-20 02:11] LABS: Glucose,Whole Blood 112 mg/dL (75-99)
[2019-05-20 06:24] LABS: INR 1.5 (<1.2); Prothrombin Time 15.4 sec (9.0-12.0)
[2019-05-20 06:28] LABS: Albumin 3.3 g/dL (3.5-5.0); Bilirubin, Conjugated 0.1 mg/dL (0.0-0.3); Bilirubin, Delta 1.3 mg/dL (0.0-0.2); Bilirubin,Unconjugated 1.4 mg/dL (0.0-1.1); Total Bilirubin 2.8 mg/dL (0.2-1.3)
[2019-05-20] MEDS: ONDANSETRON 4 MG/2 ML VIAL IVP PRN (06:28)
[2019-05-20] MEDS: SODIUM CHLORIDE 0.9% 1,000 ML IV SCH ×2 (06:29→17:39)
[2019-05-20] MEDS: PANTOPRAZOLE 40 MG TABLET PO SCH (06:31)
[2019-05-20] MEDS: MIDODRINE 5 MG TAB PO SCH ×3 (06:31→17:24)
[2019-05-20] MEDS: INSULIN ASPART (NovoLOG) 100 UNIT/ML VIAL SQ SCH ×4 (06:32→21:38)
[2019-05-20 06:37] LABS: Glucose,Whole Blood 115 mg/dL (75-99)
[2019-05-20 07:06] LABS: Basophils # (A) 0.1 k/uL (0-0.2); Basophils % (A) 1 %; Eosinophils # (A) 0.2 k/uL (0-0.7); Eosinophils % (A) 2 %; HGB 12.5 gm/dL (13.0-17.5); Lymphocytes # (A) 1.1 k/uL (1.0-4.8); Lymphocytes % (A) 13 %; MCH 31.2 pg (25.0-35.0); MCHC 32.9 g/dL (31.0-37.0); MCV 94.7 fL (80.0-100.0); Mean Platelet Volume 7.6; Monocytes # (A) 0.4 k/uL (0-1.0); Monocytes % (A) 5 %; Neutrophils # (A) 6.4 k/uL (1.3-7.7); Neutrophils % (A) 76 %; Platelet Count 104 k/uL (150-450); RBC 4.01 m/uL (4.30-5.90); RDW 13.7 % (11.5-15.5); WBC 8.4 k/uL (3.8-10.6)
[2019-05-20 07:08] LABS: Albumin 3.2 g/dL (3.5-5.0); Calcium 8.2 mg/dL (8.4-10.2); Potassium 4.5 mmol/L (3.5-5.1); Total Bilirubin 2.7 mg/dL (0.2-1.3)
--- NOTE | 2019-05-20 08:46 | P.PN ---
Subjective Progress Note Date: 05/20/19 Principal diagnosis: This is a 63-year-old male with history of cirrhosis requiring frequent taps every 10 days, chronic kidney disease with baseline creatinine fluctuating between 1.5 before and worsening over the last few weeks. He is admitted with hypotension and inability to have a peritoneal tap them because of that. He is also known with diabetes, past history of alcohol his him, last drink was about 3 months ago supposedly. His acute kidney injury is deemed to be from compartment syndrome. His blood pressure was 24 Yesterday he underwent a peritoneal tap Of 4 L under the cover of 50 g of IV albumin, was given IV normal saline at 100 and hour, started on Midrin and Sandostatin to cover for any hepatorenal syndrome. Postoperatively he has made 175 mL of urine with a Jacobs catheter. He threw up once today. No abdominal pain no fever chills no cough shortness of breath. His ammonia level is somewhat high. He is awake alert oriented without any asterixis Objective - Vital Signs Vital signs: Vital Signs Temp 98.1 F 05/20/19 03:30 Pulse 88 05/20/19 04:00 Resp 18 05/20/19 04:00 BP 81/54 05/20/19 03:30 Pulse Ox 99 05/20/19 03:30 Intake & Output 05/19/19 05/20/19 05/20/19 18:59 06:59 18:59 Intake Total 480 2200 Output Total 4000 175 Balance -3519 2024 Weight 75 kg Intake: Intake, IV Titration 1600 Amount Sodium Chloride 0.9% 1, 1600 000 ml @ 100 mls/hr IV . Q10H [facility] Rx#:[id number] Oral 480 600 Output: Drainage 4000 Abdomen 4000 Urine 175 Other: Voiding Method Indwelling Catheter Indwelling Catheter # Voids 1 # Bowel Movements 1 1 On examination he is somewhat cachectic but awake alert oriented comfortable. Has some abdominal discomfort from the ascites. HEENT exam no JVP neck is supple no facial asymmetry Lungs are clear to auscultation good air entry bilaterally Heart sounds are unremarkable for any murmur rub gallop Abdomen distended and tight nontender Extremity exam was no edema Neurologically awake alert oriented No asterixis - Labs CBC & Chem 7: 05/20/19 05:56 05/20/19 05:56 Labs: Abnormal Lab Results - Last 24 Hours (Table) 05/19/19 05/19/19 05/20/19 Range/Units 12:03 20:44 02:10 RBC (4.30-5.90) m/uL Hgb (13.0-17.5) gm/dL Hct (39.0-53.0) % Plt Count (150-450) k/uL PT (9.0-12.0) sec INR (<1.2) Sodium (137-145) mmol/L Carbon Dioxide (22-30) mmol/L BUN (9-20) mg/dL Creatinine (0.66-1.25) mg/dL Glucose (74-99) mg/dL POC Glucose (mg/dL) 145 H 159 H 112 H (75-99) mg/dL Calcium (8.4-10.2) mg/dL Total Bilirubin (0.2-1.3) mg/dL Unconjugated Bilirubin (0.0-1.1) mg/dL Delta Bilirubin (0.0-0.2) mg/dL Alkaline Phosphatase (38-126) U/L Ammonia (<30) umol/L Total Protein (6.3-8.2) g/dL Albumin (3.5-5.0) g/dL 05/20/19 05/20/19 05/20/19 Range/Units 05:56 05:56 05:56 RBC (4.30-5.90) m/uL Hgb (13.0-17.5) gm/dL Hct (39.0-53.0) % Plt Count (150-450) k/uL PT 15.4 H (9.0-12.0) sec INR 1.5 H (<1.2) Sodium (137-145) mmol/L Carbon Dioxide (22-30) mmol/L BUN (9-20) mg/dL Creatinine (0.66-1.25) mg/dL Glucose (74-99) mg/dL POC Glucose (mg/dL) (75-99) mg/dL Calcium (8.4-10.2) mg/dL Total Bilirubin 2.8 H (0.2-1.3) mg/dL Unconjugated Bilirubin 1.4 H (0.0-1.1) mg/dL Delta Bilirubin 1.3 H (0.0-0.2) mg/dL Alkaline Phosphatase 134 H (38-126) U/L Ammonia 93 H (<30) umol/L Total Protein 6.0 L (6.3-8.2) g/dL Albumin 3.3 L (3.5-5.0) g/dL 05/20/19 05/20/19 05/20/19 Range/Units 05:56 05:56 06:28 RBC 4.01 L (4.30-5.90) m/uL Hgb 12.5 L (13.0-17.5) gm/dL Hct 38.0 L (39.0-53.0) % Plt Count 104 L (150-450) k/uL PT (9.0-12.0) sec INR (<1.2) Sodium 135 L (137-145) mmol/L Carbon Dioxide 16 L (22-30) mmol/L BUN 62 H (9-20) mg/dL Creatinine 5.45 H (0.66-1.25) mg/dL Glucose 122 H (74-99) mg/dL POC Glucose (mg/dL) 115 H (75-99) mg/dL Calcium 8.2 L (8.4-10.2) mg/dL Total Bilirubin 2.7 H (0.2-1.3) mg/dL Unconjugated Bilirubin (0.0-1.1) mg/dL Delta Bilirubin (0.0-0.2) mg/dL Alkaline Phosphatase 135 H (38-126) U/L Ammonia (<30) umol/L Total Protein 6.0 L (6.3-8.2) g/dL Albumin 3.2 L (3.5-5.0) g/dL Assessment and Plan Assessment: Impression 1. Acute kidney injury secondary to compartment syndrome, blood pressure was 24 cannot rule out hepatorenal syndrome. Creatinine is up to 5.6, urine output is minimal. Post paracentesis of 4 Lsignificant improvement in urine output or in the tightness of the site is 2. Chronic kidney disease creatinine was going up slowly. It has been 1.17 on 03/19/2019 since then has been gradually going up in the past his creatinine has been 1.68 03/29/2016 suggestive of a prerenal state from the cirrhosis. 3. Hyponatremia secondary to acute kidney injury. Sodium 133 >135 now 4. Mild hyperkalemia with potassium being 5.2 improved to 4.5. Etiology is acute kidney injury 5. Gap and non-gap acidosis with bicarb of 15 and gap of 15 secondary to acute kidney injury, stable with bicarb of 16 his morning 6. Diabetes mellitus blood sugars in the 100-150 range. 7. Blood pressure remains low in the 80s Recommendation 1. Proceed with a second tap of 6 L and the car of 50 g of IV albumin again today 2. Check bladder pressure to see if compartment syndrome has resolved after the tap today 2. Start IV albumin 25 g every 8 3. Maintain IV fluids normal saline 100 and hour 4. Continue Sandostatin 100 g subcu 3 times a day 5. Continue with maintaining Midrin. 6. Poor prognosis, need to be considered for liver transplant.
[2019-05-20] MEDS ORDERED: ALBUMIN HUMAN 25% 50 ML in EMPTY BAG 1 BAG IVPB SCH ×2 (09:00)
[2019-05-20] MEDS: THIAMINE 100 MG TAB PO SCH (09:06)
[2019-05-20] MEDS: SODIUM BICARBONATE TAB 650 MG TAB PO SCH ×4 (09:06→20:10)
[2019-05-20] MEDS: ATORVASTATIN 20 MG TAB PO SCH (09:06)
[2019-05-20] MEDS: EZETIMIBE 10 MG TAB PO SCH (09:07)
[2019-05-20] MEDS: ALBUMIN HUMAN 25% 50 ML in EMPTY BAG 1 BAG IVPB SCH ×9 (10:15→23:53)
--- NOTE | 2019-05-20 10:47 | P.PN ---
Subjective Progress Note Date: 05/20/19 Principal diagnosis: Ascites 05/20/2019: Patient is in bed, and during. Paracentesis today. He remains marginally hypotensive, he vomited today. He denies chest pain, no loss of consciousness. Objective - Vital Signs Vital signs: Vital Signs Temp 97.9 F 05/20/19 08:00 Pulse 110 H 05/20/19 08:00 Resp 20 05/20/19 08:00 BP 89/61 05/20/19 08:00 Pulse Ox 97 05/20/19 08:00 Intake & Output 05/19/19 05/20/19 05/20/19 18:59 06:59 18:59 Intake Total 480 2200 125 Output Total 4000 175 Balance -3520 2024 125 Weight 75 kg Intake: Intake, IV Titration 1600 Amount Sodium Chloride 0.9% 1, 1600 000 ml @ 100 mls/hr IV . Q10H [facility] Rx#:[id number] Oral 480 600 125 Output: Drainage 4000 Abdomen 4000 Urine 175 Other: Voiding Method Indwelling Catheter Indwelling Catheter # Voids 1 # Bowel Movements 1 1 - Exam General: [non toxic], [no distress], Derm: [warm], [dry] Head: [atraumatic], [normocephalic], [symmetric] Eyes: [EOMI], [no lid lag], [anicteric sclera] Mouth: [no lip lesion] Cardiovascular: [S1S2 reg], [no murmur] Lungs: [Decreased breath sounds bilateral], [no rhonchi, no rales] , [no accessory muscle use] Abdominal: [soft], [distended, generalized tenderness to palpation without rebound, positive fluid wave], [no guarding] Ext: [no gross muscle atrophy], [1+ bilateral edema], [no contractures] Neuro: [no focal neuro deficits] Psych: [Alert], [oriented] - Labs CBC & Chem 7: 05/20/19 05:56 05/20/19 05:56 Labs: Abnormal Lab Results - Last 24 Hours (Table) 05/19/19 05/19/19 05/20/19 Range/Units 12:03 20:44 02:10 RBC (4.30-5.90) m/uL Hgb (13.0-17.5) gm/dL Hct (39.0-53.0) % Plt Count (150-450) k/uL PT (9.0-12.0) sec INR (<1.2) Sodium (137-145) mmol/L Carbon Dioxide (22-30) mmol/L BUN (9-20) mg/dL Creatinine (0.66-1.25) mg/dL Glucose (74-99) mg/dL POC Glucose (mg/dL) 145 H 159 H 112 H (75-99) mg/dL Calcium (8.4-10.2) mg/dL Total Bilirubin (0.2-1.3) mg/dL Unconjugated Bilirubin (0.0-1.1) mg/dL Delta Bilirubin (0.0-0.2) mg/dL Alkaline Phosphatase (38-126) U/L Ammonia (<30) umol/L Total Protein (6.3-8.2) g/dL Albumin (3.5-5.0) g/dL 05/20/19 05/20/19 05/20/19 Range/Units 05:56 05:56 05:56 RBC (4.30-5.90) m/uL Hgb (13.0-17.5) gm/dL Hct (39.0-53.0) % Plt Count (150-450) k/uL PT 15.4 H (9.0-12.0) sec INR 1.5 H (<1.2) Sodium (137-145) mmol/L Carbon Dioxide (22-30) mmol/L BUN (9-20) mg/dL Creatinine (0.66-1.25) mg/dL Glucose (74-99) mg/dL POC Glucose (mg/dL) (75-99) mg/dL Calcium (8.4-10.2) mg/dL Total Bilirubin 2.8 H (0.2-1.3) mg/dL Unconjugated Bilirubin 1.4 H (0.0-1.1) mg/dL Delta Bilirubin 1.3 H (0.0-0.2) mg/dL Alkaline Phosphatase 134 H (38-126) U/L Ammonia 93 H (<30) umol/L Total Protein 6.0 L (6.3-8.2) g/dL Albumin 3.3 L (3.5-5.0) g/dL 05/20/19 05/20/19 05/20/19 Range/Units 05:56 05:56 06:28 RBC 4.01 L (4.30-5.90) m/uL Hgb 12.5 L (13.0-17.5) gm/dL Hct 38.0 L (39.0-53.0) % Plt Count 104 L (150-450) k/uL PT (9.0-12.0) sec INR (<1.2) Sodium 135 L (137-145) mmol/L Carbon Dioxide 16 L (22-30) mmol/L BUN 62 H (9-20) mg/dL Creatinine 5.45 H (0.66-1.25) mg/dL Glucose 122 H (74-99) mg/dL POC Glucose (mg/dL) 115 H (75-99) mg/dL Calcium 8.2 L (8.4-10.2) mg/dL Total Bilirubin 2.7 H (0.2-1.3) mg/dL Unconjugated Bilirubin (0.0-1.1) mg/dL Delta Bilirubin (0.0-0.2) mg/dL Alkaline Phosphatase 135 H (38-126) U/L Ammonia (<30) umol/L Total Protein 6.0 L (6.3-8.2) g/dL Albumin 3.2 L (3.5-5.0) g/dL Assessment and Plan Plan: Assessment and Plan Decompensated cirrhosis secondary to alcoholic liver disease Hypotension likely from portal hypertension, splanchnic systemic vasodilation Acute kidney injury on Chronic kidney disease, possible hepatorenal syndrome Hyponatremia Metabolic acidosis Hypermagnesemia Elevated INR Resolved: Hyperkalemia Ascites noted on ultrasound. Status post 4 L paracenteses 05/19/2019 , status post albumin. Appreciate GI and nephrology input , possible need for transfer to tertiary center for TIPS BP 83/51. Likely due to splanchnic and systemic vasodilation from portal hypertension. continue Midodrine 3 times a day. Continue albumin and octreotide as per nephrology. Fall precautions. Telemetry monitoring. Follow GI and nephrology recommendations. Creatinine 5.4. Likely hepatorenal. Plans: Avoid nephrotoxins. Follow nephrology recommendations. The patient paracenteses, monitor urine output which remains minimal. Sodium 135. Likely as a result from cirrhosis and volume retention. Monitor. HCO3 of 15 2 17. Likely due to chronic kidney disease. Continue sodium bicarbonate. Follow nephrology recommendations. Magnesium 2.7. Plans: Follow nephrology recommendations. INR 1.5. Likely due to cirrhosis. Plans: Repeat coagulation panel in the morning. Patient names his brother Bill decision-maker in the case that he can't make decisions for himself. Patient reiterates no code at this time. Disposition: Possible transfer to [facility] or [facility], pending further recommendations by GI and patient and family decision.
--- NOTE | 2019-05-20 11:09 | US ---
EXAMINATION TYPE: US paracentesis abd w/image DATE OF EXAM: 05/19/2019 COMPARISON: NONE HISTORY: Ascites. PROCEDURE: Maximal barrier technique was utilized. The skin overlying a suitable pocket of fluid was localized with ultrasound and the overlying skin was prepped and draped. Ultrasound was utilized with sterile technique. Lidocaine was used for local anesthesia and a skin tri made with a scalpel. Catheter was advanced under direct ultrasound guidance into a suitable pocket of fluid and approximately 4 liters of serous fluid were removed. Catheter was withdrawn and hemostasis achieved. There is no immediate complication; the patient is discharged in stable condition. IMPRESSION: STATUS POST ULTRASOUND GUIDED PARACENTESIS FOR PALLIATION OF ASCITES. THIS PROCEDURE WA S PERFORMED BY THE UNDERSIGNED.
--- NOTE | 2019-05-20 11:11 | P.PCN ---
Date of Procedure: 05/20/19 Preoperative Diagnosis: ascites, and hepatorenal syndrome Procedure(s) Performed: paracentesis Anesthesia: local Estimated Blood Loss (ml): 5 Pathology: none sent Condition: stable Disposition: no change Indications for Procedure: ascites, distention, hepatorenal syndrome Operative Findings: serous fluid Description of Procedure: 6 liters drained
[2019-05-20 11:55] LABS: Glucose,Whole Blood 144 mg/dL (75-99)
[2019-05-20] MEDS: LACTULOSE 20 GM/30 ML CUP PO SCH ×3 (13:12→20:10)
--- NOTE | 2019-05-20 15:49 | P.PN ---
Subjective Progress Note Date: 05/20/19 Principal diagnosis: Decompensated alcoholic cirrhosis with ascites, hypotension Patient is seen lying in bed. Repeat paracentesis today. Objective - Vital Signs Vital signs: Vital Signs Temp 97.9 F 05/20/19 12:00 Pulse 94 05/20/19 12:00 Resp 20 05/20/19 12:00 BP 88/53 05/20/19 12:00 Pulse Ox 98 05/20/19 12:00 Intake & Output 05/19/19 05/20/19 05/20/19 18:59 06:59 18:59 Intake Total 480 2200 125 Output Total 4000 175 Balance -3520 2024 125 Weight 75 kg Intake: Intake, IV Titration 1600 Amount Sodium Chloride 0.9% 1, 1600 000 ml @ 100 mls/hr IV . Q10H MARIELA Rx#:[id number] Oral 480 600 125 Output: Drainage 4000 Abdomen 4000 Urine 175 Other: Voiding Method Indwelling Catheter Indwelling Catheter Indwelling Catheter # Voids 1 # Bowel Movements 1 1 - Exam On physical examination, patient appears comfortable in no apparent distress. HEAD: Normocephalic, atraumatic. EYES: Scleral icterus. No conjunctival injection. MOUTH: No lesions, tongue midline. NECK: Trachea midline, no gross abnormalities. CHEST: Clear to auscultation with no wheezing or rhonchi appreciated. HEART: Regular rate and rhythm. ABDOMEN: Soft, decreased distention compared to prior exam. Bowel sounds are positive. No organomegaly. No guarding or rigidity. EXTREMITIES: Bilateral pedal edema. SKIN: No rashes, jaundice. NEUROLOGIC: Alert and oriented x2, minimal asterixis noted. No focal deficits. - Labs CBC & Chem 7: 05/20/19 05:56 05/20/19 05:56 Labs: Abnormal Lab Results - Last 24 Hours (Table) 05/19/19 05/20/19 05/20/19 Range/Units 20:44 02:10 05:56 RBC (4.30-5.90) m/uL Hgb (13.0-17.5) gm/dL Hct (39.0-53.0) % Plt Count (150-450) k/uL PT 15.4 H (9.0-12.0) sec INR 1.5 H (<1.2) Sodium (137-145) mmol/L Carbon Dioxide (22-30) mmol/L BUN (9-20) mg/dL Creatinine (0.66-1.25) mg/dL Glucose (74-99) mg/dL POC Glucose (mg/dL) 159 H 112 H (75-99) mg/dL Calcium (8.4-10.2) mg/dL Total Bilirubin (0.2-1.3) mg/dL Unconjugated Bilirubin (0.0-1.1) mg/dL Delta Bilirubin (0.0-0.2) mg/dL Alkaline Phosphatase (38-126) U/L Ammonia (<30) umol/L Total Protein (6.3-8.2) g/dL Albumin (3.5-5.0) g/dL 05/20/19 05/20/19 05/20/19 Range/Units 05:56 05:56 05:56 RBC 4.01 L (4.30-5.90) m/uL Hgb 12.5 L (13.0-17.5) gm/dL Hct 38.0 L (39.0-53.0) % Plt Count 104 L (150-450) k/uL PT (9.0-12.0) sec INR (<1.2) Sodium (137-145) mmol/L Carbon Dioxide (22-30) mmol/L BUN (9-20) mg/dL Creatinine (0.66-1.25) mg/dL Glucose (74-99) mg/dL POC Glucose (mg/dL) (75-99) mg/dL Calcium (8.4-10.2) mg/dL Total Bilirubin 2.8 H (0.2-1.3) mg/dL Unconjugated Bilirubin 1.4 H (0.0-1.1) mg/dL Delta Bilirubin 1.3 H (0.0-0.2) mg/dL Alkaline Phosphatase 134 H (38-126) U/L Ammonia 93 H (<30) umol/L Total Protein 6.0 L (6.3-8.2) g/dL Albumin 3.3 L (3.5-5.0) g/dL 05/20/19 05/20/19 05/20/19 Range/Units 05:56 06:28 11:53 RBC (4.30-5.90) m/uL Hgb (13.0-17.5) gm/dL Hct (39.0-53.0) % Plt Count (150-450) k/uL PT (9.0-12.0) sec INR (<1.2) Sodium 135 L (137-145) mmol/L Carbon Dioxide 16 L (22-30) mmol/L BUN 62 H (9-20) mg/dL Creatinine 5.45 H (0.66-1.25) mg/dL Glucose 122 H (74-99) mg/dL POC Glucose (mg/dL) 115 H 144 H (75-99) mg/dL Calcium 8.2 L (8.4-10.2) mg/dL Total Bilirubin 2.7 H (0.2-1.3) mg/dL Unconjugated Bilirubin (0.0-1.1) mg/dL Delta Bilirubin (0.0-0.2) mg/dL Alkaline Phosphatase 135 H (38-126) U/L Ammonia (<30) umol/L Total Protein 6.0 L (6.3-8.2) g/dL Albumin 3.2 L (3.5-5.0) g/dL Assessment and Plan (1) Decompensated hepatic cirrhosis Narrative/Plan: 63-year-old male with a known medical history significant for decompensated alcoholic cirrhosis with refractory ascites requiring large volume paracentesis. Patient has had multiple recent hospitalizations secondary to hypotension and acute kidney injury. He is currently being followed up at regular intervals for paracentesis where he was found to be hypotensive and told to present to the emergency department for further evaluation. The patient's creatinine on recent hospitalization was at 3.8 and found to be over 5 currently. Liver enzymes are significant for a total bilirubin of 2.4, alkaline phosphatase 158, AST 57 and ALTs 23. INR 1.5. Previously the patient has also had variceal bleeding but currently hemoglobin is normal with no signs or symptoms of GI bleeding. Patient is currently seeing medical for what is receiving albumin, Midodrine and octreotide , with paracentesis yesterday with 4 L removed and repeat paracentesis today. Current Visit: No Status: Acute Code(s): K72.90 - HEPATIC FAILURE, UNSPECIFIED WITHOUT COMA SNOMED Code(s): 359491882 (2) Acute kidney injury Current Visit: Yes Status: Acute Code(s): N17.9 - ACUTE KIDNEY FAILURE, UNSPECIFIED SNOMED Code(s): 13103490 (3) History of ETOH abuse Current Visit: Yes Status: Acute Code(s): Z87.898 - PERSONAL HISTORY OF OTHER SPECIFIED CONDITIONS SNOMED Code(s): 661792766 (4) Ascites due to alcoholic cirrhosis Current Visit: No Status: Acute Code(s): K70.31 - ALCOHOLIC CIRRHOSIS OF LIVER WITH ASCITES SNOMED Code(s): 5371017971382503 (5) Esophageal varices Current Visit: No Status: Acute Code(s): I85.00 - ESOPHAGEAL VARICES WITHOUT BLEEDING SNOMED Code(s): 43343981 (6) Portal hypertension Current Visit: No Status: Acute Code(s): K76.6 - PORTAL HYPERTENSION SNOMED Code(s): 87337242 Plan: Supportive care Okay for a low-sodium diet Continue Midodrine, albumin and octreotide Appreciate recommendations from nephrology, will defer management of hydration/diuresis per the recommendations If this patient has clinical or laboratory deterioration can consider transfer to tertiary referral center such as [facility] or [facility] for further management, including evaluation for possible transjugular intrahepatic portosystemic shunt given refractory ascites Continue alcohol abstinence Continue to monitor labs and clinically Given presentation and elevated ammonia will initiate lactulose titrated for 2-3 bowel movements daily Thank you for allowing us to participate in the care of the patient we will continue to follow
[2019-05-20 17:03] LABS: Glucose,Whole Blood 142 mg/dL (75-99)
--- NOTE | 2019-05-20 18:45 | US ---
EXAMINATION TYPE: US paracentesis abd w/image DATE OF EXAM: 05/20/2019 COMPARISON: NONE HISTORY: Ascites. PROCEDURE: Maximal barrier technique was utilized. The skin overlying a suitable pocket of fluid was localized with ultrasound and the overlying skin was prepped and draped. Ultrasound was utilized with sterile technique. Lidocaine was used for local anesthesia and a skin tri made with a scalpel. Catheter was advanced under direct ultrasound guidance into a suitable pocket of fluid and approximately 6 liters of serous fluid were removed. Catheter was withdrawn and hemostasis achieved. There is no immediate complication; the patient is discharged in stable condition. IMPRESSION: STATUS POST ULTRASOUND GUIDED PARACENTESIS FOR PALLIATION OF ASCITES. THIS PROCEDURE WA S PERFORMED BY THE UNDERSIGNED.
[2019-05-20 20:35] LABS: Glucose,Whole Blood 135 mg/dL (75-99)
[2019-05-21] MEDS: SODIUM CHLORIDE 0.9% 1,000 ML IV SCH ×3 (04:12→20:17)
[2019-05-21 06:22] LABS: Glucose,Whole Blood 119 mg/dL (75-99)
[2019-05-21] MEDS: PANTOPRAZOLE 40 MG TABLET PO SCH (06:30)
[2019-05-21] MEDS: MIDODRINE 5 MG TAB PO SCH ×3 (06:30→16:27)
[2019-05-21] MEDS: INSULIN ASPART (NovoLOG) 100 UNIT/ML VIAL SQ SCH ×4 (06:33→20:31)
[2019-05-21 07:08] LABS: Basophils % (A) 1 %; Eosinophils # (A) 0.1 k/uL (0-0.7); Eosinophils % (A) 3 %; HGB 11.1 gm/dL (13.0-17.5); Lymphocytes # (A) 1.1 k/uL (1.0-4.8); Lymphocytes % (A) 23 %; MCH 30.5 pg (25.0-35.0); MCHC 32.5 g/dL (31.0-37.0); MCV 93.8 fL (80.0-100.0); Mean Platelet Volume 7.4; Monocytes # (A) 0.3 k/uL (0-1.0); Monocytes % (A) 6 %; Neutrophils % (A) 65 %; Platelet Count 103 k/uL (150-450); RBC 3.62 m/uL (4.30-5.90); RDW 14.8 % (11.5-15.5); WBC 4.7 k/uL (3.8-10.6)
[2019-05-21 07:12] LABS: INR 1.8 (<1.2); Prothrombin Time 17.4 sec (9.0-12.0)
[2019-05-21 07:45] LABS: Albumin 3.5 g/dL (3.5-5.0); Bilirubin, Conjugated 0.4 mg/dL (0.0-0.3); Bilirubin, Delta 1.3 mg/dL (0.0-0.2); Calcium 8.2 mg/dL (8.4-10.2); Potassium 4.8 mmol/L (3.5-5.1); Total Bilirubin 2.7 mg/dL (0.2-1.3); Total Protein 5.7 g/dL (6.3-8.2)
[2019-05-21] MEDS: LACTULOSE 20 GM/30 ML CUP PO SCH ×3 (08:39→20:18)
[2019-05-21] MEDS: SODIUM BICARBONATE TAB 650 MG TAB PO SCH ×4 (08:39→20:18)
[2019-05-21] MEDS: THIAMINE 100 MG TAB PO SCH (08:39)
[2019-05-21] MEDS: EZETIMIBE 10 MG TAB PO SCH (08:39)
[2019-05-21] MEDS: ATORVASTATIN 20 MG TAB PO SCH (08:39)
[2019-05-21] MEDS: OCTREOTIDE 100 MCG/ML INJ SQ SCH ×3 (08:40→22:57)
--- NOTE | 2019-05-21 10:45 | ECHOF ---
Referral Reason:Hypotension MEASUREMENTS -------- HEIGHT: 177.8 cm WEIGHT: 74.8 kg BP: 93/62 IVSd: 1.6 cm (0.6 - 1.1) LVIDd: 4.2 cm (3.9 - 5.3) LVPWd: 1.5 cm (0.6 - 1.1) Ao Diam: 3.7 cm (2.0 - 3.7) AV Cusp: 1.5 cm (1.5 - 2.6) LA Diam: 4.0 cm (2.7 - 3.8) MV E Shadi: 0.60 m/s MV DecT: 147 ms MV A Shadi: 1.04 m/s MV E/A Ratio: 0.58 FINDINGS -------- Sinus rhythm. very TDS, limited study . This was a technically difficult study with suboptimal views. The left ventricular size is normal. There is moderate concentric left ventricular hypertrophy. O verall left ventricular systolic function is normal with, an EF between 55 - 60 %. The RV was not well visualized. The left atrium was not well visualized. The right atrium was not well visualized. Lumason used The aortic valve was not well visualized. The mitral valve was not well visualized. No mitral regurgitation. The tricuspid valve was not well visualized. The pulmonic valve was not well visualized. The aortic root size is normal. IVC not well visualized free echogenic space noted in apical views. CONCLUSIONS -------- 1. Sinus rhythm. 2. This was a technically difficult study with suboptimal views. 3. The left ventricular size is normal. 4. There is moderate concentric left ventricular hypertrophy. 5. Overall left ventricular systolic function is normal with, an EF between 55 - 60 %. 6. The RV was not well visualized. 7. The left atrium was not well visualized. 8. The right atrium was not well visualized. 9. Lumason used 10. The aortic valve was not well visualized. 11. The mitral valve was not well visualized. 12. No mitral regurgitation. 13. The tricuspid valve was not well visualized. 14. The pulmonic valve was not well visualized. 15. The aortic root size is normal. 16. IVC not well visualized 17. free echogenic space noted in apical views. INCIDENT MANAGER: Alisa Malhotra [facility]
[2019-05-21 12:25] LABS: Glucose,Whole Blood 125 mg/dL (75-99)
[2019-05-21] MEDS: ONDANSETRON 4 MG/2 ML VIAL IVP PRN (14:23)
--- NOTE | 2019-05-21 16:00 | PN ---
PROGRESS NOTE Patient is seen for followup for acute kidney injury, most likely hepatorenal syndrome. Serum creatinine is slightly improved from 5.4 to 4.4 today. Family is present at bedside. There is consideration for hospice. PHYSICAL EXAMINATION: This morning, blood pressure 96/61, heart rate 81 per minute, patient is afebrile. Examination of the heart S1, S2. Examination of the lungs, bilateral breath sounds are heard. Abdomen is soft, distended with ascites, nontender. Examination lower extremities shows no significant edema. [employer] exam grossly intact. LABS: Show sodium 139, potassium 4.8, chloride 109, BUN 51, serum creatinine 4.48, hemoglobin 11.1 g/dL. ASSESSMENT: 1. Acute kidney injury, hepatorenal and secondary to compartment syndrome from severe ascites. Not an ideal candidate for dialysis. Currently maintained on albumin, midodrine, and Sandostatin with some improvement in renal function today. However, hospice has been discussed and patient is awaiting meeting with hospice at this time. 2. Chronic kidney disease with progressive elevation in creatinine as outpatient associated with hypotension, multiple paracentesis. 3. Hyponatremia secondary to renal failure. 4. Mild hyperkalemia. 5. Type 2 diabetes. 6. Chronic hypotension. PLAN: Continue current treatment. Agree with the options of hospice given the underlying comorbidities and patient not being an ideal candidate for dialysis given the hypotension. MMODL / IJN: [id number] /
[2019-05-21 17:26] LABS: Glucose,Whole Blood 255 mg/dL (75-99)
[2019-05-21 20:32] LABS: Glucose,Whole Blood 107 mg/dL (75-99)
--- NOTE | 2019-05-21 21:41 | P.PN ---
Subjective Progress Note Date: 05/21/19 Principal diagnosis: Decompensated alcoholic cirrhosis with ascites, hypotension Patient is seen lying in bed. Status post repeat paracentesis yesterday. The patient still reporting abdominal distention. The patient's brother and decision maker is bedside and reports that mentation is still waxing and waning. Objective - Vital Signs Vital signs: Vital Signs Temp 98.8 F 05/21/19 20:00 Pulse 110 H 05/21/19 20:00 Resp 6 L 05/21/19 20:00 BP 93/65 05/21/19 20:00 Pulse Ox 96 05/21/19 20:00 Intake & Output 05/21/19 05/21/19 05/22/19 06:59 18:59 06:59 Intake Total 598 Output Total 250 Balance -250 598 Intake: Oral 598 Output: Urine 250 Uretheral (Jacobs) 250 Other: Voiding Method Indwelling Catheter Indwelling Catheter Indwelling Catheter # Voids 2 - Exam On physical examination, patient appears comfortable in no apparent distress. HEAD: Normocephalic, atraumatic. EYES: Scleral icterus. No conjunctival injection. MOUTH: No lesions, tongue midline. NECK: Trachea midline, no gross abnormalities. ABDOMEN: Soft, decreased distention compared to prior exam. Bowel sounds are positive. No organomegaly. No guarding or rigidity. EXTREMITIES: Bilateral pedal edema. SKIN: No rashes, jaundice. NEUROLOGIC: Alert and oriented x2, minimal asterixis noted. No focal deficits. - Labs CBC & Chem 7: 05/21/19 06:31 05/21/19 06:31 Labs: Abnormal Lab Results - Last 24 Hours (Table) 05/21/19 05/21/19 05/21/19 Range/Units 06:21 06:31 06:31 RBC (4.30-5.90) m/uL Hgb (13.0-17.5) gm/dL Hct (39.0-53.0) % Plt Count (150-450) k/uL PT 17.4 H (9.0-12.0) sec INR 1.8 H (<1.2) Chloride 109 H (98-107) mmol/L Carbon Dioxide 17 L (22-30) mmol/L BUN 51 H (9-20) mg/dL Creatinine 4.48 H (0.66-1.25) mg/dL Glucose 125 H (74-99) mg/dL POC Glucose (mg/dL) 119 H (75-99) mg/dL Calcium 8.2 L (8.4-10.2) mg/dL Total Bilirubin 2.7 H (0.2-1.3) mg/dL Conjugated Bilirubin 0.4 H (0.0-0.3) mg/dL Delta Bilirubin 1.3 H (0.0-0.2) mg/dL Total Protein 5.7 L (6.3-8.2) g/dL 05/21/19 05/21/19 05/21/19 Range/Units 06:31 12:23 17:25 RBC 3.62 L (4.30-5.90) m/uL Hgb 11.1 L (13.0-17.5) gm/dL Hct 34.0 L (39.0-53.0) % Plt Count 103 L (150-450) k/uL PT (9.0-12.0) sec INR (<1.2) Chloride (98-107) mmol/L Carbon Dioxide (22-30) mmol/L BUN (9-20) mg/dL Creatinine (0.66-1.25) mg/dL Glucose (74-99) mg/dL POC Glucose (mg/dL) 125 H 255 H (75-99) mg/dL Calcium (8.4-10.2) mg/dL Total Bilirubin (0.2-1.3) mg/dL Conjugated Bilirubin (0.0-0.3) mg/dL Delta Bilirubin (0.0-0.2) mg/dL Total Protein (6.3-8.2) g/dL 05/21/19 Range/Units 20:30 RBC (4.30-5.90) m/uL Hgb (13.0-17.5) gm/dL Hct (39.0-53.0) % Plt Count (150-450) k/uL PT (9.0-12.0) sec INR (<1.2) Chloride (98-107) mmol/L Carbon Dioxide (22-30) mmol/L BUN (9-20) mg/dL Creatinine (0.66-1.25) mg/dL Glucose (74-99) mg/dL POC Glucose (mg/dL) 107 H (75-99) mg/dL Calcium (8.4-10.2) mg/dL Total Bilirubin (0.2-1.3) mg/dL Conjugated Bilirubin (0.0-0.3) mg/dL Delta Bilirubin (0.0-0.2) mg/dL Total Protein (6.3-8.2) g/dL Assessment and Plan (1) Decompensated hepatic cirrhosis Narrative/Plan: 63-year-old male with a known medical history significant for decompensated alcoholic cirrhosis with refractory ascites requiring large volume paracentesis. Patient has had multiple recent hospitalizations secondary to hypotension and acute kidney injury. He is currently being followed up at regular intervals for paracentesis where he was found to be hypotensive and told to present to the emergency department for further evaluation. The patient's creatinine on recent hospitalization was at 3.8 and found to be over 5 currently. Previously the patient has also had variceal bleeding but currently hemoglobin is normal with no signs or symptoms of GI bleeding. Patient is currently seeing medical for what is receiving albumin, Midodrine and octreotide , with paracentesis yesterday with 4 L removed and 6 L removed yesterday. Current Visit: No Status: Acute Code(s): K72.90 - HEPATIC FAILURE, UNSPECIFIED WITHOUT COMA SNOMED Code(s): 578969144 (2) Acute kidney injury Current Visit: Yes Status: Acute Code(s): N17.9 - ACUTE KIDNEY FAILURE, UNSPECIFIED SNOMED Code(s): 71590000 (3) History of ETOH abuse Current Visit: Yes Status: Acute Code(s): Z87.898 - PERSONAL HISTORY OF OTHER SPECIFIED CONDITIONS SNOMED Code(s): 220852954 (4) Ascites due to alcoholic cirrhosis Current Visit: No Status: Acute Code(s): K70.31 - ALCOHOLIC CIRRHOSIS OF LIVER WITH ASCITES SNOMED Code(s): 1404229974044509 (5) Esophageal varices Current Visit: No Status: Acute Code(s): I85.00 - ESOPHAGEAL VARICES WITHOUT BLEEDING SNOMED Code(s): 62117203 (6) Portal hypertension Current Visit: No Status: Acute Code(s): K76.6 - PORTAL HYPERTENSION SNOMED Code(s): 27896957 Plan: Supportive care Okay for a low-sodium diet Continue Midodrine, albumin and octreotide Appreciate recommendations from nephrology, will defer management of hydration/diuresis per the recommendations The patient and family had a hospice bleeding today and plan is for hospice tomorrow Peritoneal drain it is not indicated in decompensated cirrhosis with ascites due to risk of infection, however is the patient plans to go hospice and there is the understanding of increased risk of infection a peritoneal drain can be considered for palliation Continue alcohol abstinence Continue to monitor labs and clinically Given presentation and elevated ammonia will initiate lactulose titrated for 2-3 bowel movements daily Thank you for allowing us to participate in the care of the patient we will co riley to follow
--- NOTE | 2019-05-21 23:22 | P.PN ---
Progress Note - Text Progress Note Date: 05/21/19 Interval history: This is a 63-year-old patient who has a history of alcohol-related multiple dis orders. Including upper GI bleed with esophageal varices, alcoholic cirrhosis causing secondary portal hypertension and portal hypertensive gastropathy, hiatal hernia, gastric antral ulcerations, thrombocytopenia, diabetes mellitus type 2, hypertension, sigmoid diverticulosis, thrombocytopenia from liver disease. Has recurrent hepatorenal syndrome.. Patient was admitted following blood pressure being very low and outpatient paracentesis could not be done. Patient again found and hepatorenal syndrome. Patient and family are looking into hospice. Today-patient has decided to proceed with hospice. Brothers present at the bedside. Having some vomiting. Barely eating Review of systems: Was done for constitutional, cardiovascular, GI, pulmonary. relevant finding as above Active Medications Acetaminophen (Tylenol Tab) 650 mg PO Q6HR PRN PRN Reason: Mild Pain or Fever > 100.5 Atorvastatin Calcium (Lipitor) 20 mg PO DAILY [facility] Last Admin: 05/21/19 08:39 Dose: 20 mg Documented by: Ezetimibe (Zetia) 10 mg PO DAILY [facility] Last Admin: 05/21/19 08:39 Dose: 10 mg Documented by: Sodium Chloride (Saline 0.9%) 1,000 mls @ 100 mls/hr IV .Q10H [facility] Last Admin: 05/21/19 20:17 Dose: 100 mls/hr Documented by: Insulin Aspart (Novolog) 0 unit SQ ACHS [facility]; Protocol Last Admin: 05/21/19 20:31 Dose: Not Given Documented by: Lactulose (Cephulac) 20 gm PO TID [facility] Last Admin: 05/21/19 20:18 Dose: 20 gm Documented by: Midodrine (Proamatine) 10 mg PO AC-TID [facility] Last Admin: 05/21/19 16:27 Dose: 10 mg Documented by: Naloxone HCl (Narcan) 0.2 mg IV Q2M PRN PRN Reason: Opioid Reversal Octreotide Acetate (Sandostatin) 100 mcg SQ Q8HR [facility] Last Admin: 05/21/19 22:57 Dose: 100 mcg Documented by: Ondansetron HCl (Zofran) 4 mg IVP Q6HR PRN PRN Reason: Nausea And Vomiting Last Admin: 05/21/19 14:23 Dose: 4 mg Documented by: Pantoprazole Sodium (Protonix) 40 mg PO AC-BRKFST [facility] Last Admin: 05/21/19 06:30 Dose: 40 mg Documented by: Sodium Bicarbonate (Sodium Bicarbonate Tab) 650 mg PO QID [facility] Last Admin: 05/21/19 20:18 Dose: 650 mg Documented by: Thiamine HCl (Vitamin B-1) 100 mg PO DAILY [facility] Last Admin: 05/21/19 08:39 Dose: 100 mg Documented by: Tramadol HCl (Ultram) 50 mg PO Q6H PRN PRN Reason: Moderate Pain Last Admin: 05/19/19 21:03 Dose: 50 mg Documented by: Physical examination: VITAL SIGNS: 98.6, 81, 16, 82/54, 96% room air GENERAL: BMI 23.7, laying in bed, very tired appearing EYES: Pupils equal. Conjunctiva pale. HEENT: External appearance of nose and ears normal, oral cavity grossly normal. NECK: JVD not raised; masses not palpable. HEART: First and second heart sounds are normal; no edema. LUNGS: Respiratory rate increased; decreased breath sounds. ABDOMEN: Soft, nontender, distended, liver spleen not palpable, no masses palpable. PSYCH: Alert and oriented x3; anxious INVESTIGATIONS, reviewed in the clinical context: White count 4.7 hemoglobin 11.1 pro time 17.4 bun 51 creatinine 4.48 total bilirubin 2.7 Assessment: -Acute renal failure from hepatorenal syndrome, possibly ATN, slow to respond -Esophageal varices -Alcoholic cirrhosis -Secondary portal hypertension with portal hypertensive gastropathy -Hiatal hernia -Gastric antral ulcers -COPD in a smoker -Thrombocytopenia from alcoholic liver disease -Diabetes mellitus type 2 -Essential hypertension -Sigmoid diverticulosis -Ascites worsening -Code DO NOT RESUSCITATE Plan: manager proposal called me this morning that patient has decided to proceed with hospice. Hospice was consulted. Patient is feeling rather weak tired rundown. Looking at an age was being made to be discharged tomorrow with hospice. Spoke to the brother breathing briefly. He be staying with the patient at home. Arrangements are being made for the same. Also discussed with Dr. Garcia earlier today. Prognosis poor. Total time spent today over 40 minutes with over 25 minutes in discussion
[2019-05-22 01:58] LABS: Glucose,Whole Blood 132 mg/dL (75-99)
[2019-05-22 06:27] LABS: Glucose,Whole Blood 172 mg/dL (75-99)
[2019-05-22] MEDS: INSULIN ASPART (NovoLOG) 100 UNIT/ML VIAL SQ SCH ×3 (06:27→19:39)
[2019-05-22] MEDS: MIDODRINE 5 MG TAB PO SCH (06:27)
[2019-05-22] MEDS: PANTOPRAZOLE 40 MG TABLET PO SCH (06:27)
[2019-05-22 06:30] LABS: Basophils % (A) 1 %; Eosinophils # (A) 0.1 k/uL (0-0.7); Eosinophils % (A) 1 %; HCT 37.4 % (39.0-53.0); HGB 12.4 gm/dL (13.0-17.5); Lymphocytes # (A) 0.9 k/uL (1.0-4.8); Lymphocytes % (A) 12 %; MCH 30.6 pg (25.0-35.0); MCV 92.7 fL (80.0-100.0); Mean Platelet Volume 7.3; Monocytes # (A) 0.4 k/uL (0-1.0); Monocytes % (A) 5 %; Neutrophils # (A) 5.8 k/uL (1.3-7.7); Neutrophils % (A) 79 %; Platelet Count 154 k/uL (150-450); RBC 4.04 m/uL (4.30-5.90); RDW 13.9 % (11.5-15.5); WBC 7.3 k/uL (3.8-10.6)
[2019-05-22 06:50] LABS: Albumin 3.3 g/dL (3.5-5.0); Bilirubin, Conjugated 0.2 mg/dL (0.0-0.3); Bilirubin, Delta 1.4 mg/dL (0.0-0.2); Bilirubin,Unconjugated 1.1 mg/dL (0.0-1.1); Calcium 8.3 mg/dL (8.4-10.2); INR 1.6 (<1.2); Potassium 4.3 mmol/L (3.5-5.1); Prothrombin Time 16.3 sec (9.0-12.0); Total Bilirubin 2.7 mg/dL (0.2-1.3); Total Protein 5.6 g/dL (6.3-8.2)
[2019-05-22 08:54] VITALS: TEMP 97.3
[2019-05-22] MEDS ORDERED: DEXTROSE 5% IN WATER 1,000 ML with SODIUM BICARB (1 MEQ/ML) 150 ML IV SCH (09:30)
[2019-05-22] MEDS: SODIUM CHLORIDE 0.9% 1,000 ML IV SCH (10:43)
[2019-05-22] MEDS: SODIUM BICARBONATE TAB 650 MG TAB PO SCH (10:44)
[2019-05-22] MEDS: ATORVASTATIN 20 MG TAB PO SCH (10:44)
[2019-05-22] MEDS: EZETIMIBE 10 MG TAB PO SCH (10:44)
[2019-05-22] MEDS: THIAMINE 100 MG TAB PO SCH (10:44)
[2019-05-22] MEDS: LACTULOSE 20 GM/30 ML CUP PO SCH (10:44)
[2019-05-22] MEDS ORDERED: MORPHINE SULFATE 2 MG/ML SYRINGE IVP PRN (11:59)
[2019-05-22] MEDS ORDERED: SCOPOLAMINE 1.5MG/72HR PATCH TRANSDERM SCH (12:30)
[2019-05-22 12:31] VITALS: BP 106/68
[2019-05-22] MEDS: MORPHINE SULFATE 2 MG/ML SYRINGE IVP PRN ×2 (16:37→19:44)
[2019-05-22] MEDS: OCTREOTIDE 100 MCG/ML INJ SQ SCH (20:18)
--- NOTE | 2019-05-22 20:23 | PN ---
PROGRESS NOTE Patient is seen for followup for acute kidney injury, mainly hepatorenal syndrome. Renal function has actually improved over the last couple of days. Patient has had good urine output. He has an indwelling Jacobs catheter. Patient is maintained on midodrine and Sandostatin. He was also placed on sodium bicarb drip. Patient's family has discussed with Hospice and they plan to take him home with home hospice, given his underlying comorbidities and poor prognosis. This morning patient was sleeping. He was arousable but went back to sleep. Blood pressure was 115/61, heart rate about 120 per minute. Patient is afebrile. EXAMINATION OF THE HEART: S1 and S2. EXAMINATION OF LUNGS: Bilateral breath sounds are heard. Decreased breath sounds at bases. ABDOMEN: Significantly distended with ascites. Examination of lower extremities shows edema trace bilaterally. Labs show sodium 140, potassium 4.3, chloride 109. CO2 is 14, creatinine 3.97, hemoglobin 12.4 g/dL. ASSESSMENT: 1. Acute kidney injury, hepatorenal syndrome, slightly improved. However, overall prognosis remains guarded and poor. Agree with proceeding with hospice. 2. Metabolic acidosis, started on sodium bicarb yesterday IV. 3. Chronic liver disease, liver cirrhosis, recurrent ascites. 4. Chronic hypotension. PLAN: Agree with options of home hospice. MMODL / IJN: [id number] /
--- NOTE | 2019-05-22 22:44 | P.PN ---
Progress Note - Text Progress Note Date: 05/22/19 Presenting complaint: Decreased responsiveness Interval history: This is a 63-year-old patient who has a history of alcohol-related multiple disorders. Including upper GI bleed with esophageal varices, alcoholic cirrhosis causing secondary portal hypertension and portal hypertensive gastropathy, hiatal hernia, gastric antral ulcerations, thrombocytopenia, diabetes mellitus type 2, hypertension, sigmoid diverticulosis, thrombocytopenia from liver disease. Has recurrent hepatorenal syndrome.. Patient was admitted following blood pressure being very low and outpatient paracentesis could not be done. Patient again found and hepatorenal syndrome. Today-patient was noted to be less responsive today. Family the bedside. Some lower extremity spasms. Review of systems: Cannot be done as patient lethargic Current medications are reviewed from today's electronic records: Physical examination: VITAL SIGNS: 97.3, 125, 20, 11 5/61, 97% room air GENERAL: BMI 23.7, laying in bed, very lethargic EYES: Pupils equal. Conjunctiva pale. HEENT: External appearance of nose and ears normal, oral cavity grossly normal. NECK: JVD not raised; masses not palpable. HEART: First and second heart sounds are normal; no edema. LUNGS: Respiratory rate increased; decreased breath sounds. ABDOMEN: Soft, nontender, distended, liver spleen not palpable, no masses palpable. PSYCH: Very lethargic INVESTIGATIONS, reviewed in the clinical context: White count 7.3 hemoglobin 12.4 potassium 4.3 bun 42 creatinine 3.97 Assessment: -Acute renal failure from hepatorenal syndrome, possibly ATN, slow to respond -Esophageal varices -Alcoholic cirrhosis -Secondary portal hypertension with portal hypertensive gastropathy -Hiatal hernia -Gastric antral ulcers -COPD in a smoker -Thrombocytopenia from alcoholic liver disease -Diabetes mellitus type 2 -Essential hypertension -Sigmoid diverticulosis -Ascites worsening -Code DO NOT RESUSCITATE Plan: Spoke to the patient's family the bedside. That is patient's daughter. Patient has taken a turn for the worse. Plan was stopped. The patient go home with hospice. Spoke to the [place] from [facility] hospice. Patient will be held off. The brother comes in. In the meantime supportive care is to continue. Oral medications are being discontinued. Spoke to the nurse. The brother this coming July. At this point patient will be kept here. Comfort medications be used. Prognosis poor. Total time spent today was about 45 minutes with over 25 minutes in discussion
[2019-05-22] MEDS: MORPHINE SULFATE 4 MG/ML SYRINGE IVP PRN (22:48)
[2019-05-23] MEDS: MORPHINE SULFATE 2 MG/ML SYRINGE IVP PRN ×2 (01:40→12:08)
[2019-05-23] MEDS: MORPHINE SULFATE 4 MG/ML SYRINGE IVP PRN ×5 (04:46→23:14)
[2019-05-23] MEDS: ONDANSETRON 4 MG/2 ML VIAL IVP PRN (12:08)
[2019-05-23] MEDS ORDERED: GLYCOPYRROLATE 1 MG TAB PO PRN (16:08)
[2019-05-23] MEDS: GLYCOPYRROLATE 0.2 MG/ML 2 ML VIAL IVP PRN ×2 (17:28→22:27)
[2019-05-23 20:41] LABS: Glucose,Whole Blood 123 mg/dL (75-99)
--- NOTE | 2019-05-23 21:27 | P.PN ---
Progress Note - Text Progress Note Date: 05/23/19 Interval history: This is a 63-year-old patient who has a history of alcohol-related multiple di sorders. Including upper GI bleed with esophageal varices, alcoholic cirrhosis causing secondary portal hypertension and portal hypertensive gastropathy, hiatal hernia, gastric antral ulcerations, thrombocytopenia, diabetes mellitus type 2, hypertension, sigmoid diverticulosis, thrombocytopenia from liver disease. Has recurrent hepatorenal syndrome.. Patient was admitted following blood pressure being very low and outpatient paracentesis could not be done. Patient again found and hepatorenal syndrome. patient yesterday on May 22 was made comfort care Today-remains on comfort care. Daughter brother the bedside. Requiring morphine. Also the scopolamine patch. Some raspiness of the chest. Did have hematemesis earlier today.about 100 mL.patient remains minimally responsive leth argic Review of systems: Cannot be done as patient lethargic Active Medications Acetaminophen (Tylenol Tab) 650 mg PO Q6HR PRN PRN Reason: Mild Pain or Fever > 100.5 Glycopyrrolate (Robinul) 0.2 mg IVP Q6H PRN PRN Reason: EXCESS SECRETIONS Last Admin: 05/23/19 17:28 Dose: 0.2 mg Documented by: Glycopyrrolate (Robinul) 1 mg PO Q6H PRN PRN Reason: EXCESS SECRETIONS Morphine Sulfate (Morphine Sulfate (Inj)) 1 mg IVP Q4H PRN PRN Reason: MODERATE Pain/Discomfort Last Admin: 05/22/19 12:10 Dose: 1 mg Documented by: Morphine Sulfate (Morphine Sulfate (Inj)) 2 mg IVP Q3HR PRN PRN Reason: Mild to Moderate Pain Last Admin: 05/23/19 12:08 Dose: 2 mg Documented by: Morphine Sulfate (Morphine Sulfate (Inj)) 4 mg IVP Q3HR PRN PRN Reason: Severe pain/discomfort Last Admin: 05/23/19 19:56 Dose: 4 mg Documented by: Ondansetron HCl (Zofran) 4 mg IVP Q6HR PRN PRN Reason: Nausea And Vomiting Last Admin: 05/23/19 12:08 Dose: 4 mg Documented by: Scopolamine (Transderm-Scop 1.5mg/72hr Patch) 1 patch TRANSDERM Q72H MARIELA Last Admin: 09/24/19 22:52 Dose: 1 patch Documented by: Physical examination: VITAL SIGNS: 19, 29, 95% on oxygen GENERAL: laying in bed, very lethargic EYES: Pupils equal. Conjunctiva pale. HEART: First and second heart sounds are normal; no edema. LUNGS: Respiratory rate increased; decreased breath sounds.audible crackles ABDOMEN: Soft, nontender, distended, l. PSYCH: Very lethargic INVESTIGATIONS, reviewed in the clinical context: no labs Assessment: COMFORT care -Acute renal failure from hepatorenal syndrome, possibly ATN, slow to respond -Esophageal varices -Alcoholic cirrhosis -Secondary portal hypertension with portal hypertensive gastropathy -Hiatal hernia -Gastric antral ulcers -COPD in a smoker -Thrombocytopenia from alcoholic liver disease -Diabetes mellitus type 2 -Essential hypertension -Sigmoid diverticulosis -Ascites worsening -Code DO NOT RESUSCITATE Plan: had a lengthy discussion initially with the hospice nurse. In the social welfare clerk. Also does spoke to patient's brother and the daughter. For patient's secretions will add Robinul. We'll see how the patient does still tomorrow morning. Depending on his clinical situation would like to make the patient GI. He or transfer the patient to hospice at [facility]. Several questions were answered. Total time spent today was about 40 minutes with over 25 minutes of discussion
[2019-05-23 23:19] VITALS: RESP 32
[2019-05-24] MEDS: MORPHINE SULFATE 4 MG/ML SYRINGE IVP PRN ×2 (02:06→05:06)
[2019-05-24 05:01] VITALS: PULSE 150
--- NOTE | 2019-05-24 21:22 | P.DS ---
Providers Date of admission: 05/18/19 16:24 Expected date of discharge: 05/24/19 (Patient ) Attending physician: Maikol Adam Consults: 05/18/19 16:24 Consult Physician Routine Consulting Provider: Natanael Rojas Consult Reason/Comments: known Do you want consulting provider notified?: Yes Primary care physician: John Vaughn [facility] Course: Hospital course: This is a 63-year-old patient who has a history of alcohol-related multiple disorders. Including upper GI bleed with esophageal varices, alcoholic cirrhosis causing secondary portal hypertension and portal hypertensive gastropathy, hiatal hernia, gastric antral ulcerations, thrombocytopenia, diabetes mellitus type 2, hypertension, sigmoid diverticulosis, thrombocytopenia from liver disease. Has recurrent hepatorenal syndrome.. Patient was admitted following blood pressure being very low and outpatient paracentesis could not be done. Patient again found and hepatorenal syndrome. patient yesterday on May 22 was made comfort care As patient continued to fail. Decision was made to take the patient comfort care. Patient's brother other family member involved in the final decision bartolo ing. Patient succumbed underlying condition. Discharge diagnosis: -Acute renal failure from hepatorenal syndrome, possibly ATN, slow to respond -Esophageal varices -Alcoholic cirrhosis -Secondary portal hypertension with portal hypertensive gastropathy -Hiatal hernia -Gastric antral ulcers -COPD in a smoker -Thrombocytopenia from alcoholic liver disease -Diabetes mellitus type 2 -Essential hypertension -Sigmoid diverticulosis -Ascites worsening -Code DO NOT RESUSCITATE COMFORT care Disposition: Patient Plan - Discharge Summary Discharge Rx Participant: No New Discharge Prescriptions: No Action Ezetimibe/Simvastatin [Vytorin 10-40 mg Tablet] 1 tab PO DAILY Magnesium Gluconate [Magonate] 500 mg PO DAILY Cyanocobalamin (Vitamin B-12) [Vitamin B-12] 1,000 mcg PO DAILY Ipratropium Antler [Atrovent Hfa] 2 puff INHALATION RT-QID Albuterol Inhaler [Ventolin Hfa Inhaler] 1 - 2 puff INHALATION RT-Q6H PRN PRN Reason: Wheezing Thiamine [Vitamin B-1] 100 mg PO DAILY Omeprazole 20 mg PO DAILY Buprenorphine [Butrans 20 MCG/HOUR] 1 patch TRANSDERM WE Metoprolol Tartrate [Lopressor] 12.5 mg PO BID Furosemide [Lasix] 20 mg PO DAILY #30 tab Midodrine HCl [ProAmatine] 10 mg PO TID Spironolactone [Aldactone] 12.5 mg PO DAILY Discharge Medication List Ezetimibe/Simvastatin [Vytorin 10-40 mg Tablet] 1 tab PO DAILY 12/20/15 [History] Albuterol Inhaler [Ventolin Hfa Inhaler] 1 - 2 puff INHALATION RT-Q6H PRN 03/18/19 [History] Cyanocobalamin (Vitamin B-12) [Vitamin B-12] 1,000 mcg PO DAILY 03/18/19 [History] Ipratropium Antler [Atrovent Hfa] 2 puff INHALATION RT-QID 03/18/19 [History] Magnesium Gluconate [Magonate] 500 mg PO DAILY 03/18/19 [History] Omeprazole 20 mg PO DAILY 03/26/19 [History] Thiamine [Vitamin B-1] 100 mg PO DAILY 03/26/19 [History] Buprenorphine [Butrans 20 MCG/HOUR] 1 patch TRANSDERM WE 03/29/19 [History] Metoprolol Tartrate [Lopressor] 12.5 mg PO BID 03/29/19 [History] Furosemide [Lasix] 20 mg PO DAILY #30 tab 03/30/19 [Rx] Midodrine HCl [ProAmatine] 10 mg PO TID 04/27/19 [History] Spironolactone [Aldactone] 12.5 mg PO DAILY 04/27/19 [History] Follow up Appointment(s)/Referral(s): John Vaughn MD [Primary Care Provider] - 1-2 days Discharge Disposition: - Preliminary Cause of Preliminary Cause of : Alcoholic cirrhosis
--- NOTE | 2019-05-25 12:59 | CDI ---
Documentation Clarification Form Date: 05/25/19 From: Radha Delong Phone: If questions call Debi Marshall @ [phone], Hours-8:30 am & 5 pm M- Shaina Admit Date: 05/18/2019 4:24:00 PM Patient Name: Renzo Day Visit Number: [id number] Discharge Date: 05/24/2019 5:43:00 AM ATTENTION: The Clinical Documentation Specialists (CDI) and [facility] Coding Staff appreciate your assistance in clarifying documentation. Please respond to the clarification below the line at the bottom and electronically sign. The CDI & [facility] Coding staff will review the response and follow-up if needed. Please note: Queries are made part of the Legal Health Record. If you have any questions, please contact the author of this message via ITS. Dr. Shilpa Jim Patient was admitted with acute kidney injury sustained to compartment syndrome on chronic kidney disease per your consult. History/Risk Factors: alcoholic cirrhosis w ascites, esophageal varices, portal hypertensive gastropathy Clinical Indicators: ascites, Cr slowly going up, 1.17 then 1.68, now 5.68 Current BUN/CR/GFR: 65/5.68/10 Treatment: IVF In order to capture the severity of condition, please clarify if the condition signifies: CKD Stage 1 (GFR > 90) CKD Stage 2 (GFR 60-89) CKD Stage 3 (GFR 30-59) CKD Stage 4 (GFR 15-29) CKD Stage 5 (GFR <15) ESRD Other, please specify Unable to determine MTDD
--- NOTE | 2019-07-10 12:50 | CDI ---
Date: 07/10/2019 From: ZEV Kelly,CCDS,RN Email: [email or web address] Admit Date: 05/18/2019 4:24:00 PM Patient Name: Renzo Day Visit Number: [id number] Discharge Date: 05/24/2019 5:43:00 AM ATTENTION: The Clinical Documentation Specialists (CDI) and [facility] Coding Staff appreciate your assistance in clarifying documentation. Please respond to the clarification below the line at the bottom and electronically sign. The CDI & [facility] Coding staff will review the response and follow-up if needed. Please note: Queries are made part of the Legal Health Record. If you have any questions, please contact the author of this message via ITS. Dr. Bailey Hematemesis is documented on 05/23/2019 PN. Patient history/risk factors: Hepatorenal syndrome, possible ATN, Esophageal varicies, alcoholic cirrhosis and with secondary portal hypertension and portal Gastropathy, gastric ulcers with hx of bleeding, Hiatial hernia, Sigmoid diverticulosis and Barrets esophagus, Anemia and worsening Ascites with concern for compartment syndrome, thrombocytopenia from liver disease, Past Hx of alcoholism, admitted with hypotension and JOSE, Clinical Indicators: Admitted with decompensated hepatic cirrhosis and Hepatorenal syndrome. PN 05/23 Pt made comfort care, noted to have pale conjunctiva, "had hematemesis earlier today approx 100 ml" pt remains minimally responsive and lethargic EGD/colonoscopy not performed Labs: HGB on presentation of 11.4 to 12.4 on 05/22/2019 Total bilirubin to 3.0 alkaline phosphatase to 158, AST 58, ALTs to 29 .INR 1.8 Vital Signs: No BP noted after 05/22/2019 HR to 171 on 05/23 with HR 150 on 05/24/2019 Treatment Medication: Comfort meds, Protonix, Octerotide and Change to comfort care Consults: 05/19/2019 GI with note no signs of active bleeding In your professional opinion, can you please clarify the underlying cause of hematemesis if known? Esophageal Varicies Gastric ulcers Esophageal Varicies and Ulcers Hematemesis 2nd to Other, please specify Unable to determine (Last Revision: May 2017) Unable to determine source of hematemesis, esophageal varices unlikely MTDD
== END 2019-05-24 05:43 | disposition expired | DRG 441 ==
LOC: EC 14:43 → 3SCARD 16:24
PROVIDERS: ADMIT Hospitalist; ATTEND Hospitalist
PROC: 05HB33Z Insertion of Infusion Device into Right Basilic Vein, Percutaneous Approach (ICD-10-PCS; 2019-05-18)
PROC: 0W9G3ZZ Drainage of Peritoneal Cavity, Percutaneous Approach (ICD-10-PCS; principal; 2019-05-19)
PROC: 0W9G3ZZ Drainage of Peritoneal Cavity, Percutaneous Approach (ICD-10-PCS; 2019-05-20)
DX: K76.7 Hepatorenal syndrome (principal); N17.0 Acute kidney failure with tubular necrosis; M79.A9 Nontraumatic compartment syndrome of other sites; E87.2 Acidosis; I85.10 Secondary esophageal varices without bleeding; E87.1 Hypo-osmolality and hyponatremia; K76.6 Portal hypertension; K92.0 Hematemesis; K70.31 Alcoholic cirrhosis of liver with ascites; Z66 Do not resuscitate; Z51.5 Encounter for palliative care; K72.90 Hepatic failure, unspecified without coma; I95.89 Other hypotension; D69.59 Other secondary thrombocytopenia; E11.22 Type 2 diabetes mellitus with diabetic chronic kidney disease; E83.41 Hypermagnesemia; E83.39 Other disorders of phosphorus metabolism; N18.3 Chronic kidney disease, stage 3 (moderate); E87.5 Hyperkalemia; I12.9 Hypertensive chronic kidney disease with stage 1 through stage 4 chronic kidney disease, or unspecified chronic kidney disease; D64.9 Anemia, unspecified; F10.20 Alcohol dependence, uncomplicated; K31.89 Other diseases of stomach and duodenum; E78.5 Hyperlipidemia, unspecified; K44.9 Diaphragmatic hernia without obstruction or gangrene; E86.0 Dehydration; K22.70 Barrett's esophagus without dysplasia; K25.9 Gastric ulcer, unspecified as acute or chronic, without hemorrhage or perforation; J44.9 Chronic obstructive pulmonary disease, unspecified; K57.30 Diverticulosis of large intestine without perforation or abscess without bleeding; Z79.891 Long term (current) use of opiate analgesic; Z79.899 Other long term (current) drug therapy; Z98.890 Other specified postprocedural states; Z87.891 Personal history of nicotine dependence; Z83.3 Family history of diabetes mellitus; Z82.49 Family history of ischemic heart disease and other diseases of the circulatory system; Z83.49 Family history of other endocrine, nutritional and metabolic diseases
CPT/HCPCS: 36415; 49083; 76705; 76937; 80053; 80076; 82140; 82565; 82947; 83735; 84100; 84520; 85025; 85049; 85610; 93005; 93308; 94760; 96361; 96374; 99285